=== PATIENT | female | born 1940 | race Two or more races ===

== ENCOUNTER 2019-08-27 23:43 | Inpatient (IN) | payer MEDICARE, MEDICAID ==
[~2019-08-27] VITALS: Ht 160 cm; Wt 81.6 kg
[2019-08-27 23:55] VITALS: BP 133/81
[2019-08-27] MEDS ORDERED: LORAZEPAM0.5 MG ORAL (23:55)
[2019-08-27] MEDS ORDERED: LEVSIN0.125 MG SL (23:55)
[2019-08-27] MEDS ORDERED: IPRATROPIU0.2 MG/1 M HHN (23:55)
[2019-08-27] MEDS ORDERED: ZOFRAN4 M3 ORAL (23:55)
[2019-08-27] MEDS ORDERED: BISACODYL5 MG RECTAL (23:55)
--- NOTE | 2019-08-28 00:04 | Emergency Room Report ---
History of Present Illness General Chief Complaint: Generalized Weakness Source: Medical Record, EMS Present Illness HPI 78-year-old female history of CHF, MS, schizophrenia presents with failure to thrive, patient was sent in from hospice, family requested patient be sent to hospital for failure to thrive unknown aggravating relieving factors severity is severe, constant unknown start time, patient was sent to the hospital for IV hydration, she is currently full code but was in hospice care. Allergies: Coded Allergies: No Known Allergies (Unverified , 08/27/19) Patient History Limited by: medical condition - AMS Past Medical History: see triage record Reviewed Nursing Documentation: PMH: Agreed; PSxH: Agreed Nursing Documentation-PMH Hx Hypertension: Yes Hx COPD: Yes - dyspnea Review of Systems All Other Systems: limited - AMS Physical Exam Vital Signs Date Time Temp Pulse Resp B/P (MAP) Pulse Ox O2 Delivery O2 Flow Rate FiO2 08/27/19 23:46 98.8 102 14 133/81 (98) 96 Nasal Cannula 3.0 Sp02 EP Interpretation: reviewed, normal General Appearance: cachetic, Chronically Ill Head: normocephalic, atraumatic Eyes: bilateral eye PERRL, bilateral eye EOMI ENT: uvula midline, dry mucus membranes Neck: supple, thyroid normal, supple/symm/no masses Respiratory: lungs clear, no respiratory distress, no retraction, no accessory muscle use Cardiovascular #1: normal peripheral pulses, regular rate, rhythm, no edema, no gallop, no murmur Gastrointestinal: non tender, soft, no guarding, no rebound Musculoskeletal: normal inspection Neurologic: other - unresponsive Skin: warm/dry Procedures Critical Care Time Critical Care Time Given the critical condition in which the patient arrived, the patient was immediately assessed by myself and the nurse, and cardiac monitoring initiated due to the potential for rapid decompensation of the patient's clinical condition. During the course of the patient's stay, I spent a considerable amount of time at the bedside performing serial re-evaluations of the patient's hemodynamic and clinical status because of the recognized potential threat to life or limb in this condition. I then had a chance to review not only all of the available current laboratory and radiographic studies obtained today, but I also reviewed old records available to me at the time. Additionally, any ancillary information available including commissary worker records were reviewed. Sequential vital signs were obtained. Critical Care time of 34 minutes was performed exclusive of billable procedures. Medical Decision Making Diagnostic Impression: Primary Impression: Hospice care patient Additional Impressions: Pneumonia Qualified Codes: J18.1 - Lobar pneumonia, unspecified organism Hypernatremia Dehydration Elevated troponin ER Course 78-year-old female hospice patient, unable to get in contact with Nazia Gonzalez power of attorney lawyer. Unsure whether they want further care given the fact that patient is in hospice with poor prognosis, additionally she is full code which conflicts with her initial hospice care. Spoke with power of attorney lawyer Nazia Gonzalez 1:54AM. She will be full code, they want a feeding tube inserted. Despite wanting comfort care they want her to have a full code as well as feeding tube, they want patient admitted to the hospital. They are aware of the risks of resuscitation. Broad-spectrum antibiotic started, fluid resuscitation, Lovenox given for elevated troponin, patient is not able to take anything p.o. Patient admitted to Dr. Cooney Laboratory Tests Test 08/28/19 00:40 08/28/19 01:04 White Blood Count 13.1 K/UL (4.8-10.8) H Red Blood Count 4.96 M/UL (4.20-5.40) Hemoglobin 11.3 G/DL (12.0-16.0) L Hematocrit 37.3 % (37.0-47.0) Mean Corpuscular Volume 75 FL (80-99) L Mean Corpuscular Hemoglobin 22.8 PG (27.0-31.0) L Mean Corpuscular Hemoglobin Concent 30.3 G/DL (32.0-36.0) L Red Cell Distribution Width 20.1 % (11.6-14.8) H Platelet Count 166 K/UL (150-450) Mean Platelet Volume 10.1 FL (6.5-10.1) Neutrophils (%) (Auto) 78.0 % (45.0-75.0) H Lymphocytes (%) (Auto) 16.6 % (20.0-45.0) L Monocytes (%) (Auto) 5.0 % (1.0-10.0) Eosinophils (%) (Auto) 0.1 % (0.0-3.0) Basophils (%) (Auto) 0.4 % (0.0-2.0) Prothrombin Time 11.5 SEC (9.30-11.50) Prothrombin Time INR 1.1 (0.9-1.1) PTT 29 SEC (23-33) Sodium Level 163 MMOL/L (136-145) *H Potassium Level 3.3 MMOL/L (3.5-5.1) L Chloride Level 129 MMOL/L (98-107) H Carbon Dioxide Level 28 MMOL/L (21-32) Anion Gap 5 mmol/L (5-15) Blood Urea Nitrogen 41 mg/dL (7-18) H Creatinine 1.1 MG/DL (0.55-1.30) Estimate Glomerular Filtration Rate mL/min (>60) Glucose Level 174 MG/DL (74-106) H Lactic Acid Level 1.20 mmol/L (0.4-2.0) Calcium Level 7.7 MG/DL (8.5-10.1) L Phosphorus Level 2.3 MG/DL (2.5-4.9) L Magnesium Level 2.0 MG/DL (1.8-2.4) Total Bilirubin 1.1 MG/DL (0.2-1.0) H Direct Bilirubin 0.7 MG/DL (0.0-0.3) H Aspartate Amino Transferase (AST) 29 U/L (15-37) Alanine Aminotransferase (ALT) 29 U/L (12-78) Alkaline Phosphatase 60 U/L (46-116) Total Creatine Kinase 41 U/L (26-308) Creatine Kinase MB 2.9 NG/ML (0.0-3.6) Creatine Kinase MB Relative Index 7.0 Troponin I 2.441 ng/mL (0.000-0.056) Pro-B-Type Natriuretic Peptide 9816 pg/mL (0-125) H Total Protein 6.5 G/DL (6.4-8.2) Albumin 1.9 G/DL (3.4-5.0) L Globulin 4.6 g/dL Albumin/Globulin Ratio 0.4 (1.0-2.7) L Lipase 217 U/L (73-393) Urine Color Yellow Urine Appearance Slightly cloudy Urine pH 5 (4.5-8.0) Urine Specific [place] 1.015 (1.005-1.035) Urine Protein 3+ (NEGATIVE) H Urine Glucose (UA) Negative (NEGATIVE) Urine Ketones Negative (NEGATIVE) Urine Blood 3+ (NEGATIVE) H Urine Nitrite Negative (NEGATIVE) Urine Bilirubin Negative (NEGATIVE) Urine Urobilinogen 4 MG/DL (0.0-1.0) H Urine Leukocyte Esterase 2+ (NEGATIVE) H Urine RBC 5-10 /HPF (0 - 2) H Urine WBC Tntc /HPF (0 - 2) H Urine Squamous Epithelial Cells Few /LPF (NONE/OCC) Urine Bacteria Moderate /HPF (NONE) H EKG Diagnostic Results EKG Time: 00:15 EP Interpretation: Sinus rhythm, rate 93, QTc 534, left axis deviation, no acute ST elevations Rhythm Strip Diag. Results Rhythm Strip Time: 01:33 EP Interpretation: yes Rate: 99 Rhythm: NSR, no PVC's, no ectopy Chest X-Ray Diagnostic Results Chest X-Ray Diagnostic Results : Chest X-Ray Ordered: Yes # of Views/Limited/Complete: 1 View Indication: Shortness of Breath EP Interpretation: Yes Interpretation: other - Right lower lobe consolidation, left lower lobe consolidation Impression: Other - Pneumonia Electronically Signed by: Sylvester Schmidt MD Last Vital Signs Date Time Temp Pulse Resp B/P (MAP) Pulse Ox O2 Delivery O2 Flow Rate FiO2 08/27/19 23:46 98.8 102 14 133/81 (98) 96 Nasal Cannula 3.0 Disposition: ADMITTED INPATIENT Condition: Serious Sylvester Schmidt MD Aug 28, 2019 00:04
[2019-08-28 01:10] LABS: BASOPHILS % (AUTO) 0.4 % (0.0-2.0); EOSINOPHILS % (AUTO) 0.1 % (0.0-3.0); HEMATOCRIT 37.3 % (37.0-47.0); HEMOGLOBIN 11.3 G/DL (12.0-16.0); LYMPHOCYTES % (AUTO) 16.6 % (20.0-45.0); MEAN CORPUSCULAR VOLUME 75 FL (80-99); PLATELET COUNT 166 K/UL (150-450); RED BLOOD COUNT 4.96 M/UL (4.20-5.40); RED CELL DISTRIBUTION WIDTH 20.1 % (11.6-14.8); WHITE BLOOD COUNT 13.1 K/UL (4.8-10.8)
[2019-08-28 01:21] LABS: INR 1.1 (0.9-1.1)
[2019-08-28 01:30] LABS: BILIRUBIN, URINE NEGATIVE (NEGATIVE); GLUCOSE, URINE (UA) NEGATIVE (NEGATIVE); KETONES,URINE NEGATIVE (NEGATIVE); LEUKOCYTE ESTERASE ,URINE 2+ (NEGATIVE); NITRITE,URINE NEGATIVE (NEGATIVE); PH,URINE 5 (4.5-8.0); PROTEIN,URINE 3+ (NEGATIVE); UROBILINOGEN,URINE 4 MG/DL (0.0-1.0)
[2019-08-28 01:34] LABS: ALANINE AMINOTRANSFERASE 29 U/L (12-78); ALBUMIN 1.9 G/DL (3.4-5.0); ALBUMIN/GLOBULIN RATIO 0.4 (1.0-2.7); ALKALINE PHOSPHATASE 60 U/L (46-116); ANION GAP 5 mmol/L (5-15); ASPARTATE AMINO TRANSFERASE 29 U/L (15-37); BILIRUBIN,TOTAL 1.1 MG/DL (0.2-1.0); BLOOD UREA NITROGEN 41 mg/dL (7-18); CALCIUM 7.7 MG/DL (8.5-10.1); CARBON DIOXIDE 28 MMOL/L (21-32); CHLORIDE 129 MMOL/L (98-107); CKMB 2.9 NG/ML (0.0-3.6); CREATINE KINASE 41 U/L (26-308); CREATININE 1.1 MG/DL (0.55-1.30); PHOSPHORUS 2.3 MG/DL (2.5-4.9); POTASSIUM 3.3 MMOL/L (3.5-5.1)
[2019-08-28] MEDS: Cefepime HCl 2 GM in NS 110 ML IV SCH ×2 (01:40→04:17)
[2019-08-28 01:42] LABS: SODIUM 163 MMOL/L (136-145)
[2019-08-28 01:44] LABS: APPEARANCE,URINE SLIGHTLY CLOUDY; COLOR,URINE YELLOW
[2019-08-28] MEDS ORDERED: Vancomycin 1 GM in NS 275 ML IV ONE (01:45)
[2019-08-28 01:52] LABS: BILIRUBIN,DIRECT 0.7 MG/DL (0.0-0.3)
[2019-08-28] MEDS ORDERED: Enoxaparin 60mg Inj SUBQ ONE ×2 (02:15→04:19)
[2019-08-28] MEDS ORDERED: MORPHINE S10 MG/5 ML SL (06:40)
[2019-08-28] MEDS ORDERED: ZOFRAN4 M3 SL (06:40)
[2019-08-28] MEDS ORDERED: ACETAMINOPHEN120 MG RECTAL (06:45)
[2019-08-28] MEDS ORDERED: ACETAMINOPHEN500 M5 ORAL (06:45)
[2019-08-28 08:00] VITALS: BP 129/56
--- NOTE | 2019-08-28 10:28 | Cardiac Electrophysiology PN ---
Subjective Subjective [id number] Objective Last 24 Hour Vital Signs Date Time Temp Pulse Resp B/P (MAP) Pulse Ox O2 Delivery O2 Flow Rate FiO2 08/28/19 08:00 2.0 08/28/19 08:00 Nasal Cannula 2.0 08/28/19 08:00 105 08/28/19 06:32 Nasal Cannula 2.0 08/27/19 23:55 102 14 Nasal Cannula 3.0 08/27/19 23:55 98.8 111 14 133/81 96 Nasal Cannula 3.0 08/27/19 23:46 98.8 102 14 133/81 (98) 96 Nasal Cannula 3.0 Intake and Output 08/27/19 08/28/19 18:59 06:59 Intake Total 0 ml Balance 0 ml Intake Oral 0 ml Laboratory Tests Test 08/28/19 00:40 08/28/19 01:04 White Blood Count 13.1 K/UL (4.8-10.8) H Red Blood Count 4.96 M/UL (4.20-5.40) Hemoglobin 11.3 G/DL (12.0-16.0) L Hematocrit 37.3 % (37.0-47.0) Mean Corpuscular Volume 75 FL (80-99) L Mean Corpuscular Hemoglobin 22.8 PG (27.0-31.0) L Mean Corpuscular Hemoglobin Concent 30.3 G/DL (32.0-36.0) L Red Cell Distribution Width 20.1 % (11.6-14.8) H Platelet Count 166 K/UL (150-450) Mean Platelet Volume 10.1 FL (6.5-10.1) Neutrophils (%) (Auto) 78.0 % (45.0-75.0) H Lymphocytes (%) (Auto) 16.6 % (20.0-45.0) L Monocytes (%) (Auto) 5.0 % (1.0-10.0) Eosinophils (%) (Auto) 0.1 % (0.0-3.0) Basophils (%) (Auto) 0.4 % (0.0-2.0) Prothrombin Time 11.5 SEC (9.30-11.50) Prothromb Time International Ratio 1.1 (0.9-1.1) Activated Partial Thromboplast Time 29 SEC (23-33) Sodium Level 163 MMOL/L (136-145) *H Potassium Level 3.3 MMOL/L (3.5-5.1) L Chloride Level 129 MMOL/L (98-107) H Carbon Dioxide Level 28 MMOL/L (21-32) Anion Gap 5 mmol/L (5-15) Blood Urea Nitrogen 41 mg/dL (7-18) H Creatinine 1.1 MG/DL (0.55-1.30) Estimat Glomerular Filtration Rate mL/min (>60) Glucose Level 174 MG/DL (74-106) H Lactic Acid Level 1.20 mmol/L (0.4-2.0) Calcium Level 7.7 MG/DL (8.5-10.1) L Phosphorus Level 2.3 MG/DL (2.5-4.9) L Magnesium Level 2.0 MG/DL (1.8-2.4) Total Bilirubin 1.1 MG/DL (0.2-1.0) H Direct Bilirubin 0.7 MG/DL (0.0-0.3) H Aspartate Amino Transf (AST/SGOT) 29 U/L (15-37) Alanine Aminotransferase (ALT/SGPT) 29 U/L (12-78) Alkaline Phosphatase 60 U/L (46-116) Total Creatine Kinase 41 U/L (26-308) Creatine Kinase MB 2.9 NG/ML (0.0-3.6) Creatine Kinase MB Relative Index 7.0 Troponin I 2.441 ng/mL (0.000-0.056) Pro-B-Type Natriuretic Peptide 9816 pg/mL (0-125) H Total Protein 6.5 G/DL (6.4-8.2) Albumin 1.9 G/DL (3.4-5.0) L Globulin 4.6 g/dL Albumin/Globulin Ratio 0.4 (1.0-2.7) L Lipase 217 U/L (73-393) Urine Color Yellow Urine Appearance Slightly cloudy Urine pH 5 (4.5-8.0) Urine Specific [place] 1.015 (1.005-1.035) Urine Protein 3+ (NEGATIVE) H Urine Glucose (UA) Negative (NEGATIVE) Urine Ketones Negative (NEGATIVE) Urine Blood 3+ (NEGATIVE) H Urine Nitrite Negative (NEGATIVE) Urine Bilirubin Negative (NEGATIVE) Urine Urobilinogen 4 MG/DL (0.0-1.0) H Urine Leukocyte Esterase 2+ (NEGATIVE) H Urine RBC 5-10 /HPF (0 - 2) H Urine WBC Tntc /HPF (0 - 2) H Urine Squamous Epithelial Cells Few /LPF (NONE/OCC) Urine Bacteria Moderate /HPF (NONE) H Microbiology Date/Time Source Procedure Growth Status 08/28/19 05:00 Rectum Received Markie Oliveira MD Aug 28, 2019 10:28
--- NOTE | 2019-08-28 11:04 | Diagnostic Imaging Report ---
Indication: Dyspnea Comparison: None A single view chest radiograph was obtained. Findings: There is evidence of a small bilateral pleural effusions with hazy groundglass opacities at both lung bases obscuring the diaphragm. The heart is enlarged. There is mild pulmonary vascular congestion present. Bones are slightly osteopenic. IMPRESSION: Suspected mild pulmonary vascular congestion. Bilateral pleural effusions
[2019-08-28 12:00] VITALS: BP 125/85
[2019-08-28] MEDS ORDERED: Metoprolol 25mg tab NG SCH (12:00)
[2019-08-28] MEDS: NovoLOG Insulin Flexpen SUBQ SCH ×3 (12:56→20:24)
[2019-08-28] MEDS: Piperacillin/Tazobactam 3.375 GM in D5W 110 ML IVPB SCH ×2 (13:44→21:41)
--- NOTE | 2019-08-28 15:40 | Diagnostic Imaging Report ---
Indication: NG tube placement Comparison: None Single view of the abdomen obtained Findings: NG tube is in good position with the proximal and distal ports well within the stomach lumen. Contrast noted in the colon. IMPRESSION: NG tube in good position
[2019-08-28] MEDS: Metoprolol 25mg tab NG SCH ×2 (15:51→20:17)
[2019-08-28 16:00] VITALS: BP 134/50
--- NOTE | 2019-08-28 17:00 | Consultation ---
DATE OF CONSULTATION: 08/28/2019 CARDIOLOGY CONSULTATION CONSULTING PHYSICIAN: Markie Oliveira M.D. REFERRING PHYSICIAN: Marc Cooney M.D. REASON FOR CONSULTATION: Xfm-[id number]-bqemagrhy myocardial infarction, congestive heart failure. HISTORY OF PRESENT ILLNESS: The patient is a 78-year-old lady with history of hypertension, congestive heart failure, diabetes, hyperlipidemia, and schizophrenia who was sent from hospice at the family's request. The patient is in the hospital for failure to thrive. The patient was found to be severely dehydrated with hypernatremia with a sodium of 163. Troponin was also elevated at 2.44 with BNP of 9816. Potassium was also 3.3. The patient was admitted and Cardiology consultation was obtained for further evaluation. The patient was intact with tachycardia with frequent PACs and PVCs. At the time of my evaluation, the patient is nonverbal and is not able to provide any information. REVIEW OF SYSTEMS: Cannot be obtained. PAST MEDICAL HISTORY: As mentioned above. FAMILY HISTORY: Noncontributory. SOCIAL HISTORY: She was in hospice care , does not smoke or drink alcohol. PHYSICAL EXAMINATION: VITAL SIGNS: Blood pressure is 132/81, pulse is 105, respirations 18, and temperature 98.8. HEAD AND NECK: Shows no JVD. LUNGS: Coarse rhonchi. CARDIOVASCULAR: Shows tachycardic and irregular S1 and S2 with no gallop or murmur. ABDOMEN: Soft. EXTREMITIES: No pitting edema. LABORATORY DATA: Labs show white count of 13.1, hemoglobin 11.2, hematocrit 37.3, and platelet count of 166,000. Sodium 162, potassium 3.2, BUN of 41, creatinine of 1.1, and glucose of 174. Troponin is 2.441. EKG shows sinus rhythm with frequent PACs and PVCs with nonspecific ST-T wave abnormalities. ASSESSMENT AND PLAN: 1. Pen-DI-gkugsfyaf myocardial infarction. Troponin is 2.441. This may be related to the patient's severe dehydration as well. The patient does not have any chest pain and was on hospice care. We will treat the patient medically at this time, put on aspirin and beta-alison, and completely rule out NH protocol and get an echocardiogram. 2. Hypertension. Again, use beta alison. The patient with elevated troponin. 3. Severe hypernatremia. Sodium 163 and azotemia with BUN of 41, creatinine of 1.1. The patient is required to be hydrated and started on D5 1/[address] Cooney. 4. History of schizophrenia. 5. Elevated white count 13,000. The patient is on vancomycin and Zosyn. Thank you very much, Dr. Cooney, for allowing me to participate in the care of this patient. Please do not hesitate to contact me for any questions regarding my evaluation. Markie Oliveira M.D. DR: CONOR JOB#: [id number] CC:
--- NOTE | 2019-08-28 17:15 | Consultation ---
DATE OF CONSULTATION: 08/28/2019 INFECTIOUS DISEASE CONSULTATION This consult is for coverage of Dr. Rios. CONSULTING PHYSICIAN: Willian Ribeiro M.D. PRIMARY ATTENDING: Osmar Cooney M.D. REASON FOR CONSULT: Sepsis, UTI, pneumonia. HISTORY OF PRESENT ILLNESS: This is a 78-year-old female admitted today from nursing facility for failure to thrive. The patient was on hospice care and the family was concerned about the weight loss and the patient was transferred to the hospital. In hospital, the patient had tachycardia and leukocytosis. She is nonverbal, obtunded, not a source of history. PAST MEDICAL HISTORY: Significant for hypertension, COPD, diabetes mellitus, major depression. ALLERGIES: No known drug allergies. MEDICATIONS: Getting aspirin, vancomycin, Zosyn, metoprolol, insulin, sodium chloride. SOCIAL HISTORY: Single. halfway resident. No other history obtainable by the patient. REVIEW OF SYSTEMS: Not obtainable. PHYSICAL EXAMINATION: VITAL SIGNS: Temperature 98.8, pulse is 105, blood pressure 133/81. GENERAL APPEARANCE: No acute distress. Seems to have normal weight. HEAD AND NECK: Halley conjunctivae. HEART: Tachycardic. LUNGS: Clear. ABDOMEN: Soft. GENITOURINARY: Has Iraheta catheter that was placed in the hospital. EXTREMITIES: Has no edema. SKIN: Has no pressure ulcer. LABORATORY DATA: UA showed WBC too numerous to count, leukocyte esterase 2+, blood 3+. Sodium 163, chloride 129, potassium 3.3, bicarb 28, BUN 41, creatinine 1.1. Troponin 2.4. BNP elevated 9816. Albumin 1.9. Phosphorus 2.3. Bilirubin 1.1. Glucose 174. WBC 13.1, hemoglobin 11.3, hematocrit 37.3, platelets 166. IMPRESSION: Sepsis with leukocytosis and tachycardia. The patient seems to have pyuria, UTI. May have pneumonia. Chest x-ray report is pending. Has history of COPD. Has hypernatremia, azotemia, diabetes mellitus, elevated troponin. RECOMMENDATION: We will continue with vancomycin and Zosyn. We will follow up the cultures including urine and blood cultures. We will follow up the chest x-ray report. At the end of my exam, I thank Dr. Cooney for involving me in the care of this patient. Willian Ribeiro M.D. DR: NICOLE JOB#: [id number] CC:
--- NOTE | 2019-08-28 17:45 | Consultation ---
DATE OF CONSULTATION: 08/28/2019 PULMONARY CONSULTATION CONSULTING PHYSICIAN: Jaiden Logan M.D. HISTORY OF PRESENT ILLNESS: This is a 78-year-old female, who has been under hospice. She has remained a Full Code and was sent in by her family/power of state's attorney for hydration, apparently they wanted a feeding tube inserted as well. The patient was found to be had leukocytosis as well as hypernatremia and was admitted to the hospital for subsequent management and care. PAST MEDICAL HISTORY: Notable for history of hypertension, COPD, previous hospice status. ALLERGIES: None. HOME MEDICATIONS: Reviewed and reconciled in the chart. REVIEW OF SYSTEMS: Not obtainable. PHYSICAL EXAMINATION: GENERAL: Reveals a 78-year-old female who appears cachectic. HEENT: Unremarkable. CHEST: Clear breath sounds bilaterally. Normal heart sounds. ABDOMEN: Soft. EXTREMITIES: There is no appreciable edema. VITAL SIGNS: Blood pressure at this time is 130/80, heart rate 104, respirations 16, she is afebrile, O2 saturation 98% on 3 L of oxygen. IMAGING STUDIES: An x-ray of the chest has confirmed pneumonia. This is right lower lobe as well as left lower lobe. Her other laboratory testing shows pyuria, albumin 1.9, creatinine 1.1, sodium 163, potassium 3.3. White count 13,000. IMPRESSION: 1. COPD. 2. Hypertension. 3. Severe hypernatremia. 4. Dehydration. 5. Bilateral pneumonia. 6. Severe protein-calorie malnutrition. DISCUSSION: Agree with admission and care. The patient needs hypotonic fluids, which have been ordered. She has also been started on broad-spectrum antibiotics and potassium replacement therapy. She is also on vancomycin and cefepime. I will follow as tap out operator. Currently she is saturating well on nasal oxygen. We will discuss with attending physician and GI when available. Jaiden Logan M.D. DR: TALHA JOB#: [id number] CC:
[2019-08-28 20:00] VITALS: BP 107/64
[2019-08-28] MEDS: Vancomycin 750mg/D5W 275ml IVPB SCH ×2 (20:17)
--- NOTE | 2019-08-28 22:01 | History and Physical Report ---
DATE OF ADMISSION: 08/28/2019 HISTORY OF PRESENT ILLNESS: This is a 78-year-old female who was recently at [facility] for acute COPD, CHF, hypertension, metabolic encephalopathy. Family at that time they decided for her to go to skilled nursing with hospice care. The patient was transferred last night and suddenly she was confused, altered, and hypotensive. The patient was discussed by herself and they decided to send her hospital and make a Full Code. Hospice was withdrawn. The patient is currently nonverbal, lethargic, and blood pressure is fine. Also was found hypernatremia as well as renal insufficiency. The patient is currently bedridden. NG tube in place. PHYSICAL EXAMINATION: VITAL SIGNS: Her current blood pressure 143/60, pulse 110, respirations 20s, no fever. SKIN: Poor skin turgor. HEENT: Eyes are open. NECK: Supple. CHEST: Bilateral scattered crackles and wheezing. CARDIOVASCULAR: Regular rhythm. No gallop. No murmur. ABDOMEN: Soft. EXTREMITIES: CCE. NEUROLOGICAL: Generalized weakness. GENITOURINARY: Deferred. LABORATORY EXAMINATION: Sodium 163, potassium 3.3, BUN 41, creatinine 1.1. Her BNP is 9816. Her hematology, white counts are 13, hemoglobin 11, hematocrit 33, and platelets are 166. Urine 4+ urobilinogen, 2+ leukocyte esterase, 3+ protein, moderate bacteria. Her abdominal x-ray was showing NG tube was in position. Chest x-ray was showing suspected mild bilateral pleural effusions. ASSESSMENT: 1. Acute hypoxia. 2. Cardiac arrhythmia. 3. Hypertension. 4. CHF. 5. Acute renal failure. 6. Hypernatremia. PLAN: 1. We will change IV fluid. 2. Potassium replacement. 3. Continue cardiac treatment. 4. Continue vancomycin, Zosyn, metoprolol. 5. Cardiology and Pulmonary is on case. 6. Start NG tube feeding. 7. Discontinue IV fluid. 8. Add Lasix. 9. Consider Nephrology consult. Osmar Cooney M.D. DR: BYRON JOB#: [id number] CC:
[2019-08-29] VITALS: BP 105/60
[2019-08-29] MEDS: Albuterol/Ipratropium 3ml neb HHN SCH ×5 (01:00→19:16)
[2019-08-29 04:00] VITALS: BP 141/54
[2019-08-29] MEDS: Piperacillin/Tazobactam 3.375 GM in D5W 110 ML IVPB SCH ×3 (05:33→21:51)
[2019-08-29 05:34] LABS: HEMATOCRIT 34.4 % (37.0-47.0); HEMOGLOBIN 10.5 G/DL (12.0-16.0); MEAN CORPUSCULAR VOLUME 76 FL (80-99); PLATELET COUNT 130 K/UL (150-450); WHITE BLOOD COUNT 18.4 K/UL (4.8-10.8)
[2019-08-29] MEDS: NovoLOG Insulin Flexpen SUBQ SCH ×3 (05:34→18:07)
[2019-08-29 06:13] LABS: ALANINE AMINOTRANSFERASE 28 U/L (12-78); ALBUMIN/GLOBULIN RATIO 0.4 (1.0-2.7); ALKALINE PHOSPHATASE 75 U/L (46-116); ANION GAP 8 mmol/L (5-15); ASPARTATE AMINO TRANSFERASE 42 U/L (15-37); BILIRUBIN,TOTAL 1.3 MG/DL (0.2-1.0); BLOOD UREA NITROGEN 45 mg/dL (7-18); CALCIUM 8.2 MG/DL (8.5-10.1); CARBON DIOXIDE 23 MMOL/L (21-32); CHLORIDE 125 MMOL/L (98-107); CREATININE 1.1 MG/DL (0.55-1.30); POTASSIUM 4.1 MMOL/L (3.5-5.1); SODIUM 156 MMOL/L (136-145)
[2019-08-29 06:35] LABS: BILIRUBIN,DIRECT 0.6 MG/DL (0.0-0.3)
[2019-08-29 08:00] VITALS: BP 131/46
[2019-08-29] MEDS: Metoprolol 25mg tab NG SCH ×2 (08:20→21:00)
[2019-08-29] MEDS ORDERED: Aspirin Baby 81mg NG SCH (09:00)
--- NOTE | 2019-08-29 10:44 | Pulmonology Progress Note ---
Assessment/Plan Assessment/Plan IMPRESSION: 1. COPD. 2. Hypertension. 3. Severe hypernatremia. 4. Dehydration. 5. Bilateral pneumonia. 6. Severe protein-calorie malnutrition. DISCUSSION: Agree with admission and care. The patient needs hypotonic fluids, which have been ordered. She has also been started on broad-spectrum antibiotics and potassium replacement therapy. She is also on vancomycin and cefepime. 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 Currently she is saturating well on nasal oxygen. She Will likely need G-tube. Jaiden Logan M.D. Subjective Interval Events: seen in [facility]. Very poorly responsive. On nasal oxygen. NG tube in place Constitutional: Reports: no symptoms HEENT: Repors: no symptoms Respiratory: Reports: no symptoms Cardiovascular: Reports: no symptoms Gastrointestinal/Abdominal: Reports: no symptoms Allergies: Coded Allergies: No Known Allergies (Unverified , 08/27/19) Objective Last 24 Hour Vital Signs Date Time Temp Pulse Resp B/P (MAP) Pulse Ox O2 Delivery O2 Flow Rate FiO2 08/29/19 08:20 54 08/29/19 08:00 2.0 08/29/19 08:00 Nasal Cannula 2.0 08/29/19 08:00 98.0 54 24 131/46 (74) 100 08/29/19 07:33 41 22 100 Nasal Cannula 2.0 28 44 22 99 08/29/19 04:00 2.0 08/29/19 04:00 97.7 74 20 141/54 (83) 100 08/29/19 04:00 Nasal Cannula 2.0 08/29/19 03:55 80 08/29/19 01:00 59 20 100 Nasal Cannula 2.0 28 08/29/19 00:00 72 08/29/19 00:00 98.9 72 20 105/60 (75) 99 08/29/19 00:00 2.0 08/29/19 00:00 Nasal Cannula 2.0 08/28/19 20:17 45 107/64 08/28/19 20:00 97.3 70 22 107/64 (78) 97 08/28/19 20:00 Nasal Cannula 2.0 08/28/19 20:00 2.0 08/28/19 19:51 64 08/28/19 16:00 Nasal Cannula 2.0 08/28/19 16:00 96 08/28/19 16:00 2.0 08/28/19 16:00 98.8 87 25 134/50 (78) 100 08/28/19 15:51 110 143/60 08/28/19 12:00 2.0 08/28/19 12:00 Nasal Cannula 2.0 08/28/19 12:00 97.8 111 28 125/85 (98) 100 08/28/19 11:32 111 Intake and Output 08/28/19 08/29/19 19:00 07:00 Intake Total 1849.0 ml 1818.8885 ml Output Total 200 ml Balance 1649.0 ml 1818.8885 ml Free Water 30 ml 75 ml IV Total 1810.0 ml 1558.8885 ml Tube Feeding 9 ml 185 ml Output Urine Total 200 ml General Appearance: no acute distress HEENT: normocephalic Respiratory/Chest: chest wall non-tender, decreased breath sounds Cardiovascular: normal peripheral pulses, normal rate Microbiology Date/Time Source Procedure Growth Status 08/28/19 00:48 Blood Blood Culture - Preliminary NO GROWTH AFTER 24 HOURS Resulted 08/28/19 00:40 Blood Blood Culture - Preliminary NO GROWTH AFTER 24 HOURS Resulted 08/28/19 01:04 Urine,Clean Catch Urine Culture - Preliminary Gram Positive Cocci Resulted 08/28/19 05:00 Rectum Received Laboratory Tests 08/28/19 12:05: Troponin I 1.911H 08/28/19 20:10: Troponin I 1.546H 08/29/19 04:40: Troponin I 1.248H, White Blood Count 18.4H, Red Blood Count 4.50, Hemoglobin 10.5L, Hematocrit 34.4L, Mean Corpuscular Volume 76L, Mean Corpuscular Hemoglobin 23.2L, Mean Corpuscular Hemoglobin Concent 30.4L, Red Cell Distribution Width 21.0H, Platelet Count 130L, Mean Platelet Volume 9.8, Neutrophils (%) (Auto) , Lymphocytes (%) (Auto) , Monocytes (%) (Auto) , Eosinophils (%) (Auto) , Basophils (%) (Auto) , Differential Total Cells Counted 100, Neutrophils % (Manual) 79H, Lymphocytes % (Manual) 15L, Monocytes % (Manual) 6, Eosinophils % (Manual) 0, Basophils % (Manual) 0, Band Neutrophils 0, Nucleated Red Blood Cells , Platelet Estimate DecreasedL, Platelet Morphology Normal, Hypochromasia 1+, Anisocytosis 2+, Microcytosis 1+, Sodium Level 156H, Potassium Level 4.1, Chloride Level 125H, Carbon Dioxide Level 23, Anion Gap 8, Blood Urea Nitrogen 45H, Creatinine 1.1, Estimat Glomerular Filtration Rate , Glucose Level 192H, Calcium Level 8.2L, Total Bilirubin 1.3H, Direct Bilirubin 0.6H, Aspartate Amino Transf (AST/SGOT) 42H, Alanine Aminotransferase (ALT/SGPT) 28, Alkaline Phosphatase 75, Total Protein 6.9, Albumin 2.0L, Globulin 4.9, Albumin/Globulin Ratio 0.4L Current Medications Medications (Trade) Dose Ordered Sig/Colt Route PRN Reason Start Time Stop Time Status Last Admin Dose Admin Albuterol/ Ipratropium (Albuterol/ Ipratropium) 3 ml Q6HRT HHN 08/29/19 00:00 09/03/19 00:00 08/29/19 07:18 Aspirin (ASA) 81 mg DAILY NG 08/29/19 09:00 09/28/19 08:59 08/29/19 08:21 Dextrose 1,000 ml @ 75 mls/hr [id number] IV 08/29/19 09:45 09/28/19 09:44 08/29/19 10:19 Dextrose (Dextrose 50%) 25 ml Q30M PRN IV Hypoglycemia 08/28/19 08:00 09/27/19 07:59 Dextrose (Dextrose 50%) 50 ml Q30M PRN IV Hypoglycemia 08/28/19 08:00 09/27/19 07:59 Insulin Aspart (NovoLOG) Q6HR SUBQ 08/29/19 12:00 09/27/19 11:29 Metoprolol Tartrate (Lopressor) 25 mg Q12HR NG 08/28/19 12:00 09/27/19 11:59 08/28/19 15:51 Piperacillin Sod/ Tazobactam Sod 3.375 gm/Dextrose 110 ml @ 27.5 mls/hr EVERY 8 HOURS IVPB 08/28/19 14:00 09/02/19 13:59 08/29/19 05:33 Vancomycin HCl (Vanco rx to dose) 1 ea DAILY PRN MISC Per rx protocol 08/28/19 08:00 09/27/19 07:59 Vancomycin HCl 750 mg/Dextrose 275 ml @ 183.333 mls/hr Q24H IVPB 08/28/19 20:00 09/02/19 19:59 08/28/19 20:17 Jaiden Logan MD Aug 29, 2019 10:44
[2019-08-29] MEDS ORDERED: Nitroglycerin Patch 0.4mg TDERMAL SCH (11:00)
--- NOTE | 2019-08-29 11:03 | Consultation ---
Consult Note Consult Note asked to eval at the request of dr Cooney for fluid management patient was previously Hospice , now changed to full code ! ER 78-year-old female history of CHF, MS, schizophrenia presents with failure to thrive, patient was sent in from hospice, family requested patient be sent to hospital for failure to thrive unknown aggravating relieving factors severity is severe, constant unknown start time, patient was sent to the hospital for IV hydration, she is currently full code but was in hospice care. No Known Allergies (Unverified , 08/27/19) Hx Hypertension: Yes Hx COPD: Yes - dyspnea patient examined data reviewed discussed with community services coordinator/Plan Dehydration leading to HyperNatremia HypoAlbuminemia / Mal nutrition Elevated Troponin NSTEMI COPD HTN Pneumonia D5W IV Monitor BS and BP Monitor renal parameters Per consultants ASA and Nitro Kaden Chance MD Aug 29, 2019 11:03
[2019-08-29 11:07] LABS: PHOSPHORUS 2.2 MG/DL (2.5-4.9)
--- NOTE | 2019-08-29 11:37 | Infectious Diseases Prog Note ---
Assessment/Plan Assessment/Plan IMPRESSION: Bacteremia Sepsis UTI. Pleural effusion Has history of COPD. hypernatremia, azotemia, diabetes mellitus, elevated troponin. RECOMMENDATION: We will continue with vancomycin and Zosyn. We will follow up the cultures. Subjective ROS Limited/Unobtainable: Yes Constitutional: Denies: fever Allergies: Coded Allergies: No Known Allergies (Unverified , 08/27/19) Objective Vital Signs Last 24 Hour Vital Signs Date Time Temp Pulse Resp B/P (MAP) Pulse Ox O2 Delivery O2 Flow Rate FiO2 08/29/19 08:20 54 08/29/19 08:00 2.0 08/29/19 08:00 72 08/29/19 08:00 Nasal Cannula 2.0 08/29/19 08:00 98.0 54 24 131/46 (74) 100 08/29/19 07:33 41 22 100 Nasal Cannula 2.0 28 44 22 99 08/29/19 04:00 2.0 08/29/19 04:00 97.7 74 20 141/54 (83) 100 08/29/19 04:00 Nasal Cannula 2.0 08/29/19 03:55 80 08/29/19 01:00 59 20 100 Nasal Cannula 2.0 28 08/29/19 00:00 72 08/29/19 00:00 98.9 72 20 105/60 (75) 99 08/29/19 00:00 2.0 08/29/19 00:00 Nasal Cannula 2.0 08/28/19 20:17 45 107/64 08/28/19 20:00 97.3 70 22 107/64 (78) 97 08/28/19 20:00 Nasal Cannula 2.0 08/28/19 20:00 2.0 08/28/19 19:51 64 08/28/19 16:00 Nasal Cannula 2.0 08/28/19 16:00 96 08/28/19 16:00 2.0 08/28/19 16:00 98.8 87 25 134/50 (78) 100 08/28/19 15:51 110 143/60 08/28/19 12:00 2.0 08/28/19 12:00 Nasal Cannula 2.0 08/28/19 12:00 97.8 111 28 125/85 (98) 100 Height (Feet): 5 Height (Inches): 3.00 Weight (Pounds): 158 HEENT: mucous membranes moist Respiratory/Chest: lungs clear Cardiovascular: bradycardia Abdomen: soft, non tender, other - NGT tube feeding Extremities: other - left hand edema Neurologic/Psychiatric: unresponsiveness Microbiology Date/Time Source Procedure Growth Status 08/28/19 00:48 Blood Blood Culture - Preliminary NO GROWTH AFTER 24 HOURS Resulted 08/28/19 00:40 Blood Blood Culture - Preliminary Resulted 08/28/19 01:04 Urine,Clean Catch Urine Culture - Preliminary Gram Positive Cocci Resulted 08/28/19 05:00 Rectum Received Laboratory Tests Test 08/28/19 12:05 08/28/19 20:10 08/29/19 04:40 08/29/19 10:30 Troponin I 1.911 ng/mL (0.000-0.056) 1.546 ng/mL (0.000-0.056) 1.248 ng/mL (0.000-0.056) White Blood Count 18.4 K/UL (4.8-10.8) H Red Blood Count 4.50 M/UL (4.20-5.40) Hemoglobin 10.5 G/DL (12.0-16.0) L Hematocrit 34.4 % (37.0-47.0) L Mean Corpuscular Volume 76 FL (80-99) L Mean Corpuscular Hemoglobin 23.2 PG (27.0-31.0) L Mean Corpuscular Hemoglobin Concent 30.4 G/DL (32.0-36.0) L Red Cell Distribution Width 21.0 % (11.6-14.8) H Platelet Count 130 K/UL (150-450) L Mean Platelet Volume 9.8 FL (6.5-10.1) Neutrophils (%) (Auto) % (45.0-75.0) Lymphocytes (%) (Auto) % (20.0-45.0) Monocytes (%) (Auto) % (1.0-10.0) Eosinophils (%) (Auto) % (0.0-3.0) Basophils (%) (Auto) % (0.0-2.0) Differential Total Cells Counted 100 Neutrophils % (Manual) 79 % (45-75) H Lymphocytes % (Manual) 15 % (20-45) L Monocytes % (Manual) 6 % (1-10) Eosinophils % (Manual) 0 % (0-3) Basophils % (Manual) 0 % (0-2) Band Neutrophils 0 % (0-8) Nucleated Red Blood Cells /100 WBC Platelet Estimate Decreased L Platelet Morphology Normal Hypochromasia 1+ Anisocytosis 2+ Microcytosis 1+ Sodium Level 156 MMOL/L (136-145) H Potassium Level 4.1 MMOL/L (3.5-5.1) Chloride Level 125 MMOL/L (98-107) H Carbon Dioxide Level 23 MMOL/L (21-32) Anion Gap 8 mmol/L (5-15) Blood Urea Nitrogen 45 mg/dL (7-18) H Creatinine 1.1 MG/DL (0.55-1.30) Estimat Glomerular Filtration Rate mL/min (>60) Glucose Level 192 MG/DL (74-106) H Calcium Level 8.2 MG/DL (8.5-10.1) L Total Bilirubin 1.3 MG/DL (0.2-1.0) H Direct Bilirubin 0.6 MG/DL (0.0-0.3) H Aspartate Amino Transf (AST/SGOT) 42 U/L (15-37) H Alanine Aminotransferase (ALT/SGPT) 28 U/L (12-78) Alkaline Phosphatase 75 U/L (46-116) Total Protein 6.9 G/DL (6.4-8.2) Albumin 2.0 G/DL (3.4-5.0) L Globulin 4.9 g/dL Albumin/Globulin Ratio 0.4 (1.0-2.7) L Uric Acid 7.1 MG/DL (2.6-7.2) Phosphorus Level 2.2 MG/DL (2.5-4.9) L Magnesium Level 2.2 MG/DL (1.8-2.4) Vitamin B12 Level Pending Folate Pending Current Medications Medications (Trade) Dose Ordered Sig/Colt Route PRN Reason Start Time Stop Time Status Last Admin Dose Admin Albuterol/ Ipratropium (Albuterol/ Ipratropium) 3 ml Q6HRT HHN 08/29/19 00:00 09/03/19 00:00 08/29/19 07:18 Aspirin (ASA) 81 mg DAILY NG 08/29/19 09:00 09/28/19 08:59 08/29/19 08:21 Dextrose 500 ml @ 500 mls/hr ONCE ONCE IV 08/29/19 11:00 08/29/19 11:59 Dextrose 1,000 ml @ 75 mls/hr [id number] IV 08/29/19 09:45 09/28/19 09:44 08/29/19 10:19 Dextrose (Dextrose 50%) 25 ml Q30M PRN IV Hypoglycemia 08/28/19 08:00 09/27/19 07:59 Dextrose (Dextrose 50%) 50 ml Q30M PRN IV Hypoglycemia 08/28/19 08:00 09/27/19 07:59 Insulin Aspart (NovoLOG) Q6HR SUBQ 08/29/19 12:00 09/27/19 11:29 Metoprolol Tartrate (Lopressor) 25 mg Q12HR NG 08/28/19 12:00 09/27/19 11:59 08/28/19 15:51 Nitroglycerin (Ntg) 1 patch Q24H TDERMAL 08/29/19 11:00 09/28/19 10:59 Piperacillin Sod/ Tazobactam Sod 3.375 gm/Dextrose 110 ml @ 27.5 mls/hr EVERY 8 HOURS IVPB 08/28/19 14:00 09/02/19 13:59 08/29/19 05:33 Vancomycin HCl (Vanco rx to dose) 1 ea DAILY PRN MISC Per rx protocol 08/28/19 08:00 09/27/19 07:59 Vancomycin HCl 750 mg/Dextrose 275 ml @ 183.333 mls/hr Q24H IVPB 08/28/19 20:00 09/02/19 19:59 08/28/19 20:17 Willian Ribeiro MD Aug 29, 2019 11:37
[2019-08-29 12:00] VITALS: BP 120/54
--- NOTE | 2019-08-29 12:17 | Cardiac Electrophysiology PN ---
Assessment/Plan Assessment/Plan 1. [id number] myocardial infarction. Peak Troponin is 2.441 and now is down to 1.5. This may be related to the patient's severe dehydration as well. The patient does not have any chest pain and was on hospice care. We will treat the patient medically at this time, put on aspirin. Hold beta-alison for bradycardia 2. 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 Add Lisinopril 10 daily 4. NSVT and frequent PVCs likely due to CMP 5. Severe hypernatremia. Sodium 163 and azotemia with BUN of 41, creatinine of 1.1. Getting hydrated on D5 1/[address] Cooney. Improving 6. History of schizophrenia. 7. Elevated white count 13,000. The patient is on vancomycin and Zosyn. SMILEY RN Subjective Subjective Had NSVT and gabe episodes mostly due to frequent PVCs. NG feeding on going Objective Last 24 Hour Vital Signs Date Time Temp Pulse Resp B/P (MAP) Pulse Ox O2 Delivery O2 Flow Rate FiO2 08/29/19 08:20 54 08/29/19 08:00 2.0 08/29/19 08:00 72 08/29/19 08:00 Nasal Cannula 2.0 08/29/19 08:00 98.0 54 24 131/46 (74) 100 08/29/19 07:33 41 22 100 Nasal Cannula 2.0 28 44 22 99 08/29/19 04:00 2.0 08/29/19 04:00 97.7 74 20 141/54 (83) 100 08/29/19 04:00 Nasal Cannula 2.0 08/29/19 03:55 80 08/29/19 01:00 59 20 100 Nasal Cannula 2.0 28 08/29/19 00:00 72 08/29/19 00:00 98.9 72 20 105/60 (75) 99 08/29/19 00:00 2.0 08/29/19 00:00 Nasal Cannula 2.0 08/28/19 20:17 45 107/64 08/28/19 20:00 97.3 70 22 107/64 (78) 97 08/28/19 20:00 Nasal Cannula 2.0 08/28/19 20:00 2.0 08/28/19 19:51 64 08/28/19 16:00 Nasal Cannula 2.0 08/28/19 16:00 96 08/28/19 16:00 2.0 08/28/19 16:00 98.8 87 25 134/50 (78) 100 08/28/19 15:51 110 143/60 Intake and Output 08/28/19 08/29/19 19:00 07:00 Intake Total 1849.0 ml 1818.8885 ml Output Total 200 ml Balance 1649.0 ml 1818.8885 ml Free Water 30 ml 75 ml IV Total 1810.0 ml 1558.8885 ml Tube Feeding 9 ml 185 ml Output Urine Total 200 ml Laboratory Tests Test 08/28/19 20:10 08/29/19 04:40 08/29/19 10:30 Troponin I 1.546 ng/mL (0.000-0.056) 1.248 ng/mL (0.000-0.056) White Blood Count 18.4 K/UL (4.8-10.8) H Red Blood Count 4.50 M/UL (4.20-5.40) Hemoglobin 10.5 G/DL (12.0-16.0) L Hematocrit 34.4 % (37.0-47.0) L Mean Corpuscular Volume 76 FL (80-99) L Mean Corpuscular Hemoglobin 23.2 PG (27.0-31.0) L Mean Corpuscular Hemoglobin Concent 30.4 G/DL (32.0-36.0) L Red Cell Distribution Width 21.0 % (11.6-14.8) H Platelet Count 130 K/UL (150-450) L Mean Platelet Volume 9.8 FL (6.5-10.1) Neutrophils (%) (Auto) % (45.0-75.0) Lymphocytes (%) (Auto) % (20.0-45.0) Monocytes (%) (Auto) % (1.0-10.0) Eosinophils (%) (Auto) % (0.0-3.0) Basophils (%) (Auto) % (0.0-2.0) Differential Total Cells Counted 100 Neutrophils % (Manual) 79 % (45-75) H Lymphocytes % (Manual) 15 % (20-45) L Monocytes % (Manual) 6 % (1-10) Eosinophils % (Manual) 0 % (0-3) Basophils % (Manual) 0 % (0-2) Band Neutrophils 0 % (0-8) Nucleated Red Blood Cells /100 WBC Platelet Estimate Decreased L Platelet Morphology Normal Hypochromasia 1+ Anisocytosis 2+ Microcytosis 1+ Sodium Level 156 MMOL/L (136-145) H Potassium Level 4.1 MMOL/L (3.5-5.1) Chloride Level 125 MMOL/L (98-107) H Carbon Dioxide Level 23 MMOL/L (21-32) Anion Gap 8 mmol/L (5-15) Blood Urea Nitrogen 45 mg/dL (7-18) H Creatinine 1.1 MG/DL (0.55-1.30) Estimat Glomerular Filtration Rate mL/min (>60) Glucose Level 192 MG/DL (74-106) H Calcium Level 8.2 MG/DL (8.5-10.1) L Total Bilirubin 1.3 MG/DL (0.2-1.0) H Direct Bilirubin 0.6 MG/DL (0.0-0.3) H Aspartate Amino Transf (AST/SGOT) 42 U/L (15-37) H Alanine Aminotransferase (ALT/SGPT) 28 U/L (12-78) Alkaline Phosphatase 75 U/L (46-116) Total Protein 6.9 G/DL (6.4-8.2) Albumin 2.0 G/DL (3.4-5.0) L Globulin 4.9 g/dL Albumin/Globulin Ratio 0.4 (1.0-2.7) L Uric Acid 7.1 MG/DL (2.6-7.2) Phosphorus Level 2.2 MG/DL (2.5-4.9) L Magnesium Level 2.2 MG/DL (1.8-2.4) Vitamin B12 Level 634 PG/ML (193-986) Folate 17.9 NG/ML (8.6-58.9) Microbiology Date/Time Source Procedure Growth Status 08/28/19 00:48 Blood Blood Culture - Preliminary NO GROWTH AFTER 24 HOURS Resulted 08/28/19 00:40 Blood Blood Culture - Preliminary Resulted 08/28/19 01:04 Urine,Clean Catch Urine Culture - Preliminary Gram Positive Cocci Resulted 08/28/19 05:00 Rectum Received Objective HEAD AND NECK: No JVD.NG tube is in LUNGS: Coarse rhonchi. CARDIOVASCULAR: Irregular S1 and S2 with no gallop or murmur. ABDOMEN: Soft. EXTREMITIES: No pitting edema. Markie Oliveira MD Aug 29, 2019 12:17
--- NOTE | 2019-08-29 15:20 | Cardiology Report ---
APPROVED REPORT EKG Measurement Heart [id number] SD [id number] Sinus rhythm with premature supraventricular complexes and with occasional premature ventricular complexes LBBB Abnormal ECG
[2019-08-29 16:00] VITALS: BP 117/43
--- NOTE | 2019-08-29 18:31 | Progress Note ---
DATE: 08/29/2019 SUBJECTIVE: The patient is in the ICU. The patient is an elderly female came in with altered mental status, septic shock, dehydration, acute renal failure, dysphagia. The patient continued to be nonverbal tolerating. PHYSICAL EXAMINATION: VITAL SIGNS: Blood pressure is 106/90, pulse 84, respirations 18, temperature no fever. SKIN: Better skin turgor. HEENT: Eyes are closed. NECK: Supple. CHEST: Bilateral crackles. CARDIOVASCULAR: Regular rhythm. Tachycardia. ABDOMEN: Soft. Positive bowel sounds. Nontender. EXTREMITIES: CCE. NEUROLOGICAL: . ASSESSMENT AND PLAN: 1. Sepsis. 2. Acute respiratory insufficiency. 3. Congestion. 4. Aspiration pneumonia. 5. Dementia. 6. Renal insufficiency. PLAN: 1. We will currently continue IV antibiotics. 2. NG tube feeding. 3. Discontinue IV fluids. 4. Lasix. 5. Consult Cardiology, Pulmonary, and Nephrology consult. Potassium was high and sodium was high too. We will check BMP today. Osmar Cooney M.D. DR: BYRON JOB#: [id number] CC:
[2019-08-29 20:00] VITALS: BP 126/57
[2019-08-29] MEDS: Vancomycin 750mg/D5W 275ml IVPB SCH ×2 (20:06)
[2019-08-29] MEDS ORDERED: NS 275ml ONE (20:54)
[2019-08-29] MEDS ORDERED: 1/2 NS 1000ml IV ONE (20:54)
[2019-08-29] MEDS ORDERED: Tubing IV Secondary IV ONE ×2 (20:54→21:22)
[2019-08-30] VITALS: BP 135/75
[2019-08-30] MEDS: NovoLOG Insulin Flexpen SUBQ SCH ×4 (00:01→17:19)
[2019-08-30] MEDS: Albuterol/Ipratropium 3ml neb HHN SCH ×4 (01:47→19:13)
[2019-08-30 04:00] VITALS: BP 130/57
[2019-08-30] MEDS: Piperacillin/Tazobactam 3.375 GM in D5W 110 ML IVPB SCH ×3 (06:12→23:18)
[2019-08-30 08:00] VITALS: BP 136/84
[2019-08-30 08:01] LABS: HEMATOCRIT 33.2 % (37.0-47.0); MEAN CORPUSCULAR VOLUME 77 FL (80-99); PLATELET COUNT 139 K/UL (150-450); RED BLOOD COUNT 4.33 M/UL (4.20-5.40); RED CELL DISTRIBUTION WIDTH 21.2 % (11.6-14.8); WHITE BLOOD COUNT 18.7 K/UL (4.8-10.8)
[2019-08-30 08:29] LABS: IRON 31 ug/dL (50-175); TOTAL IRON BINDING CAPACITY 188 ug/dL (250-450)
[2019-08-30 08:39] LABS: ANION GAP 9 mmol/L (5-15); BLOOD UREA NITROGEN 33 mg/dL (7-18); CALCIUM 8.4 MG/DL (8.5-10.1); CARBON DIOXIDE 24 MMOL/L (21-32); CHLORIDE 116 MMOL/L (98-107); CREATININE 1.2 MG/DL (0.55-1.30); FERRITIN 258 NG/ML (8-388); POTASSIUM 3.5 MMOL/L (3.5-5.1); SODIUM 149 MMOL/L (136-145)
[2019-08-30 08:47] LABS: % IRON SATURATION 16 % (15-50)
[2019-08-30] MEDS: Aspirin Baby 81mg NG SCH (08:51)
[2019-08-30] MEDS: Lisinopril 10mg tab ORAL SCH (08:51)
[2019-08-30] MEDS ORDERED: Lisinopril 10mg tab ORAL SCH (09:00)
[2019-08-30] MEDS ORDERED: Metoprolol 25mg tab NG SCH (09:00)
--- NOTE | 2019-08-30 09:25 | Nephrology Progress Note ---
Assessment/Plan Problem List: (1) Dehydration (2) Failure to thrive (3) Hypernatremia (4) Pneumonia (5) Elevated troponin (6) Cardiomyopathy Assessment Dehydration leading to HyperNatremia HypoAlbuminemia / Mal nutrition Elevated Troponin NSTEMI COPD HTN Pneumonia Plan Low EjFx D5W IV Monitor BS and BP Monitor renal parameters Per consultants ASA and Nitro afterload reduction Subjective ROS Limited/Unobtainable: No Objective Objective Last 24 Hour Vital Signs Date Time Temp Pulse Resp B/P (MAP) Pulse Ox O2 Delivery O2 Flow Rate FiO2 08/30/19 08:51 136/84 08/30/19 08:00 97.7 70 22 136/84 (101) 99 08/30/19 07:32 Nasal Cannula 2.0 28 08/30/19 07:29 75 20 100 Nasal Cannula 2.0 28 71 20 100 08/30/19 04:00 Nasal Cannula 2.0 08/30/19 04:00 98.0 88 24 130/57 (81) 100 08/30/19 03:38 81 08/30/19 01:47 83 20 100 Nasal Cannula 2.0 28 78 20 100 08/30/19 00:00 75 08/30/19 00:00 98.0 80 24 135/75 (95) 100 08/30/19 00:00 Nasal Cannula 2.0 08/29/19 21:00 55 126/57 08/29/19 20:00 98.5 80 27 126/57 (80) 100 08/29/19 20:00 2.0 08/29/19 20:00 Nasal Cannula 2.0 08/29/19 20:00 114 08/29/19 19:16 78 20 100 Nasal Cannula 2.0 28 75 20 99 08/29/19 16:00 2.0 08/29/19 16:00 84 08/29/19 16:00 Nasal Cannula 2.0 08/29/19 16:00 99.2 91 27 117/43 (67) 100 08/29/19 13:02 85 20 100 Nasal Cannula 2.0 28 74 22 99 08/29/19 12:27 120/55 08/29/19 12:00 98.3 54 28 120/54 (76) 100 08/29/19 12:00 2.0 08/29/19 12:00 Nasal Cannula 2.0 08/29/19 11:38 76 Intake and Output 08/29/19 08/30/19 19:00 07:00 Intake Total 1771.0 ml 1388.000 ml Output Total 275 ml Balance 1496.0 ml 1388.000 ml Free Water 100 ml IV Total 1261.0 ml 1088.000 ml Tube Feeding 360 ml 300 ml Blood Product 50 ml Output Urine Total 275 ml Laboratory Tests 08/29/19 10:30: Uric Acid 7.1, Phosphorus Level 2.2L, Magnesium Level 2.2, Vitamin B12 Level 634 , Folate 17.9 08/30/19 06:50: White Blood Count 18.7H, Red Blood Count 4.33, Hemoglobin 10.0L, Hematocrit 33.2L, Mean Corpuscular Volume 77L, Mean Corpuscular Hemoglobin 23.1L, Mean Corpuscular Hemoglobin Concent 30.2L, Red Cell Distribution Width 21.2H, Platelet Count 139L, Mean Platelet Volume 11.2H, Neutrophils (%) (Auto) , Lymphocytes (%) (Auto) , Monocytes (%) (Auto) , Eosinophils (%) (Auto) , Basophils (%) (Auto) , Differential Total Cells Counted 100, Neutrophils % ( Manual) 80H, Lymphocytes % (Manual) 12L, Monocytes % (Manual) 7, Eosinophils % ( Manual) 1, Basophils % (Manual) 0, Band Neutrophils 0, Platelet Estimate DecreasedL, Platelet Morphology Normal, Hypochromasia 1+, Anisocytosis 2+, Microcytosis 1+ 08/30/19 07:05: Sodium Level 149H, Potassium Level 3.5, Chloride Level 116H, Carbon Dioxide Level 24, Anion Gap 9, Blood Urea Nitrogen 33H, Creatinine 1.2, Estimat Glomerular Filtration Rate , Glucose Level 332#H, Calcium Level 8.4L, Iron Level 31L, Total Iron Binding Capacity 188L, Percent Iron Saturation 16, Unsaturated Iron Binding 157, Ferritin 258 Height (Feet): 5 Height (Inches): 3.00 Weight (Pounds): 158 General Appearance: no apparent distress, lethargic Cardiovascular: normal rate Respiratory/Chest: decreased breath sounds Abdomen: distended Kaden Chance MD Aug 30, 2019 09:25
--- NOTE | 2019-08-30 10:21 | Pulmonology Progress Note ---
Assessment/Plan Assessment/Plan IMPRESSION: 1. COPD. 2. Hypertension. 3. Severe hypernatremia. 4. Dehydration. 5. Bilateral pneumonia. 6. Severe protein-calorie malnutrition. DISCUSSION: Agree with admission and care. The patient needs hypotonic fluids, which have been ordered. She has also been started on broad-spectrum antibiotics and potassium replacement therapy. She is also on vancomycin and cefepime. 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 Currently she is saturating well on nasal oxygen. She Will likely need G-tube. Jaiden Logan M.D. Subjective Interval Events: Progress noted; no new events Constitutional: Reports: no symptoms HEENT: Repors: no symptoms Respiratory: Reports: no symptoms Cardiovascular: Reports: no symptoms Gastrointestinal/Abdominal: Reports: no symptoms Genitourinary: Reports: no symptoms Allergies: Coded Allergies: No Known Allergies (Unverified , 08/27/19) Objective Last 24 Hour Vital Signs Date Time Temp Pulse Resp B/P (MAP) Pulse Ox O2 Delivery O2 Flow Rate FiO2 08/30/19 10:03 70 136/84 08/30/19 08:51 136/84 08/30/19 08:00 97.7 70 22 136/84 (101) 99 08/30/19 07:32 Nasal Cannula 2.0 28 08/30/19 07:29 75 20 100 Nasal Cannula 2.0 28 71 20 100 08/30/19 04:00 Nasal Cannula 2.0 08/30/19 04:00 98.0 88 24 130/57 (81) 100 08/30/19 03:38 81 08/30/19 01:47 83 20 100 Nasal Cannula 2.0 28 78 20 100 08/30/19 00:00 75 08/30/19 00:00 98.0 80 24 135/75 (95) 100 08/30/19 00:00 Nasal Cannula 2.0 08/29/19 21:00 55 126/57 08/29/19 20:00 98.5 80 27 126/57 (80) 100 08/29/19 20:00 2.0 08/29/19 20:00 Nasal Cannula 2.0 08/29/19 20:00 114 08/29/19 19:16 78 20 100 Nasal Cannula 2.0 28 75 20 99 08/29/19 16:00 2.0 08/29/19 16:00 84 08/29/19 16:00 Nasal Cannula 2.0 08/29/19 16:00 99.2 91 27 117/43 (67) 100 08/29/19 13:02 85 20 100 Nasal Cannula 2.0 28 74 22 99 08/29/19 12:27 120/55 08/29/19 12:00 98.3 54 28 120/54 (76) 100 08/29/19 12:00 2.0 08/29/19 12:00 Nasal Cannula 2.0 08/29/19 11:38 76 Intake and Output 08/29/19 08/30/19 19:00 07:00 Intake Total 1771.0 ml 1388.000 ml Output Total 275 ml Balance 1496.0 ml 1388.000 ml Free Water 100 ml IV Total 1261.0 ml 1088.000 ml Tube Feeding 360 ml 300 ml Blood Product 50 ml Output Urine Total 275 ml General Appearance: no acute distress HEENT: normocephalic Respiratory/Chest: chest wall non-tender, lungs clear Cardiovascular: normal peripheral pulses, regular rhythm Microbiology Date/Time Source Procedure Growth Status 08/28/19 00:48 Blood Blood Culture - Preliminary NO GROWTH AFTER 48 HOURS Resulted 08/28/19 00:40 Blood Blood Culture - Preliminary Staphylococcus Sp Coag Neg Resulted 08/28/19 05:00 Nasal Nares MRSA Culture - Final NO METHICILLIN RESISTANT STAPH AUREUS... Complete 08/28/19 01:04 Urine,Clean Catch Urine Culture - Final Enterococcus Faecium Complete 08/28/19 05:00 Rectum VRE Culture - Final Enterococcus Faecium - Vre Complete Laboratory Tests 08/29/19 10:30: Uric Acid 7.1, Phosphorus Level 2.2L, Magnesium Level 2.2, Vitamin B12 Level 634 , Folate 17.9 08/30/19 06:50: White Blood Count 18.7H, Red Blood Count 4.33, Hemoglobin 10.0L, Hematocrit 33.2L, Mean Corpuscular Volume 77L, Mean Corpuscular Hemoglobin 23.1L, Mean Corpuscular Hemoglobin Concent 30.2L, Red Cell Distribution Width 21.2H, Platelet Count 139L, Mean Platelet Volume 11.2H, Neutrophils (%) (Auto) , Lymphocytes (%) (Auto) , Monocytes (%) (Auto) , Eosinophils (%) (Auto) , Basophils (%) (Auto) , Differential Total Cells Counted 100, Neutrophils % ( Manual) 80H, Lymphocytes % (Manual) 12L, Monocytes % (Manual) 7, Eosinophils % ( Manual) 1, Basophils % (Manual) 0, Band Neutrophils 0, Platelet Estimate DecreasedL, Platelet Morphology Normal, Hypochromasia 1+, Anisocytosis 2+, Microcytosis 1+ 08/30/19 07:05: Sodium Level 149H, Potassium Level 3.5, Chloride Level 116H, Carbon Dioxide Level 24, Anion Gap 9, Blood Urea Nitrogen 33H, Creatinine 1.2, Estimat Glomerular Filtration Rate , Glucose Level 332#H, Calcium Level 8.4L, Iron Level 31L, Total Iron Binding Capacity 188L, Percent Iron Saturation 16, Unsaturated Iron Binding 157, Ferritin 258 Current Medications Medications (Trade) Dose Ordered Sig/Colt Route PRN Reason Start Time Stop Time Status Last Admin Dose Admin Albuterol/ Ipratropium (Albuterol/ Ipratropium) 3 ml Q6HRT HHN 08/30/19 07:00 09/03/19 00:00 08/30/19 07:37 Amlodipine Besylate (Norvasc) 2.5 mg DAILY ORAL 08/30/19 09:30 09/29/19 09:29 08/30/19 10:03 Aspirin (ASA) 81 mg DAILY NG 08/30/19 09:00 09/28/19 08:59 08/30/19 08:51 Dextrose 1,000 ml @ 50 mls/hr Q20H IV 08/30/19 10:00 09/29/19 09:59 08/30/19 10:08 Dextrose (Dextrose 50%) 25 ml Q30M PRN IV Hypoglycemia 08/30/19 05:00 09/27/19 07:59 Dextrose (Dextrose 50%) 50 ml Q30M PRN IV Hypoglycemia 08/30/19 05:00 09/27/19 07:59 Furosemide (Lasix) 40 mg DAILY IV 08/30/19 10:00 09/29/19 09:59 08/30/19 10:03 Insulin Aspart (NovoLOG) Q6HR SUBQ 08/30/19 06:00 09/27/19 11:29 08/30/19 06:13 Insulin Detemir (Levemir) 10 units ONCE ONCE SUBQ 08/30/19 10:30 08/30/19 10:31 Lisinopril (Zestril) 10 mg DAILY ORAL 08/30/19 09:00 09/29/19 08:59 08/30/19 08:51 Nitroglycerin (Ntg) 1 patch Q24H TDERMAL 08/30/19 11:00 09/28/19 10:59 Piperacillin Sod/ Tazobactam Sod 3.375 gm/Dextrose 110 ml @ 27.5 mls/hr EVERY 8 HOURS IVPB 08/30/19 06:00 09/04/19 05:59 08/30/19 06:12 Potassium Phosphate 20 mm/ Sodium Chloride 281.6667 ml @ 46.944 m... ONCE ONCE IV 08/30/19 10:30 08/30/19 16:29 Vancomycin HCl (Vanco rx to dose) 1 ea DAILY PRN MISC Per rx protocol 08/30/19 09:00 09/27/19 07:59 Vancomycin HCl 750 mg/Dextrose 275 ml @ 183.333 mls/hr Q24H IVPB 08/30/19 20:00 09/02/19 19:59 Jaiden Logan MD Aug 30, 2019 10:21
[2019-08-30] MEDS ORDERED: Potassium Phosphate 20 MM in NS 275 ML IV ONE (10:30)
[2019-08-30] MEDS ORDERED: Levemir Flexpen SUBQ ONE (10:30)
[2019-08-30 12:00] VITALS: BP 125/77
[2019-08-30] MEDS: Nitroglycerin Patch 0.4mg TDERMAL SCH (12:11)
--- NOTE | 2019-08-30 12:47 | Cardiology Report ---
APPROVED REPORT EKG Measurement Heart [id number] Sinus rhythm with both premature atrial and ventricularcomplexes Rightward axis Nonspecific intraventricular block Cannot rule out Anterior infarct, age undetermined T wave abnormality, consider inferolateral ischemia Abnormal ECG
[2019-08-30] MEDS ORDERED: NS 275ml ONE (13:47)
--- NOTE | 2019-08-30 15:04 | Cardiac Electrophysiology PN ---
Assessment/Plan Assessment/Plan 1. [id number] myocardial infarction. Peak Troponin is 2.441, down to 1.5. This may be related to the patient's severe dehydration as well. The patient does not have any chest pain and was on hospice care. We will treat the patient medically at this time, put on aspirin. Start low dose Coreg 3.125 bid 2. 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 Add coreg 3.125 bid 4. Long runs of 14 beats of NSVT likely due to CMP. Medical therapy as was on Hospice Now full code. Needs cardiac cath for VT and FL and EF 30% if family agrees 5. Severe hypernatremia. Improving with hydration 6. History of schizophrenia. 7. Elevated white count 13,000. The patient is on vancomycin and Zosyn. SMILEY RN Subjective Subjective Had another 14 beats of NSVT and gabe episodes mostly due to frequent PVCs. NG feeding on going. Confused with NG feeding. Objective Last 24 Hour Vital Signs Date Time Temp Pulse Resp B/P (MAP) Pulse Ox O2 Delivery O2 Flow Rate FiO2 08/30/19 12:38 92 20 99 Nasal Cannula 2.0 28 95 20 96 08/30/19 12:11 125/77 08/30/19 12:00 Nasal Cannula 2.0 08/30/19 12:00 98.0 93 22 125/77 (93) 93 08/30/19 12:00 96 08/30/19 10:03 70 136/84 08/30/19 08:51 136/84 08/30/19 08:00 95 08/30/19 08:00 Nasal Cannula 2.0 08/30/19 08:00 97.7 70 22 136/84 (101) 99 08/30/19 07:32 Nasal Cannula 2.0 28 08/30/19 07:29 75 20 100 Nasal Cannula 2.0 28 71 20 100 08/30/19 04:00 Nasal Cannula 2.0 08/30/19 04:00 98.0 88 24 130/57 (81) 100 08/30/19 03:38 81 08/30/19 01:47 83 20 100 Nasal Cannula 2.0 28 78 20 100 08/30/19 00:00 75 08/30/19 00:00 98.0 80 24 135/75 (95) 100 08/30/19 00:00 Nasal Cannula 2.0 08/29/19 21:00 55 126/57 08/29/19 20:00 98.5 80 27 126/57 (80) 100 08/29/19 20:00 2.0 08/29/19 20:00 Nasal Cannula 2.0 08/29/19 20:00 114 08/29/19 19:16 78 20 100 Nasal Cannula 2.0 28 75 20 99 08/29/19 16:00 2.0 08/29/19 16:00 84 08/29/19 16:00 Nasal Cannula 2.0 08/29/19 16:00 99.2 91 27 117/43 (67) 100 Intake and Output 08/29/19 08/30/19 18:59 06:59 Intake Total 1855.0 ml 1469.000 ml Output Total 275 ml Balance 1580.0 ml 1469.000 ml Free Water 115 ml IV Total 1310.0 ml 1139.000 ml Tube Feeding 380 ml 330 ml Blood Product 50 ml Output Urine Total 275 ml Laboratory Tests Test 08/30/19 06:50 08/30/19 07:05 White Blood Count 18.7 K/UL (4.8-10.8) H Red Blood Count 4.33 M/UL (4.20-5.40) Hemoglobin 10.0 G/DL (12.0-16.0) L Hematocrit 33.2 % (37.0-47.0) L Mean Corpuscular Volume 77 FL (80-99) L Mean Corpuscular Hemoglobin 23.1 PG (27.0-31.0) L Mean Corpuscular Hemoglobin Concent 30.2 G/DL (32.0-36.0) L Red Cell Distribution Width 21.2 % (11.6-14.8) H Platelet Count 139 K/UL (150-450) L Mean Platelet Volume 11.2 FL (6.5-10.1) H Neutrophils (%) (Auto) % (45.0-75.0) Lymphocytes (%) (Auto) % (20.0-45.0) Monocytes (%) (Auto) % (1.0-10.0) Eosinophils (%) (Auto) % (0.0-3.0) Basophils (%) (Auto) % (0.0-2.0) Differential Total Cells Counted 100 Neutrophils % (Manual) 80 % (45-75) H Lymphocytes % (Manual) 12 % (20-45) L Monocytes % (Manual) 7 % (1-10) Eosinophils % (Manual) 1 % (0-3) Basophils % (Manual) 0 % (0-2) Band Neutrophils 0 % (0-8) Platelet Estimate Decreased L Platelet Morphology Normal Hypochromasia 1+ Anisocytosis 2+ Microcytosis 1+ Sodium Level 149 MMOL/L (136-145) H Potassium Level 3.5 MMOL/L (3.5-5.1) Chloride Level 116 MMOL/L (98-107) H Carbon Dioxide Level 24 MMOL/L (21-32) Anion Gap 9 mmol/L (5-15) Blood Urea Nitrogen 33 mg/dL (7-18) H Creatinine 1.2 MG/DL (0.55-1.30) Estimat Glomerular Filtration Rate mL/min (>60) Glucose Level 332 MG/DL (74-106) #H Calcium Level 8.4 MG/DL (8.5-10.1) L Iron Level 31 ug/dL (50-175) L Total Iron Binding Capacity 188 ug/dL (250-450) L Percent Iron Saturation 16 % (15-50) Unsaturated Iron Binding 157 ug/dL (112-346) Ferritin 258 NG/ML (8-388) Microbiology Date/Time Source Procedure Growth Status 08/28/19 00:48 Blood Blood Culture - Preliminary NO GROWTH AFTER 48 HOURS Resulted 08/28/19 00:40 Blood Blood Culture - Preliminary Staphylococcus Sp Coag Neg Resulted 08/28/19 05:00 Nasal Nares MRSA Culture - Final NO METHICILLIN RESISTANT STAPH AUREUS... Complete 08/28/19 01:04 Urine,Clean Catch Urine Culture - Final Enterococcus Faecium Complete 08/28/19 05:00 Rectum VRE Culture - Final Enterococcus Faecium - Vre Complete Objective HEAD AND NECK: No JVD.NG tube is in LUNGS: Coarse rhonchi. CARDIOVASCULAR: Irregular S1 and S2 with no gallop or murmur. ABDOMEN: Soft. EXTREMITIES: No pitting edema. Markie Oliveira MD Aug 30, 2019 15:04
[2019-08-30 16:00] VITALS: BP 118/69
[2019-08-30 20:00] VITALS: BP 116/65
[2019-08-30] MEDS ORDERED: Vancomycin 750 MG in D5W 275 ML IVPB SCH (20:00)
--- NOTE | 2019-08-30 20:00 | Progress Note ---
DATE: 08/30/2019 SUBJECTIVE: This is an elderly female. Currently, trying to open her eyes. Nonverbal. Bedbound. OBJECTIVE: VITAL SIGNS: Blood pressure 96/99 and pulse 92. No fever. CHEST: Bilaterally few crackles and wheezing. CARDIOVASCULAR: Regular rhythm. ABDOMEN: Soft. Positive bowel sounds. Nontender. EXTREMITIES: No edema. GENITOURINARY: Deferred. LABORATORY EXAMINATION: White counts are 19,000, hemoglobin 10, hematocrit 33, and platelets are 139,000. Chemistry panel, sodium 139, potassium 3.5, BUN 33, creatinine 1.2, and glucose 332. Uric acid is 7.1. Lactic acid is still not done. Microbiology is showing enterococcus and VRE in the sputum cultures. Rectum cultures and blood culture is showing a Staph coag-negative. ASSESSMENT: 1. Bacteremia. 2. Sepsis. 3. Metabolic encephalopathy. 4. Diabetes. 5. History of pneumonia. PLAN: We will continue vancomycin, Levemir, lisinopril, Norvasc, and bronchodilator treatments. Cardiology and Pulmonary and Nephrology is on consult. Osmar Cooney M.D. DR: CÉSAR JOB#: [id number] CC:
[2019-08-30] MEDS: Vancomycin 1gm/D5W 275ml IVPB SCH ×2 (20:34)
[2019-08-31] VITALS: BP 124/69
[2019-08-31] MEDS: NovoLOG Insulin Flexpen SUBQ SCH ×4 (00:39→17:54)
[2019-08-31] MEDS: Albuterol/Ipratropium 3ml neb HHN SCH ×4 (01:31→19:20)
[2019-08-31 04:00] VITALS: BP 115/72
[2019-08-31] MEDS: Piperacillin/Tazobactam 3.375 GM in D5W 110 ML IVPB SCH ×3 (06:31→22:41)
[2019-08-31 08:00] VITALS: BP 124/77
--- NOTE | 2019-08-31 08:15 | Pulmonology Progress Note ---
Assessment/Plan Assessment/Plan IMPRESSION: 1. COPD. 2. Hypertension. 3. Severe hypernatremia. 4. Dehydration. 5. Bilateral pneumonia. 6. Severe protein-calorie malnutrition. 7. 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 Currently she is saturating well on nasal oxygen. Enteral feeding Jaiden Logan M.D. Subjective Interval Events: None new reported Constitutional: Reports: no symptoms HEENT: Repors: no symptoms Respiratory: Reports: no symptoms Cardiovascular: Reports: no symptoms Gastrointestinal/Abdominal: Reports: no symptoms Genitourinary: Reports: no symptoms Allergies: Coded Allergies: No Known Allergies (Unverified , 08/27/19) Objective Last 24 Hour Vital Signs Date Time Temp Pulse Resp B/P (MAP) Pulse Ox O2 Delivery O2 Flow Rate FiO2 08/31/19 08:00 97.3 85 20 124/77 (93) 98 08/31/19 07:07 84 26 100 Nasal Cannula 2.0 28 87 28 100 08/31/19 06:57 Nasal Cannula 2.0 28 08/31/19 04:00 97.9 82 24 115/72 (86) 98 08/31/19 04:00 82 08/31/19 01:31 84 20 100 Nasal Cannula 2.0 28 85 20 100 08/31/19 00:00 97.9 82 24 124/69 (87) 97 08/31/19 00:00 82 08/30/19 21:00 Nasal Cannula 2.0 08/30/19 20:59 98 119/68 08/30/19 20:00 98.2 98 24 116/65 (82) 100 08/30/19 20:00 98 08/30/19 19:16 Nasal Cannula 2.0 28 08/30/19 19:13 95 20 100 Nasal Cannula 2.0 28 91 20 99 08/30/19 16:00 98 08/30/19 16:00 Nasal Cannula 2.0 08/30/19 16:00 99.0 100 22 118/69 (85) 100 08/30/19 12:38 92 20 99 Nasal Cannula 2.0 28 95 20 96 08/30/19 12:11 125/77 08/30/19 12:00 Nasal Cannula 2.0 08/30/19 12:00 98.0 93 22 125/77 (93) 93 08/30/19 12:00 96 08/30/19 10:03 70 136/84 08/30/19 08:51 136/84 Intake and Output 08/30/19 08/31/19 19:00 07:00 Intake Total 300 ml Output Total 1800 ml Balance -1500 ml Tube Feeding 300 ml Output Urine Total 1800 ml General Appearance: no acute distress HEENT: normocephalic Respiratory/Chest: chest wall non-tender, lungs clear Cardiovascular: normal peripheral pulses, normal rate Laboratory Tests 08/30/19 18:53: Vancomycin Level Trough 10.5 Current Medications Medications (Trade) Dose Ordered Sig/Colt Route PRN Reason Start Time Stop Time Status Last Admin Dose Admin Albuterol/ Ipratropium (Albuterol/ Ipratropium) 3 ml Q6HRT HHN 08/30/19 07:00 09/03/19 00:00 08/31/19 06:57 Amlodipine Besylate (Norvasc) 2.5 mg DAILY ORAL 08/30/19 09:30 09/29/19 09:29 08/30/19 10:03 Aspirin (ASA) 81 mg DAILY NG 08/30/19 09:00 09/28/19 08:59 08/30/19 08:51 Carvedilol (Coreg) 3.125 mg EVERY 12 HOURS ORAL 08/30/19 21:00 09/29/19 20:59 08/30/19 20:59 Dextrose 1,000 ml @ 50 mls/hr Q20H IV 08/30/19 10:00 09/29/19 09:59 08/30/19 22:00 Dextrose (Dextrose 50%) 25 ml Q30M PRN IV Hypoglycemia 08/30/19 05:00 09/27/19 07:59 Dextrose (Dextrose 50%) 50 ml Q30M PRN IV Hypoglycemia 08/30/19 05:00 09/27/19 07:59 Insulin Aspart (NovoLOG) Q6HR SUBQ 08/30/19 06:00 09/27/19 11:29 08/31/19 06:44 Lisinopril (Zestril) 10 mg DAILY ORAL 08/30/19 09:00 09/29/19 08:59 08/30/19 08:51 Nitroglycerin (Ntg) 1 patch Q24H TDERMAL 08/30/19 11:00 09/28/19 10:59 08/30/19 12:11 Piperacillin Sod/ Tazobactam Sod 3.375 gm/Dextrose 110 ml @ 27.5 mls/hr EVERY 8 HOURS IVPB 08/30/19 06:00 09/04/19 05:59 08/31/19 06:31 Vancomycin HCl (Vanco rx to dose) 1 ea DAILY PRN MISC Per rx protocol 08/30/19 09:00 09/27/19 07:59 Vancomycin HCl 1 gm/Dextrose 275 ml @ 183.708 mls/hr Q24H IVPB 08/30/19 20:00 09/04/19 19:59 08/30/19 20:34 Jaiden Logan MD Aug 31, 2019 08:15
[2019-08-31] MEDS: Lisinopril 10mg tab ORAL SCH (08:37)
[2019-08-31] MEDS: Aspirin Baby 81mg NG SCH (08:37)
[2019-08-31 09:18] LABS: BASOPHILS % (AUTO) 0.6 % (0.0-2.0); EOSINOPHILS % (AUTO) 0.7 % (0.0-3.0); HEMATOCRIT 33.3 % (37.0-47.0); HEMOGLOBIN 10.4 G/DL (12.0-16.0); LYMPHOCYTES % (AUTO) 9.8 % (20.0-45.0); MEAN CORPUSCULAR VOLUME 74 FL (80-99); PLATELET COUNT 170 K/UL (150-450); RED BLOOD COUNT 4.49 M/UL (4.20-5.40); RED CELL DISTRIBUTION WIDTH 21.3 % (11.6-14.8); WHITE BLOOD COUNT 17.7 K/UL (4.8-10.8)
[2019-08-31 09:26] LABS: ALANINE AMINOTRANSFERASE 17 U/L (12-78); ALBUMIN 1.7 G/DL (3.4-5.0); ALBUMIN/GLOBULIN RATIO 0.3 (1.0-2.7); ALKALINE PHOSPHATASE 96 U/L (46-116); ANION GAP 6 mmol/L (5-15); ASPARTATE AMINO TRANSFERASE 51 U/L (15-37); BILIRUBIN,TOTAL 1.2 MG/DL (0.2-1.0); BLOOD UREA NITROGEN 23 mg/dL (7-18); CALCIUM 8.3 MG/DL (8.5-10.1); CARBON DIOXIDE 26 MMOL/L (21-32); CHLORIDE 110 MMOL/L (98-107); CREATININE 1.1 MG/DL (0.55-1.30); PHOSPHORUS 2.8 MG/DL (2.5-4.9); POTASSIUM 4.7 MMOL/L (3.5-5.1); SODIUM 142 MMOL/L (136-145)
[2019-08-31] MEDS: Nitroglycerin Patch 0.4mg TDERMAL SCH (11:14)
[2019-08-31 11:58] VITALS: BP 121/72
--- NOTE | 2019-08-31 12:26 | Infectious Diseases Prog Note ---
Assessment/Plan Assessment/Plan IMPRESSION: Sepsis UTI with Enterococcus Pleural effusion Has history of COPD. hypernatremia, azotemia, diabetes mellitus, NSTEMI Positive blood culture likely contamination RECOMMENDATION: We will continue with vancomycin and Zosyn. We will follow up the cultures. Subjective ROS Limited/Unobtainable: Yes Constitutional: Denies: fever Allergies: Coded Allergies: No Known Allergies (Unverified , 08/27/19) Objective Vital Signs Last 24 Hour Vital Signs Date Time Temp Pulse Resp B/P (MAP) Pulse Ox O2 Delivery O2 Flow Rate FiO2 08/31/19 11:58 98.1 90 20 121/72 (88) 98 08/31/19 11:14 125/75 08/31/19 09:00 Nasal Cannula 2.0 08/31/19 08:37 85 124/77 08/31/19 08:37 85 124/77 08/31/19 08:37 124/77 08/31/19 08:00 82 08/31/19 08:00 97.3 85 20 124/77 (93) 98 08/31/19 07:07 84 26 100 Nasal Cannula 2.0 28 87 28 100 08/31/19 06:57 Nasal Cannula 2.0 28 08/31/19 04:00 97.9 82 24 115/72 (86) 98 08/31/19 04:00 82 08/31/19 01:31 84 20 100 Nasal Cannula 2.0 28 85 20 100 08/31/19 00:00 97.9 82 24 124/69 (87) 97 08/31/19 00:00 82 08/30/19 21:00 Nasal Cannula 2.0 08/30/19 20:59 98 119/68 08/30/19 20:00 98.2 98 24 116/65 (82) 100 08/30/19 20:00 98 08/30/19 19:16 Nasal Cannula 2.0 28 08/30/19 19:13 95 20 100 Nasal Cannula 2.0 28 91 20 99 08/30/19 16:00 98 08/30/19 16:00 Nasal Cannula 2.0 08/30/19 16:00 99.0 100 22 118/69 (85) 100 08/30/19 12:38 92 20 99 Nasal Cannula 2.0 28 95 20 96 Height (Feet): 5 Height (Inches): 3.00 Weight (Pounds): 158 HEENT: mucous membranes moist Respiratory/Chest: lungs clear Cardiovascular: normal rate Abdomen: soft, non tender, other - NG tube feeding Extremities: other - edema of arms Neurologic/Psychiatric: unresponsiveness Laboratory Tests Test 08/30/19 18:53 08/31/19 07:25 Vancomycin Level Trough 10.5 ug/mL (5.0-12.0) White Blood Count 17.7 K/UL (4.8-10.8) H Red Blood Count 4.49 M/UL (4.20-5.40) Hemoglobin 10.4 G/DL (12.0-16.0) L Hematocrit 33.3 % (37.0-47.0) L Mean Corpuscular Volume 74 FL (80-99) L Mean Corpuscular Hemoglobin 23.1 PG (27.0-31.0) L Mean Corpuscular Hemoglobin Concent 31.1 G/DL (32.0-36.0) L Red Cell Distribution Width 21.3 % (11.6-14.8) H Platelet Count 170 K/UL (150-450) Mean Platelet Volume 12.9 FL (6.5-10.1) H Neutrophils (%) (Auto) 84.0 % (45.0-75.0) H Lymphocytes (%) (Auto) 9.8 % (20.0-45.0) L Monocytes (%) (Auto) 5.0 % (1.0-10.0) Eosinophils (%) (Auto) 0.7 % (0.0-3.0) Basophils (%) (Auto) 0.6 % (0.0-2.0) Sodium Level 142 MMOL/L (136-145) Potassium Level 4.7 MMOL/L (3.5-5.1) Chloride Level 110 MMOL/L (98-107) H Carbon Dioxide Level 26 MMOL/L (21-32) Anion Gap 6 mmol/L (5-15) Blood Urea Nitrogen 23 mg/dL (7-18) H Creatinine 1.1 MG/DL (0.55-1.30) Estimat Glomerular Filtration Rate mL/min (>60) Glucose Level 299 MG/DL (74-106) H Calcium Level 8.3 MG/DL (8.5-10.1) L Phosphorus Level 2.8 MG/DL (2.5-4.9) Magnesium Level 1.7 MG/DL (1.8-2.4) L Total Bilirubin 1.2 MG/DL (0.2-1.0) H Direct Bilirubin 0.0 MG/DL (0.0-0.3) Aspartate Amino Transf (AST/SGOT) 51 U/L (15-37) H Alanine Aminotransferase (ALT/SGPT) 17 U/L (12-78) Alkaline Phosphatase 96 U/L (46-116) Troponin I 0.416 ng/mL (0.000-0.056) C-Reactive Protein, Quantitative 9.5 mg/dL (0.00-0.90) H Pro-B-Type Natriuretic Peptide 6796 pg/mL (0-125) H Total Protein 7.0 G/DL (6.4-8.2) Albumin 1.7 G/DL (3.4-5.0) L Globulin 5.3 g/dL Albumin/Globulin Ratio 0.3 (1.0-2.7) L Current Medications Medications (Trade) Dose Ordered Sig/Colt Route PRN Reason Start Time Stop Time Status Last Admin Dose Admin Albuterol/ Ipratropium (Albuterol/ Ipratropium) 3 ml Q6HRT HHN 08/30/19 07:00 09/03/19 00:00 08/31/19 06:57 Amlodipine Besylate (Norvasc) 2.5 mg DAILY ORAL 08/30/19 09:30 09/29/19 09:29 08/31/19 08:37 Aspirin (ASA) 81 mg DAILY NG 08/30/19 09:00 09/28/19 08:59 08/31/19 08:37 Carvedilol (Coreg) 3.125 mg EVERY 12 HOURS ORAL 08/30/19 21:00 09/29/19 20:59 08/31/19 08:37 Dextrose 1,000 ml @ 50 mls/hr Q20H IV 08/30/19 10:00 09/29/19 09:59 08/30/19 22:00 Dextrose (Dextrose 50%) 25 ml Q30M PRN IV Hypoglycemia 08/30/19 05:00 09/27/19 07:59 Dextrose (Dextrose 50%) 50 ml Q30M PRN IV Hypoglycemia 08/30/19 05:00 09/27/19 07:59 Insulin Aspart (NovoLOG) Q6HR SUBQ 08/30/19 06:00 09/27/19 11:29 08/31/19 11:14 Lisinopril (Zestril) 10 mg DAILY ORAL 08/30/19 09:00 09/29/19 08:59 08/31/19 08:37 Nitroglycerin (Ntg) 1 patch Q24H TDERMAL 08/30/19 11:00 09/28/19 10:59 08/31/19 11:14 Piperacillin Sod/ Tazobactam Sod 3.375 gm/Dextrose 110 ml @ 27.5 mls/hr EVERY 8 HOURS IVPB 08/30/19 06:00 09/04/19 05:59 08/31/19 06:31 Vancomycin HCl (Vanco rx to dose) 1 ea DAILY PRN MISC Per rx protocol 08/30/19 09:00 09/27/19 07:59 Vancomycin HCl 1 gm/Dextrose 275 ml @ 183.708 mls/hr Q24H IVPB 08/30/19 20:00 09/04/19 19:59 08/30/19 20:34 Willian Ribeiro MD Aug 31, 2019 12:26
--- NOTE | 2019-08-31 14:15 | Nephrology Progress Note ---
Assessment/Plan Problem List: (1) Dehydration (2) Failure to thrive (3) Hypernatremia (4) Pneumonia (5) Elevated troponin (6) Cardiomyopathy Assessment Dehydration leading to HyperNatremia HypoAlbuminemia / Mal nutrition Elevated Troponin NSTEMI COPD HTN Pneumonia Plan Low EjFx D5W IV Monitor BS and BP Monitor renal parameters Per consultants ASA and Nitro afterload reduction Subjective ROS Limited/Unobtainable: No Constitutional: Reports: malaise Objective Objective Last 24 Hour Vital Signs Date Time Temp Pulse Resp B/P (MAP) Pulse Ox O2 Delivery O2 Flow Rate FiO2 08/31/19 12:43 89 26 100 Nasal Cannula 2.0 28 85 27 100 08/31/19 12:00 83 08/31/19 11:58 98.1 90 20 121/72 (88) 98 08/31/19 11:14 125/75 08/31/19 09:00 Nasal Cannula 2.0 08/31/19 08:37 85 124/77 08/31/19 08:37 85 124/77 08/31/19 08:37 124/77 08/31/19 08:00 82 08/31/19 08:00 97.3 85 20 124/77 (93) 98 08/31/19 07:07 84 26 100 Nasal Cannula 2.0 28 87 28 100 08/31/19 06:57 Nasal Cannula 2.0 28 08/31/19 04:00 97.9 82 24 115/72 (86) 98 08/31/19 04:00 82 08/31/19 01:31 84 20 100 Nasal Cannula 2.0 28 85 20 100 08/31/19 00:00 97.9 82 24 124/69 (87) 97 08/31/19 00:00 82 08/30/19 21:00 Nasal Cannula 2.0 08/30/19 20:59 98 119/68 08/30/19 20:00 98.2 98 24 116/65 (82) 100 08/30/19 20:00 98 08/30/19 19:16 Nasal Cannula 2.0 28 08/30/19 19:13 95 20 100 Nasal Cannula 2.0 28 91 20 99 08/30/19 16:00 98 08/30/19 16:00 Nasal Cannula 2.0 08/30/19 16:00 99.0 100 22 118/69 (85) 100 Intake and Output 08/30/19 08/31/19 19:00 07:00 Intake Total 300 ml Output Total 1800 ml Balance -1500 ml Tube Feeding 300 ml Output Urine Total 1800 ml Laboratory Tests 08/30/19 18:53: Vancomycin Level Trough 10.5 08/31/19 07:25: White Blood Count 17.7H, Red Blood Count 4.49, Hemoglobin 10.4L, Hematocrit 33.3L, Mean Corpuscular Volume 74L, Mean Corpuscular Hemoglobin 23.1L, Mean Corpuscular Hemoglobin Concent 31.1L, Red Cell Distribution Width 21.3H, Platelet Count 170, Mean Platelet Volume 12.9H, Neutrophils (%) (Auto) 84.0H, Lymphocytes (%) (Auto) 9.8L, Monocytes (%) (Auto) 5.0, Eosinophils (%) (Auto) 0.7, Basophils (%) (Auto) 0.6, Sodium Level 142, Potassium Level 4.7, Chloride Level 110H, Carbon Dioxide Level 26, Anion Gap 6, Blood Urea Nitrogen 23H, Creatinine 1.1, Estimat Glomerular Filtration Rate , Glucose Level 299H, Calcium Level 8.3L, Phosphorus Level 2.8, Magnesium Level 1.7L, Total Bilirubin 1.2H, Direct Bilirubin 0.0, Aspartate Amino Transf (AST/SGOT) 51H, Alanine Aminotransferase (ALT/SGPT) 17, Alkaline Phosphatase 96, Troponin I 0.416H, C- Reactive Protein, Quantitative 9.5H, Pro-B-Type Natriuretic Peptide 6796H, Total Protein 7.0, Albumin 1.7L, Globulin 5.3, Albumin/Globulin Ratio 0.3L Height (Feet): 5 Height (Inches): 3.00 Weight (Pounds): 158 General Appearance: no apparent distress EENT: other - NGT+ Cardiovascular: normal rate Respiratory/Chest: decreased breath sounds Abdomen: distended Objective no change Kaden Chance MD Aug 31, 2019 14:15
[2019-08-31 16:00] VITALS: BP 105/59
--- NOTE | 2019-08-31 17:37 | Cardiac Electrophysiology PN ---
Assessment/Plan Assessment/Plan 1. Doi-TE-hnqcvcamy myocardial infarction. Peak Troponin is 2.441, down to 1.5. This may be related to the patient's severe dehydration as well. The patient does not have any chest pain and was on hospice care. We will treat the patient medically at this time, put on aspirin and Coreg 3.125 bid 2. 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 On Lisinopril 10 daily and coreg 3.125 bid 4. Long runs of 14 beats of NSVT due to CMP. Medical therapy as was on [facility] full code. Needs cardiac cath for VT and [place] and EF 30% if family agrees 5. Severe hypernatremia. Improving with hydration 6. History of schizophrenia. 7. Elevated white count 13,000. The patient is on vancomycin and Zosyn. SMILEY RN Subjective Subjective Continues with gabe episodes mostly due to frequent PVCs and NSVT. NG feeding on going. Confused with NG feeding. Objective Last 24 Hour Vital Signs Date Time Temp Pulse Resp B/P (MAP) Pulse Ox O2 Delivery O2 Flow Rate FiO2 08/31/19 16:00 97.4 97 20 105/59 (74) 97 08/31/19 12:43 89 26 100 Nasal Cannula 2.0 28 85 27 100 08/31/19 12:00 83 08/31/19 11:58 98.1 90 20 121/72 (88) 98 08/31/19 11:14 125/75 08/31/19 09:00 Nasal Cannula 2.0 08/31/19 08:37 85 124/77 08/31/19 08:37 85 124/77 08/31/19 08:37 124/77 08/31/19 08:00 82 08/31/19 08:00 97.3 85 20 124/77 (93) 98 08/31/19 07:07 84 26 100 Nasal Cannula 2.0 28 87 28 100 08/31/19 06:57 Nasal Cannula 2.0 28 08/31/19 04:00 97.9 82 24 115/72 (86) 98 08/31/19 04:00 82 08/31/19 01:31 84 20 100 Nasal Cannula 2.0 28 85 20 100 08/31/19 00:00 97.9 82 24 124/69 (87) 97 08/31/19 00:00 82 08/30/19 21:00 Nasal Cannula 2.0 08/30/19 20:59 98 119/68 08/30/19 20:00 98.2 98 24 116/65 (82) 100 08/30/19 20:00 98 08/30/19 19:16 Nasal Cannula 2.0 28 08/30/19 19:13 95 20 100 Nasal Cannula 2.0 28 91 20 99 Intake and Output 08/30/19 08/31/19 19:00 07:00 Intake Total 300 ml Output Total 1800 ml Balance -1500 ml Tube Feeding 300 ml Output Urine Total 1800 ml Laboratory Tests Test 08/30/19 18:53 08/31/19 07:25 Vancomycin Level Trough 10.5 ug/mL (5.0-12.0) White Blood Count 17.7 K/UL (4.8-10.8) H Red Blood Count 4.49 M/UL (4.20-5.40) Hemoglobin 10.4 G/DL (12.0-16.0) L Hematocrit 33.3 % (37.0-47.0) L Mean Corpuscular Volume 74 FL (80-99) L Mean Corpuscular Hemoglobin 23.1 PG (27.0-31.0) L Mean Corpuscular Hemoglobin Concent 31.1 G/DL (32.0-36.0) L Red Cell Distribution Width 21.3 % (11.6-14.8) H Platelet Count 170 K/UL (150-450) Mean Platelet Volume 12.9 FL (6.5-10.1) H Neutrophils (%) (Auto) 84.0 % (45.0-75.0) H Lymphocytes (%) (Auto) 9.8 % (20.0-45.0) L Monocytes (%) (Auto) 5.0 % (1.0-10.0) Eosinophils (%) (Auto) 0.7 % (0.0-3.0) Basophils (%) (Auto) 0.6 % (0.0-2.0) Sodium Level 142 MMOL/L (136-145) Potassium Level 4.7 MMOL/L (3.5-5.1) Chloride Level 110 MMOL/L (98-107) H Carbon Dioxide Level 26 MMOL/L (21-32) Anion Gap 6 mmol/L (5-15) Blood Urea Nitrogen 23 mg/dL (7-18) H Creatinine 1.1 MG/DL (0.55-1.30) Estimat Glomerular Filtration Rate mL/min (>60) Glucose Level 299 MG/DL (74-106) H Calcium Level 8.3 MG/DL (8.5-10.1) L Phosphorus Level 2.8 MG/DL (2.5-4.9) Magnesium Level 1.7 MG/DL (1.8-2.4) L Total Bilirubin 1.2 MG/DL (0.2-1.0) H Direct Bilirubin 0.0 MG/DL (0.0-0.3) Aspartate Amino Transf (AST/SGOT) 51 U/L (15-37) H Alanine Aminotransferase (ALT/SGPT) 17 U/L (12-78) Alkaline Phosphatase 96 U/L (46-116) Troponin I 0.416 ng/mL (0.000-0.056) C-Reactive Protein, Quantitative 9.5 mg/dL (0.00-0.90) H Pro-B-Type Natriuretic Peptide 6796 pg/mL (0-125) H Total Protein 7.0 G/DL (6.4-8.2) Albumin 1.7 G/DL (3.4-5.0) L Globulin 5.3 g/dL Albumin/Globulin Ratio 0.3 (1.0-2.7) L Objective HEAD AND NECK: No JVD.NG tube is in LUNGS: Coarse rhonchi. CARDIOVASCULAR: Irregular S1 and S2 with no gallop or murmur. ABDOMEN: Soft. EXTREMITIES: No pitting edema. Markie Oliveira MD Aug 31, 2019 17:37
[2019-08-31 20:00] VITALS: BP 116/69
[2019-08-31] MEDS: Vancomycin 1gm/D5W 275ml IVPB SCH ×2 (20:54)
[2019-09-01] VITALS: BP 111/66
[2019-09-01] MEDS: Albuterol/Ipratropium 3ml neb HHN SCH ×4 (01:25→19:27)
[2019-09-01 04:00] VITALS: BP 131/73
[2019-09-01] MEDS: Piperacillin/Tazobactam 3.375 GM in D5W 110 ML IVPB SCH (06:44)
[2019-09-01] MEDS: NovoLOG Insulin Flexpen SUBQ SCH ×4 (06:46→17:01)
--- NOTE | 2019-09-01 07:35 | Pulmonology Progress Note ---
Assessment/Plan Assessment/Plan IMPRESSION: 1. COPD. 2. Hypertension. 3. Severe hypernatremia. Improved 4. Dehydration. Resolved 5. Bilateral pneumonia. 6. Severe protein-calorie malnutrition. 7. 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 Currently she is saturating well on nasal oxygen. Enteral feeding Continues to be febrile with leucocytosis On Vanco and Zosyn Jaiden Logan M.D. Subjective Interval Events: Low grade fever 99 degreesF. WBC 17K today Constitutional: Reports: no symptoms HEENT: Repors: no symptoms Respiratory: Reports: no symptoms Cardiovascular: Reports: no symptoms Gastrointestinal/Abdominal: Reports: no symptoms Genitourinary: Reports: no symptoms Allergies: Coded Allergies: No Known Allergies (Unverified , 08/27/19) Objective Last 24 Hour Vital Signs Date Time Temp Pulse Resp B/P (MAP) Pulse Ox O2 Delivery O2 Flow Rate FiO2 09/01/19 06:50 100 Nasal Cannula 2.0 28 09/01/19 06:50 87 20 100 Nasal Cannula 2.0 84 22 100 09/01/19 04:00 99.2 85 30 131/73 (92) 96 09/01/19 03:42 80 09/01/19 01:25 84 22 100 Nasal Cannula 2.0 28 83 24 100 09/01/19 00:00 98.4 79 24 111/66 (81) 97 08/31/19 23:28 87 08/31/19 21:00 Nasal Cannula 2.0 08/31/19 20:55 84 116/69 08/31/19 20:00 90 08/31/19 20:00 98.6 84 20 116/69 (85) 97 08/31/19 19:21 100 Nasal Cannula 2.0 28 08/31/19 19:20 88 22 100 Nasal Cannula 2.0 28 86 24 100 08/31/19 16:00 83 08/31/19 16:00 97.4 97 20 105/59 (74) 97 08/31/19 12:43 89 26 100 Nasal Cannula 2.0 28 85 27 100 08/31/19 12:00 83 08/31/19 11:58 98.1 90 20 121/72 (88) 98 08/31/19 11:14 125/75 08/31/19 09:00 Nasal Cannula 2.0 08/31/19 08:37 85 124/77 08/31/19 08:37 85 124/77 08/31/19 08:37 124/77 08/31/19 08:00 82 08/31/19 08:00 97.3 85 20 124/77 (93) 98 Intake and Output 08/31/19 09/01/19 19:00 07:00 Intake Total 504.156 ml Output Total 600 ml 400 ml Balance -600 ml 104.156 ml IV Total 504.156 ml Output Urine Total 600 ml 400 ml # Voids 1 General Appearance: no acute distress HEENT: normocephalic Respiratory/Chest: chest wall non-tender, decreased breath sounds Cardiovascular: normal peripheral pulses, normal rate Abdomen: normal bowel sounds Laboratory Tests 09/01/19 06:01: White Blood Count [Pending], Red Blood Count [Pending], Hemoglobin [Pending], Hematocrit [Pending], Mean Corpuscular Volume [Pending], Mean Corpuscular Hemoglobin [Pending], Mean Corpuscular Hemoglobin Concent [Pending], Red Cell Distribution Width [Pending], Platelet Count [Pending], Mean Platelet Volume [ Pending], Neutrophils (%) (Auto) [Pending], Lymphocytes (%) (Auto) [Pending], Monocytes (%) (Auto) [Pending], Eosinophils (%) (Auto) [Pending], Basophils (%) (Auto) [Pending], Sodium Level [Pending], Potassium Level [Pending], Chloride Level [Pending], Carbon Dioxide Level [Pending], Blood Urea Nitrogen [Pending], Creatinine [Pending], Estimat Glomerular Filtration Rate [Pending], Glucose Level [Pending], Calcium Level [Pending], Phosphorus Level [Pending], Magnesium Level [Pending], Total Bilirubin [Pending], Aspartate Amino Transf (AST/SGOT) [ Pending], Alanine Aminotransferase (ALT/SGPT) [Pending], Alkaline Phosphatase [ Pending], Troponin I [Pending], C-Reactive Protein, Quantitative [Pending], Pro- B-Type Natriuretic Peptide [Pending], Total Protein [Pending], Albumin [Pending] , Globulin [Pending] Current Medications Medications (Trade) Dose Ordered Sig/Colt Route PRN Reason Start Time Stop Time Status Last Admin Dose Admin Albuterol/ Ipratropium (Albuterol/ Ipratropium) 3 ml Q6HRT HHN 08/30/19 07:00 09/03/19 00:00 09/01/19 06:50 Amlodipine Besylate (Norvasc) 2.5 mg DAILY ORAL 08/30/19 09:30 09/29/19 09:29 08/31/19 08:37 Aspirin (ASA) 81 mg DAILY NG 08/30/19 09:00 09/28/19 08:59 08/31/19 08:37 Carvedilol (Coreg) 3.125 mg EVERY 12 HOURS ORAL 08/30/19 21:00 09/29/19 20:59 08/31/19 20:55 Dextrose (Dextrose 50%) 25 ml Q30M PRN IV Hypoglycemia 08/30/19 05:00 09/27/19 07:59 Dextrose (Dextrose 50%) 50 ml Q30M PRN IV Hypoglycemia 08/30/19 05:00 09/27/19 07:59 Insulin Aspart (NovoLOG) Q6HR SUBQ 08/30/19 06:00 09/27/19 11:29 09/01/19 06:46 Lisinopril (Zestril) 10 mg DAILY ORAL 08/30/19 09:00 09/29/19 08:59 08/31/19 08:37 Nitroglycerin (Ntg) 1 patch Q24H TDERMAL 08/30/19 11:00 09/28/19 10:59 08/31/19 11:14 Piperacillin Sod/ Tazobactam Sod 3.375 gm/Dextrose 110 ml @ 27.5 mls/hr EVERY 8 HOURS IVPB 08/30/19 06:00 09/04/19 05:59 09/01/19 06:44 Vancomycin HCl (Vanco rx to dose) 1 ea DAILY PRN MISC Per rx protocol 08/30/19 09:00 09/27/19 07:59 Vancomycin HCl 1 gm/Dextrose 275 ml @ 183.708 mls/hr Q24H IVPB 08/30/19 20:00 09/04/19 19:59 08/31/19 20:54 Jaiden Logan MD Sep 01, 2019 07:35
[2019-09-01 07:41] LABS: BASOPHILS % (AUTO) 0.9 % (0.0-2.0); EOSINOPHILS % (AUTO) 0.6 % (0.0-3.0); HEMATOCRIT 31.6 % (37.0-47.0); HEMOGLOBIN 9.8 G/DL (12.0-16.0); LYMPHOCYTES % (AUTO) 9.1 % (20.0-45.0); MEAN CORPUSCULAR VOLUME 74 FL (80-99); MONOCYTES % (AUTO) 6.3 % (1.0-10.0); NEUTROPHILS % (AUTO) 83.2 % (45.0-75.0); PLATELET COUNT 165 K/UL (150-450); RED BLOOD COUNT 4.28 M/UL (4.20-5.40); RED CELL DISTRIBUTION WIDTH 21.4 % (11.6-14.8); WHITE BLOOD COUNT 15.2 K/UL (4.8-10.8)
[2019-09-01 08:00] VITALS: BP 124/69
[2019-09-01 08:24] LABS: ALANINE AMINOTRANSFERASE 24 U/L (12-78); ALBUMIN 1.7 G/DL (3.4-5.0); ALBUMIN/GLOBULIN RATIO 0.3 (1.0-2.7); ALKALINE PHOSPHATASE 98 U/L (46-116); ANION GAP 5 mmol/L (5-15); ASPARTATE AMINO TRANSFERASE 28 U/L (15-37); BLOOD UREA NITROGEN 21 mg/dL (7-18); CALCIUM 8.8 MG/DL (8.5-10.1); CARBON DIOXIDE 32 MMOL/L (21-32); CHLORIDE 109 MMOL/L (98-107); CREATININE 1.1 MG/DL (0.55-1.30); PHOSPHORUS 2.3 MG/DL (2.5-4.9); POTASSIUM 2.8 MMOL/L (3.5-5.1); SODIUM 145 MMOL/L (136-145)
[2019-09-01] MEDS: Lisinopril 10mg tab ORAL SCH (08:42)
[2019-09-01] MEDS: Aspirin Baby 81mg NG SCH (08:42)
--- NOTE | 2019-09-01 10:50 | Cardiology Report ---
APPROVED REPORT EXAM: Two-dimensional and M-mode echocardiogram with Doppler and color Doppler. INDICATION Abnormal cardiac function M-Mode DIMENSIONS IVSd1.1 (0.7-1.1cm)Left Atrium (MM)3.4 (1.6-4.0cm) LVDd5.6 (3.5-5.6cm)Aortic Root2.9 (2.0-3.7cm) PWd1.3 (0.7-1.1cm)Aortic Cusp Exc.0.9 (1.5-2.0cm) LVDs4.9 (2.5-4.0cm) PWs1.7 cm Left ventricle is normal size. Global left ventricular hypokinesis. Asynchronous septal wall motion. Left ventricular ejection fraction estimated to be 30-35 %. Borderline left ventricular hypertrophy. Small posterior pericardial effusion. Moderate left pleural effusion. Moderate left atrial enlargement. Mild enlargement of right cardiac chambers. Focal aortic valve sclerosis with adequate cusp excursion. Thickened mitral valve leaflets with normal excursion. Mitral annulus and aortic root calcification. Normal pulmonic valve structure. Normal tricuspid valve structure. IVC at normal size with physiologic collapse. A color flow and spectral Doppler study was performed and revealed: Mild aortic regurgitation. Peak aortic valve gradient of 23 mmHg and a mean of 14 mmHg. Pressure gradient may be underestimated due to low systolic function. Aortic valve area 1.5 cm2 calculated by continuity equation. Moderate mitral regurgitation. Mitral diastolic velocities suggest reduced left ventricular relaxation c/w impaired relaxation diastolic dysfunction. Mild tricuspid regurgitation. Tricuspid systolic velocities suggests peak right ventricular systolic pressure of 50 mmHg, consistent with moderate pulmonary hypertension. Moderate pulmonic regurgitation present.
[2019-09-01] MEDS: Nitroglycerin Patch 0.4mg TDERMAL SCH (11:00)
--- NOTE | 2019-09-01 11:11 | Infectious Diseases Prog Note ---
Assessment/Plan Assessment/Plan antibiotics : vancomycin iv, zosyn A 1. enterococcus UTI 2. + blood cultures with coag neg staph likely contaminated 3. leucocytosis improving 4. diabetes mellitus 5. pleural effusion P 1. continue iv vancomycin 2 more days 2. dc zosyn 3. will follow up cultures Subjective ROS Limited/Unobtainable: Yes Allergies: Coded Allergies: No Known Allergies (Unverified , 08/27/19) Objective Vital Signs Last 24 Hour Vital Signs Date Time Temp Pulse Resp B/P (MAP) Pulse Ox O2 Delivery O2 Flow Rate FiO2 09/01/19 11:00 155/69 09/01/19 09:00 Nasal Cannula 2.0 09/01/19 08:42 89 124/69 09/01/19 08:42 89 124/69 09/01/19 08:42 124/69 09/01/19 08:00 98.2 89 26 124/69 (87) 97 09/01/19 06:50 100 Nasal Cannula 2.0 28 09/01/19 06:50 87 20 100 Nasal Cannula 2.0 28 84 22 100 09/01/19 04:00 99.2 85 30 131/73 (92) 96 09/01/19 03:42 80 09/01/19 01:25 84 22 100 Nasal Cannula 2.0 28 83 24 100 09/01/19 00:00 98.4 79 24 111/66 (81) 97 08/31/19 23:28 87 08/31/19 21:00 Nasal Cannula 2.0 08/31/19 20:55 84 116/69 08/31/19 20:00 90 08/31/19 20:00 98.6 84 20 116/69 (85) 97 08/31/19 19:21 100 Nasal Cannula 2.0 28 08/31/19 19:20 88 22 100 Nasal Cannula 2.0 28 86 24 100 08/31/19 16:00 83 08/31/19 16:00 97.4 97 20 105/59 (74) 97 08/31/19 12:43 89 26 100 Nasal Cannula 2.0 28 85 27 100 08/31/19 12:00 83 08/31/19 11:58 98.1 90 20 121/72 (88) 98 08/31/19 11:14 125/75 Height (Feet): 5 Height (Inches): 3.00 Weight (Pounds): 158 Respiratory/Chest: lungs clear Cardiovascular: normal rate, regular rhythm, no gallop/murmur Abdomen: soft, non tender Extremities: other - + edema Laboratory Tests Test 09/01/19 06:01 White Blood Count 15.2 K/UL (4.8-10.8) H Red Blood Count 4.28 M/UL (4.20-5.40) Hemoglobin 9.8 G/DL (12.0-16.0) L Hematocrit 31.6 % (37.0-47.0) L Mean Corpuscular Volume 74 FL (80-99) L Mean Corpuscular Hemoglobin 23.0 PG (27.0-31.0) L Mean Corpuscular Hemoglobin Concent 31.2 G/DL (32.0-36.0) L Red Cell Distribution Width 21.4 % (11.6-14.8) H Platelet Count 165 K/UL (150-450) Mean Platelet Volume 11.0 FL (6.5-10.1) H Neutrophils (%) (Auto) 83.2 % (45.0-75.0) H Lymphocytes (%) (Auto) 9.1 % (20.0-45.0) L Monocytes (%) (Auto) 6.3 % (1.0-10.0) Eosinophils (%) (Auto) 0.6 % (0.0-3.0) Basophils (%) (Auto) 0.9 % (0.0-2.0) Sodium Level 145 MMOL/L (136-145) Potassium Level 2.8 MMOL/L (3.5-5.1) L Chloride Level 109 MMOL/L (98-107) H Carbon Dioxide Level 32 MMOL/L (21-32) Anion Gap 5 mmol/L (5-15) Blood Urea Nitrogen 21 mg/dL (7-18) H Creatinine 1.1 MG/DL (0.55-1.30) Estimat Glomerular Filtration Rate mL/min (>60) Glucose Level 289 MG/DL (74-106) H Calcium Level 8.8 MG/DL (8.5-10.1) Phosphorus Level 2.3 MG/DL (2.5-4.9) L Magnesium Level 2.1 MG/DL (1.8-2.4) Total Bilirubin 1.0 MG/DL (0.2-1.0) Aspartate Amino Transf (AST/SGOT) 28 U/L (15-37) Alanine Aminotransferase (ALT/SGPT) 24 U/L (12-78) Alkaline Phosphatase 98 U/L (46-116) Troponin I 0.203 ng/mL (0.000-0.056) C-Reactive Protein, Quantitative 10.2 mg/dL (0.00-0.90) H Pro-B-Type Natriuretic Peptide 8118 pg/mL (0-125) H Total Protein 6.7 G/DL (6.4-8.2) Albumin 1.7 G/DL (3.4-5.0) L Globulin 5.0 g/dL Albumin/Globulin Ratio 0.3 (1.0-2.7) L Current Medications Medications (Trade) Dose Ordered Sig/Colt Route PRN Reason Start Time Stop Time Status Last Admin Dose Admin Albuterol/ Ipratropium (Albuterol/ Ipratropium) 3 ml Q6HRT HHN 08/30/19 07:00 09/03/19 00:00 09/01/19 06:50 Amlodipine Besylate (Norvasc) 2.5 mg DAILY ORAL 08/30/19 09:30 09/29/19 09:29 09/01/19 08:42 Aspirin (ASA) 81 mg DAILY NG 08/30/19 09:00 09/28/19 08:59 09/01/19 08:42 Carvedilol (Coreg) 3.125 mg EVERY 12 HOURS ORAL 08/30/19 21:00 09/29/19 20:59 09/01/19 08:42 Dextrose (Dextrose 50%) 25 ml Q30M PRN IV Hypoglycemia 08/30/19 05:00 09/27/19 07:59 Dextrose (Dextrose 50%) 50 ml Q30M PRN IV Hypoglycemia 08/30/19 05:00 09/27/19 07:59 Insulin Aspart (NovoLOG) Q6HR SUBQ 08/30/19 06:00 09/27/19 11:29 09/01/19 06:46 Lisinopril (Zestril) 10 mg DAILY ORAL 08/30/19 09:00 09/29/19 08:59 09/01/19 08:42 Nitroglycerin (Ntg) 1 patch Q24H TDERMAL 08/30/19 11:00 09/28/19 10:59 09/01/19 11:00 Piperacillin Sod/ Tazobactam Sod 3.375 gm/Dextrose 110 ml @ 27.5 mls/hr EVERY 8 HOURS IVPB 08/30/19 06:00 09/04/19 05:59 09/01/19 06:44 Vancomycin HCl (Vanco rx to dose) 1 ea DAILY PRN MISC Per rx protocol 08/30/19 09:00 09/27/19 07:59 Vancomycin HCl 1 gm/Dextrose 275 ml @ 183.708 mls/hr Q24H IVPB 08/30/19 20:00 09/04/19 19:59 08/31/19 20:54 Shamar Rios MD Sep 01, 2019 11:11
[2019-09-01 12:00] VITALS: BP 153/96
[2019-09-01] MEDS ORDERED: Sodium Chloride for KCL Premix X 4hrs IV SCH (13:00)
--- NOTE | 2019-09-01 13:24 | Cardiac Electrophysiology PN ---
Assessment/Plan Assessment/Plan 1. Sqg-FB-prbcgdnze myocardial infarction. Peak Troponin is 2.441, down to 1.5. This may be related to the patient's severe dehydration as well. The patient does not have any chest pain and was on hospice care. Treat medically at this time on aspirin and Coreg 3.125 bid 2. 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 On Lisinopril 10 daily and Coreg 3.125 bid 4. Long runs of 14 beats of NSVT due to CMP. Medical therapy as was on [facility] full code. Needs cardiac cath for VT and [place] and EF 30% if family agrees 5. Severe hypernatremia. Improving with hydration 6. History of schizophrenia. 7. Elevated white count 13,000. The patient is on vancomycin and Zosyn. 8. Dysphagia. PEG in am by Dr Leda REIS RN Subjective Subjective Continues with gabe episodes mostly due to frequent PVCs and NSVT ( longest 14 beats on 08/30/19). Confused with NG feeding. Scheduled for PEG in am Objective Last 24 Hour Vital Signs Date Time Temp Pulse Resp B/P (MAP) Pulse Ox O2 Delivery O2 Flow Rate FiO2 09/01/19 11:00 155/69 09/01/19 09:00 Nasal Cannula 2.0 09/01/19 08:42 89 124/69 09/01/19 08:42 89 124/69 09/01/19 08:42 124/69 09/01/19 08:00 98.2 89 26 124/69 (87) 97 09/01/19 06:50 100 Nasal Cannula 2.0 28 09/01/19 06:50 87 20 100 Nasal Cannula 2.0 28 84 22 100 09/01/19 04:00 99.2 85 30 131/73 (92) 96 09/01/19 03:42 80 09/01/19 01:25 84 22 100 Nasal Cannula 2.0 28 83 24 100 09/01/19 00:00 98.4 79 24 111/66 (81) 97 08/31/19 23:28 87 08/31/19 21:00 Nasal Cannula 2.0 08/31/19 20:55 84 116/69 08/31/19 20:00 90 08/31/19 20:00 98.6 84 20 116/69 (85) 97 08/31/19 19:21 100 Nasal Cannula 2.0 28 08/31/19 19:20 88 22 100 Nasal Cannula 2.0 28 86 24 100 08/31/19 16:00 83 08/31/19 16:00 97.4 97 20 105/59 (74) 97 Intake and Output 08/31/19 09/01/19 19:00 07:00 Intake Total 504.156 ml Output Total 600 ml 400 ml Balance -600 ml 104.156 ml IV Total 504.156 ml Output Urine Total 600 ml 400 ml # Voids 1 Laboratory Tests Test 09/01/19 06:01 White Blood Count 15.2 K/UL (4.8-10.8) H Red Blood Count 4.28 M/UL (4.20-5.40) Hemoglobin 9.8 G/DL (12.0-16.0) L Hematocrit 31.6 % (37.0-47.0) L Mean Corpuscular Volume 74 FL (80-99) L Mean Corpuscular Hemoglobin 23.0 PG (27.0-31.0) L Mean Corpuscular Hemoglobin Concent 31.2 G/DL (32.0-36.0) L Red Cell Distribution Width 21.4 % (11.6-14.8) H Platelet Count 165 K/UL (150-450) Mean Platelet Volume 11.0 FL (6.5-10.1) H Neutrophils (%) (Auto) 83.2 % (45.0-75.0) H Lymphocytes (%) (Auto) 9.1 % (20.0-45.0) L Monocytes (%) (Auto) 6.3 % (1.0-10.0) Eosinophils (%) (Auto) 0.6 % (0.0-3.0) Basophils (%) (Auto) 0.9 % (0.0-2.0) Sodium Level 145 MMOL/L (136-145) Potassium Level 2.8 MMOL/L (3.5-5.1) L Chloride Level 109 MMOL/L (98-107) H Carbon Dioxide Level 32 MMOL/L (21-32) Anion Gap 5 mmol/L (5-15) Blood Urea Nitrogen 21 mg/dL (7-18) H Creatinine 1.1 MG/DL (0.55-1.30) Estimat Glomerular Filtration Rate mL/min (>60) Glucose Level 289 MG/DL (74-106) H Calcium Level 8.8 MG/DL (8.5-10.1) Phosphorus Level 2.3 MG/DL (2.5-4.9) L Magnesium Level 2.1 MG/DL (1.8-2.4) Total Bilirubin 1.0 MG/DL (0.2-1.0) Aspartate Amino Transf (AST/SGOT) 28 U/L (15-37) Alanine Aminotransferase (ALT/SGPT) 24 U/L (12-78) Alkaline Phosphatase 98 U/L (46-116) Troponin I 0.203 ng/mL (0.000-0.056) C-Reactive Protein, Quantitative 10.2 mg/dL (0.00-0.90) H Pro-B-Type Natriuretic Peptide 8118 pg/mL (0-125) H Total Protein 6.7 G/DL (6.4-8.2) Albumin 1.7 G/DL (3.4-5.0) L Globulin 5.0 g/dL Albumin/Globulin Ratio 0.3 (1.0-2.7) L Objective HEAD AND NECK: No JVD.NG tube is in LUNGS: Coarse rhonchi. CARDIOVASCULAR: Irregular S1 and S2 with no gallop or murmur. ABDOMEN: Soft. EXTREMITIES: No pitting edema. Markie Oliveira MD Sep 01, 2019 13:24
[2019-09-01] MEDS ORDERED: Potassium Phosphate 30 MM in NS 275 ML IV SCH (14:00)
--- NOTE | 2019-09-01 14:28 | Diagnostic Imaging Report ---
Indication: Dyspnea Comparison: 08/28/2019 A single view chest radiograph was obtained. Findings: Hazy basilar opacities likely represent pleural effusions. Cardiomegaly is present. Pulmonary vascular congestion is suspected but unchanged. NG tube is satisfactory in position. IMPRESSION: Bilateral pleural effusions
--- NOTE | 2019-09-01 15:30 | Progress Note ---
DATE: 08/31/2019 Late entry for 08/31/2019 SUBJECTIVE: The patient is a 78-year-old female, currently nonverbal, bedbound but looks comfortable. PHYSICAL EXAMINATION: VITAL SIGNS: Blood pressure 120/70, pulse 84, respirations 18. CHEST: Bilateral few crackles. CARDIOVASCULAR: Regular rhythm. ABDOMEN: Soft. EXTREMITIES: CCE NEUROLOGICAL: Generalized weakness. ASSESSMENT: 1. Septic shock. 2. Cardiac arrhythmia. 3. Pneumonia. 4. Dysphagia. 5. Metabolic encephalopathy. PLAN: 1. Continue current IV antibiotics. 2. Bronchodilator treatments. 3. Continue Norvasc. 4. She is on vancomycin and Zosyn . 5. ID, Pulmonary and Cardiology on case. 6. Also consider transfer to [facility] long-term, may need a PEG tube. Osmar Cooney M.D. DR: Willie JOB#: [id number] CC:
[2019-09-01 16:00] VITALS: BP 114/67
--- NOTE | 2019-09-01 16:08 | Nephrology Progress Note ---
Assessment/Plan Problem List: (1) Dehydration (2) Failure to thrive (3) Hypernatremia (4) Pneumonia (5) Elevated troponin (6) Cardiomyopathy Assessment Dehydration leading to HyperNatremia HypoAlbuminemia / Mal nutrition Elevated Troponin NSTEMI COPD HTN Pneumonia Plan k and Phos supplement Due PEG in am previously: Low EjFx D5W IV Monitor BS and BP Monitor renal parameters Per consultants ASA and Nitro afterload reduction Objective Objective Last 24 Hour Vital Signs Date Time Temp Pulse Resp B/P (MAP) Pulse Ox O2 Delivery O2 Flow Rate FiO2 09/01/19 13:44 85 18 97 Venturi Mask 3.0 28 89 20 99 09/01/19 12:00 95 09/01/19 12:00 98.2 80 26 153/96 (115) 99 09/01/19 11:00 155/69 09/01/19 09:00 Nasal Cannula 2.0 09/01/19 08:42 89 124/69 09/01/19 08:42 89 124/69 09/01/19 08:42 124/69 09/01/19 08:00 81 09/01/19 08:00 98.2 89 26 124/69 (87) 97 09/01/19 06:50 100 Nasal Cannula 2.0 28 09/01/19 06:50 87 20 100 Nasal Cannula 2.0 28 84 22 100 09/01/19 04:00 99.2 85 30 131/73 (92) 96 09/01/19 03:42 80 09/01/19 01:25 84 22 100 Nasal Cannula 2.0 28 83 24 100 09/01/19 00:00 98.4 79 24 111/66 (81) 97 08/31/19 23:28 87 08/31/19 21:00 Nasal Cannula 2.0 08/31/19 20:55 84 116/69 08/31/19 20:00 90 08/31/19 20:00 98.6 84 20 116/69 (85) 97 08/31/19 19:21 100 Nasal Cannula 2.0 28 08/31/19 19:20 88 22 100 Nasal Cannula 2.0 28 86 24 100 Intake and Output 08/31/19 09/01/19 19:00 07:00 Intake Total 504.156 ml Output Total 600 ml 400 ml Balance -600 ml 104.156 ml IV Total 504.156 ml Output Urine Total 600 ml 400 ml # Voids 1 Laboratory Tests 09/01/19 06:01: White Blood Count 15.2H, Red Blood Count 4.28, Hemoglobin 9.8L, Hematocrit 31.6L , Mean Corpuscular Volume 74L, Mean Corpuscular Hemoglobin 23.0L, Mean Corpuscular Hemoglobin Concent 31.2L, Red Cell Distribution Width 21.4H, Platelet Count 165, Mean Platelet Volume 11.0H, Neutrophils (%) (Auto) 83.2H, Lymphocytes (%) (Auto) 9.1L, Monocytes (%) (Auto) 6.3, Eosinophils (%) (Auto) 0.6, Basophils (%) (Auto) 0.9, Sodium Level 145, Potassium Level 2.8L, Chloride Level 109H, Carbon Dioxide Level 32, Anion Gap 5, Blood Urea Nitrogen 21H, Creatinine 1.1, Estimat Glomerular Filtration Rate , Glucose Level 289H, Calcium Level 8.8, Phosphorus Level 2.3L, Magnesium Level 2.1, Total Bilirubin 1.0, Aspartate Amino Transf (AST/SGOT) 28, Alanine Aminotransferase (ALT/SGPT) 24, Alkaline Phosphatase 98, Troponin I 0.203H, C-Reactive Protein, Quantitative 10.2H, Pro-B-Type Natriuretic Peptide 8118H, Total Protein 6.7, Albumin 1.7L, Globulin 5.0, Albumin/Globulin Ratio 0.3L Height (Feet): 5 Height (Inches): 3.00 Weight (Pounds): 158 General Appearance: no apparent distress EENT: other - NGT+ Cardiovascular: normal rate Respiratory/Chest: decreased breath sounds Abdomen: distended Objective no change Kaden Chance MD Sep 01, 2019 16:08
--- NOTE | 2019-09-01 19:30 | Consultation ---
DATE OF CONSULTATION: 09/01/2019 CHIEF COMPLAINT: Failure to thrive. HISTORY OF PRESENT ILLNESS: Most of the history per chart. The patient is as 78-year-old female with multiple medical problems including history of hypertension, CHF, diabetes, hyperlipidemia, schizophrenia. She was sent for evaluation for possible G-tube placement. On admission, she had elevated troponin of 2.44. So far, she has been evaluated by Dr. Oliveira, lining maker. She has EF of 30 to 35 percent. Troponin is improving. Apparently the patient was at hospice at one point, so the management is going to be conservative. GI consult was requested for evaluation of possible G-tube placement. PAST MEDICAL HISTORY: 1. Hypertension. 2. Congestive heart failure. 3. Diabetes. 4. Hyperlipidemia. 5. Schizophrenia. ALLERGIES: No known drug allergies. MEDICATIONS: Please see medication reconciliation list. SOCIAL HISTORY: There is no recent history of tobacco, alcohol, or drug abuse. FAMILY HISTORY: Noncontributory. REVIEW OF SYSTEMS: Unable to obtain. PAST SURGICAL HISTORY: Unknown. PHYSICAL EXAMINATION: VITAL SIGNS: Temperature is 98.2, pulse 89, respirations 26, blood pressure 159/69. HEENT: Normocephalic and atraumatic. Sclerae anicteric. NECK: Supple. No evidence of obvious lymphadenopathy. CARDIOVASCULAR: Tachycardiac. Regular rate. Plus S1 and S2. There is a soft murmur in left sternal border. LUNGS: The patient is on mouth breather, relatively breathing fast with decreased breath sounds bilaterally on the supine exam. ABDOMEN: Soft and nontender. No rebound. No guarding. No peritoneal sign. EXTREMITIES: No cyanosis. No clubbing. No edema LABORATORY AND DIAGNOSTIC DATA: White count is 16,000, hemoglobin 9.8, hematocrit 31, platelet count 165,000. INR is 1.1. BUN is 21, creatinine 1.1. Sodium 145, potassium 2.8. ASSESSMENT AND PLAN: This is a 78-year-old female with numerous medical problems. At this time, mainly the patient has dysphagia and failure to thrive and needs G-tube. The patient also has anemia which is workup. At this point, we are going to discuss with Dr. Oliveira, lining maker to see if the patient cardiac holman is clear. We are going to hopefully plan to do endoscopy and PEG placement tomorrow. Meanwhile, we are going to order a chest x-ray for evaluating the pulmonary status given the patient is tachypneic. We are going to repeat labs for tomorrow and order anemia workup. Meanwhile continue on NG tube feeding. I want to thank Dr. Cooney, for this kind referral. Suresh Tompkins M.D. DR: Sandra JOB#: [id number] CC: Osmar Cooney M.D.; Fax#: [phone]
[2019-09-01 20:00] VITALS: BP 132/82
[2019-09-01] MEDS: Vancomycin 1gm/D5W 275ml IVPB SCH ×2 (20:46)
[2019-09-02] VITALS (11 sets, daily range): BP systolic 96–129; BP diastolic 41–81
[2019-09-02] MEDS: Albuterol/Ipratropium 3ml neb HHN SCH ×4 (00:10→20:37)
[2019-09-02] MEDS: NovoLOG Insulin Flexpen SUBQ SCH ×5 (00:39→21:40)
--- NOTE | 2019-09-02 07:26 | General Progress Note ---
Assessment/Plan Problem List: (1) Cardiomyopathy ICD Codes: I42.9 - Cardiomyopathy, unspecified SNOMED: 31522939 (2) Failure to thrive SNOMED: 93433856 (3) Pneumonia ICD Codes: J18.9 - Pneumonia, unspecified organism SNOMED: 704407222, [id number] Qualifiers: Qualified Codes: J18.1 - Lobar pneumonia, unspecified organism Assessment/Plan: plan for PEG today Subjective ROS Limited/Unobtainable: No Allergies: Coded Allergies: No Known Allergies (Unverified , 08/27/19) Objective Last 24 Hour Vital Signs Date Time Temp Pulse Resp B/P (MAP) Pulse Ox O2 Delivery O2 Flow Rate FiO2 09/02/19 07:18 97 Nasal Cannula 2.0 28 09/02/19 07:18 89 20 100 Nasal Cannula 2.0 28 87 18 97 09/02/19 04:00 94 09/02/19 04:00 98.6 95 20 116/69 (85) 99 09/02/19 00:10 94 22 99 Nasal Cannula 3.0 32 91 22 98 09/02/19 00:00 98.7 96 20 118/58 (78) 99 09/02/19 00:00 96 09/01/19 21:24 99 132/82 09/01/19 21:00 Nasal Cannula 2.0 09/01/19 20:00 98.2 99 20 132/82 (99) 93 09/01/19 20:00 97 09/01/19 19:31 94 Nasal Cannula 3.0 32 09/01/19 19:27 100 22 97 Nasal Cannula 3.0 32 99 24 94 09/01/19 16:00 97.7 90 20 114/67 (83) 99 09/01/19 16:00 89 09/01/19 13:44 85 18 97 Venturi Mask 3.0 28 89 20 99 09/01/19 12:00 95 09/01/19 12:00 98.2 80 26 153/96 (115) 99 09/01/19 11:00 155/69 09/01/19 09:00 Nasal Cannula 2.0 09/01/19 08:42 89 124/69 09/01/19 08:42 89 124/69 09/01/19 08:42 124/69 09/01/19 08:00 81 09/01/19 08:00 98.2 89 26 124/69 (87) 97 Intake and Output 09/01/19 09/02/19 19:00 07:00 Intake Total 820.0 ml Output Total 310 ml 600 ml Balance 510.0 ml -600 ml IV Total 490.0 ml Tube Feeding 330 ml Output Urine Total 310 ml 600 ml Laboratory Tests 09/02/19 06:50: White Blood Count [Pending], Red Blood Count [Pending], Hemoglobin [Pending], Hematocrit [Pending], Mean Corpuscular Volume [Pending], Mean Corpuscular Hemoglobin [Pending], Mean Corpuscular Hemoglobin Concent [Pending], Red Cell Distribution Width [Pending], Platelet Count [Pending], Mean Platelet Volume [ Pending], Neutrophils (%) (Auto) [Pending], Lymphocytes (%) (Auto) [Pending], Monocytes (%) (Auto) [Pending], Eosinophils (%) (Auto) [Pending], Basophils (%) (Auto) [Pending], Prothrombin Time [Pending], Prothromb Time International Ratio [Pending], Sodium Level [Pending], Potassium Level [Pending], Chloride Level [Pending], Carbon Dioxide Level [Pending], Blood Urea Nitrogen [Pending], Creatinine [Pending], Estimat Glomerular Filtration Rate [Pending], Glucose Level [Pending], Calcium Level [Pending], Phosphorus Level [Pending], Magnesium Level [Pending], Iron Level [Pending], Unsaturated Iron Binding [Pending], Ferritin [Pending], Total Bilirubin [Pending], Direct Bilirubin [Pending], Aspartate Amino Transf (AST/SGOT) [Pending], Alanine Aminotransferase (ALT/SGPT ) [Pending], Alkaline Phosphatase [Pending], Total Protein [Pending], Albumin [ Pending] Height (Feet): 5 Height (Inches): 3.00 Weight (Pounds): 158 General Appearance: lethargic EENT: normal ENT inspection Neck: supple Cardiovascular: normal rate Respiratory/Chest: decreased breath sounds Abdomen: normal bowel sounds, non tender, soft Extremities: non-tender Suresh Tompkins MD Sep 02, 2019 07:26
[2019-09-02] MEDS ORDERED: fentaNYL 100 mcg/2 mL IV PRN (07:30)
[2019-09-02] MEDS ORDERED: NS 275ml ONE (07:30)
[2019-09-02] MEDS ORDERED: Midazolam 2mg/2ml Inj IVP PRN (07:30)
[2019-09-02] MEDS ORDERED: Atropine Sulfate 0.4mg/ml inj IVP PRN (07:30)
[2019-09-02] MEDS ORDERED: Lidocaine 1% MPF 10mg/ml 5ml ONE (07:30)
[2019-09-02] MEDS ORDERED: Propofol 200mg/20ml IV ONE (07:30)
[2019-09-02] MEDS ORDERED: DiphenhydrAMINE 50mg/ml Inj IVP PRN (07:30)
[2019-09-02 07:39] LABS: ANION GAP 7 mmol/L (5-15); BLOOD UREA NITROGEN 20 mg/dL (7-18); CALCIUM 9.1 MG/DL (8.5-10.1); CARBON DIOXIDE 30 MMOL/L (21-32); CHLORIDE 108 MMOL/L (98-107); POTASSIUM 3.6 MMOL/L (3.5-5.1); SODIUM 144 MMOL/L (136-145)
--- NOTE | 2019-09-02 07:41 | Pre-Procedure Note/Attestation ---
Pre-Procedure Note/Attestation Complete Prior to Procedure Planned Procedure: not applicable Procedure Narrative: egd/peg Indications for Procedure Pre-Operative Diagnosis: dysphagia Attestation I attest that I discussed the nature of the procedure; its benefits; risks and complications; and alternatives (and the risks and benefits of such alternatives ), prior to the procedure, with the patient (or the patient's legal airline security representative). I attest that, if there was a reasonable possibility of needing a blood transfusion, the patient (or the patient's legal airline security representative) was given the [facility] standardized written summary, pursuant to the Stephon Charlette Blood Safety Act ([place] Health and Safety Code # 1645, as amended). I attest that I re-evaluated the patient just prior to the surgery and that there has been no change in the patient's H&P, except as documented below: Suresh Tompkins MD Sep 02, 2019 07:41
[2019-09-02 07:42] LABS: BASOPHILS % (AUTO) 0.4 % (0.0-2.0); EOSINOPHILS % (AUTO) 0.4 % (0.0-3.0); HEMATOCRIT 34.1 % (37.0-47.0); HEMOGLOBIN 10.7 G/DL (12.0-16.0); LYMPHOCYTES % (AUTO) 11.2 % (20.0-45.0); MEAN CORPUSCULAR VOLUME 73 FL (80-99); MONOCYTES % (AUTO) 6.1 % (1.0-10.0); PLATELET COUNT 168 K/UL (150-450); RED BLOOD COUNT 4.64 M/UL (4.20-5.40); RED CELL DISTRIBUTION WIDTH 22.5 % (11.6-14.8); WHITE BLOOD COUNT 16.5 K/UL (4.8-10.8)
[2019-09-02 07:43] LABS: % IRON SATURATION 16 % (15-50); IRON 38 ug/dL (50-175); TOTAL IRON BINDING CAPACITY 243 ug/dL (250-450)
--- NOTE | 2019-09-02 07:48 | Pre-Procedure Note/Attestation ---
Pre-Procedure Note/Attestation Complete Prior to Procedure Planned Procedure: not applicable Procedure Narrative: EGD/peg Indications for Procedure Pre-Operative Diagnosis: dysphagia Attestation I attest that I discussed the nature of the procedure; its benefits; risks and complications; and alternatives (and the risks and benefits of such alternatives ), prior to the procedure, with the patient (or the patient's legal labor service representative). I attest that, if there was a reasonable possibility of needing a blood transfusion, the patient (or the patient's legal labor service representative) was given the [facility] standardized written summary, pursuant to the Stephon Charlette Blood Safety Act ([place] Health and Safety Code # 1645, as amended). I attest that I re-evaluated the patient just prior to the surgery and that there has been no change in the patient's H&P, except as documented below: Suresh Tompkins MD Sep 02, 2019 07:48
--- NOTE | 2019-09-02 08:01 | Anethesia Preoperative Eval ---
Anesthesia Pre-op PMH/ROS General Date of Evaluation: Sep 02, 2019 Time of Evaluation: 07:00 Anesthesiologist: goldie ASA Score: ASA 4 Mallampati Score Class I : Soft palate, uvula, fauces, pillars visible Class II: Soft palate, uvula, fauces visible Class III: Soft palate, base of uvula visible Class IV: Only hard plate visible Mallampati Classification: Class II Surgeon: valery Diagnosis: failure to thrive, dysphagia Surgical Procedure: peg placement Anesthesia History: none Social History: smoking - nonsmoker Family History: no anesthesia problems Allergies: Coded Allergies: No Known Allergies (Unverified , 08/27/19) Medications: see eMAR Patient NPO?: Yes Past Medical History Cardiovascular: Reports: HTN, other - cardiomegaly, end stage heart failure Pulmonary: Reports: COPD, other - dyspnea Neurologic/Psychiatric: Reports: other - schizophrenia Anesthesia Pre-op Phys. Exam Physician Exam Last Vital Signs Date Time Temp Pulse Resp B/P (MAP) Pulse Ox O2 Delivery O2 Flow Rate FiO2 09/02/19 07:18 97 Nasal Cannula 2.0 28 09/02/19 07:18 89 20 87 18 09/02/19 04:00 98.6 116/69 (85) Constitutional: other - obtunded Neurologic: CN 2-12 intact Cardiovascular: RRR Respiratory: CTA, other - mouth breather, tachypneic Gastrointestinal: S/NT/ND Airway Exam Mallampati Score: Class II MO: limited Neck: flexible TMD: 2fb ROM: limited Anesthesia Pre-op A/P Risk Assessment & Plan Assessment: asa4 Plan: mac Status Change Before Surgery: No Pre-Antibiotics Drug: Fabi Nieto MD Sep 02, 2019 08:01
[2019-09-02 08:13] LABS: ALBUMIN 1.5 G/DL (3.4-5.0); ALKALINE PHOSPHATASE 109 U/L (46-116); BILIRUBIN,TOTAL 1.3 MG/DL (0.2-1.0)
--- NOTE | 2019-09-02 08:27 | Immediate Post-Op Evaluation ---
Immediate Post-Op Evalulation Immediate Post-Op Evalulation Procedure: peg Date of Evaluation: Sep 02, 2019 Time of Evaluation: 08:24 IV Fluids: 150ml 0.9ns Blood Products: none Estimated Blood Loss: negligible Blood Pressure Systolic: 129 Blood Pressure Diastolic: 65 Pulse Rate: 73 Respiratory Rate: 18 O2 Sat by Pulse Oximetry: 99 Temperature (Fahrenheit): 97.7 Pain Score (1-10): 0 Nausea: No Vomiting: No Complications none Patient Status: awake, reacts, patent Hydration Status: adequate Drug: Fabi Nieto MD Sep 02, 2019 08:27
--- NOTE | 2019-09-02 08:29 | 48 Hour Post Anesthesia Eval ---
Post Anesthesia Evaluation Procedure: peg Date of Evaluation: Sep 02, 2019 Time of Evaluation: 08:26 Blood Pressure Systolic: 128 0: 81 Pulse Rate: 100 Respiratory Rate: 15 Temperature (Fahrenheit): 97.7 O2 Sat by Pulse Oximetry: 99 Airway: patent Nausea: No Vomiting: No Pain Intensity: 0 Hydration Status: adequate Cardiopulmonary Status: stable Mental Status/LOC: patient returned to baseline Post-Anesthesia Complications: none Follow-up care needed: N/A Fabi Ro MD Sep 02, 2019 08:29
[2019-09-02 08:32] LABS: ALANINE AMINOTRANSFERASE 28 U/L (12-78); ASPARTATE AMINO TRANSFERASE 64 U/L (15-37); BILIRUBIN,DIRECT 0.2 MG/DL (0.0-0.3)
[2019-09-02 08:55] LABS: FERRITIN 196 NG/ML (8-388)
[2019-09-02] MEDS: Aspirin Baby 81mg NG SCH (09:51)
[2019-09-02] MEDS: Lisinopril 10mg tab ORAL SCH (09:52)
--- NOTE | 2019-09-02 10:07 | Pulmonology Progress Note ---
Assessment/Plan Assessment/Plan IMPRESSION: 1. COPD. 2. Hypertension. 3. Severe hypernatremia. Improved 4. Dehydration. Resolved 5. Bilateral pneumonia. 6. Severe protein-calorie malnutrition. 7. 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 Currently she is saturating well on nasal oxygen. Enteral feeding On Vanco and Zosyn Jaiden Logan M.D. Subjective Interval Events: s/p PEG; no new complaints Constitutional: Reports: no symptoms HEENT: Repors: no symptoms Respiratory: Reports: no symptoms Cardiovascular: Reports: no symptoms Gastrointestinal/Abdominal: Reports: no symptoms Allergies: Coded Allergies: No Known Allergies (Unverified , 08/27/19) Objective Last 24 Hour Vital Signs Date Time Temp Pulse Resp B/P (MAP) Pulse Ox O2 Delivery O2 Flow Rate FiO2 09/02/19 09:52 121/74 09/02/19 09:51 96 121/74 09/02/19 09:51 96 121/74 09/02/19 09:00 98.1 94 20 121/70 (87) 95 09/02/19 08:35 97.9 96 15 121/74 97 Nasal Cannula 3 09/02/19 08:29 100 15 99 09/02/19 08:27 73 18 99 09/02/19 08:22 97 18 123/74 97 Nasal Cannula 3 09/02/19 08:17 100 15 128/81 97 Nasal Cannula 3 09/02/19 08:12 97.7 73 18 129/65 97 Nasal Cannula 3 09/02/19 07:18 97 Nasal Cannula 2.0 28 09/02/19 07:18 89 20 100 Nasal Cannula 2.0 28 87 18 97 09/02/19 04:00 94 09/02/19 04:00 98.6 95 20 116/69 (85) 99 09/02/19 00:10 94 22 99 Nasal Cannula 3.0 32 91 22 98 09/02/19 00:00 98.7 96 20 118/58 (78) 99 09/02/19 00:00 96 09/01/19 21:24 99 132/82 09/01/19 21:00 Nasal Cannula 2.0 09/01/19 20:00 98.2 99 20 132/82 (99) 93 09/01/19 20:00 97 09/01/19 19:31 94 Nasal Cannula 3.0 32 09/01/19 19:27 100 22 97 Nasal Cannula 3.0 32 99 24 94 09/01/19 16:00 97.7 90 20 114/67 (83) 99 09/01/19 16:00 89 09/01/19 13:44 85 18 97 Venturi Mask 3.0 28 89 20 99 09/01/19 12:00 95 09/01/19 12:00 98.2 80 26 153/96 (115) 99 09/01/19 11:00 155/69 Intake and Output 09/01/19 09/02/19 19:00 07:00 Intake Total 820.0 ml Output Total 310 ml 600 ml Balance 510.0 ml -600 ml IV Total 490.0 ml Tube Feeding 330 ml Output Urine Total 310 ml 600 ml General Appearance: no acute distress HEENT: normocephalic Respiratory/Chest: chest wall non-tender, lungs clear Cardiovascular: normal peripheral pulses, normal rate Laboratory Tests 09/02/19 06:50: White Blood Count 16.5H, Red Blood Count 4.64, Hemoglobin 10.7L, Hematocrit 34.1L, Mean Corpuscular Volume 73L, Mean Corpuscular Hemoglobin 23.0L, Mean Corpuscular Hemoglobin Concent 31.4L, Red Cell Distribution Width 22.5H, Platelet Count 168, Mean Platelet Volume 12.0H, Neutrophils (%) (Auto) 82.0H, Lymphocytes (%) (Auto) 11.2L, Monocytes (%) (Auto) 6.1, Eosinophils (%) (Auto) 0.4, Basophils (%) (Auto) 0.4, Prothrombin Time 10.4, Prothromb Time International Ratio 1.0, Sodium Level 144, Potassium Level 3.6, Chloride Level 108H, Carbon Dioxide Level 30, Anion Gap 7, Blood Urea Nitrogen 20H, Creatinine 1.0, Estimat Glomerular Filtration Rate , Glucose Level 196H, Calcium Level 9.1 , Phosphorus Level 4.0, Magnesium Level 1.7L, Iron Level 38L, Total Iron Binding Capacity 243L, Percent Iron Saturation 16, Unsaturated Iron Binding 205 , Ferritin 196, Total Bilirubin 1.3H, Direct Bilirubin 0.2, Aspartate Amino Transf (AST/SGOT) 64H, Alanine Aminotransferase (ALT/SGPT) 28, Alkaline Phosphatase 109, Total Protein 6.0L, Albumin 1.5L Current Medications Medications (Trade) Dose Ordered Sig/Colt Route PRN Reason Start Time Stop Time Status Last Admin Dose Admin Albuterol/ Ipratropium (Albuterol/ Ipratropium) 3 ml Q6HRT HHN 08/30/19 07:00 09/03/19 00:00 09/02/19 07:18 Amlodipine Besylate (Norvasc) 2.5 mg DAILY ORAL 08/30/19 09:30 09/29/19 09:29 09/02/19 09:51 Aspirin (ASA) 81 mg DAILY NG 08/30/19 09:00 09/28/19 08:59 09/02/19 09:51 Carvedilol (Coreg) 3.125 mg EVERY 12 HOURS ORAL 08/30/19 21:00 09/29/19 20:59 09/02/19 09:51 Dextrose (Dextrose 50%) 25 ml Q30M PRN IV Hypoglycemia 08/30/19 05:00 09/27/19 07:59 Dextrose (Dextrose 50%) 50 ml Q30M PRN IV Hypoglycemia 08/30/19 05:00 09/27/19 07:59 Insulin Aspart (NovoLOG) Q6HR SUBQ 08/30/19 06:00 09/27/19 11:29 09/02/19 00:39 Lisinopril (Zestril) 10 mg DAILY ORAL 08/30/19 09:00 09/29/19 08:59 09/02/19 09:52 Magnesium Sulfate 100 ml @ 100 mls/hr Q1H IVPB 09/02/19 09:30 09/02/19 11:29 09/02/19 09:52 Nitroglycerin (Ntg) 1 patch Q24H TDERMAL 08/30/19 11:00 09/28/19 10:59 09/01/19 11:00 Vancomycin HCl (Vanco rx to dose) 1 ea DAILY PRN MISC Per rx protocol 08/30/19 09:00 09/27/19 07:59 Vancomycin HCl 1 gm/Dextrose 275 ml @ 183.708 mls/hr Q24H IVPB 08/30/19 20:00 09/04/19 19:59 09/01/19 20:46 Jaiden Logan MD Sep 02, 2019 10:07
--- NOTE | 2019-09-02 10:51 | Infectious Diseases Prog Note ---
Assessment/Plan Assessment/Plan antibiotics : vancomycin iv A 1. enterococcus UTI 2. + blood cultures with coag neg staph likely contaminated 3. leucocytosis 4. diabetes mellitus 5. pleural effusion P 1. continue iv vancomycin 1 more day 2. will follow up cultures Subjective ROS Limited/Unobtainable: Yes Allergies: Coded Allergies: No Known Allergies (Unverified , 08/27/19) Objective Vital Signs Last 24 Hour Vital Signs Date Time Temp Pulse Resp B/P (MAP) Pulse Ox O2 Delivery O2 Flow Rate FiO2 09/02/19 09:52 121/74 09/02/19 09:51 96 121/74 09/02/19 09:51 96 121/74 09/02/19 09:00 98.1 94 20 121/70 (87) 95 09/02/19 08:35 97.9 96 15 121/74 97 Nasal Cannula 3 09/02/19 08:29 100 15 99 09/02/19 08:27 73 18 99 09/02/19 08:22 97 18 123/74 97 Nasal Cannula 3 09/02/19 08:17 100 15 128/81 97 Nasal Cannula 3 09/02/19 08:12 97.7 73 18 129/65 97 Nasal Cannula 3 09/02/19 08:00 88 09/02/19 07:18 97 Nasal Cannula 2.0 28 09/02/19 07:18 89 20 100 Nasal Cannula 2.0 28 87 18 97 09/02/19 04:00 94 09/02/19 04:00 98.6 95 20 116/69 (85) 99 09/02/19 00:10 94 22 99 Nasal Cannula 3.0 32 91 22 98 09/02/19 00:00 98.7 96 20 118/58 (78) 99 09/02/19 00:00 96 09/01/19 21:24 99 132/82 09/01/19 21:00 Nasal Cannula 2.0 09/01/19 20:00 98.2 99 20 132/82 (99) 93 09/01/19 20:00 97 09/01/19 19:31 94 Nasal Cannula 3.0 32 09/01/19 19:27 100 22 97 Nasal Cannula 3.0 32 99 24 94 09/01/19 16:00 97.7 90 20 114/67 (83) 99 09/01/19 16:00 89 09/01/19 13:44 85 18 97 Venturi Mask 3.0 28 89 20 99 09/01/19 12:00 95 09/01/19 12:00 98.2 80 26 153/96 (115) 99 09/01/19 11:00 155/69 Height (Feet): 5 Height (Inches): 3.00 Weight (Pounds): 158 Respiratory/Chest: lungs clear Cardiovascular: normal rate, regular rhythm, no gallop/murmur Abdomen: soft, non tender, other - GT site bleeding Extremities: no edema Laboratory Tests Test 09/02/19 06:50 White Blood Count 16.5 K/UL (4.8-10.8) H Red Blood Count 4.64 M/UL (4.20-5.40) Hemoglobin 10.7 G/DL (12.0-16.0) L Hematocrit 34.1 % (37.0-47.0) L Mean Corpuscular Volume 73 FL (80-99) L Mean Corpuscular Hemoglobin 23.0 PG (27.0-31.0) L Mean Corpuscular Hemoglobin Concent 31.4 G/DL (32.0-36.0) L Red Cell Distribution Width 22.5 % (11.6-14.8) H Platelet Count 168 K/UL (150-450) Mean Platelet Volume 12.0 FL (6.5-10.1) H Neutrophils (%) (Auto) 82.0 % (45.0-75.0) H Lymphocytes (%) (Auto) 11.2 % (20.0-45.0) L Monocytes (%) (Auto) 6.1 % (1.0-10.0) Eosinophils (%) (Auto) 0.4 % (0.0-3.0) Basophils (%) (Auto) 0.4 % (0.0-2.0) Prothrombin Time 10.4 SEC (9.30-11.50) Prothromb Time International Ratio 1.0 (0.9-1.1) Sodium Level 144 MMOL/L (136-145) Potassium Level 3.6 MMOL/L (3.5-5.1) Chloride Level 108 MMOL/L (98-107) H Carbon Dioxide Level 30 MMOL/L (21-32) Anion Gap 7 mmol/L (5-15) Blood Urea Nitrogen 20 mg/dL (7-18) H Creatinine 1.0 MG/DL (0.55-1.30) Estimat Glomerular Filtration Rate mL/min (>60) Glucose Level 196 MG/DL (74-106) H Calcium Level 9.1 MG/DL (8.5-10.1) Phosphorus Level 4.0 MG/DL (2.5-4.9) Magnesium Level 1.7 MG/DL (1.8-2.4) L Iron Level 38 ug/dL (50-175) L Total Iron Binding Capacity 243 ug/dL (250-450) L Percent Iron Saturation 16 % (15-50) Unsaturated Iron Binding 205 ug/dL (112-346) Ferritin 196 NG/ML (8-388) Total Bilirubin 1.3 MG/DL (0.2-1.0) H Direct Bilirubin 0.2 MG/DL (0.0-0.3) Aspartate Amino Transf (AST/SGOT) 64 U/L (15-37) H Alanine Aminotransferase (ALT/SGPT) 28 U/L (12-78) Alkaline Phosphatase 109 U/L (46-116) Total Protein 6.0 G/DL (6.4-8.2) L Albumin 1.5 G/DL (3.4-5.0) L Current Medications Medications (Trade) Dose Ordered Sig/Colt Route PRN Reason Start Time Stop Time Status Last Admin Dose Admin Albuterol/ Ipratropium (Albuterol/ Ipratropium) 3 ml Q6HRT HHN 08/30/19 07:00 09/03/19 00:00 09/02/19 07:18 Amlodipine Besylate (Norvasc) 2.5 mg DAILY ORAL 08/30/19 09:30 09/29/19 09:29 09/02/19 09:51 Aspirin (ASA) 81 mg DAILY NG 08/30/19 09:00 09/28/19 08:59 09/02/19 09:51 Carvedilol (Coreg) 3.125 mg EVERY 12 HOURS ORAL 08/30/19 21:00 09/29/19 20:59 09/02/19 09:51 Dextrose (Dextrose 50%) 25 ml Q30M PRN IV Hypoglycemia 08/30/19 05:00 09/27/19 07:59 Dextrose (Dextrose 50%) 50 ml Q30M PRN IV Hypoglycemia 08/30/19 05:00 09/27/19 07:59 Docusate Sodium (Colace) 100 mg THREE TIMES A DAY GT 09/02/19 13:00 10/02/19 12:59 Insulin Aspart (NovoLOG) Q6HR SUBQ 08/30/19 06:00 09/27/19 11:29 09/02/19 00:39 Lisinopril (Zestril) 10 mg DAILY ORAL 08/30/19 09:00 09/29/19 08:59 09/02/19 09:52 Magnesium Sulfate 100 ml @ 100 mls/hr Q1H IVPB 09/02/19 09:30 09/02/19 11:29 09/02/19 09:52 Nitroglycerin (Ntg) 1 patch Q24H TDERMAL 08/30/19 11:00 09/28/19 10:59 09/01/19 11:00 Polyethylene Glycol (Miralax) 17 gm BEDTIME ORAL 09/02/19 21:00 10/02/19 20:59 Vancomycin HCl (Vanco rx to dose) 1 ea DAILY PRN MISC Per rx protocol 08/30/19 09:00 09/27/19 07:59 Vancomycin HCl 1 gm/Dextrose 275 ml @ 183.708 mls/hr Q24H IVPB 08/30/19 20:00 09/04/19 19:59 09/01/19 20:46 Shamar Rios MD Sep 02, 2019 10:51
[2019-09-02] MEDS: Nitroglycerin Patch 0.4mg TDERMAL SCH (11:42)
[2019-09-02] MEDS: Docusate 100mg/10ml Liq GT SCH ×2 (12:11→18:29)
--- NOTE | 2019-09-02 13:36 | Nephrology Progress Note ---
Assessment/Plan Problem List: (1) Dehydration (2) Failure to thrive (3) Hypernatremia (4) Pneumonia (5) Elevated troponin (6) Cardiomyopathy Assessment Dehydration leading to HyperNatremia HypoAlbuminemia / Mal nutrition Elevated Troponin NSTEMI COPD HTN Pneumonia Plan when seen today didn't have the PEG yet k and Phos supplement Due PEG today previously: Low EjFx D5W IV Monitor BS and BP Monitor renal parameters Per consultants ASA and Nitro afterload reduction Subjective ROS Limited/Unobtainable: No Constitutional: Reports: malaise, weakness Objective Objective Last 24 Hour Vital Signs Date Time Temp Pulse Resp B/P (MAP) Pulse Ox O2 Delivery O2 Flow Rate FiO2 09/02/19 12:53 60 16 100 Nasal Cannula 2.0 28 58 16 99 09/02/19 12:00 88 09/02/19 12:00 97.3 93 18 121/64 (83) 96 09/02/19 11:42 121/74 09/02/19 09:52 121/74 09/02/19 09:51 96 121/74 09/02/19 09:51 96 121/74 09/02/19 09:00 98.1 94 20 121/70 (87) 95 09/02/19 09:00 Nasal Cannula 2.0 09/02/19 08:35 97.9 96 15 121/74 97 Nasal Cannula 3 09/02/19 08:29 100 15 99 09/02/19 08:27 73 18 99 09/02/19 08:22 97 18 123/74 97 Nasal Cannula 3 09/02/19 08:17 100 15 128/81 97 Nasal Cannula 3 09/02/19 08:12 97.7 73 18 129/65 97 Nasal Cannula 3 09/02/19 08:00 88 09/02/19 07:18 97 Nasal Cannula 2.0 28 09/02/19 07:18 89 20 100 Nasal Cannula 2.0 28 87 18 97 09/02/19 04:00 94 09/02/19 04:00 98.6 95 20 116/69 (85) 99 09/02/19 00:10 94 22 99 Nasal Cannula 3.0 32 91 22 98 09/02/19 00:00 98.7 96 20 118/58 (78) 99 09/02/19 00:00 96 11/4/19 21:24 99 132/82 09/01/19 21:00 Nasal Cannula 2.0 09/01/19 20:00 98.2 99 20 132/82 (99) 93 09/01/19 20:00 97 09/01/19 19:31 94 Nasal Cannula 3.0 32 09/01/19 19:27 100 22 97 Nasal Cannula 3.0 32 99 24 94 09/01/19 16:00 97.7 90 20 114/67 (83) 99 09/01/19 16:00 89 09/01/19 13:44 85 18 97 Venturi Mask 3.0 28 89 20 99 Intake and Output 09/01/19 09/02/19 19:00 07:00 Intake Total 820.0 ml Output Total 310 ml 600 ml Balance 510.0 ml -600 ml IV Total 490.0 ml Tube Feeding 330 ml Output Urine Total 310 ml 600 ml Laboratory Tests 09/02/19 06:50: White Blood Count 16.5H, Red Blood Count 4.64, Hemoglobin 10.7L, Hematocrit 34.1L, Mean Corpuscular Volume 73L, Mean Corpuscular Hemoglobin 23.0L, Mean Corpuscular Hemoglobin Concent 31.4L, Red Cell Distribution Width 22.5H, Platelet Count 168, Mean Platelet Volume 12.0H, Neutrophils (%) (Auto) 82.0H, Lymphocytes (%) (Auto) 11.2L, Monocytes (%) (Auto) 6.1, Eosinophils (%) (Auto) 0.4, Basophils (%) (Auto) 0.4, Prothrombin Time 10.4, Prothromb Time International Ratio 1.0, Sodium Level 144, Potassium Level 3.6, Chloride Level 108H, Carbon Dioxide Level 30, Anion Gap 7, Blood Urea Nitrogen 20H, Creatinine 1.0, Estimat Glomerular Filtration Rate , Glucose Level 196H, Calcium Level 9.1 , Phosphorus Level 4.0, Magnesium Level 1.7L, Iron Level 38L, Total Iron Binding Capacity 243L, Percent Iron Saturation 16, Unsaturated Iron Binding 205 , Ferritin 196, Total Bilirubin 1.3H, Direct Bilirubin 0.2, Aspartate Amino Transf (AST/SGOT) 64H, Alanine Aminotransferase (ALT/SGPT) 28, Alkaline Phosphatase 109, Total Protein 6.0L, Albumin 1.5L Height (Feet): 5 Height (Inches): 3.00 Weight (Pounds): 158 General Appearance: no apparent distress, lethargic Cardiovascular: normal rate Respiratory/Chest: decreased breath sounds Abdomen: soft Objective no change Kaden Chance MD Sep 02, 2019 13:36
--- NOTE | 2019-09-02 16:00 | Procedure Note ---
DATE OF PROCEDURE: 09/02/2019 SURGEON: Suresh Tompkins M.D. PROCEDURE: Upper endoscope with PEG placement. ANESTHESIA: Per Dr. Schmitt. INSTRUMENT: Olympus adult flexible upper endoscope. INDICATION: Dysphagia. REASON FOR PROCEDURE: The procedure, risks, benefits, and possible consequences, including hemorrhage, aspiration, perforation and infection, and alternative treatments, were explained to the patient/legal guardian by Dr. Suresh Tompkins and the patient/legal guardian understood and accepted these risks. PROCEDURE IN DETAIL: After informed consent was obtained and the patient was adequately sedated, Olympus upper endoscope was advanced from mouth into the second portion of the duodenum and retroflexion was performed in the stomach. The patient had multiple polyps in the stomach, most probably fundic gland polyps, which were not biopsied. Then, under endoscopic guidance and under sterile condition, a 20-Mongolian pull type of G-tube was successfully placed in the epigastric area. The distance from the tip of the tube to skin was about 2.5 cm in size. The patient tolerated procedure very well without any complication. SUMMARY OF FINDINGS: 1. Multiple gastric polyps. 2. Status post successful PEG placement. RECOMMENDATIONS: 1. Abdominal binder. 2. Elevate the head of the bed at all times. 3. G-tube flush. 4. G-tube care. 5. Start tube feeding later today. 6. The patient is currently on vancomycin. I want to thank, Dr. Cooney, for this kind referral. Suresh Tompkins M.D. DR: ALICIA JOB#: [id number] CC: Osmar Cooney M.D.; Fax#: [phone]
--- NOTE | 2019-09-02 19:04 | Cardiac Electrophysiology PN ---
Assessment/Plan Assessment/Plan 1. [id number] myocardial infarction. Peak Troponin is 2.441, down to 1.5. This may be related to the patient's severe dehydration as well. The patient does not have any chest pain and was on hospice care. Treat medically at this time on aspirin and Coreg 3.125 bid 2. 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 On Lisinopril 10 daily and Coreg 3.125 bid 4. Long runs of 14 and 17 beats of NSVT due to CMP. Medical therapy as was on [facility] full code.Poor candidate for cardiac cath 5. Severe hypernatremia. Improving with hydration 6. History of schizophrenia. 7. Elevated white count 13,000. The patient is on vancomycin and Zosyn. 8. Dysphagia. S/P PEG by Dr Leda REIS RN Subjective Subjective again had 17 beats of NSVT ( Also 14 beats on 08/30/19). Had PEG today Objective Last 24 Hour Vital Signs Date Time Temp Pulse Resp B/P (MAP) Pulse Ox O2 Delivery O2 Flow Rate FiO2 09/02/19 16:31 74 18 117/58 (77) 09/02/19 16:00 91 09/02/19 16:00 97.8 91 20 96/53 (67) 97 09/02/19 12:53 60 16 100 Nasal Cannula 2.0 28 58 16 99 09/02/19 12:00 88 09/02/19 12:00 97.3 93 18 121/64 (83) 96 09/02/19 11:42 121/74 09/02/19 09:52 121/74 09/02/19 09:51 96 121/74 09/02/19 09:51 96 121/74 09/02/19 09:00 98.1 94 20 121/70 (87) 95 09/02/19 09:00 Nasal Cannula 2.0 09/02/19 08:35 97.9 96 15 121/74 97 Nasal Cannula 3 09/02/19 08:29 100 15 99 09/02/19 08:27 73 18 99 09/02/19 08:22 97 18 123/74 97 Nasal Cannula 3 09/02/19 08:17 100 15 128/81 97 Nasal Cannula 3 09/02/19 08:12 97.7 73 18 129/65 97 Nasal Cannula 3 09/02/19 08:00 88 09/02/19 07:18 97 Nasal Cannula 2.0 28 09/02/19 07:18 89 20 100 Nasal Cannula 2.0 28 87 18 97 09/02/19 04:00 94 09/02/19 04:00 98.6 95 20 116/69 (85) 99 09/02/19 00:10 94 22 99 Nasal Cannula 3.0 32 91 22 98 09/02/19 00:00 98.7 96 20 118/58 (78) 99 09/02/19 00:00 96 09/01/19 21:24 99 132/82 09/01/19 21:00 Nasal Cannula 2.0 09/01/19 20:00 98.2 99 20 132/82 (99) 93 09/01/19 20:00 97 09/01/19 19:31 94 Nasal Cannula 3.0 32 09/01/19 19:27 100 22 97 Nasal Cannula 3.0 32 99 24 94 Intake and Output 09/01/19 09/02/19 19:00 07:00 Intake Total 820.0 ml Output Total 310 ml 600 ml Balance 510.0 ml -600 ml IV Total 490.0 ml Tube Feeding 330 ml Output Urine Total 310 ml 600 ml Laboratory Tests Test 09/02/19 06:50 White Blood Count 16.5 K/UL (4.8-10.8) H Red Blood Count 4.64 M/UL (4.20-5.40) Hemoglobin 10.7 G/DL (12.0-16.0) L Hematocrit 34.1 % (37.0-47.0) L Mean Corpuscular Volume 73 FL (80-99) L Mean Corpuscular Hemoglobin 23.0 PG (27.0-31.0) L Mean Corpuscular Hemoglobin Concent 31.4 G/DL (32.0-36.0) L Red Cell Distribution Width 22.5 % (11.6-14.8) H Platelet Count 168 K/UL (150-450) Mean Platelet Volume 12.0 FL (6.5-10.1) H Neutrophils (%) (Auto) 82.0 % (45.0-75.0) H Lymphocytes (%) (Auto) 11.2 % (20.0-45.0) L Monocytes (%) (Auto) 6.1 % (1.0-10.0) Eosinophils (%) (Auto) 0.4 % (0.0-3.0) Basophils (%) (Auto) 0.4 % (0.0-2.0) Prothrombin Time 10.4 SEC (9.30-11.50) Prothromb Time International Ratio 1.0 (0.9-1.1) Sodium Level 144 MMOL/L (136-145) Potassium Level 3.6 MMOL/L (3.5-5.1) Chloride Level 108 MMOL/L (98-107) H Carbon Dioxide Level 30 MMOL/L (21-32) Anion Gap 7 mmol/L (5-15) Blood Urea Nitrogen 20 mg/dL (7-18) H Creatinine 1.0 MG/DL (0.55-1.30) Estimat Glomerular Filtration Rate mL/min (>60) Glucose Level 196 MG/DL (74-106) H Calcium Level 9.1 MG/DL (8.5-10.1) Phosphorus Level 4.0 MG/DL (2.5-4.9) Magnesium Level 1.7 MG/DL (1.8-2.4) L Iron Level 38 ug/dL (50-175) L Total Iron Binding Capacity 243 ug/dL (250-450) L Percent Iron Saturation 16 % (15-50) Unsaturated Iron Binding 205 ug/dL (112-346) Ferritin 196 NG/ML (8-388) Total Bilirubin 1.3 MG/DL (0.2-1.0) H Direct Bilirubin 0.2 MG/DL (0.0-0.3) Aspartate Amino Transf (AST/SGOT) 64 U/L (15-37) H Alanine Aminotransferase (ALT/SGPT) 28 U/L (12-78) Alkaline Phosphatase 109 U/L (46-116) Total Protein 6.0 G/DL (6.4-8.2) L Albumin 1.5 G/DL (3.4-5.0) L Objective HEAD AND NECK: No JVD. LUNGS: Coarse rhonchi. CARDIOVASCULAR: Irregular S1 and S2 with no gallop or murmur. ABDOMEN: Soft.PEG in place EXTREMITIES: No pitting edema. Markie Oliveira MD Sep 02, 2019 19:04
--- NOTE | 2019-09-02 20:30 | Progress Note ---
DATE: 09/02/2019 SUBJECTIVE: This is an elderly 78 years old female who came with sepsis, aspiration pneumonia, dysphagia, severe malnutrition, dehydration. The patient currently had NG tube placement this afternoon, tolerating tube feeding. OBJECTIVE: VITAL SIGNS: Blood pressure is slightly low 99/100, pulse 60, respirations 18, temperature 97.3. HEENT: Eyes are closed. NECK: Supple. CHEST: Bilateral few crackles. CARDIOVASCULAR: Regular rhythm. No gallop. No murmur. ABDOMEN: Soft. Positive bowel sounds. EXTREMITIES: CCE. LABORATORY DATA: White counts are 17,000, hemoglobin 11, hematocrit 34, platelets are 168. Chemistry panel, sodium 144, potassium 3.6, BUN 20, creatinine 1, glucose 196. ASSESSMENT: 1. Sepsis. 2. Aspiration pneumonia. 3. Failure to thrive. 4. Dysphagia. 5. Metabolic encephalopathy. PLAN: 1. We will currently continue antibiotic, bronchodilator treatment. 2. G-tube feeding. 3. Skin care. 4. The patient is currently Full Code by family. Osmar Cooney M.D. DR: BYRON JOB#: [id number] CC:
[2019-09-02] MEDS: Miralax 17gm pkt ORAL SCH (21:34)
[2019-09-02] MEDS: Vancomycin 1gm/D5W 275ml IVPB SCH ×2 (21:34)
[2019-09-03] VITALS: BP 129/85
[2019-09-03] MEDS: Albuterol/Ipratropium 3ml neb HHN SCH ×3 (01:10→13:18)
[2019-09-03 04:00] VITALS: BP 125/70
[2019-09-03] MEDS: NovoLOG Insulin Flexpen SUBQ SCH ×3 (07:03→18:07)
[2019-09-03 07:42] LABS: BASOPHILS % (AUTO) 0.6 % (0.0-2.0); EOSINOPHILS % (AUTO) 0.4 % (0.0-3.0); HEMATOCRIT 28.5 % (37.0-47.0); HEMOGLOBIN 8.9 G/DL (12.0-16.0); LYMPHOCYTES % (AUTO) 12.9 % (20.0-45.0); MEAN CORPUSCULAR VOLUME 74 FL (80-99); MONOCYTES % (AUTO) 6.6 % (1.0-10.0); NEUTROPHILS % (AUTO) 79.6 % (45.0-75.0); PLATELET COUNT 191 K/UL (150-450); RED BLOOD COUNT 3.86 M/UL (4.20-5.40); RED CELL DISTRIBUTION WIDTH 21.6 % (11.6-14.8); WHITE BLOOD COUNT 15.4 K/UL (4.8-10.8)
--- NOTE | 2019-09-03 07:52 | Pulmonology Progress Note ---
Assessment/Plan Assessment/Plan IMPRESSION: 1. COPD. 2. Hypertension. 3. Severe hypernatremia. Improved 4. Dehydration. Resolved 5. Bilateral pneumonia. 6. Severe protein-calorie malnutrition. 7. 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 Currently she is saturating well on nasal oxygen. Enteral feeding On abx Jaiden Logan M.D. Subjective Interval Events: None new reported Constitutional: Reports: no symptoms HEENT: Repors: no symptoms Respiratory: Reports: no symptoms Cardiovascular: Reports: no symptoms Gastrointestinal/Abdominal: Reports: no symptoms Allergies: Coded Allergies: No Known Allergies (Unverified , 08/27/19) Objective Last 24 Hour Vital Signs Date Time Temp Pulse Resp B/P (MAP) Pulse Ox O2 Delivery O2 Flow Rate FiO2 09/03/19 07:37 97 Venturi Mask 8.0 40 09/03/19 07:37 98 18 97 Venturi Mask 8.0 40 09/03/19 04:08 92 09/03/19 04:00 97.7 95 18 125/70 (88) 100 09/03/19 01:10 74 18 100 Nasal Cannula 2.0 28 89 18 95 09/03/19 00:00 93 09/03/19 00:00 98.6 100 18 129/85 (100) 100 09/02/19 21:44 95 119/41 09/02/19 21:00 Nasal Cannula 2.0 09/02/19 20:00 95 09/02/19 20:00 98.2 96 18 119/41 (67) 96 09/02/19 19:38 74 18 100 Nasal Cannula 2.0 28 69 18 98 09/02/19 19:38 98 Nasal Cannula 2.0 28 09/02/19 16:31 74 18 117/58 (77) 09/02/19 16:00 91 09/02/19 16:00 97.8 91 20 96/53 (67) 97 09/02/19 12:53 60 16 100 Nasal Cannula 2.0 28 58 16 99 09/02/19 12:00 88 09/02/19 12:00 97.3 93 18 121/64 (83) 96 09/02/19 11:42 121/74 09/02/19 09:52 121/74 09/02/19 09:51 96 121/74 09/02/19 09:51 96 121/74 09/02/19 09:00 98.1 94 20 121/70 (87) 95 09/02/19 09:00 Nasal Cannula 2.0 09/02/19 08:35 97.9 96 15 121/74 97 Nasal Cannula 3 09/02/19 08:29 100 15 99 09/02/19 08:27 73 18 99 09/02/19 08:22 97 18 123/74 97 Nasal Cannula 3 09/02/19 08:17 100 15 128/81 97 Nasal Cannula 3 09/02/19 08:12 97.7 73 18 129/65 97 Nasal Cannula 3 09/02/19 08:00 88 Intake and Output 09/02/19 09/03/19 19:00 07:00 Intake Total 520 ml 425 ml Output Total 400 ml Balance 120 ml 425 ml Free Water 100 ml 100 ml IV Total 150 ml Tube Feeding 270 ml 325 ml Output Urine Total 400 ml General Appearance: no acute distress HEENT: normocephalic Respiratory/Chest: chest wall non-tender, lungs clear Cardiovascular: normal peripheral pulses, normal rate Abdomen: normal bowel sounds Laboratory Tests 09/03/19 06:11: White Blood Count [Pending], Red Blood Count [Pending], Hemoglobin [Pending], Hematocrit [Pending], Mean Corpuscular Volume [Pending], Mean Corpuscular Hemoglobin [Pending], Mean Corpuscular Hemoglobin Concent [Pending], Red Cell Distribution Width [Pending], Platelet Count [Pending], Mean Platelet Volume [ Pending], Neutrophils (%) (Auto) [Pending], Lymphocytes (%) (Auto) [Pending], Monocytes (%) (Auto) [Pending], Eosinophils (%) (Auto) [Pending], Basophils (%) (Auto) [Pending], Sodium Level [Pending], Potassium Level [Pending], Chloride Level [Pending], Carbon Dioxide Level [Pending], Blood Urea Nitrogen [Pending], Creatinine [Pending], Estimat Glomerular Filtration Rate [Pending], Glucose Level [Pending], Calcium Level [Pending], Phosphorus Level [Pending], Magnesium Level [Pending], Total Bilirubin [Pending], Aspartate Amino Transf (AST/SGOT) [ Pending], Alanine Aminotransferase (ALT/SGPT) [Pending], Alkaline Phosphatase [ Pending], C-Reactive Protein, Quantitative [Pending], Pro-B-Type Natriuretic Peptide [Pending], Total Protein [Pending], Albumin [Pending], Globulin [Pending ] Current Medications Medications (Trade) Dose Ordered Sig/Colt Route PRN Reason Start Time Stop Time Status Last Admin Dose Admin Albuterol/ Ipratropium (Albuterol/ Ipratropium) 3 ml Q6HRT HHN 09/03/19 01:00 09/08/19 00:59 09/03/19 07:37 Amlodipine Besylate (Norvasc) 2.5 mg DAILY ORAL 08/30/19 09:30 09/29/19 09:29 09/02/19 09:51 Aspirin (ASA) 81 mg DAILY NG 08/30/19 09:00 09/28/19 08:59 09/02/19 09:51 Carvedilol (Coreg) 3.125 mg EVERY 12 HOURS ORAL 08/30/19 21:00 09/29/19 20:59 09/02/19 21:44 Dextrose (Dextrose 50%) 25 ml Q30M PRN IV Hypoglycemia 08/30/19 05:00 09/27/19 07:59 Dextrose (Dextrose 50%) 50 ml Q30M PRN IV Hypoglycemia 08/30/19 05:00 09/27/19 07:59 Docusate Sodium (Colace) 100 mg THREE TIMES A DAY GT 09/02/19 13:00 10/02/19 12:59 09/02/19 18:29 Furosemide (Lasix) 20 mg ONCE IV 09/03/19 07:45 09/03/19 08:45 Insulin Aspart (NovoLOG) Q6HR SUBQ 08/30/19 06:00 09/27/19 11:29 09/03/19 07:03 Lisinopril (Zestril) 10 mg DAILY ORAL 08/30/19 09:00 09/29/19 08:59 09/02/19 09:52 Nitroglycerin (Ntg) 1 patch Q24H TDERMAL 08/30/19 11:00 09/28/19 10:59 09/02/19 11:42 Polyethylene Glycol (Miralax) 17 gm BEDTIME ORAL 09/02/19 21:00 10/02/19 20:59 09/02/19 21:34 Vancomycin HCl (Vanco rx to dose) 1 ea DAILY PRN MISC Per rx protocol 08/30/19 09:00 09/27/19 07:59 Vancomycin HCl 1 gm/Dextrose 275 ml @ 183.708 mls/hr Q24H IVPB 08/30/19 20:00 09/04/19 19:59 09/02/19 21:34 Jaiden Logan MD Sep 03, 2019 07:52
[2019-09-03 08:00] VITALS: BP 142/89
[2019-09-03 08:01] LABS: ALANINE AMINOTRANSFERASE 30 U/L (12-78); ALBUMIN 1.6 G/DL (3.4-5.0); ALBUMIN/GLOBULIN RATIO 0.3 (1.0-2.7); ALKALINE PHOSPHATASE 130 U/L (46-116); ANION GAP 5 mmol/L (5-15); ASPARTATE AMINO TRANSFERASE 44 U/L (15-37); BILIRUBIN,TOTAL 1.1 MG/DL (0.2-1.0); BLOOD UREA NITROGEN 32 mg/dL (7-18); CALCIUM 8.9 MG/DL (8.5-10.1); CARBON DIOXIDE 31 MMOL/L (21-32); CHLORIDE 106 MMOL/L (98-107); CREATININE 0.9 MG/DL (0.55-1.30); PHOSPHORUS 3.1 MG/DL (2.5-4.9); POTASSIUM 3.7 MMOL/L (3.5-5.1); SODIUM 142 MMOL/L (136-145)
[2019-09-03 08:02] LABS: BILIRUBIN,DIRECT 0.6 MG/DL (0.0-0.3)
[2019-09-03] MEDS: Aspirin Baby 81mg NG SCH (09:35)
[2019-09-03] MEDS: Docusate 100mg/10ml Liq GT SCH ×3 (09:35→18:06)
[2019-09-03] MEDS: Lisinopril 10mg tab ORAL SCH (09:35)
--- NOTE | 2019-09-03 10:31 | Infectious Diseases Prog Note ---
Assessment/Plan Assessment/Plan antibiotics : vancomycin iv A 1. enterococcus UTI 2. + blood cultures with coag neg staph likely contaminated 3. leucocytosis improving 4. diabetes mellitus 5. pleural effusion P 1. d/c iv vancomycin 2. observe off antibiotics Subjective ROS Limited/Unobtainable: Yes Allergies: Coded Allergies: No Known Allergies (Unverified , 08/27/19) Objective Vital Signs Last 24 Hour Vital Signs Date Time Temp Pulse Resp B/P (MAP) Pulse Ox O2 Delivery O2 Flow Rate FiO2 09/03/19 09:35 97 142/89 09/03/19 09:35 97 142/89 09/03/19 09:35 142/89 09/03/19 08:22 Venturi Mask 6.0 09/03/19 08:00 97.9 97 20 142/89 (106) 96 09/03/19 07:45 97 09/03/19 07:37 97 Venturi Mask 8.0 40 09/03/19 07:37 102 18 99 Venturi Mask 8.0 40 98 18 97 09/03/19 04:08 92 09/03/19 04:00 97.7 95 18 125/70 (88) 100 09/03/19 01:10 74 18 100 Nasal Cannula 2.0 28 89 18 95 09/03/19 00:00 93 09/03/19 00:00 98.6 100 18 129/85 (100) 100 09/02/19 21:44 95 119/41 09/02/19 21:00 Nasal Cannula 2.0 09/02/19 20:00 95 09/02/19 20:00 98.2 96 18 119/41 (67) 96 09/02/19 19:38 74 18 100 Nasal Cannula 2.0 28 69 18 98 09/02/19 19:38 98 Nasal Cannula 2.0 28 09/02/19 16:31 74 18 117/58 (77) 09/02/19 16:00 91 09/02/19 16:00 97.8 91 20 96/53 (67) 97 09/02/19 12:53 60 16 100 Nasal Cannula 2.0 28 58 16 99 09/02/19 12:00 88 09/02/19 12:00 97.3 93 18 121/64 (83) 96 09/02/19 11:42 121/74 Height (Feet): 5 Height (Inches): 3.00 Weight (Pounds): 163 Respiratory/Chest: lungs clear Cardiovascular: normal rate, regular rhythm, no gallop/murmur Abdomen: soft, non tender, other - GT Extremities: other - + edema Laboratory Tests Test 09/03/19 06:11 White Blood Count 15.4 K/UL (4.8-10.8) H Red Blood Count 3.86 M/UL (4.20-5.40) L Hemoglobin 8.9 G/DL (12.0-16.0) L Hematocrit 28.5 % (37.0-47.0) L Mean Corpuscular Volume 74 FL (80-99) L Mean Corpuscular Hemoglobin 23.0 PG (27.0-31.0) L Mean Corpuscular Hemoglobin Concent 31.1 G/DL (32.0-36.0) L Red Cell Distribution Width 21.6 % (11.6-14.8) H Platelet Count 191 K/UL (150-450) Mean Platelet Volume 12.5 FL (6.5-10.1) H Neutrophils (%) (Auto) 79.6 % (45.0-75.0) H Lymphocytes (%) (Auto) 12.9 % (20.0-45.0) L Monocytes (%) (Auto) 6.6 % (1.0-10.0) Eosinophils (%) (Auto) 0.4 % (0.0-3.0) Basophils (%) (Auto) 0.6 % (0.0-2.0) Sodium Level 142 MMOL/L (136-145) Potassium Level 3.7 MMOL/L (3.5-5.1) Chloride Level 106 MMOL/L (98-107) Carbon Dioxide Level 31 MMOL/L (21-32) Anion Gap 5 mmol/L (5-15) Blood Urea Nitrogen 32 mg/dL (7-18) H Creatinine 0.9 MG/DL (0.55-1.30) Estimat Glomerular Filtration Rate mL/min (>60) Glucose Level 281 MG/DL (74-106) H Calcium Level 8.9 MG/DL (8.5-10.1) Phosphorus Level 3.1 MG/DL (2.5-4.9) Magnesium Level 2.3 MG/DL (1.8-2.4) Total Bilirubin 1.1 MG/DL (0.2-1.0) H Direct Bilirubin 0.6 MG/DL (0.0-0.3) H Aspartate Amino Transf (AST/SGOT) 44 U/L (15-37) H Alanine Aminotransferase (ALT/SGPT) 30 U/L (12-78) Alkaline Phosphatase 130 U/L (46-116) H C-Reactive Protein, Quantitative 14.5 mg/dL (0.00-0.90) H Pro-B-Type Natriuretic Peptide 8049 pg/mL (0-125) H Total Protein 6.8 G/DL (6.4-8.2) Albumin 1.6 G/DL (3.4-5.0) L Globulin 5.2 g/dL Albumin/Globulin Ratio 0.3 (1.0-2.7) L Current Medications Medications (Trade) Dose Ordered Sig/Colt Route PRN Reason Start Time Stop Time Status Last Admin Dose Admin Albuterol/ Ipratropium (Albuterol/ Ipratropium) 3 ml Q6HRT HHN 09/03/19 01:00 09/08/19 00:59 09/03/19 07:37 Amlodipine Besylate (Norvasc) 2.5 mg DAILY ORAL 08/30/19 09:30 09/29/19 09:29 09/03/19 09:35 Aspirin (ASA) 81 mg DAILY NG 08/30/19 09:00 09/28/19 08:59 09/03/19 09:35 Carvedilol (Coreg) 3.125 mg EVERY 12 HOURS ORAL 08/30/19 21:00 09/29/19 20:59 09/03/19 09:35 Dextrose (Dextrose 50%) 25 ml Q30M PRN IV Hypoglycemia 08/30/19 05:00 09/27/19 07:59 Dextrose (Dextrose 50%) 50 ml Q30M PRN IV Hypoglycemia 08/30/19 05:00 09/27/19 07:59 Docusate Sodium (Colace) 100 mg THREE TIMES A DAY GT 09/02/19 13:00 10/02/19 12:59 09/03/19 09:35 Furosemide (Lasix) 20 mg DAILY IV 09/04/19 09:00 09/07/19 09:00 Insulin Aspart (NovoLOG) Q6HR SUBQ 08/30/19 06:00 09/27/19 11:29 09/03/19 07:03 Lisinopril (Zestril) 10 mg DAILY ORAL 08/30/19 09:00 09/29/19 08:59 09/03/19 09:35 Nitroglycerin (Ntg) 1 patch Q24H TDERMAL 08/30/19 11:00 09/28/19 10:59 09/02/19 11:42 Polyethylene Glycol (Miralax) 17 gm BEDTIME ORAL 09/02/19 21:00 10/02/19 20:59 09/02/19 21:34 Vancomycin HCl (Vanco rx to dose) 1 ea DAILY PRN MISC Per rx protocol 08/30/19 09:00 09/27/19 07:59 Vancomycin HCl 1 gm/Dextrose 275 ml @ 183.708 mls/hr Q24H IVPB 08/30/19 20:00 09/04/19 19:59 09/02/19 21:34 Shamar Rios MD Sep 03, 2019 10:31
[2019-09-03] MEDS: Nitroglycerin Patch 0.4mg TDERMAL SCH (10:56)
[2019-09-03] MEDS ORDERED: Metoclopramide 10mg/2ml Inj IVP PRN (11:00)
--- NOTE | 2019-09-03 11:11 | General Progress Note ---
Assessment/Plan Problem List: (1) Cardiomyopathy ICD Codes: I42.9 - Cardiomyopathy, unspecified SNOMED: 34429530 (2) Failure to thrive SNOMED: 77064451 (3) Pneumonia ICD Codes: J18.9 - Pneumonia, unspecified organism SNOMED: 021414805, 742003461 Qualifiers: Qualified Codes: J18.1 - Lobar pneumonia, unspecified organism Assessment/Plan: s/p PEG placement yesterday elevated residuals and dark gastric lavage will hold GTF for today add reglan add ppi repeat labs in am Subjective ROS Limited/Unobtainable: No Allergies: Coded Allergies: No Known Allergies (Unverified , 08/27/19) Objective Last 24 Hour Vital Signs Date Time Temp Pulse Resp B/P (MAP) Pulse Ox O2 Delivery O2 Flow Rate FiO2 09/03/19 10:56 142/89 09/03/19 09:35 97 142/89 09/03/19 09:35 97 142/89 09/03/19 09:35 142/89 09/03/19 08:22 Venturi Mask 6.0 09/03/19 08:00 97.9 97 20 142/89 (106) 96 09/03/19 07:45 97 09/03/19 07:37 97 Venturi Mask 8.0 40 09/03/19 07:37 102 18 99 Venturi Mask 8.0 40 98 18 97 09/03/19 04:08 92 09/03/19 04:00 97.7 95 18 125/70 (88) 100 09/03/19 01:10 74 18 100 Nasal Cannula 2.0 28 89 18 95 09/03/19 00:00 93 09/03/19 00:00 98.6 100 18 129/85 (100) 100 09/02/19 21:44 95 119/41 09/02/19 21:00 Nasal Cannula 2.0 09/02/19 20:00 95 09/02/19 20:00 98.2 96 18 119/41 (67) 96 09/02/19 19:38 74 18 100 Nasal Cannula 2.0 28 69 18 98 09/02/19 19:38 98 Nasal Cannula 2.0 28 09/02/19 16:31 74 18 117/58 (77) 09/02/19 16:00 91 11/5/19 16:00 97.8 91 20 96/53 (67) 97 09/02/19 12:53 60 16 100 Nasal Cannula 2.0 28 58 16 99 09/02/19 12:00 88 09/02/19 12:00 97.3 93 18 121/64 (83) 96 09/02/19 11:42 121/74 Intake and Output 09/02/19 09/03/19 19:00 07:00 Intake Total 520 ml 425 ml Output Total 400 ml Balance 120 ml 425 ml Free Water 100 ml 100 ml IV Total 150 ml Tube Feeding 270 ml 325 ml Output Urine Total 400 ml Laboratory Tests 09/03/19 06:11: White Blood Count 15.4H, Red Blood Count 3.86L, Hemoglobin 8.9L, Hematocrit 28.5L, Mean Corpuscular Volume 74L, Mean Corpuscular Hemoglobin 23.0L, Mean Corpuscular Hemoglobin Concent 31.1L, Red Cell Distribution Width 21.6H, Platelet Count 191, Mean Platelet Volume 12.5H, Neutrophils (%) (Auto) 79.6H, Lymphocytes (%) (Auto) 12.9L, Monocytes (%) (Auto) 6.6, Eosinophils (%) (Auto) 0.4, Basophils (%) (Auto) 0.6, Sodium Level 142, Potassium Level 3.7, Chloride Level 106, Carbon Dioxide Level 31, Anion Gap 5, Blood Urea Nitrogen 32H, Creatinine 0.9, Estimat Glomerular Filtration Rate , Glucose Level 281H, Calcium Level 8.9, Phosphorus Level 3.1, Magnesium Level 2.3, Total Bilirubin 1.1H, Direct Bilirubin 0.6H, Aspartate Amino Transf (AST/SGOT) 44H, Alanine Aminotransferase (ALT/SGPT) 30, Alkaline Phosphatase 130H, C-Reactive Protein, Quantitative 14.5H, Pro-B-Type Natriuretic Peptide 8049H, Total Protein 6.8, Albumin 1.6L, Globulin 5.2, Albumin/Globulin Ratio 0.3L Height (Feet): 5 Height (Inches): 3.00 Weight (Pounds): 163 General Appearance: lethargic EENT: normal ENT inspection Neck: supple Cardiovascular: normal rate Respiratory/Chest: decreased breath sounds Abdomen: normal bowel sounds, non tender, soft Extremities: non-tender Suresh Tompkins MD Sep 03, 2019 11:11
--- NOTE | 2019-09-03 11:54 | Nephrology Progress Note ---
Assessment/Plan Problem List: (1) Dehydration (2) Failure to thrive (3) Hypernatremia (4) Pneumonia (5) Elevated troponin (6) Cardiomyopathy Assessment Dehydration leading to HyperNatremia HypoAlbuminemia / Mal nutrition Elevated Troponin NSTEMI COPD HTN Pneumonia Plan up dose coreg has PEG k and Phos supplement previously: Low EjFx D5W IV Monitor BS and BP Monitor renal parameters Per consultants ASA and Nitro afterload reduction Subjective ROS Limited/Unobtainable: No Constitutional: Reports: malaise, weakness Objective Objective Last 24 Hour Vital Signs Date Time Temp Pulse Resp B/P (MAP) Pulse Ox O2 Delivery O2 Flow Rate FiO2 09/03/19 10:56 142/89 09/03/19 09:35 97 142/89 09/03/19 09:35 97 142/89 09/03/19 09:35 142/89 09/03/19 08:22 Venturi Mask 6.0 09/03/19 08:00 97.9 97 20 142/89 (106) 96 09/03/19 07:45 97 09/03/19 07:37 97 Venturi Mask 8.0 40 09/03/19 07:37 102 18 99 Venturi Mask 8.0 40 98 18 97 09/03/19 04:08 92 09/03/19 04:00 97.7 95 18 125/70 (88) 100 09/03/19 01:10 74 18 100 Nasal Cannula 2.0 28 89 18 95 09/03/19 00:00 93 09/03/19 00:00 98.6 100 18 129/85 (100) 100 09/02/19 21:44 95 119/41 09/02/19 21:00 Nasal Cannula 2.0 09/02/19 20:00 95 09/02/19 20:00 98.2 96 18 119/41 (67) 96 09/02/19 19:38 74 18 100 Nasal Cannula 2.0 28 69 18 98 09/02/19 19:38 98 Nasal Cannula 2.0 28 09/02/19 16:31 74 18 117/58 (77) 09/02/19 16:00 91 09/02/19 16:00 97.8 91 20 96/53 (67) 97 09/02/19 12:53 60 16 100 Nasal Cannula 2.0 28 58 16 99 09/02/19 12:00 88 11/5/19 12:00 97.3 93 18 121/64 (83) 96 Intake and Output 09/02/19 09/03/19 19:00 07:00 Intake Total 520 ml 425 ml Output Total 400 ml Balance 120 ml 425 ml Free Water 100 ml 100 ml IV Total 150 ml Tube Feeding 270 ml 325 ml Output Urine Total 400 ml Laboratory Tests 09/03/19 06:11: White Blood Count 15.4H, Red Blood Count 3.86L, Hemoglobin 8.9L, Hematocrit 28.5L, Mean Corpuscular Volume 74L, Mean Corpuscular Hemoglobin 23.0L, Mean Corpuscular Hemoglobin Concent 31.1L, Red Cell Distribution Width 21.6H, Platelet Count 191, Mean Platelet Volume 12.5H, Neutrophils (%) (Auto) 79.6H, Lymphocytes (%) (Auto) 12.9L, Monocytes (%) (Auto) 6.6, Eosinophils (%) (Auto) 0.4, Basophils (%) (Auto) 0.6, Sodium Level 142, Potassium Level 3.7, Chloride Level 106, Carbon Dioxide Level 31, Anion Gap 5, Blood Urea Nitrogen 32H, Creatinine 0.9, Estimat Glomerular Filtration Rate , Glucose Level 281H, Calcium Level 8.9, Phosphorus Level 3.1, Magnesium Level 2.3, Total Bilirubin 1.1H, Direct Bilirubin 0.6H, Aspartate Amino Transf (AST/SGOT) 44H, Alanine Aminotransferase (ALT/SGPT) 30, Alkaline Phosphatase 130H, C-Reactive Protein, Quantitative 14.5H, Pro-B-Type Natriuretic Peptide 8049H, Total Protein 6.8, Albumin 1.6L, Globulin 5.2, Albumin/Globulin Ratio 0.3L Height (Feet): 5 Height (Inches): 3.00 Weight (Pounds): 163 General Appearance: no apparent distress Respiratory/Chest: decreased breath sounds Abdomen: soft, other - PEG Objective no change Kaden Chance MD Sep 03, 2019 11:54
[2019-09-03 12:00] VITALS: BP 136/71
--- NOTE | 2019-09-03 15:57 | Cardiology Report ---
APPROVED REPORT EKG Measurement Heart [id number] Sinus rhythm with occasional premature ventricular complexes Nonspecific intraventricular block Cannot rule out Anterior infarct, age undetermined T wave abnormality, consider inferolateral ischemia Abnormal ECG
[2019-09-03 16:00] VITALS: BP 121/70
--- NOTE | 2019-09-03 16:30 | Progress Note ---
DATE: 09/03/2019 SUBJECTIVE: This is elderly female who was hypoxic this morning, placed on 8 L on nonrebreathing mask. The patient was also given dose of Lasix. She is clinically okay, nonverbal, bedbound. OBJECTIVE: VITAL SIGNS: Blood pressure is 142/89, pulse 97. No fever. HEENT: AT/NC. EOMI. PERRLA. NECK: No JVD. CHEST: Bilateral few crackles and wheezing. CARDIOVASCULAR: Regular rhythm. No gallop. No murmur. ABDOMEN: Soft. Positive bowel sounds. EXTREMITIES: Trace edema. GENITOURINARY: Deferred. LABORATORY DATA: White counts are 16,000, hemoglobin 9, hematocrit 29, and platelets are 191,000. Chemistry panel, sodium 142, potassium 3.7, BUN 32, creatinine 0.9, glucose 281. Troponin 0.023. BNP was 8019. ASSESSMENT AND PLAN: 1. CHF. 2. Sepsis. 3. Pneumonia. 4. Chronic respiratory insufficiency. 5. Dysphagia. 6. Gastroparesis. PLAN: We will monitor currently tube feeding. Continue oxygen and bronchodilator treatments. Continue IV antibiotics, Lasix and discussed with charge nurse and Cardiology, Pulmonary and GI is on the case. Osmar Cooney M.D. DR: LATONIA JOB#: [id number] CC:
--- NOTE | 2019-09-03 16:56 | Cardiac Electrophysiology PN ---
Assessment/Plan Assessment/Plan 1. Etq-DT-jjaacuejr myocardial infarction. Peak Troponin is 2.441, down to 1.5. This may be related to the patient's severe dehydration as well. No chest pain and was on hospice care. Treat medically with aspirin and Coreg 3.125 bid 2. 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 On Lisinopril 10 daily and Coreg 3.125 bid 4. Long runs of 14 and 17 beats of VT due to CMP. Medical therapy as was on [facility]osp[facility] Now full code. Poor candidate for cardiac cath 5. Severe hypernatremia. Improving with hydration 6. History of schizophrenia. 7. Elevated white count 13,000. The patient is on vancomycin and Zosyn. 8. Dysphagia. S/P PEG by Dr Leda REIS RN Subjective Subjective Had 17 beats of VT yesterday ( Also 14 beats on 08/30/19). Had PEG yesterday Objective Last 24 Hour Vital Signs Date Time Temp Pulse Resp B/P (MAP) Pulse Ox O2 Delivery O2 Flow Rate FiO2 09/03/19 16:00 97.7 109 20 121/70 (87) 98 09/03/19 13:18 92 18 99 Venturi Mask 8.0 40 09/03/19 12:00 99.3 92 18 136/71 (92) 100 09/03/19 11:31 92 09/03/19 10:56 142/89 09/03/19 09:35 97 142/89 09/03/19 09:35 97 142/89 09/03/19 09:35 142/89 09/03/19 08:22 Venturi Mask 6.0 09/03/19 08:00 97.9 97 20 142/89 (106) 96 09/03/19 07:45 97 09/03/19 07:37 97 Venturi Mask 8.0 40 09/03/19 07:37 102 18 99 Venturi Mask 8.0 40 98 18 97 09/03/19 04:08 92 09/03/19 04:00 97.7 95 18 125/70 (88) 100 09/03/19 01:10 74 18 100 Nasal Cannula 2.0 28 89 18 95 09/03/19 00:00 93 09/03/19 00:00 98.6 100 18 129/85 (100) 100 09/02/19 21:44 95 119/41 11/5/19 21:00 Nasal Cannula 2.0 09/02/19 20:00 95 09/02/19 20:00 98.2 96 18 119/41 (67) 96 09/02/19 19:38 74 18 100 Nasal Cannula 2.0 28 69 18 98 09/02/19 19:38 98 Nasal Cannula 2.0 28 Intake and Output 09/02/19 09/03/19 19:00 07:00 Intake Total 520 ml 425 ml Output Total 400 ml Balance 120 ml 425 ml Free Water 100 ml 100 ml IV Total 150 ml Tube Feeding 270 ml 325 ml Output Urine Total 400 ml Laboratory Tests Test 09/03/19 06:11 White Blood Count 15.4 K/UL (4.8-10.8) H Red Blood Count 3.86 M/UL (4.20-5.40) L Hemoglobin 8.9 G/DL (12.0-16.0) L Hematocrit 28.5 % (37.0-47.0) L Mean Corpuscular Volume 74 FL (80-99) L Mean Corpuscular Hemoglobin 23.0 PG (27.0-31.0) L Mean Corpuscular Hemoglobin Concent 31.1 G/DL (32.0-36.0) L Red Cell Distribution Width 21.6 % (11.6-14.8) H Platelet Count 191 K/UL (150-450) Mean Platelet Volume 12.5 FL (6.5-10.1) H Neutrophils (%) (Auto) 79.6 % (45.0-75.0) H Lymphocytes (%) (Auto) 12.9 % (20.0-45.0) L Monocytes (%) (Auto) 6.6 % (1.0-10.0) Eosinophils (%) (Auto) 0.4 % (0.0-3.0) Basophils (%) (Auto) 0.6 % (0.0-2.0) Sodium Level 142 MMOL/L (136-145) Potassium Level 3.7 MMOL/L (3.5-5.1) Chloride Level 106 MMOL/L (98-107) Carbon Dioxide Level 31 MMOL/L (21-32) Anion Gap 5 mmol/L (5-15) Blood Urea Nitrogen 32 mg/dL (7-18) H Creatinine 0.9 MG/DL (0.55-1.30) Estimat Glomerular Filtration Rate mL/min (>60) Glucose Level 281 MG/DL (74-106) H Calcium Level 8.9 MG/DL (8.5-10.1) Phosphorus Level 3.1 MG/DL (2.5-4.9) Magnesium Level 2.3 MG/DL (1.8-2.4) Total Bilirubin 1.1 MG/DL (0.2-1.0) H Direct Bilirubin 0.6 MG/DL (0.0-0.3) H Aspartate Amino Transf (AST/SGOT) 44 U/L (15-37) H Alanine Aminotransferase (ALT/SGPT) 30 U/L (12-78) Alkaline Phosphatase 130 U/L (46-116) H C-Reactive Protein, Quantitative 14.5 mg/dL (0.00-0.90) H Pro-B-Type Natriuretic Peptide 8049 pg/mL (0-125) H Total Protein 6.8 G/DL (6.4-8.2) Albumin 1.6 G/DL (3.4-5.0) L Globulin 5.2 g/dL Albumin/Globulin Ratio 0.3 (1.0-2.7) L Objective HEAD AND NECK: No JVD. LUNGS: Coarse rhonchi. CARDIOVASCULAR: Irregular S1 and S2 with no gallop or murmur. ABDOMEN: Soft.PEG in place EXTREMITIES: No pitting edema. Markie Oliveira MD Sep 03, 2019 16:55
[2019-09-03 20:33] VITALS: BP 100/54
[2019-09-03] MEDS: Miralax 17gm pkt ORAL SCH (20:33)
[2019-09-03] MEDS: Carvedilol 6.25mg Tab ORAL SCH (20:33)
[2019-09-04] VITALS: BP 134/64
[2019-09-04] MEDS: NovoLOG Insulin Flexpen SUBQ SCH ×4 (00:30→17:32)
[2019-09-04] MEDS: Albuterol/Ipratropium 3ml neb HHN SCH ×5 (01:38→19:15)
[2019-09-04 04:00] VITALS: BP 136/71
[2019-09-04 08:00] VITALS: BP 136/71
[2019-09-04 08:38] LABS: BASOPHILS % (AUTO) 0.6 % (0.0-2.0); EOSINOPHILS % (AUTO) 0.3 % (0.0-3.0); HEMATOCRIT 27.7 % (37.0-47.0); HEMOGLOBIN 8.5 G/DL (12.0-16.0); LYMPHOCYTES % (AUTO) 12.5 % (20.0-45.0); MEAN CORPUSCULAR VOLUME 74 FL (80-99); MONOCYTES % (AUTO) 6.4 % (1.0-10.0); NEUTROPHILS % (AUTO) 80.2 % (45.0-75.0); PLATELET COUNT 205 K/UL (150-450); RED BLOOD COUNT 3.74 M/UL (4.20-5.40); RED CELL DISTRIBUTION WIDTH 22.5 % (11.6-14.8); WHITE BLOOD COUNT 15.2 K/UL (4.8-10.8)
[2019-09-04 08:58] LABS: ANION GAP 3 mmol/L (5-15); BLOOD UREA NITROGEN 26 mg/dL (7-18); CALCIUM 8.5 MG/DL (8.5-10.1); CARBON DIOXIDE 35 MMOL/L (21-32); CHLORIDE 105 MMOL/L (98-107); CREATININE 0.9 MG/DL (0.55-1.30); POTASSIUM 3.3 MMOL/L (3.5-5.1); SODIUM 142 MMOL/L (136-145)
[2019-09-04] MEDS ORDERED: Pantoprazole Inj IVP SCH (09:00)
--- NOTE | 2019-09-04 09:34 | Pulmonology Progress Note ---
Assessment/Plan Assessment/Plan IMPRESSION: 1. COPD. 2. Hypertension. 3. Severe hypernatremia. Improved 4. Dehydration. Resolved 5. Bilateral pneumonia. 6. Severe protein-calorie malnutrition. 7. Cardiac arrhythmias DISCUSSION: Continue fluids Continue abx I will follow as piano regulator. Currently she is saturating well on nasal oxygen. Enteral feeding On abx Jaiden Logan M.D. Subjective Interval Events: None new Constitutional: Reports: no symptoms HEENT: Repors: no symptoms Respiratory: Reports: no symptoms Cardiovascular: Reports: no symptoms Gastrointestinal/Abdominal: Reports: no symptoms Allergies: Coded Allergies: No Known Allergies (Unverified , 08/27/19) Objective Last 24 Hour Vital Signs Date Time Temp Pulse Resp B/P (MAP) Pulse Ox O2 Delivery O2 Flow Rate FiO2 09/04/19 08:00 86 09/04/19 07:29 97 Venturi Mask 8.0 40 09/04/19 07:29 98 18 97 Venturi Mask 8.0 40 95 18 98 09/04/19 04:00 97.0 91 22 136/71 (92) 97 09/04/19 04:00 92 09/04/19 01:22 95 22 99 Venturi Mask 8.0 40 92 20 92 09/04/19 00:00 98.6 75 20 134/64 (87) 97 09/04/19 00:00 85 09/03/19 21:00 Venturi Mask 6.0 09/03/19 20:33 88 100/54 09/03/19 20:33 98.7 88 20 100/54 (69) 100 09/03/19 20:08 85 09/03/19 19:22 98 18 97 Venturi Mask 8.0 40 95 18 96 09/03/19 19:03 98 8.0 40 09/03/19 16:00 97.7 109 20 121/70 (87) 98 09/03/19 15:31 109 09/03/19 13:18 92 18 99 Venturi Mask 8.0 40 09/03/19 12:00 99.3 92 18 136/71 (92) 100 09/03/19 11:31 92 09/03/19 10:56 142/89 09/03/19 09:35 97 142/89 09/03/19 09:35 97 142/89 09/03/19 09:35 142/89 Intake and Output 09/03/19 09/04/19 18:59 06:59 Intake Total 500 ml Output Total 1700 ml Balance -1700 ml 500 ml Tube Feeding 440 ml Blood Product 60 ml Output Urine Total 1700 ml General Appearance: no acute distress HEENT: normocephalic Respiratory/Chest: chest wall non-tender, lungs clear Cardiovascular: normal peripheral pulses Abdomen: normal bowel sounds Laboratory Tests 09/04/19 08:10: White Blood Count 15.2H, Red Blood Count 3.74L, Hemoglobin 8.5L, Hematocrit 27.7L, Mean Corpuscular Volume 74L, Mean Corpuscular Hemoglobin 22.7L, Mean Corpuscular Hemoglobin Concent 30.7L, Red Cell Distribution Width 22.5H, Platelet Count 205, Mean Platelet Volume 10.6H, Neutrophils (%) (Auto) 80.2H, Lymphocytes (%) (Auto) 12.5L, Monocytes (%) (Auto) 6.4, Eosinophils (%) (Auto) 0.3, Basophils (%) (Auto) 0.6, Sodium Level 142, Potassium Level 3.3L, Chloride Level 105, Carbon Dioxide Level 35H, Anion Gap 3L, Blood Urea Nitrogen 26H, Creatinine 0.9, Estimat Glomerular Filtration Rate , Glucose Level 206H, Calcium Level 8.5 Current Medications Medications (Trade) Dose Ordered Sig/Colt Route PRN Reason Start Time Stop Time Status Last Admin Dose Admin Albuterol/ Ipratropium (Albuterol/ Ipratropium) 3 ml Q6HRT HHN 09/03/19 01:00 09/08/19 00:59 09/04/19 07:31 Amlodipine Besylate (Norvasc) 2.5 mg DAILY ORAL 08/30/19 09:30 09/29/19 09:29 09/03/19 09:35 Aspirin (ASA) 81 mg DAILY NG 08/30/19 09:00 09/28/19 08:59 09/03/19 09:35 Carvedilol (Coreg) 6.25 mg EVERY 12 HOURS ORAL 09/03/19 21:00 09/29/19 20:59 Dextrose (Dextrose 50%) 25 ml Q30M PRN IV Hypoglycemia 08/30/19 05:00 09/27/19 07:59 Dextrose (Dextrose 50%) 50 ml Q30M PRN IV Hypoglycemia 08/30/19 05:00 09/27/19 07:59 Docusate Sodium (Colace) 100 mg THREE TIMES A DAY GT 09/02/19 13:00 10/02/19 12:59 09/03/19 18:06 Furosemide (Lasix) 20 mg DAILY IV 09/04/19 09:00 09/07/19 09:00 Insulin Aspart (NovoLOG) Q6HR SUBQ 08/30/19 06:00 09/27/19 11:29 09/04/19 06:09 Lansoprazole (Prevacid) 30 mg BID GT 09/03/19 18:00 10/03/19 17:59 09/03/19 18:06 Lisinopril (Zestril) 10 mg DAILY ORAL 08/30/19 09:00 09/29/19 08:59 09/03/19 09:35 Metoclopramide HCl (Reglan) 10 mg Q6H PRN IVP Nausea & Vomiting 09/03/19 11:00 10/03/19 10:59 09/03/19 12:12 Nitroglycerin (Ntg) 1 patch Q24H TDERMAL 08/30/19 11:00 09/28/19 10:59 09/03/19 10:56 Polyethylene Glycol (Miralax) 17 gm BEDTIME ORAL 09/02/19 21:00 10/02/19 20:59 09/03/19 20:33 Jaiden Logan MD Sep 04, 2019 09:34
[2019-09-04] MEDS: Carvedilol 6.25mg Tab ORAL SCH ×2 (09:51→21:13)
[2019-09-04] MEDS: Aspirin Baby 81mg NG SCH (09:51)
[2019-09-04] MEDS: Lisinopril 10mg tab ORAL SCH (09:51)
[2019-09-04] MEDS: Docusate 100mg/10ml Liq GT SCH ×3 (09:51→17:21)
--- NOTE | 2019-09-04 10:10 | Cardiac Electrophysiology PN ---
Assessment/Plan Assessment/Plan 1. Grj-JT-ijvogzjrw myocardial infarction. Peak Troponin is 2.441, down to 1.5. ? Due to severe dehydration as well. No chest pain and was on hospice care. Treat medically with aspirin and Coreg 3.125 bid 2. 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 On Lisinopril 10 daily and Coreg 3.125 bid 4. Long runs of 14 and 17 beats of VT due to CMP. Medical therapy as was on [facility] full code. Poor candidate for cardiac cath 5. Severe hypernatremia. Improving with hydration 6. History of schizophrenia. 7. Elevated white count 13,000. The patient is on vancomycin and Zosyn. 8. Dysphagia. S/P PEG by Dr Leda REIS RN Subjective Subjective Had 17 beats of VT 09/02/19 and 14 beats on 08/30/19. Had PEG 09/02/19. Hypokalemic today Objective Last 24 Hour Vital Signs Date Time Temp Pulse Resp B/P (MAP) Pulse Ox O2 Delivery O2 Flow Rate FiO2 09/04/19 09:51 86 136/71 09/04/19 09:51 86 136/71 09/04/19 09:51 136/71 09/04/19 08:00 86 09/04/19 08:00 96.6 88 21 136/71 (92) 97 09/04/19 07:29 97 Venturi Mask 8.0 40 09/04/19 07:29 98 18 97 Venturi Mask 8.0 40 95 18 98 09/04/19 04:00 97.0 91 22 136/71 (92) 97 09/04/19 04:00 92 09/04/19 01:22 95 22 99 Venturi Mask 8.0 40 92 20 92 09/04/19 00:00 98.6 75 20 134/64 (87) 97 09/04/19 00:00 85 09/03/19 21:00 Venturi Mask 6.0 09/03/19 20:33 88 100/54 09/03/19 20:33 98.7 88 20 100/54 (69) 100 09/03/19 20:08 85 09/03/19 19:22 98 18 97 Venturi Mask 8.0 40 95 18 96 09/03/19 19:03 98 8.0 40 09/03/19 16:00 97.7 109 20 121/70 (87) 98 09/03/19 15:31 109 09/03/19 13:18 92 18 99 Venturi Mask 8.0 40 09/03/19 12:00 99.3 92 18 136/71 (92) 100 09/03/19 11:31 92 09/03/19 10:56 142/89 Intake and Output 09/03/19 09/04/19 18:59 06:59 Intake Total 500 ml Output Total 1700 ml Balance -1700 ml 500 ml Tube Feeding 440 ml Blood Product 60 ml Output Urine Total 1700 ml Laboratory Tests Test 09/04/19 08:10 White Blood Count 15.2 K/UL (4.8-10.8) H Red Blood Count 3.74 M/UL (4.20-5.40) L Hemoglobin 8.5 G/DL (12.0-16.0) L Hematocrit 27.7 % (37.0-47.0) L Mean Corpuscular Volume 74 FL (80-99) L Mean Corpuscular Hemoglobin 22.7 PG (27.0-31.0) L Mean Corpuscular Hemoglobin Concent 30.7 G/DL (32.0-36.0) L Red Cell Distribution Width 22.5 % (11.6-14.8) H Platelet Count 205 K/UL (150-450) Mean Platelet Volume 10.6 FL (6.5-10.1) H Neutrophils (%) (Auto) 80.2 % (45.0-75.0) H Lymphocytes (%) (Auto) 12.5 % (20.0-45.0) L Monocytes (%) (Auto) 6.4 % (1.0-10.0) Eosinophils (%) (Auto) 0.3 % (0.0-3.0) Basophils (%) (Auto) 0.6 % (0.0-2.0) Sodium Level 142 MMOL/L (136-145) Potassium Level 3.3 MMOL/L (3.5-5.1) L Chloride Level 105 MMOL/L (98-107) Carbon Dioxide Level 35 MMOL/L (21-32) H Anion Gap 3 mmol/L (5-15) L Blood Urea Nitrogen 26 mg/dL (7-18) H Creatinine 0.9 MG/DL (0.55-1.30) Estimat Glomerular Filtration Rate mL/min (>60) Glucose Level 206 MG/DL (74-106) H Calcium Level 8.5 MG/DL (8.5-10.1) Objective HEAD AND NECK: No JVD. LUNGS: Coarse rhonchi. CARDIOVASCULAR: Irregular S1 and S2 with no gallop or murmur. ABDOMEN: Soft.PEG in place EXTREMITIES: No pitting edema. Markie Oliveira MD Sep 04, 2019 10:10
--- NOTE | 2019-09-04 10:49 | General Progress Note ---
Assessment/Plan Problem List: (1) Cardiomyopathy ICD Codes: I42.9 - Cardiomyopathy, unspecified SNOMED: 70365984 (2) Failure to thrive SNOMED: 12020087 (3) Pneumonia ICD Codes: J18.9 - Pneumonia, unspecified organism SNOMED: 719451257, 243629090 Qualifiers: Qualified Codes: J18.1 - Lobar pneumonia, unspecified organism Assessment/Plan: s/p PEG placement reglan ppi GTF repeat labs in am Subjective ROS Limited/Unobtainable: No Allergies: Coded Allergies: No Known Allergies (Unverified , 08/27/19) Objective Last 24 Hour Vital Signs Date Time Temp Pulse Resp B/P (MAP) Pulse Ox O2 Delivery O2 Flow Rate FiO2 09/04/19 09:51 86 136/71 09/04/19 09:51 86 136/71 09/04/19 09:51 136/71 09/04/19 08:00 86 09/04/19 08:00 96.6 88 21 136/71 (92) 97 09/04/19 07:29 97 Venturi Mask 8.0 40 09/04/19 07:29 98 18 97 Venturi Mask 8.0 40 95 18 98 09/04/19 04:00 97.0 91 22 136/71 (92) 97 09/04/19 04:00 92 09/04/19 01:22 95 22 99 Venturi Mask 8.0 40 92 20 92 09/04/19 00:00 98.6 75 20 134/64 (87) 97 09/04/19 00:00 85 09/03/19 21:00 Venturi Mask 6.0 09/03/19 20:33 88 100/54 09/03/19 20:33 98.7 88 20 100/54 (69) 100 09/03/19 20:08 85 09/03/19 19:22 98 18 97 Venturi Mask 8.0 40 95 18 96 09/03/19 19:03 98 8.0 40 09/03/19 16:00 97.7 109 20 121/70 (87) 98 09/03/19 15:31 109 09/03/19 13:18 92 18 99 Venturi Mask 8.0 40 09/03/19 12:00 99.3 92 18 136/71 (92) 100 09/03/19 11:31 92 09/03/19 10:56 142/89 Intake and Output 09/03/19 09/04/19 18:59 06:59 Intake Total 500 ml Output Total 1700 ml Balance -1700 ml 500 ml Tube Feeding 440 ml Blood Product 60 ml Output Urine Total 1700 ml Laboratory Tests 09/04/19 08:10: White Blood Count 15.2H, Red Blood Count 3.74L, Hemoglobin 8.5L, Hematocrit 27.7L, Mean Corpuscular Volume 74L, Mean Corpuscular Hemoglobin 22.7L, Mean Corpuscular Hemoglobin Concent 30.7L, Red Cell Distribution Width 22.5H, Platelet Count 205, Mean Platelet Volume 10.6H, Neutrophils (%) (Auto) 80.2H, Lymphocytes (%) (Auto) 12.5L, Monocytes (%) (Auto) 6.4, Eosinophils (%) (Auto) 0.3, Basophils (%) (Auto) 0.6, Sodium Level 142, Potassium Level 3.3L, Chloride Level 105, Carbon Dioxide Level 35H, Anion Gap 3L, Blood Urea Nitrogen 26H, Creatinine 0.9, Estimat Glomerular Filtration Rate , Glucose Level 206H, Calcium Level 8.5 Height (Feet): 5 Height (Inches): 3.00 Weight (Pounds): 163 General Appearance: no apparent distress EENT: normal ENT inspection Neck: supple Cardiovascular: normal rate Respiratory/Chest: decreased breath sounds Abdomen: normal bowel sounds, non tender, soft Extremities: non-tender Suresh Tompkins MD Sep 04, 2019 10:49
[2019-09-04] MEDS: Nitroglycerin Patch 0.4mg TDERMAL SCH (10:50)
[2019-09-04 12:00] VITALS: BP 112/56
--- NOTE | 2019-09-04 12:22 | Infectious Diseases Prog Note ---
Assessment/Plan Assessment/Plan IMPRESSION: Sepsis UTI with Enterococcus Pleural effusion Has history of COPD. hypernatremia, azotemia, diabetes mellitus, NSTEMI Positive blood culture likely contamination RECOMMENDATION: Observe off antibiotic Repeat CXR Subjective ROS Limited/Unobtainable: Yes Constitutional: Denies: fever Allergies: Coded Allergies: No Known Allergies (Unverified , 08/27/19) Objective Vital Signs Last 24 Hour Vital Signs Date Time Temp Pulse Resp B/P (MAP) Pulse Ox O2 Delivery O2 Flow Rate FiO2 09/04/19 10:50 136/71 09/04/19 09:51 86 136/71 09/04/19 09:51 86 136/71 09/04/19 09:51 136/71 09/04/19 09:00 Venturi Mask 6.0 09/04/19 08:00 86 09/04/19 08:00 96.6 88 21 136/71 (92) 97 09/04/19 07:29 97 Venturi Mask 8.0 40 09/04/19 07:29 98 18 97 Venturi Mask 8.0 40 95 18 98 09/04/19 04:00 97.0 91 22 136/71 (92) 97 09/04/19 04:00 92 09/04/19 01:22 95 22 99 Venturi Mask 8.0 40 92 20 92 09/04/19 00:00 98.6 75 20 134/64 (87) 97 09/04/19 00:00 85 09/03/19 21:00 Venturi Mask 6.0 09/03/19 20:33 88 100/54 09/03/19 20:33 98.7 88 20 100/54 (69) 100 09/03/19 20:08 85 09/03/19 19:22 98 18 97 Venturi Mask 8.0 40 95 18 96 09/03/19 19:03 98 8.0 40 09/03/19 16:00 97.7 109 20 121/70 (87) 98 09/03/19 15:31 109 09/03/19 13:18 92 18 99 Venturi Mask 8.0 40 Height (Feet): 5 Height (Inches): 3.00 Weight (Pounds): 163 HEENT: mucous membranes moist Respiratory/Chest: lungs clear, other - oxygen by venturi mask Cardiovascular: normal rate Abdomen: soft, non tender, other - GT feeding Extremities: other - edema of arms Neurologic/Psychiatric: unresponsiveness Laboratory Tests Test 09/04/19 08:10 White Blood Count 15.2 K/UL (4.8-10.8) H Red Blood Count 3.74 M/UL (4.20-5.40) L Hemoglobin 8.5 G/DL (12.0-16.0) L Hematocrit 27.7 % (37.0-47.0) L Mean Corpuscular Volume 74 FL (80-99) L Mean Corpuscular Hemoglobin 22.7 PG (27.0-31.0) L Mean Corpuscular Hemoglobin Concent 30.7 G/DL (32.0-36.0) L Red Cell Distribution Width 22.5 % (11.6-14.8) H Platelet Count 205 K/UL (150-450) Mean Platelet Volume 10.6 FL (6.5-10.1) H Neutrophils (%) (Auto) 80.2 % (45.0-75.0) H Lymphocytes (%) (Auto) 12.5 % (20.0-45.0) L Monocytes (%) (Auto) 6.4 % (1.0-10.0) Eosinophils (%) (Auto) 0.3 % (0.0-3.0) Basophils (%) (Auto) 0.6 % (0.0-2.0) Sodium Level 142 MMOL/L (136-145) Potassium Level 3.3 MMOL/L (3.5-5.1) L Chloride Level 105 MMOL/L (98-107) Carbon Dioxide Level 35 MMOL/L (21-32) H Anion Gap 3 mmol/L (5-15) L Blood Urea Nitrogen 26 mg/dL (7-18) H Creatinine 0.9 MG/DL (0.55-1.30) Estimat Glomerular Filtration Rate mL/min (>60) Glucose Level 206 MG/DL (74-106) H Calcium Level 8.5 MG/DL (8.5-10.1) Current Medications Medications (Trade) Dose Ordered Sig/Colt Route PRN Reason Start Time Stop Time Status Last Admin Dose Admin Albuterol/ Ipratropium (Albuterol/ Ipratropium) 3 ml Q6HRT HHN 09/03/19 01:00 09/08/19 00:59 09/04/19 07:31 Amlodipine Besylate (Norvasc) 2.5 mg DAILY ORAL 08/30/19 09:30 09/29/19 09:29 09/04/19 09:51 Aspirin (ASA) 81 mg DAILY NG 08/30/19 09:00 09/28/19 08:59 09/04/19 09:51 Carvedilol (Coreg) 6.25 mg EVERY 12 HOURS ORAL 09/03/19 21:00 09/29/19 20:59 09/04/19 09:51 Dextrose (Dextrose 50%) 25 ml Q30M PRN IV Hypoglycemia 08/30/19 05:00 09/27/19 07:59 Dextrose (Dextrose 50%) 50 ml Q30M PRN IV Hypoglycemia 08/30/19 05:00 09/27/19 07:59 Docusate Sodium (Colace) 100 mg THREE TIMES A DAY GT 09/02/19 13:00 10/02/19 12:59 09/04/19 09:51 Furosemide (Lasix) 20 mg DAILY IV 09/04/19 09:00 09/07/19 09:00 09/04/19 09:52 Insulin Aspart (NovoLOG) Q6HR SUBQ 08/30/19 06:00 09/27/19 11:29 09/04/19 06:09 Lansoprazole (Prevacid) 30 mg BID GT 09/03/19 18:00 10/03/19 17:59 09/04/19 09:52 Lisinopril (Zestril) 10 mg DAILY ORAL 08/30/19 09:00 09/29/19 08:59 09/04/19 09:51 Metoclopramide HCl (Reglan) 10 mg Q6H PRN IVP Nausea & Vomiting 09/03/19 11:00 10/03/19 10:59 09/03/19 12:12 Nitroglycerin (Ntg) 1 patch Q24H TDERMAL 08/30/19 11:00 09/28/19 10:59 09/04/19 10:50 Polyethylene Glycol (Miralax) 17 gm BEDTIME ORAL 09/02/19 21:00 10/02/19 20:59 09/03/19 20:33 Willian Ribeiro MD Sep 04, 2019 12:22
--- NOTE | 2019-09-04 13:32 | Diagnostic Imaging Report ---
Indication: Shortness of breath Technique: One view of the chest Comparison: 09/01/2019 Findings: Bilateral left greater than right pleural effusions are unchanged. Nasogastric tube is been removed. The heart is borderline enlarged. Impression: Interim nasogastric tube removal Otherwise stable findings as noted, including bilateral left greater than right pleural effusions
--- NOTE | 2019-09-04 13:56 | Nephrology Progress Note ---
Assessment/Plan Problem List: (1) Dehydration (2) Failure to thrive (3) Hypernatremia (4) Pneumonia (5) Elevated troponin (6) Cardiomyopathy Assessment Dehydration leading to HyperNatremia HypoAlbuminemia / Mal nutrition Elevated Troponin NSTEMI COPD HTN Pneumonia Plan up dose coreg has PEG k and Phos supplement previously: Low EjFx D5W IV Monitor BS and BP Monitor renal parameters Per consultants ASA and Nitro afterload reduction Subjective ROS Limited/Unobtainable: No Constitutional: Reports: malaise, weakness Objective Objective Last 24 Hour Vital Signs Date Time Temp Pulse Resp B/P (MAP) Pulse Ox O2 Delivery O2 Flow Rate FiO2 09/04/19 12:54 98 18 100 Venturi Mask 8.0 40 95 18 100 09/04/19 10:50 136/71 09/04/19 09:51 86 136/71 09/04/19 09:51 86 136/71 09/04/19 09:51 136/71 09/04/19 09:00 Venturi Mask 6.0 09/04/19 08:00 86 09/04/19 08:00 96.6 88 21 136/71 (92) 97 09/04/19 07:29 97 Venturi Mask 8.0 40 09/04/19 07:29 98 18 97 Venturi Mask 8.0 40 95 18 98 09/04/19 04:00 97.0 91 22 136/71 (92) 97 09/04/19 04:00 92 09/04/19 01:22 95 22 99 Venturi Mask 8.0 40 92 20 92 09/04/19 00:00 98.6 75 20 134/64 (87) 97 09/04/19 00:00 85 09/03/19 21:00 Venturi Mask 6.0 09/03/19 20:33 88 100/54 09/03/19 20:33 98.7 88 20 100/54 (69) 100 09/03/19 20:08 85 09/03/19 19:22 98 18 97 Venturi Mask 8.0 40 95 18 96 09/03/19 19:03 98 8.0 40 09/03/19 16:00 97.7 109 20 121/70 (87) 98 09/03/19 15:31 109 Intake and Output 09/03/19 09/04/19 19:00 07:00 Intake Total 55 ml 445 ml Output Total 1700 ml Balance -1645 ml 445 ml Tube Feeding 55 ml 385 ml Blood Product 60 ml Output Urine Total 1700 ml Laboratory Tests 09/04/19 08:10: White Blood Count 15.2H, Red Blood Count 3.74L, Hemoglobin 8.5L, Hematocrit 27.7L, Mean Corpuscular Volume 74L, Mean Corpuscular Hemoglobin 22.7L, Mean Corpuscular Hemoglobin Concent 30.7L, Red Cell Distribution Width 22.5H, Platelet Count 205, Mean Platelet Volume 10.6H, Neutrophils (%) (Auto) 80.2H, Lymphocytes (%) (Auto) 12.5L, Monocytes (%) (Auto) 6.4, Eosinophils (%) (Auto) 0.3, Basophils (%) (Auto) 0.6, Sodium Level 142, Potassium Level 3.3L, Chloride Level 105, Carbon Dioxide Level 35H, Anion Gap 3L, Blood Urea Nitrogen 26H, Creatinine 0.9, Estimat Glomerular Filtration Rate , Glucose Level 206H, Calcium Level 8.5 Height (Feet): 5 Height (Inches): 3.00 Weight (Pounds): 163 General Appearance: no apparent distress Cardiovascular: normal rate Respiratory/Chest: decreased breath sounds Abdomen: soft, distended Objective no change Kaden Chance MD Sep 04, 2019 13:56
[2019-09-04] MEDS ORDERED: Tubing IV Secondary IV ONE (15:15)
[2019-09-04] MEDS ORDERED: NS 500ML ONE (15:15)
--- NOTE | 2019-09-04 15:57 | Consultation ---
History of Present Illness General Date patient seen: Sep 04, 2019 Reason for Hospitalization: Generalized Weakness Present Illness HPI This is a very unfortunate 78-year-old female with multiple medical comorbidities who presents [facility] in worsening condition, failure to thrive, malnutrition, prior on hospice and now considerations for feeding tube and continuation of care. During admission identified to have a sacral decubitus ulcer requiring care and management. Surgery called to evaluate and assist with care. Patient seen, patient [place], chart reviewed Allergies: Coded Allergies: No Known Allergies (Unverified , 08/27/19) Medication History Scheduled Acetaminophen* (Tylenol*), 120 MG RECTAL Q4H, (Reported) Bisacodyl* (Dulcolax*), 10 MG RECTAL DAILY, (Reported) Scheduled PRN Acetaminophen* (Tylenol*), 120 MG RECTAL Q4H PRN for Mild Pain/Temp > 100.5, ( Reported) Hyoscyamine Sulfate (Levsin), 0.125 MG SL Q4HR PRN for To Patient Comfort, ( Reported) Ipratropium [place] 0.5MG/2.5ML (Ipratropium [place] 0.5MG/2.5ML), 0.5 MG HHN Q6H PRN for Shortness of Breath, (Reported) Lorazepam* (Lorazepam*), 0.5 MG ORAL Q6HR PRN for For Anxiety, (Reported) Morphine 10mg/5ml Oral Soln* (Morphine 10mg/5ml Oral Soln*), 0.25 MG SL Q4HR PRN for For Pain Level <=5, (Reported) Morphine 10mg/5ml Oral Soln* (Morphine 10mg/5ml Oral Soln*), 0.5 MG SL Q4HR PRN for Pain Scale (6-10), (Reported) Morphine 10mg/5ml Oral Soln* (Morphine 10mg/5ml Oral Soln*), 1 MG SL Q4HR PRN for Pain Scale (6-10), (Reported) Ondansetron* (Zofran*), 4 MG ORAL Q6H PRN for Nausea & Vomiting, (Reported) Ondansetron* (Zofran*), 4 MG SL Q8HR PRN for Nausea & Vomiting, (Reported) Patient History Limited by: medical condition History Provided By: Medical Record, PMD Healthcare decision maker Resuscitation status Full Code Advanced Directive on File No Past Medical/Surgical History Past Medical/Surgical History: (1) Hypernatremia (2) Pneumonia (3) Elevated troponin (4) Hospice care patient (5) Dehydration (6) failure to thrive (7) Failure to thrive (8) Cardiomyopathy Review of Systems Review of Symptoms Cannot obtain given medical condition Physical Exam Physical Exam General appearance: alert, cooperative, no distress, appears stated age Head: Normocephalic, without obvious abnormality, atraumatic Eyes: conjunctivae/corneas clear. PERRL, EOM's intact. Fundi benign Throat: Lips, mucosa, and tongue normal. Teeth and gums normal Neck: supple, symmetrical, trachea midline, no adenopathy, thyroid: not enlarged, symmetric, no tenderness/mass/nodules, no carotid bruit and no JVD Lungs: clear to auscultation bilaterally Heart: regular rate and rhythm, S1, S2 normal, no murmur, click, rub or gallop Abdomen: soft, non-tender. Bowel sounds normal. No masses, no organomegaly Extremities: extremities normal, atraumatic, no cyanosis or edema Pulses: 2+ and symmetric Skin: Skin color, texture, turgor normal. No rashes or lesions Neurologic: Grossly normal Last 24 Hour Vital Signs Date Time Temp Pulse Resp B/P (MAP) Pulse Ox O2 Delivery O2 Flow Rate FiO2 09/04/19 14:00 104 09/04/19 12:54 98 18 100 Venturi Mask 8.0 40 95 18 100 09/04/19 12:00 81 09/04/19 12:00 96.7 83 18 112/56 (74) 98 09/04/19 10:50 136/71 09/04/19 09:51 86 136/71 09/04/19 09:51 86 136/71 09/04/19 09:51 136/71 09/04/19 09:00 Venturi Mask 6.0 09/04/19 08:00 86 09/04/19 08:00 96.6 88 21 136/71 (92) 97 09/04/19 07:29 97 Venturi Mask 8.0 40 09/04/19 07:29 98 18 97 Venturi Mask 8.0 40 95 18 98 09/04/19 04:00 97.0 91 22 136/71 (92) 97 09/04/19 04:00 92 09/04/19 01:22 95 22 99 Venturi Mask 8.0 40 92 20 92 09/04/19 00:00 98.6 75 20 134/64 (87) 97 09/04/19 00:00 85 09/03/19 21:00 Venturi Mask 6.0 09/03/19 20:33 88 100/54 09/03/19 20:33 98.7 88 20 100/54 (69) 100 09/03/19 20:08 85 09/03/19 19:22 98 18 97 Venturi Mask 8.0 40 95 18 96 09/03/19 19:03 98 8.0 40 09/03/19 16:00 97.7 109 20 121/70 (87) 98 Intake and Output 09/03/19 09/04/19 19:00 07:00 Intake Total 55 ml 445 ml Output Total 1700 ml Balance -1645 ml 445 ml Tube Feeding 55 ml 385 ml Blood Product 60 ml Output Urine Total 1700 ml Laboratory Tests Test 09/04/19 08:10 White Blood Count 15.2 K/UL (4.8-10.8) H Red Blood Count 3.74 M/UL (4.20-5.40) L Hemoglobin 8.5 G/DL (12.0-16.0) L Hematocrit 27.7 % (37.0-47.0) L Mean Corpuscular Volume 74 FL (80-99) L Mean Corpuscular Hemoglobin 22.7 PG (27.0-31.0) L Mean Corpuscular Hemoglobin Concent 30.7 G/DL (32.0-36.0) L Red Cell Distribution Width 22.5 % (11.6-14.8) H Platelet Count 205 K/UL (150-450) Mean Platelet Volume 10.6 FL (6.5-10.1) H Neutrophils (%) (Auto) 80.2 % (45.0-75.0) H Lymphocytes (%) (Auto) 12.5 % (20.0-45.0) L Monocytes (%) (Auto) 6.4 % (1.0-10.0) Eosinophils (%) (Auto) 0.3 % (0.0-3.0) Basophils (%) (Auto) 0.6 % (0.0-2.0) Sodium Level 142 MMOL/L (136-145) Potassium Level 3.3 MMOL/L (3.5-5.1) L Chloride Level 105 MMOL/L (98-107) Carbon Dioxide Level 35 MMOL/L (21-32) H Anion Gap 3 mmol/L (5-15) L Blood Urea Nitrogen 26 mg/dL (7-18) H Creatinine 0.9 MG/DL (0.55-1.30) Estimat Glomerular Filtration Rate mL/min (>60) Glucose Level 206 MG/DL (74-106) H Calcium Level 8.5 MG/DL (8.5-10.1) Height (Feet): 5 Height (Inches): 3.00 Weight (Pounds): 163 Medications Current Medications Medications (Trade) Dose Ordered Sig/Colt Route PRN Reason Start Time Stop Time Status Last Admin Dose Admin Albuterol/ Ipratropium (Albuterol/ Ipratropium) 3 ml Q6HRT HHN 09/03/19 01:00 09/08/19 00:59 09/04/19 12:51 Amlodipine Besylate (Norvasc) 2.5 mg DAILY ORAL 08/30/19 09:30 09/29/19 09:29 09/04/19 09:51 Aspirin (ASA) 81 mg DAILY NG 08/30/19 09:00 09/28/19 08:59 09/04/19 09:51 Carvedilol (Coreg) 6.25 mg EVERY 12 HOURS ORAL 09/03/19 21:00 09/29/19 20:59 09/04/19 09:51 Dextrose (Dextrose 50%) 25 ml Q30M PRN IV Hypoglycemia 08/30/19 05:00 09/27/19 07:59 Dextrose (Dextrose 50%) 50 ml Q30M PRN IV Hypoglycemia 08/30/19 05:00 09/27/19 07:59 Docusate Sodium (Colace) 100 mg THREE TIMES A DAY GT 09/02/19 13:00 10/02/19 12:59 09/04/19 13:21 Furosemide (Lasix) 20 mg DAILY IV 09/04/19 09:00 09/07/19 09:00 09/04/19 09:52 Insulin Aspart (NovoLOG) Q6HR SUBQ 08/30/19 06:00 09/27/19 11:29 09/04/19 13:11 Lansoprazole (Prevacid) 30 mg BID GT 09/03/19 18:00 10/03/19 17:59 09/04/19 09:52 Lisinopril (Zestril) 10 mg DAILY ORAL 08/30/19 09:00 09/29/19 08:59 09/04/19 09:51 Metoclopramide HCl (Reglan) 10 mg Q6H PRN IVP Nausea & Vomiting 09/03/19 11:00 10/03/19 10:59 09/03/19 12:12 Nitroglycerin (Ntg) 1 patch Q24H TDERMAL 08/30/19 11:00 09/28/19 10:59 09/04/19 10:50 Polyethylene Glycol (Miralax) 17 gm BEDTIME ORAL 09/02/19 21:00 10/02/19 20:59 09/03/19 20:33 Assessment/Plan Problem List: (1) Sacral decubitus ulcer Assessment & Plan: Patient presented with Partial thickness stage 2 pressure injuries to R and L buttocks with surrounding non-blanching erythema without induration or fluctuance. Partial thickness stage 2 pressure injury R buttocks. Base of wound moist and viable. (L)1.8cm x (W)1cm.Erythematous and denuded borders and periwound. Partial thickness stage 2pressure injury L buttocks. Base of wound moist- viable. Borders and periwound erythematous and denuded. R heel boggy with non-blanching erythema. L heel boggy but blanchable. Tx.Plan: Cleanse wounds R and L buttocks with Saline. Apply Therahoney to each wound. Apply Moisture Barrier periwound.Cover with Optifoam drsg. Change every 3 days and prn. Apply Moisture Barrier Paste to Perineum and bilat ischial regions with each Incontinence care. APM/DAVID Mattress overlay. Reposition at least every 2hours or as tolerated. Off-load heels with pillow. ICD Codes: L89.159 - Pressure ulcer of sacral region, unspecified stage SNOMED: 963936093 Qualifiers: Qualified Codes: L89.152 - Pressure ulcer of sacral region, stage 2 (2) failure to thrive (3) Protein-calorie malnutrition, moderate Assessment & Plan: DAILY ESTIMATED NEEDS: Needs based on Pulmonary, cardiac; 64.1kg 25-30 kcals/kg 1603- 1923 total kcals 1-1.5 g protein/kg 64- 96 g total protein 20-25 mL/kg 4234-5187 total fluid mLs NUTRITION DIAGNOSIS: *Swallowing difficulty R/T dysdphagia as evidenced by pt is now s/p PEG placement, GT feeding held at this time for elev residuals. *Altered nutrition related lab values r/t dehydration, clinical condition as evidenced by critically elev Na value of 163*-> now wnl, BUN 41-> 26, elev BGs (206, 281), POC glu (157-254), low K (3.3), elev BNP (8049). CURRENT TF:Glucerna 1.2 @ 55ml/hr x 24 hrs -> HELD FOR RESIDUALS ENTERAL NUTRITION RECOMMENDATIONS: Glucerna 1.5 @ 45ml/hr x24 hrs to provide 1080ml, 1620 kcal, 89g pro, 820ml [id number] - Rec TF change to Glucerna 1.5 - possible TF tolerance, less free water given CHF, elev BNP - Initiate Glucerna 1.5 @ 25ml/hr x 4 hrs, advance 10ml q 4-6 hrs as tolerated to goal rate - Water flush per MD/ HOB over 30 degrees ADDITIONAL RECOMMENDATIONS: 1) Per SNF: pt is 141 lbs + 5' 6.5" tall Weekly wt monitoring 2) Consider around the clock Reglan for improved TF tolerance 3) Consider long acting insulin for improved BG control -> BGs mostly in the 200's despite TF being held 4) Monitor lytes, replete as needed (low K) ICD Codes: E44.0 - Moderate protein-calorie malnutrition SNOMED: 240665912 (4) Moderate malnutrition ICD Codes: E44.0 - Moderate protein-calorie malnutrition SNOMED: 457079776 Ramiro Mack Sep 04, 2019 15:57
[2019-09-04 16:00] VITALS: BP 104/52
[2019-09-04 20:00] VITALS: BP 144/78
[2019-09-04] MEDS: Miralax 17gm pkt ORAL SCH (21:12)
--- NOTE | 2019-09-04 21:45 | Progress Note ---
DATE: 09/04/2019 SUBJECTIVE: This is an elderly female, currently in bed, nonverbal, tolerating tube feeding. PHYSICAL EXAMINATION: VITAL SIGNS: Stable. CHEST: Bilaterally clear. CARDIOVASCULAR: Regular rhythm. ABDOMEN: Soft. EXTREMITIES: CCE. ASSESSMENT: 1. Sepsis. 2. Chronic respiratory failure. 3. Metabolic encephalopathy. 4. History of gastrectomy. PLAN: 1. Continue antibiotic. 2. Continue bronchodilator treatment. 3. G-tube feeding. 4. Waiting for Jayesh evaluation and transfer. Osmar Cooney M.D. DR: Willie JOB#: [id number] CC:
[2019-09-05] VITALS: BP 116/70
[2019-09-05] MEDS: NovoLOG Insulin Flexpen SUBQ SCH ×5 (00:01→23:28)
[2019-09-05] MEDS: Albuterol/Ipratropium 3ml neb HHN SCH ×4 (01:15→19:04)
[2019-09-05 04:00] VITALS: BP 112/64
[2019-09-05 06:53] LABS: BASOPHILS % (AUTO) 0.6 % (0.0-2.0); EOSINOPHILS % (AUTO) 0.6 % (0.0-3.0); HEMATOCRIT 26.7 % (37.0-47.0); HEMOGLOBIN 8.1 G/DL (12.0-16.0); LYMPHOCYTES % (AUTO) 16.5 % (20.0-45.0); MEAN CORPUSCULAR VOLUME 74 FL (80-99); MONOCYTES % (AUTO) 6.1 % (1.0-10.0); NEUTROPHILS % (AUTO) 76.2 % (45.0-75.0); PLATELET COUNT 226 K/UL (150-450); RED BLOOD COUNT 3.59 M/UL (4.20-5.40); RED CELL DISTRIBUTION WIDTH 22.1 % (11.6-14.8); WHITE BLOOD COUNT 14.2 K/UL (4.8-10.8)
--- NOTE | 2019-09-05 07:42 | Pulmonology Progress Note ---
Assessment/Plan Assessment/Plan IMPRESSION: 1. COPD. 2. Hypertension. 3. Severe hypernatremia. Improved 4. Dehydration. Resolved 5. Bilateral pneumonia. 6. Severe protein-calorie malnutrition. 7. Cardiac arrhythmias 8. 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 WIll check CXR and ABG Enteral feeding On abx Jaiden Logan M.D. Subjective Interval Events: On BiPAP; very poorly responsive Constitutional: Reports: no symptoms HEENT: Repors: no symptoms Respiratory: Reports: no symptoms Cardiovascular: Reports: no symptoms Gastrointestinal/Abdominal: Reports: no symptoms Allergies: Coded Allergies: No Known Allergies (Unverified , 08/27/19) Objective Last 24 Hour Vital Signs Date Time Temp Pulse Resp B/P (MAP) Pulse Ox O2 Delivery O2 Flow Rate FiO2 09/05/19 04:45 82 28 100 Facial 40 09/05/19 04:00 98.8 79 25 112/64 (80) 100 09/05/19 04:00 83 09/05/19 03:25 85 28 100 Facial 40 09/05/19 01:14 90 30 100 Bi-Pap 8.0 50 86 32 99 09/05/19 01:11 87 32 100 Facial 50 87 32 100 Bi-Pap 50 09/05/19 00:00 98.1 87 25 116/70 (85) 99 09/05/19 00:00 97 09/04/19 22:30 89 35 100 Facial 50 09/04/19 21:13 92 142/82 09/04/19 21:00 Venturi Mask 6.0 09/04/19 20:00 98.2 95 25 144/78 (100) 88 09/04/19 20:00 89 09/04/19 19:18 90 18 100 Venturi Mask 8.0 40 87 18 99 09/04/19 19:17 99 Venturi Mask 8.0 40 09/04/19 16:00 96.7 82 18 104/52 (69) 98 09/04/19 16:00 87 09/04/19 14:00 104 09/04/19 12:54 98 18 100 Venturi Mask 8.0 40 95 18 100 09/04/19 12:00 81 09/04/19 12:00 96.7 83 18 112/56 (74) 98 09/04/19 10:50 136/71 09/04/19 09:51 86 136/71 09/04/19 09:51 86 136/71 09/04/19 09:51 136/71 09/04/19 09:00 Venturi Mask 6.0 09/04/19 08:00 86 09/04/19 08:00 96.6 88 21 136/71 (92) 97 Intake and Output 09/04/19 09/05/19 19:00 07:00 Intake Total 495 ml Output Total 1 ml 1200 ml Balance 494 ml -1200 ml Tube Feeding 495 ml Output Urine Total 1200 ml Stool Total 1 ml General Appearance: no acute distress HEENT: normocephalic Respiratory/Chest: chest wall non-tender, lungs clear Cardiovascular: normal peripheral pulses Laboratory Tests 09/04/19 08:10: White Blood Count 15.2H, Red Blood Count 3.74L, Hemoglobin 8.5L, Hematocrit 27.7L, Mean Corpuscular Volume 74L, Mean Corpuscular Hemoglobin 22.7L, Mean Corpuscular Hemoglobin Concent 30.7L, Red Cell Distribution Width 22.5H, Platelet Count 205, Mean Platelet Volume 10.6H, Neutrophils (%) (Auto) 80.2H, Lymphocytes (%) (Auto) 12.5L, Monocytes (%) (Auto) 6.4, Eosinophils (%) (Auto) 0.3, Basophils (%) (Auto) 0.6, Sodium Level 142, Potassium Level 3.3L, Chloride Level 105, Carbon Dioxide Level 35H, Anion Gap 3L, Blood Urea Nitrogen 26H, Creatinine 0.9, Estimat Glomerular Filtration Rate , Glucose Level 206H, Calcium Level 8.5 09/04/19 21:00: Arterial Blood pH 7.533H, Arterial Blood Partial Pressure CO2 39.8, Arterial Blood Partial Pressure O2 47.3*L, Arterial Blood HCO3 32.7H, Arterial Blood Oxygen Saturation 82.9*L, Arterial Blood Base Excess 9.3*H, William Test Positive 09/05/19 05:59: White Blood Count 14.2H, Red Blood Count 3.59L, Hemoglobin 8.1L, Hematocrit 26.7L, Mean Corpuscular Volume 74L, Mean Corpuscular Hemoglobin 22.7L, Mean Corpuscular Hemoglobin Concent 30.5L, Red Cell Distribution Width 22.1H, Platelet Count 226, Mean Platelet Volume 9.9, Neutrophils (%) (Auto) 76.2H, Lymphocytes (%) (Auto) 16.5L, Monocytes (%) (Auto) 6.1, Eosinophils (%) (Auto) 0.6, Basophils (%) (Auto) 0.6 Current Medications Medications (Trade) Dose Ordered Sig/Colt Route PRN Reason Start Time Stop Time Status Last Admin Dose Admin Albuterol/ Ipratropium (Albuterol/ Ipratropium) 3 ml Q6HRT HHN 09/03/19 01:00 09/08/19 00:59 09/05/19 07:04 Amlodipine Besylate (Norvasc) 2.5 mg DAILY ORAL 08/30/19 09:30 09/29/19 09:29 09/04/19 09:51 Aspirin (ASA) 81 mg DAILY NG 08/30/19 09:00 09/28/19 08:59 09/04/19 09:51 Carvedilol (Coreg) 6.25 mg EVERY 12 HOURS ORAL 09/03/19 21:00 09/29/19 20:59 09/04/19 21:13 Dextrose (Dextrose 50%) 25 ml Q30M PRN IV Hypoglycemia 08/30/19 05:00 09/27/19 07:59 Dextrose (Dextrose 50%) 50 ml Q30M PRN IV Hypoglycemia 08/30/19 05:00 09/27/19 07:59 Docusate Sodium (Colace) 100 mg THREE TIMES A DAY GT 09/02/19 13:00 10/02/19 12:59 09/04/19 17:21 Furosemide (Lasix) 20 mg DAILY IV 09/04/19 09:00 09/07/19 09:00 09/04/19 09:52 Insulin Aspart (NovoLOG) Q6HR SUBQ 08/30/19 06:00 09/27/19 11:29 09/05/19 05:35 Lansoprazole (Prevacid) 30 mg BID GT 09/03/19 18:00 10/03/19 17:59 09/04/19 17:21 Lisinopril (Zestril) 10 mg DAILY ORAL 08/30/19 09:00 09/29/19 08:59 09/04/19 09:51 Metoclopramide HCl (Reglan) 10 mg Q6H PRN IVP Nausea & Vomiting 09/03/19 11:00 10/03/19 10:59 09/03/19 12:12 Nitroglycerin (Ntg) 1 patch Q24H TDERMAL 08/30/19 11:00 09/28/19 10:59 09/04/19 10:50 Polyethylene Glycol (Miralax) 17 gm BEDTIME ORAL 09/02/19 21:00 10/02/19 20:59 09/04/19 21:12 Jaiden Logan MD Sep 05, 2019 07:42
[2019-09-05 08:00] VITALS: BP 123/64
[2019-09-05] MEDS: Lisinopril 10mg tab ORAL SCH (09:00)
[2019-09-05] MEDS: Aspirin Baby 81mg NG SCH (09:00)
--- NOTE | 2019-09-05 09:27 | Diagnostic Imaging Report ---
Indication: Cough Comparison: 09/04/2019 A single view chest radiograph was obtained. Findings: Bilateral pleural effusions suspected. This was the case previously as well. Heart is enlarged. Pulmonary vascularity is mildly prominent. IMPRESSION: Bilateral pleural effusions. Mild pulmonary vascular congestion suspected unchanged.
[2019-09-05] MEDS: Carvedilol 6.25mg Tab ORAL SCH ×2 (09:49→21:00)
[2019-09-05] MEDS: Docusate 100mg/10ml Liq GT SCH ×3 (09:49→18:17)
[2019-09-05 12:00] VITALS: BP 138/73
--- NOTE | 2019-09-05 12:15 | Cardiac Electrophysiology PN ---
Assessment/Plan Assessment/Plan 1. [id number] myocardial infarction. Peak Troponin is 2.441, down to 1.5. ? Due to severe dehydration as well. No chest pain hx, Lethargic and was on hospice care. Treat medically with aspirin and Coreg 3.125 bid 2. 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 On Lisinopril 10 daily and Coreg 3.125 bid 4. Long runs of 14 and 17 beats of VT due to CMP. Medical therapy as was on Hospice Now full code. Poor candidate for cardiac cath 5. Severe hypernatremia. Improving with hydration 6. History of schizophrenia. 7. Elevated white count 13,000. The patient is on vancomycin and Zosyn. 8. Dysphagia. S/P PEG by Dr Leda REIS RN Subjective Subjective Had 17 beats of VT 09/02/19 and 14 beats on 08/30/19. Had PEG 09/02/19. On BIPAP now. Full Code per RN even though was on Hospice before Objective Last 24 Hour Vital Signs Date Time Temp Pulse Resp B/P (MAP) Pulse Ox O2 Delivery O2 Flow Rate FiO2 09/05/19 10:58 85 24 100 Facial 40 09/05/19 09:49 78 123/64 09/05/19 09:00 78 123/64 09/05/19 09:00 123/64 09/05/19 09:00 Bi-pap 09/05/19 08:44 78 28 100 Facial 40 09/05/19 08:00 98.1 75 25 123/64 (83) 100 09/05/19 08:00 96 09/05/19 07:14 72 24 100 Facial 40 75 27 100 Bi-Pap 40 09/05/19 07:04 100 Bi-Pap 40 09/05/19 04:45 82 28 100 Facial 40 09/05/19 04:00 98.8 79 25 112/64 (80) 100 09/05/19 04:00 83 09/05/19 03:25 85 28 100 Facial 40 09/05/19 01:14 90 30 100 Bi-Pap 8.0 50 86 32 99 09/05/19 01:11 87 32 100 Facial 50 87 32 100 Bi-Pap 50 09/05/19 00:00 98.1 87 25 116/70 (85) 99 09/05/19 00:00 97 09/04/19 22:30 89 35 100 Facial 50 09/04/19 21:13 92 142/82 09/04/19 21:00 Venturi Mask 6.0 09/04/19 20:00 98.2 95 25 144/78 (100) 88 09/04/19 20:00 89 09/04/19 19:18 90 18 100 Venturi Mask 8.0 40 87 18 99 09/04/19 19:17 99 Venturi Mask 8.0 40 09/04/19 16:00 96.7 82 18 104/52 (69) 98 09/04/19 16:00 87 09/04/19 14:00 104 09/04/19 12:54 98 18 100 Venturi Mask 8.0 40 95 18 100 Intake and Output 09/04/19 09/05/19 18:59 06:59 Intake Total 440 ml 55 ml Output Total 1 ml 1200 ml Balance 439 ml -1145 ml Tube Feeding 440 ml 55 ml Output Urine Total 1200 ml Stool Total 1 ml Laboratory Tests Test 09/04/19 21:00 09/05/19 05:59 09/05/19 07:40 Arterial Blood pH 7.533 (7.350-7.450) 7.426 (7.350-7.450) Arterial Blood Partial Pressure CO2 39.8 mmHg (35.0-45.0) 51.5 mmHg (35.0-45.0) H Arterial Blood Partial Pressure O2 47.3 mmHg (75.0-100.0) 105.7 mmHg (75.0-100.0) H Arterial Blood HCO3 32.7 mmol/L (22.0-26.0) H 33.1 mmol/L (22.0-26.0) H Arterial Blood Oxygen Saturation 82.9 % (95-100) *L 97.2 % (95-100) Arterial Blood Base Excess 9.3 (-2-2) *H 7.7 (-2-2) H William Test Positive Positive White Blood Count 14.2 K/UL (4.8-10.8) H Red Blood Count 3.59 M/UL (4.20-5.40) L Hemoglobin 8.1 G/DL (12.0-16.0) L Hematocrit 26.7 % (37.0-47.0) L Mean Corpuscular Volume 74 FL (80-99) L Mean Corpuscular Hemoglobin 22.7 PG (27.0-31.0) L Mean Corpuscular Hemoglobin Concent 30.5 G/DL (32.0-36.0) L Red Cell Distribution Width 22.1 % (11.6-14.8) H Platelet Count 226 K/UL (150-450) Mean Platelet Volume 9.9 FL (6.5-10.1) Neutrophils (%) (Auto) 76.2 % (45.0-75.0) H Lymphocytes (%) (Auto) 16.5 % (20.0-45.0) L Monocytes (%) (Auto) 6.1 % (1.0-10.0) Eosinophils (%) (Auto) 0.6 % (0.0-3.0) Basophils (%) (Auto) 0.6 % (0.0-2.0) Objective HEAD AND NECK: No JVD. On BIPAP LUNGS: Coarse rhonchi. CARDIOVASCULAR: Irregular S1 and S2 with no gallop or murmur. ABDOMEN: Soft.PEG in place EXTREMITIES: No pitting edema. Markie Oliveira MD Sep 05, 2019 12:15
--- NOTE | 2019-09-05 12:58 | Infectious Diseases Prog Note ---
Assessment/Plan Assessment/Plan IMPRESSION: Sepsis UTI with Enterococcus Pleural effusion Has history of COPD. hypernatremia, azotemia, diabetes mellitus, NSTEMI Positive blood culture likely contamination Respiratory failure RECOMMENDATION: Sputum culture Chest US to measure pleural effusion Start on Cefepime Subjective ROS Limited/Unobtainable: Yes Constitutional: Reports: other - transferred to [facility]; Denies: fever Respiratory: Reports: other - developed respiratory distress Allergies: Coded Allergies: No Known Allergies (Unverified , 08/27/19) Objective Vital Signs Last 24 Hour Vital Signs Date Time Temp Pulse Resp B/P (MAP) Pulse Ox O2 Delivery O2 Flow Rate FiO2 09/05/19 10:58 85 24 100 Facial 40 09/05/19 09:49 78 123/64 09/05/19 09:00 78 123/64 09/05/19 09:00 123/64 09/05/19 09:00 Bi-pap 09/05/19 08:44 78 28 100 Facial 40 09/05/19 08:00 98.1 75 25 123/64 (83) 100 09/05/19 08:00 96 09/05/19 07:14 72 24 100 Facial 40 75 27 100 Bi-Pap 40 09/05/19 07:04 100 Bi-Pap 40 09/05/19 04:45 82 28 100 Facial 40 09/05/19 04:00 98.8 79 25 112/64 (80) 100 09/05/19 04:00 83 09/05/19 03:25 85 28 100 Facial 40 09/05/19 01:14 90 30 100 Bi-Pap 8.0 50 86 32 99 09/05/19 01:11 87 32 100 Facial 50 87 32 100 Bi-Pap 50 09/05/19 00:00 98.1 87 25 116/70 (85) 99 09/05/19 00:00 97 09/04/19 22:30 89 35 100 Facial 50 09/04/19 21:13 92 142/82 09/04/19 21:00 Venturi Mask 6.0 09/04/19 20:00 98.2 95 25 144/78 (100) 88 09/04/19 20:00 89 09/04/19 19:18 90 18 100 Venturi Mask 8.0 40 87 18 99 09/04/19 19:17 99 Venturi Mask 8.0 40 09/04/19 16:00 96.7 82 18 104/52 (69) 98 09/04/19 16:00 87 09/04/19 14:00 104 Height (Feet): 5 Height (Inches): 3.00 Weight (Pounds): 163 HEENT: mucous membranes moist Respiratory/Chest: decreased breath sounds, other - on BIPAP Cardiovascular: normal rate Abdomen: soft, non tender Extremities: no edema Neurologic/Psychiatric: unresponsiveness Laboratory Tests Test 09/04/19 21:00 09/05/19 05:59 09/05/19 07:40 Arterial Blood pH 7.533 (7.350-7.450) 7.426 (7.350-7.450) Arterial Blood Partial Pressure CO2 39.8 mmHg (35.0-45.0) 51.5 mmHg (35.0-45.0) H Arterial Blood Partial Pressure O2 47.3 mmHg (75.0-100.0) 105.7 mmHg (75.0-100.0) H Arterial Blood HCO3 32.7 mmol/L (22.0-26.0) H 33.1 mmol/L (22.0-26.0) H Arterial Blood Oxygen Saturation 82.9 % (95-100) *L 97.2 % (95-100) Arterial Blood Base Excess 9.3 (-2-2) *H 7.7 (-2-2) H William Test Positive Positive White Blood Count 14.2 K/UL (4.8-10.8) H Red Blood Count 3.59 M/UL (4.20-5.40) L Hemoglobin 8.1 G/DL (12.0-16.0) L Hematocrit 26.7 % (37.0-47.0) L Mean Corpuscular Volume 74 FL (80-99) L Mean Corpuscular Hemoglobin 22.7 PG (27.0-31.0) L Mean Corpuscular Hemoglobin Concent 30.5 G/DL (32.0-36.0) L Red Cell Distribution Width 22.1 % (11.6-14.8) H Platelet Count 226 K/UL (150-450) Mean Platelet Volume 9.9 FL (6.5-10.1) Neutrophils (%) (Auto) 76.2 % (45.0-75.0) H Lymphocytes (%) (Auto) 16.5 % (20.0-45.0) L Monocytes (%) (Auto) 6.1 % (1.0-10.0) Eosinophils (%) (Auto) 0.6 % (0.0-3.0) Basophils (%) (Auto) 0.6 % (0.0-2.0) Current Medications Medications (Trade) Dose Ordered Sig/Colt Route PRN Reason Start Time Stop Time Status Last Admin Dose Admin Albuterol/ Ipratropium (Albuterol/ Ipratropium) 3 ml Q6HRT HHN 09/05/19 13:00 09/08/19 00:59 Amlodipine Besylate (Norvasc) 2.5 mg DAILY ORAL 09/06/19 09:00 09/29/19 09:29 Aspirin (ASA) 81 mg DAILY NG 09/06/19 09:00 09/28/19 08:59 Carvedilol (Coreg) 6.25 mg EVERY 12 HOURS ORAL 09/05/19 21:00 09/29/19 20:59 Dextrose (Dextrose 50%) 25 ml Q30M PRN IV Hypoglycemia 09/05/19 11:30 09/27/19 07:59 Dextrose (Dextrose 50%) 50 ml Q30M PRN IV Hypoglycemia 09/05/19 11:30 09/27/19 07:59 Docusate Sodium (Colace) 100 mg THREE TIMES A DAY GT 09/05/19 13:00 10/02/19 12:59 Furosemide 100 mg/ Dextrose 100 ml @ 7.5 mls/hr [id number] IV 09/05/19 13:00 10/05/19 12:59 Insulin Aspart (NovoLOG) Q6HR SUBQ 09/05/19 12:00 09/27/19 11:29 Lansoprazole (Prevacid) 30 mg BID GT 09/05/19 18:00 10/03/19 17:59 Lisinopril (Zestril) 10 mg DAILY ORAL 09/06/19 09:00 09/29/19 08:59 Metoclopramide HCl (Reglan) 10 mg Q6H PRN IVP Nausea & Vomiting 09/05/19 17:00 10/03/19 10:59 Nitroglycerin (Ntg) 1 patch Q24H TDERMAL 09/06/19 11:00 12/1/19 10:59 Polyethylene Glycol (Miralax) 17 gm BEDTIME ORAL 09/05/19 21:00 10/02/19 20:59 Potassium Chloride (K-Dur) 20 meq DAILY GT 09/05/19 12:00 10/05/19 11:59 Willian Ribeiro MD Sep 05, 2019 12:58
--- NOTE | 2019-09-05 13:23 | Nephrology Progress Note ---
Assessment/Plan Problem List: (1) Dehydration (2) Failure to thrive (3) Hypernatremia (4) Pneumonia (5) Elevated troponin (6) Cardiomyopathy Assessment Dehydration leading to HyperNatremia HypoAlbuminemia / Mal nutrition Elevated Troponin NSTEMI COPD HTN Pneumonia Plan on bipap to RADHA up dose coreg has PEG k and Phos supplement as needed pulmonary and cardiac support previously: Low EjFx Monitor BS and BP Monitor renal parameters Per consultants ASA and Nitro afterload reduction Subjective ROS Limited/Unobtainable: Yes Objective Objective Last 24 Hour Vital Signs Date Time Temp Pulse Resp B/P (MAP) Pulse Ox O2 Delivery O2 Flow Rate FiO2 09/05/19 10:58 85 24 100 Facial 40 09/05/19 09:49 78 123/64 09/05/19 09:00 78 123/64 09/05/19 09:00 123/64 09/05/19 09:00 Bi-pap 09/05/19 08:44 78 28 100 Facial 40 09/05/19 08:00 98.1 75 25 123/64 (83) 100 09/05/19 08:00 96 09/05/19 07:14 72 24 100 Facial 40 75 27 100 Bi-Pap 40 09/05/19 07:04 100 Bi-Pap 40 09/05/19 04:45 82 28 100 Facial 40 09/05/19 04:00 98.8 79 25 112/64 (80) 100 09/05/19 04:00 83 09/05/19 03:25 85 28 100 Facial 40 09/05/19 01:14 90 30 100 Bi-Pap 8.0 50 86 32 99 09/05/19 01:11 87 32 100 Facial 50 87 32 100 Bi-Pap 50 09/05/19 00:00 98.1 87 25 116/70 (85) 99 09/05/19 00:00 97 09/04/19 22:30 89 35 100 Facial 50 09/04/19 21:13 92 142/82 09/04/19 21:00 Venturi Mask 6.0 09/04/19 20:00 98.2 95 25 144/78 (100) 88 09/04/19 20:00 89 09/04/19 19:18 90 18 100 Venturi Mask 8.0 40 87 18 99 09/04/19 19:17 99 Venturi Mask 8.0 40 09/04/19 16:00 96.7 82 18 104/52 (69) 98 09/04/19 16:00 87 09/04/19 14:00 104 Intake and Output 09/04/19 09/05/19 18:59 06:59 Intake Total 440 ml 55 ml Output Total 1 ml 1200 ml Balance 439 ml -1145 ml Tube Feeding 440 ml 55 ml Output Urine Total 1200 ml Stool Total 1 ml Laboratory Tests 09/04/19 21:00: Arterial Blood pH 7.533H, Arterial Blood Partial Pressure CO2 39.8, Arterial Blood Partial Pressure O2 47.3*L, Arterial Blood HCO3 32.7H, Arterial Blood Oxygen Saturation 82.9*L, Arterial Blood Base Excess 9.3*H, William Test Positive 09/05/19 05:59: White Blood Count 14.2H, Red Blood Count 3.59L, Hemoglobin 8.1L, Hematocrit 26.7L, Mean Corpuscular Volume 74L, Mean Corpuscular Hemoglobin 22.7L, Mean Corpuscular Hemoglobin Concent 30.5L, Red Cell Distribution Width 22.1H, Platelet Count 226, Mean Platelet Volume 9.9, Neutrophils (%) (Auto) 76.2H, Lymphocytes (%) (Auto) 16.5L, Monocytes (%) (Auto) 6.1, Eosinophils (%) (Auto) 0.6, Basophils (%) (Auto) 0.6 09/05/19 07:40: Arterial Blood pH 7.426, Arterial Blood Partial Pressure CO2 51.5H, Arterial Blood Partial Pressure O2 105.7H, Arterial Blood HCO3 33.1H, Arterial Blood Oxygen Saturation 97.2, Arterial Blood Base Excess 7.7H, William Test Positive Height (Feet): 5 Height (Inches): 3.00 Weight (Pounds): 163 General Appearance: mild distress EENT: other - bipap Neck: limited range of motion Cardiovascular: tachycardia Respiratory/Chest: decreased breath sounds Abdomen: soft, distended Objective no change Kaden Chance MD Sep 05, 2019 13:23
[2019-09-05] MEDS: Cefepime HCl 1 GM in D5W 55 ML IVPB SCH ×2 (14:41→21:26)
--- NOTE | 2019-09-05 15:26 | General Progress Note ---
Assessment/Plan Problem List: (1) Cardiomyopathy ICD Codes: I42.9 - Cardiomyopathy, unspecified SNOMED: 35801771 (2) Failure to thrive SNOMED: 75005177 (3) Pneumonia ICD Codes: J18.9 - Pneumonia, unspecified organism SNOMED: 503103878, 131173588 Qualifiers: Qualified Codes: J18.1 - Lobar pneumonia, unspecified organism Assessment/Plan: s/p PEG placement reglan ppi GTF repeat labs in am Subjective ROS Limited/Unobtainable: No Allergies: Coded Allergies: No Known Allergies (Unverified , 08/27/19) Objective Last 24 Hour Vital Signs Date Time Temp Pulse Resp B/P (MAP) Pulse Ox O2 Delivery O2 Flow Rate FiO2 09/05/19 14:51 88 24 100 Facial 40 09/05/19 13:07 83 26 100 Facial 40 85 28 100 Bi-Pap 40 09/05/19 10:58 85 24 100 Facial 40 09/05/19 09:49 78 123/64 09/05/19 09:00 78 123/64 09/05/19 09:00 123/64 09/05/19 09:00 Bi-pap 09/05/19 08:44 78 28 100 Facial 40 09/05/19 08:00 98.1 75 25 123/64 (83) 100 09/05/19 08:00 96 09/05/19 07:14 72 24 100 Facial 40 75 27 100 Bi-Pap 40 09/05/19 07:04 100 Bi-Pap 40 09/05/19 04:45 82 28 100 Facial 40 09/05/19 04:00 98.8 79 25 112/64 (80) 100 09/05/19 04:00 83 09/05/19 03:25 85 28 100 Facial 40 09/05/19 01:14 90 30 100 Bi-Pap 8.0 50 86 32 99 09/05/19 01:11 87 32 100 Facial 50 87 32 100 Bi-Pap 50 09/05/19 00:00 98.1 87 25 116/70 (85) 99 09/05/19 00:00 97 09/04/19 22:30 89 35 100 Facial 50 09/04/19 21:13 92 142/82 09/04/19 21:00 Venturi Mask 6.0 09/04/19 20:00 98.2 95 25 144/78 (100) 88 09/04/19 20:00 89 09/04/19 19:18 90 18 100 Venturi Mask 8.0 40 87 18 99 09/04/19 19:17 99 Venturi Mask 8.0 40 09/04/19 16:00 96.7 82 18 104/52 (69) 98 09/04/19 16:00 87 Intake and Output 09/04/19 09/05/19 19:00 07:00 Intake Total 495 ml Output Total 1 ml 1200 ml Balance 494 ml -1200 ml Tube Feeding 495 ml Output Urine Total 1200 ml Stool Total 1 ml Laboratory Tests 09/04/19 21:00: Arterial Blood pH 7.533H, Arterial Blood Partial Pressure CO2 39.8, Arterial Blood Partial Pressure O2 47.3*L, Arterial Blood HCO3 32.7H, Arterial Blood Oxygen Saturation 82.9*L, Arterial Blood Base Excess 9.3*H, William Test Positive 09/05/19 05:59: White Blood Count 14.2H, Red Blood Count 3.59L, Hemoglobin 8.1L, Hematocrit 26.7L, Mean Corpuscular Volume 74L, Mean Corpuscular Hemoglobin 22.7L, Mean Corpuscular Hemoglobin Concent 30.5L, Red Cell Distribution Width 22.1H, Platelet Count 226, Mean Platelet Volume 9.9, Neutrophils (%) (Auto) 76.2H, Lymphocytes (%) (Auto) 16.5L, Monocytes (%) (Auto) 6.1, Eosinophils (%) (Auto) 0.6, Basophils (%) (Auto) 0.6 09/05/19 07:40: Arterial Blood pH 7.426, Arterial Blood Partial Pressure CO2 51.5H, Arterial Blood Partial Pressure O2 105.7H, Arterial Blood HCO3 33.1H, Arterial Blood Oxygen Saturation 97.2, Arterial Blood Base Excess 7.7H, William Test Positive Height (Feet): 5 Height (Inches): 3.00 Weight (Pounds): 163 General Appearance: alert EENT: normal ENT inspection Neck: normal alignment Cardiovascular: normal rate Respiratory/Chest: decreased breath sounds Abdomen: normal bowel sounds, non tender, soft Extremities: non-tender Suresh Tompkins MD Sep 05, 2019 15:26
[2019-09-05 16:00] VITALS: BP 108/71
[2019-09-05] MEDS ORDERED: Metoclopramide 10mg/2ml Inj IVP PRN (17:00)
--- NOTE | 2019-09-05 17:15 | Progress Note ---
DATE: 09/05/2019 SUBJECTIVE: This is elderly female, currently on BiPAP since yesterday. The patient is constantly on BiPAP. Also is on Lasix drip. Pulmonary and Cardiology is on case. The patient is currently nonverbal. Full Code per family. OBJECTIVE: VITAL SIGNS: Blood pressure is 123/64, pulse 78, respirations 25, and temperature 98.1. HEENT: Eyes are closed. NECK: Supple. CHEST: Bilateral few crackles and wheezing. CARDIOVASCULAR: Regular rhythm. No gallop. No murmur. ABDOMEN: Soft. Positive bowel sounds. G-tube in place. EXTREMITIES: CCE. NEUROLOGICAL: Generalized weakness. LABORATORY DATA: White counts are 15,000, hemoglobin 8.1, hematocrit 26, platelets are 225. Chemistry panel, sodium 142, potassium 3.3, BUN 26, creatinine 0.9, glucose 265. Her magnesium was 1.7 to 2.3. Her BNP was 8049. ASSESSMENT AND PLAN: 1. CHF, decompensated. 2. Hypertension. 3. Hypokalemia. 4. Metabolic encephalopathy. 5. Pneumonia. 6. Diabetes. 7. Sacral decubiti stage II. PLAN: 1. Discussed with charge nurse. 2. Wound care. 3. Continue Lasix. 4. Continue BiPAP. 5. Continue added Lasix 20 mg G-tube daily. 6. Continue carvedilol. 7. Continue bronchodilator treatment, Norvasc, lisinopril, aspirin. 8. Cardiology, Pulmonary, and GI is on case. 9. The patient is still critically sick. Osmar Cooney M.D. DR: BYRON JOB#: [id number] CC:
[2019-09-05 20:00] VITALS: BP 99/63
[2019-09-05] MEDS: Miralax 17gm pkt ORAL SCH (21:25)
--- NOTE | 2019-09-05 22:21 | Surgery Progress Note ---
Surgery Progress Note Subjective Additional Comments labs noted exam stable Objective Last 24 Hour Vital Signs Date Time Temp Pulse Resp B/P (MAP) Pulse Ox O2 Delivery O2 Flow Rate FiO2 09/05/19 21:17 88 22 100 Facial 40 09/05/19 21:00 87 99/63 09/05/19 20:00 97.6 87 17 99/63 (75) 100 09/05/19 19:24 91 09/05/19 19:06 68 30 100 Facial 40 09/05/19 19:05 87 30 100 Bi-Pap 40 86 30 100 09/05/19 19:04 100 Bi-Pap 40 09/05/19 16:32 94 27 98 Facial 40 09/05/19 16:00 88 09/05/19 16:00 97.8 89 27 108/71 (83) 99 09/05/19 14:51 88 24 100 Facial 40 09/05/19 13:07 83 26 100 Facial 40 85 28 100 Bi-Pap 40 09/05/19 12:00 97.8 84 26 138/73 (94) 99 09/05/19 11:33 71 09/05/19 10:58 85 24 100 Facial 40 09/05/19 09:49 78 123/64 09/05/19 09:00 78 123/64 09/05/19 09:00 123/64 09/05/19 09:00 Bi-pap 09/05/19 08:44 78 28 100 Facial 40 09/05/19 08:00 98.1 75 25 123/64 (83) 100 09/05/19 08:00 96 09/05/19 07:14 72 24 100 Facial 40 75 27 100 Bi-Pap 40 09/05/19 07:04 100 Bi-Pap 40 09/05/19 04:45 82 28 100 Facial 40 09/05/19 04:00 98.8 79 25 112/64 (80) 100 09/05/19 04:00 83 09/05/19 03:25 85 28 100 Facial 40 09/05/19 01:14 90 30 100 Bi-Pap 8.0 50 86 32 99 09/05/19 01:11 87 32 100 Facial 50 87 32 100 Bi-Pap 50 09/05/19 00:00 98.1 87 25 116/70 (85) 99 09/05/19 00:00 97 09/04/19 22:30 89 35 100 Facial 50 I&O Intake and Output 09/04/19 09/05/19 19:00 07:00 Intake Total 495 ml Output Total 1 ml 1200 ml Balance 494 ml -1200 ml Tube Feeding 495 ml Output Urine Total 1200 ml Stool Total 1 ml Dressing: saturated Wound: other Drains: other Cardiovascular: RSR Respiratory: decreased breath sounds Abdomen: soft, present bowel sounds, non-distended Extremities: no cyanosis Laboratory Tests Test 09/05/19 05:59 09/05/19 07:40 White Blood Count 14.2 K/UL (4.8-10.8) H Red Blood Count 3.59 M/UL (4.20-5.40) L Hemoglobin 8.1 G/DL (12.0-16.0) L Hematocrit 26.7 % (37.0-47.0) L Mean Corpuscular Volume 74 FL (80-99) L Mean Corpuscular Hemoglobin 22.7 PG (27.0-31.0) L Mean Corpuscular Hemoglobin Concent 30.5 G/DL (32.0-36.0) L Red Cell Distribution Width 22.1 % (11.6-14.8) H Platelet Count 226 K/UL (150-450) Mean Platelet Volume 9.9 FL (6.5-10.1) Neutrophils (%) (Auto) 76.2 % (45.0-75.0) H Lymphocytes (%) (Auto) 16.5 % (20.0-45.0) L Monocytes (%) (Auto) 6.1 % (1.0-10.0) Eosinophils (%) (Auto) 0.6 % (0.0-3.0) Basophils (%) (Auto) 0.6 % (0.0-2.0) Arterial Blood pH 7.426 (7.350-7.450) Arterial Blood Partial Pressure CO2 51.5 mmHg (35.0-45.0) H Arterial Blood Partial Pressure O2 105.7 mmHg (75.0-100.0) H Arterial Blood HCO3 33.1 mmol/L (22.0-26.0) H Arterial Blood Oxygen Saturation 97.2 % (95-100) Arterial Blood Base Excess 7.7 (-2-2) H William Test Positive Plan Problems: (1) Sacral decubitus ulcer Assessment & Plan: Patient presented with Partial thickness stage 2 pressure injuries to R and L buttocks with surrounding non-blanching erythema without induration or fluctuance. Partial thickness stage 2 pressure injury R buttocks. Base of wound moist and viable. (L)1.8cm x (W)1cm.Erythematous and denuded borders and periwound. Partial thickness stage 2pressure injury L buttocks. Base of wound moist- viable. Borders and periwound erythematous and denuded. R heel boggy with non-blanching erythema. L heel boggy but blanchable. Tx.Plan: Cleanse wounds R and L buttocks with Saline. Apply Therahoney to each wound. Apply Moisture Barrier periwound.Cover with Optifoam drsg. Change every 3 days and prn. Apply Moisture Barrier Paste to Perineum and bilat ischial regions with each Incontinence care. APM/DAVID Mattress overlay. Reposition at least every 2hours or as tolerated. Off-load heels with pillow. (2) failure to thrive (3) Protein-calorie malnutrition, moderate Assessment & Plan: DAILY ESTIMATED NEEDS: Needs based on Pulmonary, cardiac; 64.1kg 25-30 kcals/kg 1603- 1923 total kcals 1-1.5 g protein/kg 64- 96 g total protein 20-25 mL/kg 8835-9920 total fluid mLs NUTRITION DIAGNOSIS: *Swallowing difficulty R/T dysdphagia as evidenced by pt is now s/p PEG placement, GT feeding held at this time for elev residuals. *Altered nutrition related lab values r/t dehydration, clinical condition as evidenced by critically elev Na value of 163*-> now wnl, BUN 41-> 26, elev BGs (206, 281), POC glu (157-254), low K (3.3), elev BNP (8049). CURRENT TF:Glucerna 1.2 @ 55ml/hr x 24 hrs -> HELD FOR RESIDUALS ENTERAL NUTRITION RECOMMENDATIONS: Glucerna 1.5 @ 45ml/hr x24 hrs to provide 1080ml, 1620 kcal, 89g pro, 820ml [id number] - Rec TF change to Glucerna 1.5 - possible TF tolerance, less free water given CHF, elev BNP - Initiate Glucerna 1.5 @ 25ml/hr x 4 hrs, advance 10ml q 4-6 hrs as tolerated to goal rate - Water flush per MD/ HOB over 30 degrees ADDITIONAL RECOMMENDATIONS: 1) Per SNF: pt is 141 lbs + 5' 6.5" tall Weekly wt monitoring 2) Consider around the clock Reglan for improved TF tolerance 3) Consider long acting insulin for improved BG control -> BGs mostly in the 200's despite TF being held 4) Monitor lytes, replete as needed (low K) (4) Moderate malnutrition Ramiro Mack Sep 05, 2019 22:21
[2019-09-05] MEDS ORDERED: Sterile Water Irrig 1000ml IRRIG ONE (22:38)
[2019-09-06] VITALS: BP 108/63
[2019-09-06] MEDS: Albuterol/Ipratropium 3ml neb HHN SCH ×4 (00:40→19:27)
[2019-09-06 04:00] VITALS: BP 103/60
[2019-09-06 05:07] LABS: BASOPHILS % (AUTO) 1.1 % (0.0-2.0); EOSINOPHILS % (AUTO) 0.7 % (0.0-3.0); HEMATOCRIT 28.6 % (37.0-47.0); HEMOGLOBIN 8.7 G/DL (12.0-16.0); LYMPHOCYTES % (AUTO) 13.2 % (20.0-45.0); MEAN CORPUSCULAR VOLUME 75 FL (80-99); MONOCYTES % (AUTO) 5.7 % (1.0-10.0); NEUTROPHILS % (AUTO) 79.3 % (45.0-75.0); PLATELET COUNT 251 K/UL (150-450); RED BLOOD COUNT 3.83 M/UL (4.20-5.40); RED CELL DISTRIBUTION WIDTH 22.4 % (11.6-14.8); WHITE BLOOD COUNT 13.5 K/UL (4.8-10.8)
[2019-09-06] MEDS: NovoLOG Insulin Flexpen SUBQ SCH ×4 (05:23→23:01)
[2019-09-06 05:27] LABS: ANION GAP 5 mmol/L (5-15); BLOOD UREA NITROGEN 29 mg/dL (7-18); CALCIUM 8.7 MG/DL (8.5-10.1); CARBON DIOXIDE 33 MMOL/L (21-32); CHLORIDE 106 MMOL/L (98-107); POTASSIUM 4.2 MMOL/L (3.5-5.1); SODIUM 144 MMOL/L (136-145)
[2019-09-06 08:00] VITALS: BP 96/59
[2019-09-06 08:09] LABS: ALANINE AMINOTRANSFERASE 25 U/L (12-78); ALBUMIN 1.6 G/DL (3.4-5.0); ALKALINE PHOSPHATASE 118 U/L (46-116); ASPARTATE AMINO TRANSFERASE 43 U/L (15-37); BILIRUBIN,DIRECT 0.2 MG/DL (0.0-0.3); BILIRUBIN,TOTAL 0.7 MG/DL (0.2-1.0); PHOSPHORUS 4.1 MG/DL (2.5-4.9)
--- NOTE | 2019-09-06 08:50 | General Progress Note ---
Assessment/Plan Problem List: (1) Cardiomyopathy ICD Codes: I42.9 - Cardiomyopathy, unspecified SNOMED: 08906119 (2) Failure to thrive SNOMED: 94789687 (3) Pneumonia ICD Codes: J18.9 - Pneumonia, unspecified organism SNOMED: 723751135, 037793963 Qualifiers: Qualified Codes: J18.1 - Lobar pneumonia, unspecified organism Assessment/Plan: s/p PEG placement reglan ppi GTF repeat labs in am Subjective ROS Limited/Unobtainable: No Allergies: Coded Allergies: No Known Allergies (Unverified , 08/27/19) Objective Last 24 Hour Vital Signs Date Time Temp Pulse Resp B/P (MAP) Pulse Ox O2 Delivery O2 Flow Rate FiO2 09/06/19 06:47 82 21 100 Facial 40 82 21 100 Bi-Pap 40 09/06/19 06:47 100 Bi-Pap 40 09/06/19 05:10 80 16 100 Facial 40 09/06/19 04:00 100 09/06/19 04:00 98.7 82 20 103/60 (74) 100 09/06/19 03:34 81 09/06/19 00:42 77 21 100 Bi-Pap 40 76 21 100 09/06/19 00:40 76 18 100 Facial 40 09/06/19 00:00 96.0 74 19 108/63 (78) 100 09/06/19 00:00 Bi-pap 09/06/19 00:00 100 09/06/19 00:00 73 09/05/19 22:51 89 23 99 Facial 40 09/05/19 21:17 88 22 100 Facial 40 09/05/19 21:00 87 99/63 09/05/19 20:00 100 09/05/19 20:00 97.6 87 17 99/63 (75) 100 09/05/19 19:24 91 09/05/19 19:06 68 30 100 Facial 40 09/05/19 19:05 87 30 100 Bi-Pap 40 86 30 100 09/05/19 19:04 100 Bi-Pap 40 09/05/19 16:32 94 27 98 Facial 40 09/05/19 16:00 88 09/05/19 16:00 97.8 89 27 108/71 (83) 99 09/05/19 14:51 88 24 100 Facial 40 09/05/19 13:07 83 26 100 Facial 40 85 28 100 Bi-Pap 40 09/05/19 12:00 97.8 84 26 138/73 (94) 99 09/05/19 11:33 71 09/05/19 10:58 85 24 100 Facial 40 09/05/19 09:49 78 123/64 09/05/19 09:00 78 123/64 09/05/19 09:00 123/64 09/05/19 09:00 Bi-pap Intake and Output 09/05/19 09/06/19 19:00 07:00 Intake Total 192.5 ml 862.5 ml Output Total 620 ml 1100 ml Balance -427.5 ml -237.5 ml Free Water 100 ml IV Total 132.5 ml 212.5 ml Tube Feeding 0 ml 550 ml Other 60 ml Output Urine Total 620 ml 1100 ml Laboratory Tests 09/06/19 03:34: White Blood Count 13.5H, Red Blood Count 3.83L, Hemoglobin 8.7L, Hematocrit 28.6L, Mean Corpuscular Volume 75L, Mean Corpuscular Hemoglobin 22.9L, Mean Corpuscular Hemoglobin Concent 30.6L, Red Cell Distribution Width 22.4H, Platelet Count 251, Mean Platelet Volume 10.0, Neutrophils (%) (Auto) 79.3H, Lymphocytes (%) (Auto) 13.2L, Monocytes (%) (Auto) 5.7, Eosinophils (%) (Auto) 0.7, Basophils (%) (Auto) 1.1, Sodium Level 144, Potassium Level 4.2, Chloride Level 106, Carbon Dioxide Level 33H, Anion Gap 5, Blood Urea Nitrogen 29H, Creatinine 1.0, Estimat Glomerular Filtration Rate , Glucose Level 237H, Calcium Level 8.7, Phosphorus Level 4.1, Magnesium Level 1.9, Total Bilirubin 0.7, Direct Bilirubin 0.2, Aspartate Amino Transf (AST/SGOT) 43H, Alanine Aminotransferase (ALT/SGPT) 25, Alkaline Phosphatase 118H, Total Protein 7.2, Albumin 1.6L Height (Feet): 5 Height (Inches): 3.00 Weight (Pounds): 163 General Appearance: no apparent distress EENT: normal ENT inspection Neck: supple Cardiovascular: normal rate Respiratory/Chest: decreased breath sounds Abdomen: normal bowel sounds, non tender, soft Extremities: non-tender Suresh Tompkins MD Sep 06, 2019 08:50
[2019-09-06] MEDS ORDERED: Aspirin Baby 81mg NG SCH (09:00)
[2019-09-06] MEDS: Carvedilol 6.25mg Tab ORAL SCH ×2 (09:00→20:30)
[2019-09-06] MEDS ORDERED: Lisinopril 10mg tab ORAL SCH (09:00)
--- NOTE | 2019-09-06 09:56 | Pulmonology Progress Note ---
Assessment/Plan Assessment/Plan IMPRESSION: 1. COPD. 2. Hypertension. 3. Severe hypernatremia. Improved 4. Dehydration. Resolved 5. Bilateral pneumonia. 6. Severe protein-calorie malnutrition. 7. Cardiac arrhythmias 8. 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 Reviewed CXR and ABG Enteral feeding On abx Will attempt to wean off BiPAP Jaiden Logan M.D. Subjective Interval Events: On BiPAP; no new events Constitutional: Reports: no symptoms HEENT: Repors: no symptoms Respiratory: Reports: no symptoms Cardiovascular: Reports: no symptoms Gastrointestinal/Abdominal: Reports: no symptoms Allergies: Coded Allergies: No Known Allergies (Unverified , 08/27/19) Objective Last 24 Hour Vital Signs Date Time Temp Pulse Resp B/P (MAP) Pulse Ox O2 Delivery O2 Flow Rate FiO2 09/06/19 06:47 82 21 100 Facial 40 82 21 100 Bi-Pap 40 09/06/19 06:47 100 Bi-Pap 40 09/06/19 05:10 80 16 100 Facial 40 09/06/19 04:00 100 09/06/19 04:00 98.7 82 20 103/60 (74) 100 09/06/19 03:34 81 09/06/19 00:42 77 21 100 Bi-Pap 40 76 21 100 09/06/19 00:40 76 18 100 Facial 40 09/06/19 00:00 96.0 74 19 108/63 (78) 100 09/06/19 00:00 Bi-pap 09/06/19 00:00 100 09/06/19 00:00 73 09/05/19 22:51 89 23 99 Facial 40 09/05/19 21:17 88 22 100 Facial 40 09/05/19 21:00 87 99/63 09/05/19 20:00 100 09/05/19 20:00 97.6 87 17 99/63 (75) 100 09/05/19 19:24 91 09/05/19 19:06 68 30 100 Facial 40 09/05/19 19:05 87 30 100 Bi-Pap 40 86 30 100 09/05/19 19:04 100 Bi-Pap 40 09/05/19 16:32 94 27 98 Facial 40 09/05/19 16:00 88 09/05/19 16:00 97.8 89 27 108/71 (83) 99 09/05/19 14:51 88 24 100 Facial 40 09/05/19 13:07 83 26 100 Facial 40 85 28 100 Bi-Pap 40 09/05/19 12:00 97.8 84 26 138/73 (94) 99 09/05/19 11:33 71 09/05/19 10:58 85 24 100 Facial 40 Intake and Output 09/05/19 09/06/19 19:00 07:00 Intake Total 192.5 ml 862.5 ml Output Total 620 ml 1100 ml Balance -427.5 ml -237.5 ml Free Water 100 ml IV Total 132.5 ml 212.5 ml Tube Feeding 0 ml 550 ml Other 60 ml Output Urine Total 620 ml 1100 ml General Appearance: no acute distress HEENT: normocephalic Respiratory/Chest: chest wall non-tender, lungs clear Cardiovascular: normal peripheral pulses Abdomen: normal bowel sounds Laboratory Tests 09/06/19 03:34: White Blood Count 13.5H, Red Blood Count 3.83L, Hemoglobin 8.7L, Hematocrit 28.6L, Mean Corpuscular Volume 75L, Mean Corpuscular Hemoglobin 22.9L, Mean Corpuscular Hemoglobin Concent 30.6L, Red Cell Distribution Width 22.4H, Platelet Count 251, Mean Platelet Volume 10.0, Neutrophils (%) (Auto) 79.3H, Lymphocytes (%) (Auto) 13.2L, Monocytes (%) (Auto) 5.7, Eosinophils (%) (Auto) 0.7, Basophils (%) (Auto) 1.1, Sodium Level 144, Potassium Level 4.2, Chloride Level 106, Carbon Dioxide Level 33H, Anion Gap 5, Blood Urea Nitrogen 29H, Creatinine 1.0, Estimat Glomerular Filtration Rate , Glucose Level 237H, Calcium Level 8.7, Phosphorus Level 4.1, Magnesium Level 1.9, Total Bilirubin 0.7, Direct Bilirubin 0.2, Aspartate Amino Transf (AST/SGOT) 43H, Alanine Aminotransferase (ALT/SGPT) 25, Alkaline Phosphatase 118H, Total Protein 7.2, Albumin 1.6L Current Medications Medications (Trade) Dose Ordered Sig/Colt Route PRN Reason Start Time Stop Time Status Last Admin Dose Admin Albuterol/ Ipratropium (Albuterol/ Ipratropium) 3 ml Q6HRT HHN 09/05/19 13:00 09/08/19 00:59 09/06/19 06:46 Amlodipine Besylate (Norvasc) 2.5 mg DAILY ORAL 09/06/19 09:00 09/29/19 09:29 Aspirin (ASA) 81 mg DAILY NG 09/06/19 09:00 09/28/19 08:59 Carvedilol (Coreg) 6.25 mg EVERY 12 HOURS ORAL 09/05/19 21:00 09/29/19 20:59 Cefepime HCl 1 gm/ Dextrose 55 ml @ 110 mls/hr EVERY 12 HOURS IVPB 09/05/19 14:00 09/12/19 13:59 09/05/19 21:26 Dextrose (Dextrose 50%) 25 ml Q30M PRN IV Hypoglycemia 09/05/19 11:30 09/27/19 07:59 Dextrose (Dextrose 50%) 50 ml Q30M PRN IV Hypoglycemia 09/05/19 11:30 09/27/19 07:59 Docusate Sodium (Colace) 100 mg THREE TIMES A DAY GT 09/05/19 13:00 10/02/19 12:59 09/05/19 18:17 Furosemide 100 mg/ Dextrose 100 ml @ 7.5 mls/hr [id number] IV 09/05/19 15:30 10/05/19 15:29 09/06/19 04:19 Insulin Aspart (NovoLOG) Q6HR SUBQ 09/05/19 12:00 09/27/19 11:29 09/06/19 05:23 Lansoprazole (Prevacid) 30 mg BID GT 09/05/19 18:00 10/03/19 17:59 09/05/19 18:17 Lisinopril (Zestril) 10 mg DAILY ORAL 09/06/19 09:00 09/29/19 08:59 Metoclopramide HCl (Reglan) 10 mg Q6H PRN IVP Nausea & Vomiting 09/05/19 17:00 10/03/19 10:59 Nitroglycerin (Ntg) 1 patch Q24H TDERMAL 09/06/19 11:00 09/28/19 10:59 Polyethylene Glycol (Miralax) 17 gm BEDTIME ORAL 09/05/19 21:00 10/02/19 20:59 09/05/19 21:25 Potassium Chloride (K-Dur) 20 meq DAILY GT 09/05/19 12:00 10/05/19 11:59 09/05/19 14:41 Jaiden Logan MD Sep 06, 2019 09:56
--- NOTE | 2019-09-06 09:59 | Nephrology Progress Note ---
Assessment/Plan Problem List: (1) Dehydration (2) Failure to thrive (3) Hypernatremia (4) Pneumonia (5) Elevated troponin (6) Cardiomyopathy Assessment Dehydration leading to HyperNatremia HypoAlbuminemia / Mal nutrition Elevated Troponin NSTEMI COPD HTN Pneumonia Plan on bipap to RADHA up dose coreg has PEG k and Phos supplement as needed pulmonary and cardiac support previously: Low EjFx Monitor BS and BP Monitor renal parameters Per consultants ASA and Nitro afterload reduction Subjective ROS Limited/Unobtainable: Yes Objective Objective Last 24 Hour Vital Signs Date Time Temp Pulse Resp B/P (MAP) Pulse Ox O2 Delivery O2 Flow Rate FiO2 09/06/19 06:47 82 21 100 Facial 40 82 21 100 Bi-Pap 40 09/06/19 06:47 100 Bi-Pap 40 09/06/19 05:10 80 16 100 Facial 40 09/06/19 04:00 100 09/06/19 04:00 98.7 82 20 103/60 (74) 100 09/06/19 03:34 81 09/06/19 00:42 77 21 100 Bi-Pap 40 76 21 100 09/06/19 00:40 76 18 100 Facial 40 09/06/19 00:00 96.0 74 19 108/63 (78) 100 09/06/19 00:00 Bi-pap 09/06/19 00:00 100 09/06/19 00:00 73 09/05/19 22:51 89 23 99 Facial 40 09/05/19 21:17 88 22 100 Facial 40 09/05/19 21:00 87 99/63 09/05/19 20:00 100 09/05/19 20:00 97.6 87 17 99/63 (75) 100 09/05/19 19:24 91 09/05/19 19:06 68 30 100 Facial 40 09/05/19 19:05 87 30 100 Bi-Pap 40 86 30 100 09/05/19 19:04 100 Bi-Pap 40 09/05/19 16:32 94 27 98 Facial 40 09/05/19 16:00 88 09/05/19 16:00 97.8 89 27 108/71 (83) 99 09/05/19 14:51 88 24 100 Facial 40 09/05/19 13:07 83 26 100 Facial 40 85 28 100 Bi-Pap 40 09/05/19 12:00 97.8 84 26 138/73 (94) 99 09/05/19 11:33 71 09/05/19 10:58 85 24 100 Facial 40 Intake and Output 09/05/19 09/06/19 18:59 06:59 Intake Total 192.5 ml 800.0 ml Output Total 620 ml 1100 ml Balance -427.5 ml -300.0 ml Free Water 100 ml IV Total 132.5 ml 205.0 ml Tube Feeding 0 ml 495 ml Other 60 ml Output Urine Total 620 ml 1100 ml Laboratory Tests 09/06/19 03:34: White Blood Count 13.5H, Red Blood Count 3.83L, Hemoglobin 8.7L, Hematocrit 28.6L, Mean Corpuscular Volume 75L, Mean Corpuscular Hemoglobin 22.9L, Mean Corpuscular Hemoglobin Concent 30.6L, Red Cell Distribution Width 22.4H, Platelet Count 251, Mean Platelet Volume 10.0, Neutrophils (%) (Auto) 79.3H, Lymphocytes (%) (Auto) 13.2L, Monocytes (%) (Auto) 5.7, Eosinophils (%) (Auto) 0.7, Basophils (%) (Auto) 1.1, Sodium Level 144, Potassium Level 4.2, Chloride Level 106, Carbon Dioxide Level 33H, Anion Gap 5, Blood Urea Nitrogen 29H, Creatinine 1.0, Estimat Glomerular Filtration Rate , Glucose Level 237H, Calcium Level 8.7, Phosphorus Level 4.1, Magnesium Level 1.9, Total Bilirubin 0.7, Direct Bilirubin 0.2, Aspartate Amino Transf (AST/SGOT) 43H, Alanine Aminotransferase (ALT/SGPT) 25, Alkaline Phosphatase 118H, Total Protein 7.2, Albumin 1.6L Height (Feet): 5 Height (Inches): 3.00 Weight (Pounds): 163 General Appearance: mild distress EENT: other - on BIPAP Cardiovascular: normal rate Respiratory/Chest: decreased breath sounds Abdomen: distended Objective no change Kaden Chance MD Sep 06, 2019 09:59
[2019-09-06] MEDS: Cefepime HCl 1 GM in D5W 55 ML IVPB SCH ×2 (10:04→20:31)
[2019-09-06] MEDS: Docusate 100mg/10ml Liq GT SCH ×3 (10:08→17:19)
--- NOTE | 2019-09-06 10:14 | Diagnostic Imaging Report ---
Indication:pleural effusion Technique: Grayscale and duplex Doppler imaging of the chest performed. Comparison: None Findings: There is a trace left pleural effusion and no pleural effusion on the right. IMPRESSION: Trace left pleural effusion
[2019-09-06] MEDS ORDERED: Nitroglycerin Patch 0.4mg TDERMAL SCH (11:00)
[2019-09-06 12:00] VITALS: BP 105/56
--- NOTE | 2019-09-06 14:35 | Surgery Progress Note ---
Surgery Progress Note Subjective Additional Comments afebrile, HD Stable wbc trending down labs noted exam stable Objective Last 24 Hour Vital Signs Date Time Temp Pulse Resp B/P (MAP) Pulse Ox O2 Delivery O2 Flow Rate FiO2 09/06/19 13:40 80 24 100 Room Air 21 84 23 97 09/06/19 12:00 83 09/06/19 12:00 97.6 85 19 105/56 (72) 100 09/06/19 12:00 1.0 09/06/19 10:35 87 16 99 09/06/19 09:00 Bi-pap 09/06/19 09:00 82 103/60 09/06/19 08:00 81 09/06/19 08:00 100 09/06/19 08:00 97.6 83 19 96/59 (71) 99 09/06/19 06:47 82 21 100 Facial 40 82 21 100 Bi-Pap 40 09/06/19 06:47 100 Bi-Pap 40 09/06/19 05:10 80 16 100 Facial 40 09/06/19 04:00 100 09/06/19 04:00 98.7 82 20 103/60 (74) 100 09/06/19 03:34 81 09/06/19 00:42 77 21 100 Bi-Pap 40 76 21 100 09/06/19 00:40 76 18 100 Facial 40 09/06/19 00:00 96.0 74 19 108/63 (78) 100 09/06/19 00:00 Bi-pap 09/06/19 00:00 100 09/06/19 00:00 73 09/05/19 22:51 89 23 99 Facial 40 09/05/19 21:17 88 22 100 Facial 40 09/05/19 21:00 87 99/63 09/05/19 20:00 100 09/05/19 20:00 97.6 87 17 99/63 (75) 100 09/05/19 19:24 91 09/05/19 19:06 68 30 100 Facial 40 09/05/19 19:05 87 30 100 Bi-Pap 40 86 30 100 09/05/19 19:04 100 Bi-Pap 40 09/05/19 16:32 94 27 98 Facial 40 09/05/19 16:00 88 09/05/19 16:00 97.8 89 27 108/71 (83) 99 09/05/19 14:51 88 24 100 Facial 40 I&O Intake and Output 09/05/19 09/06/19 18:59 06:59 Intake Total 192.5 ml 800.0 ml Output Total 620 ml 1100 ml Balance -427.5 ml -300.0 ml Free Water 100 ml IV Total 132.5 ml 205.0 ml Tube Feeding 0 ml 495 ml Other 60 ml Output Urine Total 620 ml 1100 ml Dressing: saturated Wound: other Drains: other Cardiovascular: RSR Respiratory: decreased breath sounds Abdomen: soft, present bowel sounds, non-distended Extremities: no cyanosis, other Laboratory Tests Test 09/06/19 03:34 09/06/19 11:12 White Blood Count 13.5 K/UL (4.8-10.8) H Red Blood Count 3.83 M/UL (4.20-5.40) L Hemoglobin 8.7 G/DL (12.0-16.0) L Hematocrit 28.6 % (37.0-47.0) L Mean Corpuscular Volume 75 FL (80-99) L Mean Corpuscular Hemoglobin 22.9 PG (27.0-31.0) L Mean Corpuscular Hemoglobin Concent 30.6 G/DL (32.0-36.0) L Red Cell Distribution Width 22.4 % (11.6-14.8) H Platelet Count 251 K/UL (150-450) Mean Platelet Volume 10.0 FL (6.5-10.1) Neutrophils (%) (Auto) 79.3 % (45.0-75.0) H Lymphocytes (%) (Auto) 13.2 % (20.0-45.0) L Monocytes (%) (Auto) 5.7 % (1.0-10.0) Eosinophils (%) (Auto) 0.7 % (0.0-3.0) Basophils (%) (Auto) 1.1 % (0.0-2.0) Sodium Level 144 MMOL/L (136-145) Potassium Level 4.2 MMOL/L (3.5-5.1) Chloride Level 106 MMOL/L (98-107) Carbon Dioxide Level 33 MMOL/L (21-32) H Anion Gap 5 mmol/L (5-15) Blood Urea Nitrogen 29 mg/dL (7-18) H Creatinine 1.0 MG/DL (0.55-1.30) Estimat Glomerular Filtration Rate mL/min (>60) Glucose Level 237 MG/DL (74-106) H Calcium Level 8.7 MG/DL (8.5-10.1) Phosphorus Level 4.1 MG/DL (2.5-4.9) Magnesium Level 1.9 MG/DL (1.8-2.4) Total Bilirubin 0.7 MG/DL (0.2-1.0) Direct Bilirubin 0.2 MG/DL (0.0-0.3) Aspartate Amino Transf (AST/SGOT) 43 U/L (15-37) H Alanine Aminotransferase (ALT/SGPT) 25 U/L (12-78) Alkaline Phosphatase 118 U/L (46-116) H Total Protein 7.2 G/DL (6.4-8.2) Albumin 1.6 G/DL (3.4-5.0) L Arterial Blood pH 7.485 (7.350-7.450) Arterial Blood Partial Pressure CO2 48.4 mmHg (35.0-45.0) H Arterial Blood Partial Pressure O2 84.8 mmHg (75.0-100.0) Arterial Blood HCO3 35.6 mmol/L (22.0-26.0) H Arterial Blood Oxygen Saturation 95.7 % (95-100) Arterial Blood Base Excess 11 (-2-2) *H William Test Positive Plan Problems: (1) Sacral decubitus ulcer Assessment & Plan: Patient presented with Partial thickness stage 2 pressure injuries to R and L buttocks with surrounding non-blanching erythema without induration or fluctuance. Partial thickness stage 2 pressure injury R buttocks. Base of wound moist and viable. (L)1.8cm x (W)1cm.Erythematous and denuded borders and periwound. Partial thickness stage 2pressure injury L buttocks. Base of wound moist- viable. Borders and periwound erythematous and denuded. R heel boggy with non-blanching erythema. L heel boggy but blanchable. Tx.Plan: Cleanse wounds R and L buttocks with Saline. Apply Therahoney to each wound. Apply Moisture Barrier periwound.Cover with Optifoam drsg. Change every 3 days and prn. Apply Moisture Barrier Paste to Perineum and bilat ischial regions with each Incontinence care. APM/DAVID Mattress overlay. Reposition at least every 2hours or as tolerated. Off-load heels with pillow. (2) failure to thrive (3) Protein-calorie malnutrition, moderate Assessment & Plan: DAILY ESTIMATED NEEDS: Needs based on Pulmonary, cardiac; 64.1kg 25-30 kcals/kg 1603- 1923 total kcals 1-1.5 g protein/kg 64- 96 g total protein 20-25 mL/kg 7480-6796 total fluid mLs NUTRITION DIAGNOSIS: *Swallowing difficulty R/T dysdphagia as evidenced by pt is now s/p PEG placement, GT feeding held at this time for elev residuals. *Altered nutrition related lab values r/t dehydration, clinical condition as evidenced by critically elev Na value of 163*-> now wnl, BUN 41-> 26, elev BGs (206, 281), POC glu (157-254), low K (3.3), elev BNP (8049). CURRENT TF:Glucerna 1.2 @ 55ml/hr x 24 hrs -> HELD FOR RESIDUALS ENTERAL NUTRITION RECOMMENDATIONS: Glucerna 1.5 @ 45ml/hr x24 hrs to provide 1080ml, 1620 kcal, 89g pro, 820ml [id number] - Rec TF change to Glucerna 1.5 - possible TF tolerance, less free water given CHF, elev BNP - Initiate Glucerna 1.5 @ 25ml/hr x 4 hrs, advance 10ml q 4-6 hrs as tolerated to goal rate - Water flush per MD/ HOB over 30 degrees ADDITIONAL RECOMMENDATIONS: 1) Per SNF: pt is 141 lbs + 5' 6.5" tall Weekly wt monitoring 2) Consider around the clock Reglan for improved TF tolerance 3) Consider long acting insulin for improved BG control -> BGs mostly in the 200's despite TF being held 4) Monitor lytes, replete as needed (low K) (4) Moderate malnutrition Ramiro Mack Sep 06, 2019 14:35
[2019-09-06 16:00] VITALS: BP 132/76
--- NOTE | 2019-09-06 18:30 | Progress Note ---
DATE: 09/06/2019 SUBJECTIVE: This is an elderly female, nonverbal, off BiPAP, , looks comfortable, nonverbal. OBJECTIVE: VITAL SIGNS: Blood pressure 105/56, pulse 85, respirations 19, no fever. CHEST: Bilateral few crackles. CARDIOVASCULAR: Regular rhythm. ABDOMEN: Soft. G tube in place. EXTREMITIES: No CCE. LABORATORY DATA: White counts are 14,000, hemoglobin 8.7, hematocrit 28, platelets are 251. Chemistry, sodium 144, potassium 4.2, BUN 29, and creatinine 1. ASSESSMENT AND PLAN: 1. Fluid overload. 2. CHF. 3. Encephalopathy. 4. Acute respiratory failure. 5. Diabetes. We will currently continue current treatment. Continue night Lasix drip. Continue potassium chloride, Norvasc, nitroglycerin. Continue carvedilol, cefepime, bronchodilator treatments, and sliding scale and Accu-Chek. Waiting for LTAC transfer. Osmar Cooney M.D. DR: LAURA JOB#: [id number] CC:
[2019-09-06 20:00] VITALS: BP 128/75
[2019-09-06] MEDS: Miralax 17gm pkt ORAL SCH (20:30)
[2019-09-07] VITALS (65 sets, daily range): BP systolic 44–185; BP diastolic 23–88
[2019-09-07] MEDS: Albuterol/Ipratropium 3ml neb HHN SCH ×4 (01:00→19:17)
--- NOTE | 2019-09-07 01:26 | Emergency Room Report ---
History of Present Illness General Chief Complaint: Generalized Weakness Source: Medical Record, PMD Present Illness HPI Is a 78-year-old elderly female with history of high blood pressure and COPD. She was admitted to telemetry for altered mental status and failure to thrive. I responded to a CODE BLUE. According to nursing staff, she became bradycardic and loss of pulse. On my arrival, CPR was in progress. Patient received 1 mg of epinephrine already. She received a second dose as I was intubating the patient. There was no pulse. I intubated the patient and shortly after the second epinephrine, there was a pulse. Patient was placed transferred to ICU. I contacted Dr. Cooney to let him know of the condition. Allergies: Coded Allergies: No Known Allergies (Unverified , 08/27/19) Patient History Past Medical History: see triage record, old chart reviewed, HTN, COPD Past Surgical History: other Pertinent Family History: none Social History: Denies: smoking Now: No Immunizations: other Reviewed Nursing Documentation: PMH: Agreed; PSxH: Agreed Nursing Documentation-PMH Past Medical History Deferred: Patient Unconscious Past Medical History: No History, Except For Hx Hypertension: Yes Hx COPD: Yes - dyspnea Hx Neurological Problems: Yes - Schizophrenia Review of Systems Respiratory: Reports: shortness of breath All Other Systems: limited - Secondary to patient condition Physical Exam Vital Signs Date Time Temp Pulse Resp B/P (MAP) Pulse Ox O2 Delivery O2 Flow Rate FiO2 09/03/19 07:37 102 18 99 Venturi Mask 8.0 40 98 18 97 09/03/19 08:00 97.9 142/89 (106) Patient has no pulse. Respiration by [id number]. Sp02 EP Interpretation: abnormal General Appearance: severe distress, other - Unresponsive Head: normocephalic, atraumatic Eyes: bilateral eye normal inspection ENT: other - Yellowish fluid in the mouth Neck: full range of motion, supple, no meningismus Respiratory: chest non-tender, other - No breath sounds without assisted bag- valve-mask Cardiovascular #1: no murmur, other - No pulse without CPR Gastrointestinal: normal bowel sounds, non tender, no mass, no organomegaly, no bruit, non-distended Musculoskeletal: normal inspection Neurologic: other - Unresponsive. Psychiatric: other Skin: no rash Procedures Critical Care Time Critical Care Time Critical care is mandated in this patient who presented with cardiac arrest. Patient require my urgent intervention to attenuate the risks of metabolic collapse which may lead to cardiovascular collapse and . Critical care time is 35 minutes excluding any reportable procedure. Critical care time included evaluation, multiple reevaluation, looking at old charts, interpreting laboratory and diagnostic data, discussing case with patient and family and consultants, and charting. Central Line Central Line : Consent: Emergent Central Line Lumen: triple Maximal Sterile Barrier Tech: yes cap, yes mask, yes sterile gown, yes sterile gloves, yes large sterile sheet, yes hand hygiene, yes chlorhexidine prep Central Line Postion: internal jugular (L) Complications: none Central Line Post Position: sutured Attempts: One Complications: None CPR/Code Blue CPR/Code Blue Narrative See code sheet for full list of medication and procedure. Patient received 2 doses of epinephrine. Had spontaneous return of pulse. Intubation Intubation : Consent: Emergent Intubation Method: orotracheal Tube Size (cm): 7.0 Breath Sounds after Intubation: equal Intubation Complications: no complications Post Intubation Xray: Yes Progress/Xray Impression: Good position Attempts: One Patient Tolerated: Well Complications: None Medical Decision Making Diagnostic Impression: Primary Impression: Hospice care patient Additional Impressions: Hypernatremia Elevated troponin Pneumonia Qualified Codes: J18.1 - Lobar pneumonia, unspecified organism Dehydration ER Course Patient was in cardiac arrest. She is intubated. Central line placed because of hypotension. Condition poor. Chest X-Ray Diagnostic Results Chest X-Ray Diagnostic Results #1: Chest X-Ray Ordered: Yes # of Views/Limited/Complete: 1 View Indication: Other - Intubation EP Interpretation: Yes Interpretation: no consolidation, no effusion, no pneumothorax, other - Tracheal tube in good position Impression: Other - s/p Post intubation Electronically Signed by: Tanner Boone MD Chest X-Ray Diagnostic Results #2: Chest X-Ray Ordered: Yes # of Views/Limited/Complete: 1 View Indication: Other - central line placement Interpretation: no consolidation, no effusion, no pneumothorax, no acute cardiopulmonary disease, other Impression: Other - s/p central line placement Electronically Signed by: Tanner Boone MD Last Vital Signs Date Time Temp Pulse Resp B/P (MAP) Pulse Ox O2 Delivery O2 Flow Rate FiO2 09/07/19 00:00 98.1 108 18 131/88 (102) 100 09/07/19 00:00 1.0 09/07/19 00:00 Bi-pap 09/06/19 19:29 21 Disposition: ADMITTED INPATIENT Condition: Critical Referrals: Marc Cooney MD (PCP) Tanner Boone MD Sep 07, 2019 01:26
[2019-09-07] MEDS ORDERED: Metoclopramide 10mg/2ml Inj IVP PRN (02:15)
--- NOTE | 2019-09-07 02:45 | Diagnostic Imaging Report ---
EXAM: XR Chest, 1 View CLINICAL HISTORY: S P INTUB TECHNIQUE: Frontal view of the chest. COMPARISON: 09 07 19 IMPRESSION: ET tube terminates 3.1 cm from the stefani. Left central line terminates in the right atrium.
[2019-09-07] MEDS: NovoLOG Insulin Flexpen SUBQ SCH ×3 (05:47→18:58)
[2019-09-07 05:53] LABS: HEMATOCRIT 34.7 % (37.0-47.0); HEMOGLOBIN 10.7 G/DL (12.0-16.0); MEAN CORPUSCULAR VOLUME 75 FL (80-99); PLATELET COUNT 299 K/UL (150-450); RED BLOOD COUNT 4.65 M/UL (4.20-5.40); RED CELL DISTRIBUTION WIDTH 22.6 % (11.6-14.8)
[2019-09-07 06:06] LABS: WHITE BLOOD COUNT 23.7 K/UL (4.8-10.8)
[2019-09-07 06:07] LABS: ANION GAP 9 mmol/L (5-15); BLOOD UREA NITROGEN 35 mg/dL (7-18); CARBON DIOXIDE 35 MMOL/L (21-32); CHLORIDE 102 MMOL/L (98-107); CREATININE 1.3 MG/DL (0.55-1.30); POTASSIUM 3.1 MMOL/L (3.5-5.1); SODIUM 146 MMOL/L (136-145)
--- NOTE | 2019-09-07 07:16 | General Progress Note ---
Assessment/Plan Problem List: (1) Cardiomyopathy ICD Codes: I42.9 - Cardiomyopathy, unspecified SNOMED: 24110591 (2) Failure to thrive SNOMED: 20567768 (3) Pneumonia ICD Codes: J18.9 - Pneumonia, unspecified organism SNOMED: 070173793, 361587626 Qualifiers: Qualified Codes: J18.1 - Lobar pneumonia, unspecified organism Assessment/Plan: coded and now intubated in the ICU no BM for few days KUB hold feeding for today repeat labs bowel regimen Subjective Allergies: Coded Allergies: No Known Allergies (Unverified , 08/27/19) Objective Last 24 Hour Vital Signs Date Time Temp Pulse Resp B/P (MAP) Pulse Ox O2 Delivery O2 Flow Rate FiO2 09/07/19 06:00 98/57 09/07/19 06:00 101 10 98/57 (71) 100 09/07/19 05:46 111/64 09/07/19 05:45 102 13 111/64 (80) 100 09/07/19 05:30 73 10 99/59 (72) 100 09/07/19 05:16 103 11 50 09/07/19 05:15 100 10 119/76 (90) 100 09/07/19 05:00 102/88 09/07/19 05:00 97.7 99 10 102/88 (93) 99 09/07/19 04:45 95 10 97/61 (73) 99 09/07/19 04:30 101 9 134/81 (98) 98 09/07/19 04:15 103 10 126/70 (88) 98 09/07/19 04:00 104 09/07/19 04:00 50 09/07/19 04:00 97.5 99 10 123/63 (83) 97 09/07/19 04:00 126/70 09/07/19 04:00 Mechanical Ventilator 09/07/19 03:45 106 9 110/71 (84) 97 09/07/19 03:30 110 10 78/37 (51) 97 09/07/19 03:15 117 15 79/45 (56) 99 09/07/19 03:05 70/54 09/07/19 03:00 124 8 70/54 (59) 98 09/07/19 03:00 114 10 50 09/07/19 02:45 126 8 96/57 (70) 98 09/07/19 02:30 114 9 74/59 (64) 100 09/07/19 02:15 108 14 86/56 (66) 100 09/07/19 02:00 93 15 83/46 (58) 100 09/07/19 02:00 50 09/07/19 01:45 112 16 92/54 (67) 100 09/07/19 01:37 115 09/07/19 00:45 100 09/07/19 00:45 Mechanical Ventilator 09/07/19 00:42 114 18 100 09/07/19 00:00 98.1 108 18 131/88 (102) 100 09/07/19 00:00 1.0 09/07/19 00:00 Bi-pap 09/06/19 23:39 103 09/06/19 21:00 Bi-pap 09/06/19 20:30 83 128/75 09/06/19 20:00 97.3 83 21 128/75 (92) 100 09/06/19 20:00 1.0 09/06/19 19:37 88 09/06/19 19:29 80 24 100 Room Air 21 82 24 96 09/06/19 19:28 97 Room Air 21 09/06/19 17:29 74 09/06/19 16:00 1.0 09/06/19 16:00 96.8 77 22 132/76 (94) 97 09/06/19 13:40 80 24 100 Room Air 21 84 23 97 09/06/19 12:00 83 09/06/19 12:00 97.6 85 19 105/56 (72) 100 09/06/19 12:00 1.0 09/06/19 10:35 87 16 99 09/06/19 09:00 Bi-pap 09/06/19 09:00 82 103/60 09/06/19 08:00 81 09/06/19 08:00 100 09/06/19 08:00 97.6 83 19 96/59 (71) 99 Intake and Output 09/06/19 09/07/19 19:00 07:00 Intake Total 490.0 ml 715.0 ml Output Total 1200 ml 1960 ml Balance -710.0 ml -1245.0 ml Free Water 180 ml 100 ml IV Total 200.0 ml 340.0 ml Tube Feeding 110 ml 275 ml Output Urine Total 1200 ml 1960 ml Laboratory Tests 09/06/19 11:12: Arterial Blood pH 7.485H, Arterial Blood Partial Pressure CO2 48.4H, Arterial Blood Partial Pressure O2 84.8, Arterial Blood HCO3 35.6H, Arterial Blood Oxygen Saturation 95.7, Arterial Blood Base Excess 11*H, William Test Positive 09/07/19 01:30: Arterial Blood pH 7.519H, Arterial Blood Partial Pressure CO2 38.3, Arterial Blood Partial Pressure O2 279.7H, Arterial Blood HCO3 30.5H, Arterial Blood Oxygen Saturation 99.3, Arterial Blood Base Excess 7.2H, William Test Positive 09/07/19 05:10: White Blood Count 23.7#*H, Red Blood Count 4.65, Hemoglobin 10.7L, Hematocrit 34.7L, Mean Corpuscular Volume 75L, Mean Corpuscular Hemoglobin 23.0L, Mean Corpuscular Hemoglobin Concent 30.7L, Red Cell Distribution Width 22.6H, Platelet Count 299, Mean Platelet Volume 9.2, Neutrophils (%) (Auto) , Lymphocytes (%) (Auto) , Monocytes (%) (Auto) , Eosinophils (%) (Auto) , Basophils (%) (Auto) , Neutrophils % (Manual) [Pending], Lymphocytes % (Manual) [Pending], Platelet Estimate [Pending], Platelet Morphology [Pending], Sodium Level 146H, Potassium Level 3.1L, Chloride Level 102, Carbon Dioxide Level 35H, Anion Gap 9, Blood Urea Nitrogen 35H, Creatinine 1.3, Estimat Glomerular Filtration Rate , Glucose Level 192H, Calcium Level 10.0 Height (Feet): 5 Height (Inches): 3.00 Weight (Pounds): 163 General Appearance: lethargic EENT: normal ENT inspection Neck: supple Cardiovascular: tachycardia Respiratory/Chest: decreased breath sounds Abdomen: normal bowel sounds, non tender, soft Extremities: non-tender Suresh Tompkins MD Sep 07, 2019 07:16
[2019-09-07] MEDS ORDERED: Sodium Chloride for KCL Premix X 4hrs IV SCH (08:30)
[2019-09-07 08:43] LABS: ALANINE AMINOTRANSFERASE 38 U/L (12-78); ALBUMIN 1.8 G/DL (3.4-5.0); ALKALINE PHOSPHATASE 139 U/L (46-116); ASPARTATE AMINO TRANSFERASE 65 U/L (15-37); BILIRUBIN,DIRECT 0.7 MG/DL (0.0-0.3); BILIRUBIN,TOTAL 1.2 MG/DL (0.2-1.0); PHOSPHORUS 4.7 MG/DL (2.5-4.9)
[2019-09-07] MEDS: Aspirin Baby 81mg NG SCH (08:53)
[2019-09-07] MEDS: Docusate 100mg/10ml Liq GT SCH ×3 (08:53→18:09)
[2019-09-07] MEDS: Lactulose 10gm/15ml UDC ORAL SCH ×3 (08:54→18:10)
[2019-09-07] MEDS ORDERED: Carvedilol 6.25mg Tab ORAL SCH (09:00)
[2019-09-07] MEDS ORDERED: Lisinopril 10mg tab ORAL SCH (09:00)
[2019-09-07] MEDS ORDERED: Cefepime HCl 1 GM in D5W 55 ML IVPB SCH (09:00)
--- NOTE | 2019-09-07 09:50 | Infectious Diseases Prog Note ---
Assessment/Plan Assessment/Plan IMPRESSION: Sepsis UTI with Enterococcus Pleural effusion, small in US Has history of COPD. hypernatremia, azotemia, diabetes mellitus, NSTEMI Positive blood culture likely contamination Respiratory failure Cardiac arrest Anoxic encephalopathy RECOMMENDATION: Continue Cefepime Poor prognosis , likely terminal extubation tomorrow Subjective ROS Limited/Unobtainable: Yes Constitutional: Reports: other - transferred to ICU Respiratory: Reports: other - intubated Cardiovascular: Reports: other - coded eraly this morning Allergies: Coded Allergies: No Known Allergies (Unverified , 08/27/19) Objective Vital Signs Last 24 Hour Vital Signs Date Time Temp Pulse Resp B/P (MAP) Pulse Ox O2 Delivery O2 Flow Rate FiO2 09/07/19 09:18 111 10 40 09/07/19 08:54 111/09/07/19 08:54 108 11109/07/19 08:54 108 111/09/07/19 08:36 11109/07/19 07:32 108 10 100 Mechanical Ventilator 40 106 10 99 09/07/19 07:27 102 10 40 09/07/19 06:00 98/57 09/07/19 06:00 101 10 98/57 (71) 100 09/07/19 05:46 111/64 09/07/19 05:45 102 13 111/64 (80) 100 09/07/19 05:30 73 10 99/59 (72) 100 09/07/19 05:16 103 11 50 09/07/19 05:15 100 10 119/76 (90) 100 09/07/19 05:00 102/88 09/07/19 05:00 97.7 99 10 102/88 (93) 99 09/07/19 04:45 95 10 97/61 (73) 99 09/07/19 04:30 101 9 134/81 (98) 98 09/07/19 04:15 103 10 126/70 (88) 98 09/07/19 04:00 104 09/07/19 04:00 50 09/07/19 04:00 97.5 99 10 123/63 (83) 97 09/07/19 04:00 126/70 09/07/19 04:00 Mechanical Ventilator 09/07/19 03:45 106 9 110/71 (84) 97 09/07/19 03:30 110 10 78/37 (51) 97 09/07/19 03:15 117 15 79/45 (56) 99 09/07/19 03:05 70/54 09/07/19 03:00 124 8 70/54 (59) 98 09/07/19 03:00 114 10 50 09/07/19 02:45 126 8 96/57 (70) 98 09/07/19 02:30 114 9 74/59 (64) 100 09/07/19 02:15 108 14 86/56 (66) 100 09/07/19 02:00 93 15 83/46 (58) 100 09/07/19 02:00 50 09/07/19 01:45 112 16 92/54 (67) 100 09/07/19 01:37 115 09/07/19 00:45 100 09/07/19 00:45 Mechanical Ventilator 09/07/19 00:42 114 18 100 09/07/19 00:00 98.1 108 18 131/88 (102) 100 09/07/19 00:00 1.0 09/07/19 00:00 Bi-pap 09/06/19 23:39 103 09/06/19 21:00 Bi-pap 09/06/19 20:30 83 128/75 09/06/19 20:00 97.3 83 21 128/75 (92) 100 09/06/19 20:00 1.0 09/06/19 19:37 88 09/06/19 19:29 80 24 100 Room Air 21 82 24 96 09/06/19 19:28 97 Room Air 21 09/06/19 17:29 74 09/06/19 16:00 1.0 09/06/19 16:00 96.8 77 22 132/76 (94) 97 09/06/19 13:40 80 24 100 Room Air 21 84 23 97 09/06/19 12:00 83 09/06/19 12:00 97.6 85 19 105/56 (72) 100 09/06/19 12:00 1.0 09/06/19 10:35 87 16 99 Height (Feet): 5 Height (Inches): 3.00 Weight (Pounds): 163 HEENT: other - orally intubated Respiratory/Chest: lungs clear, other - on ventilator Cardiovascular: tachycardia, other - left IJ central line Abdomen: soft, non tender, other - GT feeding Extremities: no edema Neurologic/Psychiatric: unresponsiveness, other - no gag reflex Laboratory Tests Test 09/06/19 11:12 09/07/19 01:30 09/07/19 05:10 Arterial Blood pH 7.485 (7.350-7.450) 7.519 (7.350-7.450) Arterial Blood Partial Pressure CO2 48.4 mmHg (35.0-45.0) H 38.3 mmHg (35.0-45.0) Arterial Blood Partial Pressure O2 84.8 mmHg (75.0-100.0) 279.7 mmHg (75.0-100.0) H Arterial Blood HCO3 35.6 mmol/L (22.0-26.0) H 30.5 mmol/L (22.0-26.0) H Arterial Blood Oxygen Saturation 95.7 % (95-100) 99.3 % (95-100) Arterial Blood Base Excess 11 (-2-2) *H 7.2 (-2-2) H William Test Positive Positive White Blood Count 23.7 K/UL (4.8-10.8) #*H Red Blood Count 4.65 M/UL (4.20-5.40) Hemoglobin 10.7 G/DL (12.0-16.0) L Hematocrit 34.7 % (37.0-47.0) L Mean Corpuscular Volume 75 FL (80-99) L Mean Corpuscular Hemoglobin 23.0 PG (27.0-31.0) L Mean Corpuscular Hemoglobin Concent 30.7 G/DL (32.0-36.0) L Red Cell Distribution Width 22.6 % (11.6-14.8) H Platelet Count 299 K/UL (150-450) Mean Platelet Volume 9.2 FL (6.5-10.1) Neutrophils (%) (Auto) % (45.0-75.0) Lymphocytes (%) (Auto) % (20.0-45.0) Monocytes (%) (Auto) % (1.0-10.0) Eosinophils (%) (Auto) % (0.0-3.0) Basophils (%) (Auto) % (0.0-2.0) Neutrophils % (Manual) Pending Lymphocytes % (Manual) Pending Platelet Estimate Pending Platelet Morphology Pending Sodium Level 146 MMOL/L (136-145) H Potassium Level 3.1 MMOL/L (3.5-5.1) L Chloride Level 102 MMOL/L (98-107) Carbon Dioxide Level 35 MMOL/L (21-32) H Anion Gap 9 mmol/L (5-15) Blood Urea Nitrogen 35 mg/dL (7-18) H Creatinine 1.3 MG/DL (0.55-1.30) Estimat Glomerular Filtration Rate mL/min (>60) Glucose Level 192 MG/DL (74-106) H Calcium Level 10.0 MG/DL (8.5-10.1) Phosphorus Level 4.7 MG/DL (2.5-4.9) Magnesium Level 1.6 MG/DL (1.8-2.4) L Total Bilirubin 1.2 MG/DL (0.2-1.0) H Direct Bilirubin 0.7 MG/DL (0.0-0.3) H Aspartate Amino Transf (AST/SGOT) 65 U/L (15-37) H Alanine Aminotransferase (ALT/SGPT) 38 U/L (12-78) Alkaline Phosphatase 139 U/L (46-116) H Total Protein 8.0 G/DL (6.4-8.2) Albumin 1.8 G/DL (3.4-5.0) L Current Medications Medications (Trade) Dose Ordered Sig/Colt Route PRN Reason Start Time Stop Time Status Last Admin Dose Admin Albuterol/ Ipratropium (Albuterol/ Ipratropium) 3 ml Q6HRT HHN 09/07/19 07:00 09/08/19 00:59 09/07/19 07:31 Amlodipine Besylate (Norvasc) 2.5 mg DAILY ORAL 09/07/19 09:00 09/29/19 09:29 Aspirin (ASA) 81 mg DAILY NG 09/07/19 09:00 09/28/19 08:59 09/07/19 08:53 Carvedilol (Coreg) 6.25 mg EVERY 12 HOURS ORAL 09/07/19 09:00 09/29/19 20:59 Cefepime HCl 2 gm/ Dextrose 55 ml @ 110 mls/hr EVERY 12 HOURS IV 09/07/19 10:00 09/12/19 14:59 Chlorhexidine Gluconate (Marleny-Hex 2%) 1 applic DAILY@2000 TOPIC 09/07/19 20:00 10/07/19 19:59 Dextrose (Dextrose 50%) 25 ml Q30M PRN IV Hypoglycemia 09/07/19 02:00 09/27/19 07:59 Dextrose (Dextrose 50%) 50 ml Q30M PRN IV Hypoglycemia 09/07/19 02:00 09/27/19 07:59 Docusate Sodium (Colace) 100 mg THREE TIMES A DAY GT 09/07/19 09:00 10/02/19 12:59 09/07/19 08:53 Insulin Aspart (NovoLOG) Q6HR SUBQ 09/07/19 06:00 09/27/19 11:29 09/07/19 05:47 Lactulose (Cephulac) 10 gm THREE TIMES A DAY ORAL 09/07/19 09:00 10/07/19 08:59 Lansoprazole (Prevacid) 30 mg BID GT 09/07/19 09:00 10/03/19 17:59 09/07/19 08:53 Lisinopril (Zestril) 10 mg DAILY ORAL 09/07/19 09:00 09/29/19 08:59 Metoclopramide HCl (Reglan) 10 mg Q6H PRN IVP Nausea & Vomiting 09/07/19 02:15 10/03/19 02:14 Nitroglycerin (Ntg) 1 patch Q24H TDERMAL 09/07/19 11:00 09/28/19 10:59 Norepinephrine Bitartrate 4 mg/ Dextrose 250 ml @ 0 mls/hr Q24H IV 09/07/19 02:15 10/07/19 02:14 09/07/19 08:36 Polyethylene Glycol (Miralax) 17 gm BEDTIME ORAL 09/07/19 21:00 10/02/19 20:59 Potassium Chloride 100 ml @ 100 mls/hr Q1H IV 09/07/19 08:30 09/07/19 12:29 09/07/19 08:53 Potassium Chloride (K-Dur) 20 meq DAILY GT 09/07/19 09:00 10/05/19 11:59 Sodium Chloride 400 ml @ 100 mls/hr Q4H IV 09/07/19 08:30 09/07/19 12:29 Willian Ribeiro MD Sep 07, 2019 09:50
[2019-09-07] MEDS: Nitroglycerin Patch 0.4mg TDERMAL SCH (10:24)
[2019-09-07] MEDS: Cefepime HCl 2 GM in D5W 55 ML IV SCH ×2 (11:07→20:53)
--- NOTE | 2019-09-07 11:15 | Pulmonology Progress Note ---
Assessment/Plan Assessment/Plan IMPRESSION: 1. COPD. 2. Hypertension. 3. Severe hypernatremia. Improved 4. Dehydration. Resolved 5. Bilateral pneumonia. 6. Severe protein-calorie malnutrition. 7. Cardiac arrhythmias 8. 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 Reviewed CXR and ABG Enteral feeding On abx Will attempt to wean off vent Jaiden Logan M.D. Subjective Interval Events: Intubated overnight; WBC 23K; CXR clear Constitutional: Reports: no symptoms HEENT: Repors: no symptoms Respiratory: Reports: no symptoms Cardiovascular: Reports: no symptoms Gastrointestinal/Abdominal: Reports: no symptoms Allergies: Coded Allergies: No Known Allergies (Unverified , 08/27/19) Objective Last 24 Hour Vital Signs Date Time Temp Pulse Resp B/P (MAP) Pulse Ox O2 Delivery O2 Flow Rate FiO2 09/07/19 10:47 82/48 09/07/19 10:24 147/63 09/07/19 09:18 111 10 40 09/07/19 08:54 09/07/19 08:54 108 09/07/19 08:54 108 /09/07/19 08:36 09/07/19 07:32 108 10 100 Mechanical Ventilator 40 106 10 99 09/07/19 07:27 102 10 40 09/07/19 06:00 98/57 09/07/19 06:00 101 10 98/57 (71) 100 09/07/19 05:46 111/64 09/07/19 05:45 102 13 111/64 (80) 100 09/07/19 05:30 73 10 99/59 (72) 100 09/07/19 05:16 103 11 50 09/07/19 05:15 100 10 119/76 (90) 100 09/07/19 05:00 102/88 09/07/19 05:00 97.7 99 10 102/88 (93) 99 09/07/19 04:45 95 10 97/61 (73) 99 09/07/19 04:30 101 9 134/81 (98) 98 09/07/19 04:15 103 10 126/70 (88) 98 09/07/19 04:00 104 09/07/19 04:00 50 09/07/19 04:00 97.5 99 10 123/63 (83) 97 09/07/19 04:00 126/70 09/07/19 04:00 Mechanical Ventilator 09/07/19 03:45 106 9 110/71 (84) 97 09/07/19 03:30 110 10 78/37 (51) 97 09/07/19 03:15 117 15 79/45 (56) 99 09/07/19 03:05 70/54 09/07/19 03:00 124 8 70/54 (59) 98 09/07/19 03:00 114 10 50 09/07/19 02:45 126 8 96/57 (70) 98 09/07/19 02:30 114 9 74/59 (64) 100 09/07/19 02:15 108 14 86/56 (66) 100 09/07/19 02:00 93 15 83/46 (58) 100 09/07/19 02:00 50 09/07/19 01:45 112 16 92/54 (67) 100 09/07/19 01:37 115 09/07/19 00:45 100 09/07/19 00:45 Mechanical Ventilator 09/07/19 00:42 114 18 100 09/07/19 00:00 98.1 108 18 131/88 (102) 100 09/07/19 00:00 1.0 09/07/19 00:00 Bi-pap 09/06/19 23:39 103 09/06/19 21:00 Bi-pap 09/06/19 20:30 83 128/75 09/06/19 20:00 97.3 83 21 128/75 (92) 100 09/06/19 20:00 1.0 09/06/19 19:37 88 09/06/19 19:29 80 24 100 Room Air 21 82 24 96 09/06/19 19:28 97 Room Air 21 09/06/19 17:29 74 09/06/19 16:00 1.0 09/06/19 16:00 96.8 77 22 132/76 (94) 97 09/06/19 13:40 80 24 100 Room Air 21 84 23 97 09/06/19 12:00 83 09/06/19 12:00 97.6 85 19 105/56 (72) 100 09/06/19 12:00 1.0 Intake and Output 09/06/19 09/07/19 19:00 07:00 Intake Total 490.0 ml 715.0 ml Output Total 1200 ml 1960 ml Balance -710.0 ml -1245.0 ml Free Water 180 ml 100 ml IV Total 200.0 ml 340.0 ml Tube Feeding 110 ml 275 ml Output Urine Total 1200 ml 1960 ml General Appearance: no acute distress HEENT: normocephalic Respiratory/Chest: chest wall non-tender, lungs clear Cardiovascular: normal peripheral pulses Abdomen: normal bowel sounds Laboratory Tests 09/07/19 01:30: Arterial Blood pH 7.519H, Arterial Blood Partial Pressure CO2 38.3, Arterial Blood Partial Pressure O2 279.7H, Arterial Blood HCO3 30.5H, Arterial Blood Oxygen Saturation 99.3, Arterial Blood Base Excess 7.2H, William Test Positive 09/07/19 05:10: White Blood Count 23.7#*H, Red Blood Count 4.65, Hemoglobin 10.7L, Hematocrit 34.7L, Mean Corpuscular Volume 75L, Mean Corpuscular Hemoglobin 23.0L, Mean Corpuscular Hemoglobin Concent 30.7L, Red Cell Distribution Width 22.6H, Platelet Count 299, Mean Platelet Volume 9.2, Neutrophils (%) (Auto) , Lymphocytes (%) (Auto) , Monocytes (%) (Auto) , Eosinophils (%) (Auto) , Basophils (%) (Auto) , Differential Total Cells Counted 100, Neutrophils % ( Manual) 87H, Lymphocytes % (Manual) 10L, Monocytes % (Manual) 2, Eosinophils % ( Manual) 1, Basophils % (Manual) 0, Band Neutrophils 0, Platelet Estimate Adequate, Platelet Morphology Normal, Hypochromasia 1+, Anisocytosis 3+, Microcytosis 1+, Sodium Level 146H, Potassium Level 3.1L, Chloride Level 102, Carbon Dioxide Level 35H, Anion Gap 9, Blood Urea Nitrogen 35H, Creatinine 1.3, Estimat Glomerular Filtration Rate , Glucose Level 192H, Calcium Level 10.0, Phosphorus Level 4.7, Magnesium Level 1.6L, Total Bilirubin 1.2H, Direct Bilirubin 0.7H, Aspartate Amino Transf (AST/SGOT) 65H, Alanine Aminotransferase (ALT/SGPT) 38, Alkaline Phosphatase 139H, Total Protein 8.0, Albumin 1.8L Current Medications Medications (Trade) Dose Ordered Sig/Colt Route PRN Reason Start Time Stop Time Status Last Admin Dose Admin Albuterol/ Ipratropium (Albuterol/ Ipratropium) 3 ml Q6HRT HHN 09/07/19 07:00 09/08/19 00:59 09/07/19 07:31 Amlodipine Besylate (Norvasc) 2.5 mg DAILY ORAL 09/07/19 09:00 09/29/19 09:29 Aspirin (ASA) 81 mg DAILY NG 09/07/19 09:00 09/28/19 08:59 09/07/19 08:53 Carvedilol (Coreg) 6.25 mg EVERY 12 HOURS ORAL 09/07/19 09:00 09/29/19 20:59 Cefepime HCl 2 gm/ Dextrose 55 ml @ 110 mls/hr EVERY 12 HOURS IV 09/07/19 10:00 09/12/19 14:59 09/07/19 11:07 Chlorhexidine Gluconate (Marleny-Hex 2%) 1 applic DAILY@2000 TOPIC 09/07/19 20:00 10/07/19 19:59 Dextrose (Dextrose 50%) 25 ml Q30M PRN IV Hypoglycemia 09/07/19 02:00 09/27/19 07:59 Dextrose (Dextrose 50%) 50 ml Q30M PRN IV Hypoglycemia 09/07/19 02:00 09/27/19 07:59 Docusate Sodium (Colace) 100 mg THREE TIMES A DAY GT 09/07/19 09:00 10/02/19 12:59 09/07/19 08:53 Insulin Aspart (NovoLOG) Q6HR SUBQ 09/07/19 06:00 09/27/19 11:29 09/07/19 05:47 Lactulose (Cephulac) 10 gm THREE TIMES A DAY ORAL 09/07/19 09:00 10/07/19 08:59 Lansoprazole (Prevacid) 30 mg BID GT 09/07/19 09:00 10/03/19 17:59 09/07/19 08:53 Lisinopril (Zestril) 10 mg DAILY ORAL 09/07/19 09:00 09/29/19 08:59 Metoclopramide HCl (Reglan) 10 mg Q6H PRN IVP Nausea & Vomiting 09/07/19 02:15 10/03/19 02:14 Nitroglycerin (Ntg) 1 patch Q24H TDERMAL 09/07/19 11:00 09/28/19 10:59 Norepinephrine Bitartrate 4 mg/ Dextrose 250 ml @ 0 mls/hr Q24H IV 09/07/19 02:15 10/07/19 02:14 09/07/19 10:47 Phenylephrine HCl 50 mg/Dextrose 250 ml @ 0 mls/hr Q24H IV 09/07/19 12:00 10/07/19 11:59 Polyethylene Glycol (Miralax) 17 gm BEDTIME ORAL 09/07/19 21:00 10/02/19 20:59 Potassium Chloride 100 ml @ 100 mls/hr Q1H IV 09/07/19 08:30 09/07/19 12:29 09/07/19 10:50 Potassium Chloride (K-Dur) 20 meq DAILY GT 09/07/19 09:00 10/05/19 11:59 Sodium Chloride 400 ml @ 100 mls/hr Q4H IV 09/07/19 08:30 09/07/19 12:29 09/07/19 08:30 Jaiden Logan MD Sep 07, 2019 11:15
--- NOTE | 2019-09-07 11:59 | Diagnostic Imaging Report ---
EXAM: XR Chest, 1 View CLINICAL HISTORY: LINE TECHNIQUE: Frontal view of the chest. COMPARISON: Chest x-ray 11 10 19 02 10 FINDINGS: Lungs: Linear atelectasis at the left lung base. Mild interstitial prominence. Pleural space: Questionable tiny right pleural effusion. No pneumothorax. Heart: Unremarkable. No cardiomegaly. Mediastinum: Unremarkable. Bones joints: Unremarkable. Tubes, lines and devices: Endotracheal tube in good position, 3.6 cm above the stefani. Left IJ catheter tip to the cavoatrial junction in good position. IMPRESSION: 1. Linear atelectasis at the left lung base. Mild interstitial prominence. 2. Questionable tiny right pleural effusion. 3. Endotracheal tube and left IJ catheter stable.
[2019-09-07] MEDS ORDERED: Phenylephrine 50 MG in D5W 245 ML IV SCH (12:00)
--- NOTE | 2019-09-07 12:01 | Diagnostic Imaging Report ---
EXAM: XR Abdomen, 1 Views CLINICAL HISTORY: ABD DIST TECHNIQUE: Frontal view of the abdomen pelvis . COMPARISON: Abdomen x-ray 10 FINDINGS: Gastrointestinal tract: Gaseous distended right colon. Previously seen oral contrast in the right colon has traversed to the distal colon. Organs: Iraheta catheter in the bladder. Bones joints: Degenerative changes of the spine. IMPRESSION: Gaseous distended right colon. Likely ileus rather than obstruction, previously seen oral contrast in the right colon has traversed to the distal colon.
--- NOTE | 2019-09-07 13:19 | Surgery Progress Note ---
Surgery Progress Note Subjective Additional Comments found unresponsive and had cardiac events. ACLS, intubated, in ICU on pressors , labs as below Objective Last 24 Hour Vital Signs Date Time Temp Pulse Resp B/P (MAP) Pulse Ox O2 Delivery O2 Flow Rate FiO2 09/07/19 13:15 131/35 09/07/19 12:30 101 10 122/31 (61) 97 09/07/19 12:00 40 09/07/19 12:00 115/52 09/07/19 12:00 98.4 101 10 115/52 (73) 97 09/07/19 12:00 Mechanical Ventilator 09/07/19 11:30 101 10 139/32 (67) 99 09/07/19 11:29 104 10 40 09/07/19 11:00 103 10 110/31 (57) 97 09/07/19 11:00 110/31 09/07/19 10:47 82/48 09/07/19 10:46 41/21 09/07/19 10:30 104 10 65/37 (46) 99 09/07/19 10:24 147/63 09/07/19 10:00 119 10 119/57 (77) 100 09/07/19 10:00 119/57 09/07/19 09:30 115 13 132/65 (87) 98 09/07/19 09:18 111 10 40 09/07/19 09:00 135/81 09/07/19 09:00 116 16 125/81 (96) 09/07/19 08:54 111/68 09/07/19 08:54 108 111/68 09/07/19 08:54 108 111/68 09/07/19 08:36 111/68 09/07/19 08:35 111/68 09/07/19 08:30 105 10 111/68 (82) 09/07/19 08:00 98.0 108 10 116/81 (93) 100 09/07/19 08:00 40 09/07/19 08:00 116/81 09/07/19 08:00 Mechanical Ventilator 09/07/19 07:45 109 10 117/74 (88) 100 09/07/19 07:32 108 10 100 Mechanical Ventilator 40 106 10 99 09/07/19 07:30 102 10 78/52 (61) 99 09/07/19 07:27 102 10 40 09/07/19 07:15 105 10 83/54 (64) 100 09/07/19 07:00 105 10 94/62 (73) 100 09/07/19 07:00 94/62 09/07/19 06:00 98/57 09/07/19 06:00 101 10 98/57 (71) 100 09/07/19 05:46 111/64 09/07/19 05:45 102 13 111/64 (80) 100 09/07/19 05:30 73 10 99/59 (72) 100 09/07/19 05:16 103 11 50 09/07/19 05:15 100 10 119/76 (90) 100 09/07/19 05:00 102/88 09/07/19 05:00 97.7 99 10 102/88 (93) 99 09/07/19 04:45 95 10 97/61 (73) 99 09/07/19 04:30 101 9 134/81 (98) 98 09/07/19 04:15 103 10 126/70 (88) 98 09/07/19 04:00 104 09/07/19 04:00 50 09/07/19 04:00 97.5 99 10 123/63 (83) 97 09/07/19 04:00 126/70 09/07/19 04:00 Mechanical Ventilator 09/07/19 03:45 106 9 110/71 (84) 97 09/07/19 03:30 110 10 78/37 (51) 97 09/07/19 03:15 117 15 79/45 (56) 99 09/07/19 03:05 70/54 09/07/19 03:00 124 8 70/54 (59) 98 09/07/19 03:00 114 10 50 09/07/19 02:45 126 8 96/57 (70) 98 09/07/19 02:30 114 9 74/59 (64) 100 09/07/19 02:15 108 14 86/56 (66) 100 09/07/19 02:00 93 15 83/46 (58) 100 09/07/19 02:00 50 09/07/19 01:45 112 16 92/54 (67) 100 09/07/19 01:37 115 09/07/19 00:45 100 09/07/19 00:45 Mechanical Ventilator 09/07/19 00:42 114 18 100 09/07/19 00:00 98.1 108 18 131/88 (102) 100 09/07/19 00:00 1.0 09/07/19 00:00 Bi-pap 09/06/19 23:39 103 09/06/19 21:00 Bi-pap 09/06/19 20:30 83 128/75 09/06/19 20:00 97.3 83 21 128/75 (92) 100 09/06/19 20:00 1.0 09/06/19 19:37 88 09/06/19 19:29 80 24 100 Room Air 21 82 24 96 09/06/19 19:28 97 Room Air 21 09/06/19 17:29 74 09/06/19 16:00 1.0 09/06/19 16:00 96.8 77 22 132/76 (94) 97 09/06/19 13:40 80 24 100 Room Air 21 84 23 97 I&O Intake and Output 09/06/19 09/07/19 19:00 07:00 Intake Total 490.0 ml 797.5 ml Output Total 1200 ml 1990 ml Balance -710.0 ml -1192.5 ml Free Water 180 ml 100 ml IV Total 200.0 ml 422.5 ml Tube Feeding 110 ml 275 ml Output Urine Total 1200 ml 1990 ml Dressing: other Wound: other Drains: other Cardiovascular: RSR Respiratory: decreased breath sounds Abdomen: soft, non-distended Extremities: no cyanosis, other Laboratory Tests Test 09/07/19 01:30 09/07/19 05:10 Arterial Blood pH 7.519 (7.350-7.450) Arterial Blood Partial Pressure CO2 38.3 mmHg (35.0-45.0) Arterial Blood Partial Pressure O2 279.7 mmHg (75.0-100.0) H Arterial Blood HCO3 30.5 mmol/L (22.0-26.0) H Arterial Blood Oxygen Saturation 99.3 % (95-100) Arterial Blood Base Excess 7.2 (-2-2) H William Test Positive White Blood Count 23.7 K/UL (4.8-10.8) #*H Red Blood Count 4.65 M/UL (4.20-5.40) Hemoglobin 10.7 G/DL (12.0-16.0) L Hematocrit 34.7 % (37.0-47.0) L Mean Corpuscular Volume 75 FL (80-99) L Mean Corpuscular Hemoglobin 23.0 PG (27.0-31.0) L Mean Corpuscular Hemoglobin Concent 30.7 G/DL (32.0-36.0) L Red Cell Distribution Width 22.6 % (11.6-14.8) H Platelet Count 299 K/UL (150-450) Mean Platelet Volume 9.2 FL (6.5-10.1) Neutrophils (%) (Auto) % (45.0-75.0) Lymphocytes (%) (Auto) % (20.0-45.0) Monocytes (%) (Auto) % (1.0-10.0) Eosinophils (%) (Auto) % (0.0-3.0) Basophils (%) (Auto) % (0.0-2.0) Differential Total Cells Counted 100 Neutrophils % (Manual) 87 % (45-75) H Lymphocytes % (Manual) 10 % (20-45) L Monocytes % (Manual) 2 % (1-10) Eosinophils % (Manual) 1 % (0-3) Basophils % (Manual) 0 % (0-2) Band Neutrophils 0 % (0-8) Platelet Estimate Adequate Platelet Morphology Normal Hypochromasia 1+ Anisocytosis 3+ Microcytosis 1+ Sodium Level 146 MMOL/L (136-145) H Potassium Level 3.1 MMOL/L (3.5-5.1) L Chloride Level 102 MMOL/L (98-107) Carbon Dioxide Level 35 MMOL/L (21-32) H Anion Gap 9 mmol/L (5-15) Blood Urea Nitrogen 35 mg/dL (7-18) H Creatinine 1.3 MG/DL (0.55-1.30) Estimat Glomerular Filtration Rate mL/min (>60) Glucose Level 192 MG/DL (74-106) H Calcium Level 10.0 MG/DL (8.5-10.1) Phosphorus Level 4.7 MG/DL (2.5-4.9) Magnesium Level 1.6 MG/DL (1.8-2.4) L Total Bilirubin 1.2 MG/DL (0.2-1.0) H Direct Bilirubin 0.7 MG/DL (0.0-0.3) H Aspartate Amino Transf (AST/SGOT) 65 U/L (15-37) H Alanine Aminotransferase (ALT/SGPT) 38 U/L (12-78) Alkaline Phosphatase 139 U/L (46-116) H Total Protein 8.0 G/DL (6.4-8.2) Albumin 1.8 G/DL (3.4-5.0) L Plan Problems: (1) Sacral decubitus ulcer Assessment & Plan: Patient presented with Partial thickness stage 2 pressure injuries to R and L buttocks with surrounding non-blanching erythema without induration or fluctuance. Partial thickness stage 2 pressure injury R buttocks. Base of wound moist and viable. (L)1.8cm x (W)1cm.Erythematous and denuded borders and periwound. Partial thickness stage 2pressure injury L buttocks. Base of wound moist- viable. Borders and periwound erythematous and denuded. R heel boggy with non-blanching erythema. L heel boggy but blanchable. Tx.Plan: Cleanse wounds R and L buttocks with Saline. Apply Therahoney to each wound. Apply Moisture Barrier periwound.Cover with Optifoam drsg. Change every 3 days and prn. Apply Moisture Barrier Paste to Perineum and bilat ischial regions with each Incontinence care. APM/DAVID Mattress overlay. Reposition at least every 2hours or as tolerated. Off-load heels with pillow. (2) failure to thrive (3) Protein-calorie malnutrition, moderate Assessment & Plan: DAILY ESTIMATED NEEDS: Needs based on Pulmonary, cardiac; 64.1kg 25-30 kcals/kg 1603- 1923 total kcals 1-1.5 g protein/kg 64- 96 g total protein 20-25 mL/kg 3605-9054 total fluid mLs NUTRITION DIAGNOSIS: *Swallowing difficulty R/T dysdphagia as evidenced by pt is now s/p PEG placement, GT feeding held at this time for elev residuals. *Altered nutrition related lab values r/t dehydration, clinical condition as evidenced by critically elev Na value of 163*-> now wnl, BUN 41-> 26, elev BGs (206, 281), POC glu (157-254), low K (3.3), elev BNP (8049). CURRENT TF:Glucerna 1.2 @ 55ml/hr x 24 hrs -> HELD FOR RESIDUALS ENTERAL NUTRITION RECOMMENDATIONS: Glucerna 1.5 @ 45ml/hr x24 hrs to provide 1080ml, 1620 kcal, 89g pro, 820ml [id number] - Rec TF change to Glucerna 1.5 - possible TF tolerance, less free water given CHF, elev BNP - Initiate Glucerna 1.5 @ 25ml/hr x 4 hrs, advance 10ml q 4-6 hrs as tolerated to goal rate - Water flush per MD/ HOB over 30 degrees ADDITIONAL RECOMMENDATIONS: 1) Per SNF: pt is 141 lbs + 5' 6.5" tall Weekly wt monitoring 2) Consider around the clock Reglan for improved TF tolerance 3) Consider long acting insulin for improved BG control -> BGs mostly in the 200's despite TF being held 4) Monitor lytes, replete as needed (low K) (4) Moderate malnutrition Additional Comments recommend eval code status and end of life considerations Ramiro Mack Sep 07, 2019 13:19
--- NOTE | 2019-09-07 13:57 | Nephrology Progress Note ---
Assessment/Plan Problem List: (1) Acute respiratory failure Assessment: septic shock (2) Dehydration (3) Failure to thrive (4) Hypernatremia (5) Pneumonia (6) Elevated troponin (7) Cardiomyopathy Assessment Dehydration leading to HyperNatremia HypoAlbuminemia / Mal nutrition Elevated Troponin NSTEMI COPD HTN Pneumonia Plan intubated on pressors DC BP meds pressors has PEG k and Phos supplement as needed pulmonary and cardiac support poor prognosis favor comfort care previously: Low EjFx Monitor BS and BP Monitor renal parameters Per consultants ASA and Nitro afterload reduction Subjective ROS Limited/Unobtainable: Yes Objective Objective Last 24 Hour Vital Signs Date Time Temp Pulse Resp B/P (MAP) Pulse Ox O2 Delivery O2 Flow Rate FiO2 09/07/19 13:30 92 10 83/26 (45) 100 09/07/19 13:24 101 10 100 Mechanical Ventilator 40 97 10 97 09/07/19 13:22 98 10 40 09/07/19 13:15 131/35 09/07/19 13:14 109/32 09/07/19 13:00 101 10 131/35 (67) 98 09/07/19 13:00 83/26 09/07/19 12:30 101 10 122/31 (61) 97 09/07/19 12:00 40 09/07/19 12:00 101 09/07/19 12:00 115/52 09/07/19 12:00 98.4 101 10 115/52 (73) 97 09/07/19 12:00 Mechanical Ventilator 09/07/19 11:30 101 10 139/32 (67) 99 09/07/19 11:29 104 10 40 09/07/19 11:00 103 10 110/31 (57) 97 09/07/19 11:00 110/31 09/07/19 10:47 82/48 09/07/19 10:46 41/21 09/07/19 10:30 104 10 65/37 (46) 99 09/07/19 10:24 147/63 09/07/19 10:00 119 10 119/57 (77) 100 09/07/19 10:00 119/57 09/07/19 09:30 115 13 132/65 (87) 98 09/07/19 09:18 111 10 40 09/07/19 09:00 135/81 09/07/19 09:00 116 16 125/81 (96) 09/07/19 08:54 111/68 09/07/19 08:54 108 111/68 09/07/19 08:54 108 111/68 09/07/19 08:36 111/68 09/07/19 08:35 111/68 09/07/19 08:30 105 10 111/68 (82) 09/07/19 08:00 98.0 108 10 116/81 (93) 100 09/07/19 08:00 40 09/07/19 08:00 116/81 09/07/19 08:00 Mechanical Ventilator 09/07/19 08:00 104 09/07/19 07:45 109 10 117/74 (88) 100 09/07/19 07:32 108 10 100 Mechanical Ventilator 40 106 10 99 09/07/19 07:30 102 10 78/52 (61) 99 09/07/19 07:27 102 10 40 09/07/19 07:15 105 10 83/54 (64) 100 09/07/19 07:00 105 10 94/62 (73) 100 09/07/19 07:00 94/62 09/07/19 06:00 98/57 09/07/19 06:00 101 10 98/57 (71) 100 09/07/19 05:46 111/64 09/07/19 05:45 102 13 111/64 (80) 100 09/07/19 05:30 73 10 99/59 (72) 100 09/07/19 05:16 103 11 50 09/07/19 05:15 100 10 119/76 (90) 100 09/07/19 05:00 102/88 09/07/19 05:00 97.7 99 10 102/88 (93) 99 09/07/19 04:45 95 10 97/61 (73) 99 09/07/19 04:30 101 9 134/81 (98) 98 09/07/19 04:15 103 10 126/70 (88) 98 09/07/19 04:00 104 09/07/19 04:00 50 09/07/19 04:00 97.5 99 10 123/63 (83) 97 09/07/19 04:00 126/70 09/07/19 04:00 Mechanical Ventilator 09/07/19 03:45 106 9 110/71 (84) 97 09/07/19 03:30 110 10 78/37 (51) 97 09/07/19 03:15 117 15 79/45 (56) 99 09/07/19 03:05 70/54 09/07/19 03:00 124 8 70/54 (59) 98 09/07/19 03:00 114 10 50 09/07/19 02:45 126 8 96/57 (70) 98 09/07/19 02:30 114 9 74/59 (64) 100 09/07/19 02:15 108 14 86/56 (66) 100 09/07/19 02:00 93 15 83/46 (58) 100 09/07/19 02:00 50 09/07/19 01:45 112 16 92/54 (67) 100 09/07/19 01:37 115 09/07/19 00:45 100 09/07/19 00:45 Mechanical Ventilator 09/07/19 00:42 114 18 100 09/07/19 00:00 98.1 108 18 131/88 (102) 100 09/07/19 00:00 1.0 09/07/19 00:00 Bi-pap 09/06/19 23:39 103 09/06/19 21:00 Bi-pap 09/06/19 20:30 83 128/75 09/06/19 20:00 97.3 83 21 128/75 (92) 100 09/06/19 20:00 1.0 09/06/19 19:37 88 09/06/19 19:29 80 24 100 Room Air 21 82 24 96 09/06/19 19:28 97 Room Air 21 09/06/19 17:29 74 09/06/19 16:00 1.0 09/06/19 16:00 96.8 77 22 132/76 (94) 97 Intake and Output 09/06/19 09/07/19 19:00 07:00 Intake Total 490.0 ml 797.5 ml Output Total 1200 ml 1990 ml Balance -710.0 ml -1192.5 ml Free Water 180 ml 100 ml IV Total 200.0 ml 422.5 ml Tube Feeding 110 ml 275 ml Output Urine Total 1200 ml 1990 ml Laboratory Tests 09/07/19 01:30: Arterial Blood pH 7.519H, Arterial Blood Partial Pressure CO2 38.3, Arterial Blood Partial Pressure O2 279.7H, Arterial Blood HCO3 30.5H, Arterial Blood Oxygen Saturation 99.3, Arterial Blood Base Excess 7.2H, William Test Positive 09/07/19 05:10: White Blood Count 23.7#*H, Red Blood Count 4.65, Hemoglobin 10.7L, Hematocrit 34.7L, Mean Corpuscular Volume 75L, Mean Corpuscular Hemoglobin 23.0L, Mean Corpuscular Hemoglobin Concent 30.7L, Red Cell Distribution Width 22.6H, Platelet Count 299, Mean Platelet Volume 9.2, Neutrophils (%) (Auto) , Lymphocytes (%) (Auto) , Monocytes (%) (Auto) , Eosinophils (%) (Auto) , Basophils (%) (Auto) , Differential Total Cells Counted 100, Neutrophils % ( Manual) 87H, Lymphocytes % (Manual) 10L, Monocytes % (Manual) 2, Eosinophils % ( Manual) 1, Basophils % (Manual) 0, Band Neutrophils 0, Platelet Estimate Adequate, Platelet Morphology Normal, Hypochromasia 1+, Anisocytosis 3+, Microcytosis 1+, Sodium Level 146H, Potassium Level 3.1L, Chloride Level 102, Carbon Dioxide Level 35H, Anion Gap 9, Blood Urea Nitrogen 35H, Creatinine 1.3, Estimat Glomerular Filtration Rate , Glucose Level 192H, Calcium Level 10.0, Phosphorus Level 4.7, Magnesium Level 1.6L, Total Bilirubin 1.2H, Direct Bilirubin 0.7H, Aspartate Amino Transf (AST/SGOT) 65H, Alanine Aminotransferase (ALT/SGPT) 38, Alkaline Phosphatase 139H, Total Protein 8.0, Albumin 1.8L Height (Feet): 5 Height (Inches): 3.00 Weight (Pounds): 163 General Appearance: no apparent distress EENT: other - intubated on vent Cardiovascular: tachycardia Respiratory/Chest: decreased breath sounds Abdomen: distended, other - GT Objective no change Kaden Chance MD Sep 07, 2019 13:57
[2019-09-07] MEDS: D5 1/2NS 1,000 ML IV SCH (15:11)
[2019-09-07] MEDS ORDERED: NS 275ml ONE (16:12)
--- NOTE | 2019-09-07 16:41 | Cardiac Electrophysiology PN ---
Assessment/Plan Assessment/Plan 1. [id number] myocardial infarction. Peak Troponin is 2.441, down to 1.5. ? Due to severe dehydration as well. No chest pain hx, Lethargic and was on hospice care. Treat medically with aspirin 2. Septic shock on Levophed and abx 3. 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 DCed Lisinopril and Coreg 3.125 bid 4. Long runs of 14 and 17 beats of VT due to CMP. Medical therapy as was on Hospice Now full code. Poor candidate for cardiac cath 5. Severe hypernatremia. Improving with hydration 6. History of schizophrenia. 7. Dysphagia. S/P PEG by Dr Tompkins 8. Respiratory failure on Vent now DW RN Subjective Subjective Had 17 beats of VT 09/02/19 and 14 beats on 08/30/19. Had PEG 09/02/19. Intubated last night and now on Levophed 24mcg. Full Code per RN even though was on Hospice before Objective Last 24 Hour Vital Signs Date Time Temp Pulse Resp B/P (MAP) Pulse Ox O2 Delivery O2 Flow Rate FiO2 09/07/19 16:00 40 09/07/19 16:00 133/38 09/07/19 16:00 Mechanical Ventilator 09/07/19 16:00 98.2 92 10 133/38 (69) 100 09/07/19 15:48 115/44 09/07/19 15:47 139/43 09/07/19 15:30 92 10 115/30 (58) 99 09/07/19 15:15 132/42 09/07/19 15:02 94 10 40 09/07/19 15:00 147/51 09/07/19 15:00 97 10 147/51 (83) 99 09/07/19 14:30 98 10 146/46 (79) 99 09/07/19 14:00 165/34 09/07/19 14:00 97 10 165/34 (77) 99 09/07/19 13:30 92 10 83/26 (45) 100 09/07/19 13:24 101 10 100 Mechanical Ventilator 40 97 10 97 09/07/19 13:22 98 10 40 09/07/19 13:15 131/35 09/07/19 13:14 109/32 09/07/19 13:00 101 10 131/35 (67) 98 09/07/19 13:00 83/26 09/07/19 12:30 101 10 122/31 (61) 97 09/07/19 12:00 40 09/07/19 12:00 101 09/07/19 12:00 115/52 09/07/19 12:00 98.4 101 10 115/52 (73) 97 09/07/19 12:00 Mechanical Ventilator 09/07/19 11:30 101 10 139/32 (67) 99 09/07/19 11:29 104 10 40 09/07/19 11:00 103 10 110/31 (57) 97 09/07/19 11:00 110/31 09/07/19 10:47 82/48 09/07/19 10:46 41/21 09/07/19 10:30 104 10 65/37 (46) 99 09/07/19 10:24 147/63 09/07/19 10:00 119 10 119/57 (77) 100 09/07/19 10:00 119/57 09/07/19 09:30 115 13 132/65 (87) 98 09/07/19 09:18 111 10 40 09/07/19 09:00 135/81 09/07/19 09:00 116 16 125/81 (96) 09/07/19 08:54 111/68 09/07/19 08:54 108 111/68 09/07/19 08:54 108 111/68 09/07/19 08:36 111/68 09/07/19 08:35 111/68 09/07/19 08:30 105 10 111/68 (82) 09/07/19 08:00 98.0 108 10 116/81 (93) 100 09/07/19 08:00 40 09/07/19 08:00 116/81 09/07/19 08:00 Mechanical Ventilator 09/07/19 08:00 104 09/07/19 07:45 109 10 117/74 (88) 100 09/07/19 07:32 108 10 100 Mechanical Ventilator 40 106 10 99 09/07/19 07:30 102 10 78/52 (61) 99 09/07/19 07:27 102 10 40 09/07/19 07:15 105 10 83/54 (64) 100 09/07/19 07:00 105 10 94/62 (73) 100 09/07/19 07:00 94/62 09/07/19 06:00 98/57 09/07/19 06:00 101 10 98/57 (71) 100 09/07/19 05:46 111/64 09/07/19 05:45 102 13 111/64 (80) 100 09/07/19 05:30 73 10 99/59 (72) 100 09/07/19 05:16 103 11 50 09/07/19 05:15 100 10 119/76 (90) 100 09/07/19 05:00 102/88 09/07/19 05:00 97.7 99 10 102/88 (93) 99 09/07/19 04:45 95 10 97/61 (73) 99 09/07/19 04:30 101 9 134/81 (98) 98 09/07/19 04:15 103 10 126/70 (88) 98 09/07/19 04:00 104 09/07/19 04:00 50 09/07/19 04:00 97.5 99 10 123/63 (83) 97 09/07/19 04:00 126/70 09/07/19 04:00 Mechanical Ventilator 09/07/19 03:45 106 9 110/71 (84) 97 09/07/19 03:30 110 10 78/37 (51) 97 09/07/19 03:15 117 15 79/45 (56) 99 09/07/19 03:05 70/54 09/07/19 03:00 124 8 70/54 (59) 98 09/07/19 03:00 114 10 50 09/07/19 02:45 126 8 96/57 (70) 98 09/07/19 02:30 114 9 74/59 (64) 100 09/07/19 02:15 108 14 86/56 (66) 100 09/07/19 02:00 93 15 83/46 (58) 100 09/07/19 02:00 50 09/07/19 01:45 112 16 92/54 (67) 100 09/07/19 01:37 115 09/07/19 00:45 100 09/07/19 00:45 Mechanical Ventilator 09/07/19 00:42 114 18 100 09/07/19 00:00 98.1 108 18 131/88 (102) 100 09/07/19 00:00 1.0 09/07/19 00:00 Bi-pap 09/06/19 23:39 103 09/06/19 21:00 Bi-pap 09/06/19 20:30 83 128/75 09/06/19 20:00 97.3 83 21 128/75 (92) 100 09/06/19 20:00 1.0 09/06/19 19:37 88 09/06/19 19:29 80 24 100 Room Air 21 82 24 96 09/06/19 19:28 97 Room Air 21 09/06/19 17:29 74 Intake and Output 09/06/19 09/07/19 18:59 06:59 Intake Total 497.5 ml 777.5 ml Output Total 1200 ml 1960 ml Balance -702.5 ml -1182.5 ml Free Water 180 ml 100 ml IV Total 207.5 ml 347.5 ml Tube Feeding 110 ml 330 ml Output Urine Total 1200 ml 1960 ml Laboratory Tests Test 09/07/19 01:30 09/07/19 05:10 Arterial Blood pH 7.519 (7.350-7.450) Arterial Blood Partial Pressure CO2 38.3 mmHg (35.0-45.0) Arterial Blood Partial Pressure O2 279.7 mmHg (75.0-100.0) H Arterial Blood HCO3 30.5 mmol/L (22.0-26.0) H Arterial Blood Oxygen Saturation 99.3 % (95-100) Arterial Blood Base Excess 7.2 (-2-2) H William Test Positive White Blood Count 23.7 K/UL (4.8-10.8) #*H Red Blood Count 4.65 M/UL (4.20-5.40) Hemoglobin 10.7 G/DL (12.0-16.0) L Hematocrit 34.7 % (37.0-47.0) L Mean Corpuscular Volume 75 FL (80-99) L Mean Corpuscular Hemoglobin 23.0 PG (27.0-31.0) L Mean Corpuscular Hemoglobin Concent 30.7 G/DL (32.0-36.0) L Red Cell Distribution Width 22.6 % (11.6-14.8) H Platelet Count 299 K/UL (150-450) Mean Platelet Volume 9.2 FL (6.5-10.1) Neutrophils (%) (Auto) % (45.0-75.0) Lymphocytes (%) (Auto) % (20.0-45.0) Monocytes (%) (Auto) % (1.0-10.0) Eosinophils (%) (Auto) % (0.0-3.0) Basophils (%) (Auto) % (0.0-2.0) Differential Total Cells Counted 100 Neutrophils % (Manual) 87 % (45-75) H Lymphocytes % (Manual) 10 % (20-45) L Monocytes % (Manual) 2 % (1-10) Eosinophils % (Manual) 1 % (0-3) Basophils % (Manual) 0 % (0-2) Band Neutrophils 0 % (0-8) Platelet Estimate Adequate Platelet Morphology Normal Hypochromasia 1+ Anisocytosis 3+ Microcytosis 1+ Sodium Level 146 MMOL/L (136-145) H Potassium Level 3.1 MMOL/L (3.5-5.1) L Chloride Level 102 MMOL/L (98-107) Carbon Dioxide Level 35 MMOL/L (21-32) H Anion Gap 9 mmol/L (5-15) Blood Urea Nitrogen 35 mg/dL (7-18) H Creatinine 1.3 MG/DL (0.55-1.30) Estimat Glomerular Filtration Rate mL/min (>60) Glucose Level 192 MG/DL (74-106) H Calcium Level 10.0 MG/DL (8.5-10.1) Phosphorus Level 4.7 MG/DL (2.5-4.9) Magnesium Level 1.6 MG/DL (1.8-2.4) L Total Bilirubin 1.2 MG/DL (0.2-1.0) H Direct Bilirubin 0.7 MG/DL (0.0-0.3) H Aspartate Amino Transf (AST/SGOT) 65 U/L (15-37) H Alanine Aminotransferase (ALT/SGPT) 38 U/L (12-78) Alkaline Phosphatase 139 U/L (46-116) H Total Protein 8.0 G/DL (6.4-8.2) Albumin 1.8 G/DL (3.4-5.0) L Objective HEAD AND NECK: No JVD. On BIPAP LUNGS: Coarse rhonchi. CARDIOVASCULAR: Irregular S1 and S2 with no gallop or murmur. ABDOMEN: Soft.PEG in place EXTREMITIES: No pitting edema. Markie Oliveira MD Sep 07, 2019 16:41
--- NOTE | 2019-09-07 18:15 | Progress Note ---
DATE: 09/07/2019 SUBJECTIVE: This is elderly female who had cardiopulmonary arrest, resuscitated last night, intubated. The patient is also hypotensive, placed on a Levophed drip at 20 mcg. The patient is currently otherwise doing okay, has been stable. Potassium is low, fluid overload. PHYSICAL EXAMINATION: VITAL SIGNS: Blood pressure 153/70, pulse 72, respirations 18, no fever. CHEST: Bilateral scattered crackles. CARDIOVASCULAR: Regular rhythm. No gallop. No murmur. ABDOMEN: Soft. G-tube in place. EXTREMITIES: Trace edema. ASSESSMENT: 1. Acute cardiopulmonary arrest. 2. CHF, decompensated. 3. Hypertension. 4. Diabetes. 5. Hypokalemia. 6. Renal failure. PLAN: 1. We will currently admit on ICU. 2. The patient is on IV antibiotics, IV Lasix, bronchodilator treatments, and G-tube feeding is on hold. 3. Continue KCl. 4. Pulmonary, Cardiology, Nephrology on case. Osmar Cooney M.D. DR: Willie JOB#: [id number] CC:
[2019-09-07] MEDS: Phenylephrine 50 MG in D5W 245 ML IV PRN ×2 (18:42→22:51)
[2019-09-07] MEDS: Dyna-Hex 2% Top Sol 2oz TOPIC SCH (20:47)
[2019-09-07] MEDS: Miralax 17gm pkt ORAL SCH (20:49)
--- NOTE | 2019-09-07 22:15 | Progress Note ---
DATE: 09/07/2019 CARDIOLOGY PROGRESS NOTE SUBJECTIVE: The patient continues to have short runs of nonsustained ventricular tachycardia. Remains on BiPAP. OBJECTIVE: VITAL SIGNS: Blood pressure is 110/70, pulse is 90, respirations 18, and she is afebrile. HEAD AND NECK: Shows no JVD. She has a BiPAP on. LUNGS: Coarse rhonchi. CARDIOVASCULAR: Shows regular S1 and S2 with no gallop or murmur. ABDOMEN: Status post G-tube. EXTREMITIES: No pitting edema. LABORATORY DATA: Her labs show white count 13.5, hemoglobin 8.7, hematocrit 28, and platelet count is 251,000. ASSESSMENT/PLAN: 1. Elevated troponin, peak level of 2.44 due to severe dehydration. The patient is lethargic and was on hospice care. Continue to treat medically with aspirin and beta-alison. 2. Sepsis, on IV antibiotic per ID. 3. Severe cardiomyopathy with ejection fraction of 30% to 35%, on Coreg and lisinopril. 4. Nonsustained ventricular tachycardia beats due to cardiomyopathy, on medical therapy. The patient is not a candidate for cardiac catheterization as she was recently on hospice. The patient has severe hypernatremia, improved with hydration. 5. Dysphagia, status post PEG placement. 6. Respiratory failure, currently on BiPAP. Markie Oliveira M.D. DR: ARNAV JOB#: [id number] CC:
[2019-09-08] VITALS (61 sets, daily range): BP systolic 67–180; BP diastolic 40–88
[2019-09-08] MEDS: D5 1/2NS 1,000 ML IV SCH ×3 (00:09→20:26)
[2019-09-08] MEDS: NovoLOG Insulin Flexpen SUBQ SCH ×4 (00:12→17:57)
[2019-09-08] MEDS: Phenylephrine 50 MG in D5W 245 ML IV PRN ×5 (03:24→20:28)
[2019-09-08 05:26] LABS: HEMATOCRIT 30.5 % (37.0-47.0); HEMOGLOBIN 9.1 G/DL (12.0-16.0); MEAN CORPUSCULAR VOLUME 75 FL (80-99); PLATELET COUNT 296 K/UL (150-450); RED BLOOD COUNT 4.06 M/UL (4.20-5.40); RED CELL DISTRIBUTION WIDTH 22.9 % (11.6-14.8)
[2019-09-08 05:40] LABS: ALANINE AMINOTRANSFERASE 30 U/L (12-78); ALBUMIN 1.4 G/DL (3.4-5.0); ALBUMIN/GLOBULIN RATIO 0.2 (1.0-2.7); ALKALINE PHOSPHATASE 128 U/L (46-116); ANION GAP 2 mmol/L (5-15); ASPARTATE AMINO TRANSFERASE 37 U/L (15-37); BILIRUBIN,TOTAL 0.9 MG/DL (0.2-1.0); BLOOD UREA NITROGEN 31 mg/dL (7-18); CARBON DIOXIDE 37 MMOL/L (21-32); CHLORIDE 102 MMOL/L (98-107); CREATININE 1.2 MG/DL (0.55-1.30); PHOSPHORUS 3.9 MG/DL (2.5-4.9); POTASSIUM 2.8 MMOL/L (3.5-5.1); SODIUM 141 MMOL/L (136-145)
[2019-09-08 05:45] LABS: WHITE BLOOD COUNT 36.3 K/UL (4.8-10.8)
[2019-09-08] MEDS: Lactulose 10gm/15ml UDC ORAL SCH (09:24)
[2019-09-08] MEDS: Docusate 100mg/10ml Liq GT SCH ×3 (09:24→17:53)
[2019-09-08] MEDS: Aspirin Baby 81mg NG SCH (09:25)
[2019-09-08] MEDS: Cefepime HCl 2 GM in D5W 55 ML IV SCH (09:25)
--- NOTE | 2019-09-08 09:33 | Nephrology Progress Note ---
Assessment/Plan Problem List: (1) Acute respiratory failure Assessment: septic shock (2) Dehydration (3) Failure to thrive (4) Hypernatremia (5) Pneumonia (6) Elevated troponin (7) Cardiomyopathy Assessment Dehydration leading to HyperNatremia HypoAlbuminemia / Mal nutrition Elevated Troponin NSTEMI COPD HTN Pneumonia Plan on 2 pressors intubated unresponsive post code blue off BP meds has PEG k and Phos supplement as needed pulmonary and cardiac support poor prognosis favor comfort care EEG Neuro eval ? previously: Low EjFx Monitor BS and BP Monitor renal parameters Per consultants ASA and Nitro afterload reduction Subjective ROS Limited/Unobtainable: Yes Objective Objective Last 24 Hour Vital Signs Date Time Temp Pulse Resp B/P (MAP) Pulse Ox O2 Delivery O2 Flow Rate FiO2 09/08/19 08:52 87 10 40 09/08/19 07:30 86 138/67 09/08/19 07:00 127/67 09/08/19 06:32 85 10 40 09/08/19 06:00 145/67 09/08/19 05:23 83 10 40 09/08/19 05:00 145/56 09/08/19 04:45 153/73 (99) 09/08/19 04:30 85 10 141/79 (99) 100 09/08/19 04:15 85 10 145/45 (78) 99 09/08/19 04:00 97.0 86 14 134/65 (88) 99 09/08/19 04:00 40 09/08/19 04:00 Mechanical Ventilator 09/08/19 04:00 141/79 09/08/19 04:00 86 09/08/19 03:45 85 16 124/60 (81) 100 09/08/19 03:30 85 10 148/77 (100) 97 09/08/19 03:24 85 143/70 09/08/19 03:15 84 12 151/75 (100) 97 09/08/19 03:10 84 12 151/75 (100) 97 09/08/19 03:09 86 10 40 09/08/19 03:07 127/60 09/08/19 03:00 85 10 121/60 (80) 98 09/08/19 03:00 127/70 09/08/19 02:45 86 10 150/65 (93) 95 09/08/19 02:30 86 10 150/65 (93) 95 09/08/19 02:15 86 10 139/74 (95) 98 09/08/19 02:00 86 10 136/79 (98) 95 09/08/19 02:00 140/75 09/08/19 01:45 86 10 151/76 (101) 98 09/08/19 01:30 87 10 156/75 (102) 99 09/08/19 01:18 87 10 40 09/08/19 01:00 176/81 09/08/19 00:15 86 10 180/88 (118) 99 09/08/19 00:00 64/40 09/08/19 00:00 Mechanical Ventilator 09/08/19 00:00 87 09/08/19 00:00 40 09/08/19 00:00 98.5 87 10 67/56 (60) 99 09/07/19 23:45 86 10 90/42 (58) 100 09/07/19 23:30 79 10 100/40 (60) 98 09/07/19 23:15 80 10 146/57 (86) 98 09/07/19 23:09 80 10 40 09/07/19 23:00 80 10 143/75 (97) 98 09/07/19 23:00 146/56 09/07/19 22:51 80 101/62 09/07/19 22:45 90 10 126/60 (82) 99 09/07/19 22:30 80 10 134/70 (91) 98 09/07/19 22:15 80 10 130/75 (93) 99 09/07/19 22:00 81 10 126/74 (91) 97 09/07/19 22:00 126/74 09/07/19 21:45 81 10 98 09/07/19 21:30 82 10 146/71 (96) 99 09/07/19 21:15 83 10 141/66 (91) 99 09/07/19 21:13 83 10 40 09/07/19 21:00 82 10 120/68 (85) 100 09/07/19 21:00 120/68 09/07/19 20:45 84 10 130/60 (83) 100 09/07/19 20:30 85 10 162/75 (104) 100 09/07/19 20:15 85 10 144/80 (101) 100 09/07/19 20:00 40 09/07/19 20:00 98.5 86 10 158/82 (107) 100 09/07/19 20:00 86 09/07/19 20:00 158/82 09/07/19 20:00 Mechanical Ventilator 09/07/19 19:45 86 12 153/82 (105) 99 09/07/19 19:30 89 11 185/62 (103) 99 09/07/19 19:18 92 10 100 Mechanical Ventilator 40 89 10 99 09/07/19 19:17 89 10 40 09/07/19 19:15 89 10 172/70 (104) 99 09/07/19 19:00 89 12 163/71 (101) 99 09/07/19 19:00 163/71 09/07/19 18:45 79 10 68/26 (40) 100 09/07/19 18:42 78 75/42 09/07/19 18:41 75/42 09/07/19 18:30 83 10 44/23 (30) 99 09/07/19 18:15 85 10 105/56 (72) 99 09/07/19 18:00 82 10 79/35 (50) 100 09/07/19 17:30 87 10 131/60 (83) 100 09/07/19 17:02 88 10 40 09/07/19 17:00 88 10 153/27 (69) 100 09/07/19 16:00 101 09/07/19 16:00 40 09/07/19 16:00 133/38 09/07/19 16:00 Mechanical Ventilator 09/07/19 16:00 98.2 92 10 133/38 (69) 100 09/07/19 15:48 115/44 09/07/19 15:47 139/43 09/07/19 15:30 92 10 115/30 (58) 99 09/07/19 15:15 132/42 09/07/19 15:02 94 10 40 09/07/19 15:00 147/51 09/07/19 15:00 97 10 147/51 (83) 99 09/07/19 14:30 98 10 146/46 (79) 99 09/07/19 14:00 165/34 09/07/19 14:00 97 10 165/34 (77) 99 09/07/19 13:30 92 10 83/26 (45) 100 09/07/19 13:24 101 10 100 Mechanical Ventilator 40 97 10 97 09/07/19 13:22 98 10 40 09/07/19 13:15 131/35 09/07/19 13:14 109/32 09/07/19 13:00 101 10 131/35 (67) 98 09/07/19 13:00 83/26 09/07/19 12:30 101 10 122/31 (61) 97 09/07/19 12:00 40 09/07/19 12:00 101 09/07/19 12:00 115/52 09/07/19 12:00 98.4 101 10 115/52 (73) 97 09/07/19 12:00 Mechanical Ventilator 09/07/19 11:30 101 10 139/32 (67) 99 09/07/19 11:29 104 10 40 09/07/19 11:00 103 10 110/31 (57) 97 09/07/19 11:00 110/31 09/07/19 10:47 82/48 09/07/19 10:46 41/21 09/07/19 10:30 104 10 65/37 (46) 99 09/07/19 10:24 147/63 09/07/19 10:00 119 10 119/57 (77) 100 09/07/19 10:00 119/57 Intake and Output 09/07/19 09/08/19 19:00 07:00 Intake Total 3189.125 ml 3050.25 ml Output Total 1020 ml 2350 ml Balance 2169.125 ml 700.25 ml Free Water 30 ml IV Total 3159.125 ml 3050.25 ml Tube Feeding 0 ml 0 ml Output Urine Total 1020 ml 2350 ml Laboratory Tests 09/08/19 04:30: White Blood Count 36.3#*H, Red Blood Count 4.06L, Hemoglobin 9.1L, Hematocrit 30.5L, Mean Corpuscular Volume 75L, Mean Corpuscular Hemoglobin 22.5L, Mean Corpuscular Hemoglobin Concent 30.0L, Red Cell Distribution Width 22.9H, Platelet Count 296, Mean Platelet Volume 8.5, Neutrophils (%) (Auto) , Lymphocytes (%) (Auto) , Monocytes (%) (Auto) , Eosinophils (%) (Auto) , Basophils (%) (Auto) , Differential Total Cells Counted 100, Neutrophils % ( Manual) 68, Lymphocytes % (Manual) 13L, Monocytes % (Manual) 4, Eosinophils % ( Manual) 2, Basophils % (Manual) 0, Band Neutrophils 13H, Platelet Estimate Adequate, Platelet Morphology Normal, Polychromasia 1+, Hypochromasia 1+, Anisocytosis 3+, Microcytosis 1+, Sodium Level 141, Potassium Level 2.8L, Chloride Level 102, Carbon Dioxide Level 37H, Anion Gap 2L, Blood Urea Nitrogen 31H, Creatinine 1.2, Estimat Glomerular Filtration Rate , Glucose Level 385#H, Calcium Level 8.0L, Phosphorus Level 3.9, Magnesium Level 1.4L, Total Bilirubin 0.9, Aspartate Amino Transf (AST/SGOT) 37, Alanine Aminotransferase (ALT/SGPT) 30, Alkaline Phosphatase 128H, Total Protein 7.1, Albumin 1.4L, Globulin 5.7, Albumin/Globulin Ratio 0.2L Height (Feet): 5 Height (Inches): 3.00 Weight (Pounds): 163 General Appearance: no apparent distress EENT: other - vented Cardiovascular: normal rate Respiratory/Chest: decreased breath sounds Abdomen: soft Objective no change Kaden Chance MD Sep 08, 2019 09:33
[2019-09-08] MEDS: Nitroglycerin Patch 0.4mg TDERMAL SCH (11:00)
--- NOTE | 2019-09-08 11:20 | Infectious Diseases Prog Note ---
Assessment/Plan Assessment/Plan antibiotics : cefepime A 1. enterococcus UTI 2. + blood cultures with coag neg staph likely contaminated 3. leucocytosis increased 4. diabetes mellitus 5. pleural effusion 6. respiratory failure P 1. start iv vancomycin, zosyn 2. d/c cefepime 3. sputum culture 4. will follow up cultures Subjective ROS Limited/Unobtainable: Yes Allergies: Coded Allergies: No Known Allergies (Unverified , 08/27/19) Objective Vital Signs Last 24 Hour Vital Signs Date Time Temp Pulse Resp B/P (MAP) Pulse Ox O2 Delivery O2 Flow Rate FiO2 09/08/19 10:57 87 10 40 09/08/19 10:30 88 10 123/51 (75) 97 09/08/19 10:00 88 10 131/60 (83) 98 09/08/19 09:30 87 10 117/63 (81) 99 09/08/19 09:15 87 10 123/65 (84) 98 09/08/19 09:00 87 10 138/65 (89) 100 09/08/19 08:52 87 10 40 09/08/19 08:45 87 10 128/64 (85) 98 09/08/19 08:30 87 10 126/65 (85) 99 09/08/19 08:15 87 10 127/66 (86) 99 09/08/19 08:00 Mechanical Ventilator 09/08/19 08:00 97.5 86 10 128/64 (85) 98 09/08/19 08:00 40 09/08/19 07:45 86 10 138/70 (92) 100 09/08/19 07:30 86 10 127/67 (87) 99 09/08/19 07:30 86 138/67 09/08/19 07:15 86 10 140/68 (92) 99 09/08/19 07:00 86 10 140/67 (91) 99 09/08/19 07:00 127/67 09/08/19 06:32 85 10 40 09/08/19 06:00 145/67 09/08/19 05:23 83 10 40 09/08/19 05:00 145/56 09/08/19 04:45 153/73 (99) 09/08/19 04:30 85 10 141/79 (99) 100 09/08/19 04:15 85 10 145/45 (78) 99 09/08/19 04:00 97.0 86 14 134/65 (88) 99 09/08/19 04:00 40 09/08/19 04:00 Mechanical Ventilator 09/08/19 04:00 141/79 09/08/19 04:00 86 09/08/19 03:45 85 16 124/60 (81) 100 09/08/19 03:30 85 10 148/77 (100) 97 09/08/19 03:24 85 143/70 09/08/19 03:15 84 12 151/75 (100) 97 09/08/19 03:10 84 12 151/75 (100) 97 09/08/19 03:09 86 10 40 09/08/19 03:07 127/60 09/08/19 03:00 85 10 121/60 (80) 98 09/08/19 03:00 127/70 09/08/19 02:45 86 10 150/65 (93) 95 09/08/19 02:30 86 10 150/65 (93) 95 09/08/19 02:15 86 10 139/74 (95) 98 09/08/19 02:00 86 10 136/79 (98) 95 09/08/19 02:00 140/75 09/08/19 01:45 86 10 151/76 (101) 98 09/08/19 01:30 87 10 156/75 (102) 99 09/08/19 01:18 87 10 40 09/08/19 01:00 176/81 09/08/19 00:15 86 10 180/88 (118) 99 09/08/19 00:00 64/40 09/08/19 00:00 Mechanical Ventilator 09/08/19 00:00 87 09/08/19 00:00 40 09/08/19 00:00 98.5 87 10 67/56 (60) 99 09/07/19 23:45 86 10 90/42 (58) 100 09/07/19 23:30 79 10 100/40 (60) 98 09/07/19 23:15 80 10 146/57 (86) 98 09/07/19 23:09 80 10 40 09/07/19 23:00 80 10 143/75 (97) 98 09/07/19 23:00 146/56 09/07/19 22:51 80 101/62 09/07/19 22:45 90 10 126/60 (82) 99 09/07/19 22:30 80 10 134/70 (91) 98 09/07/19 22:15 80 10 130/75 (93) 99 09/07/19 22:00 81 10 126/74 (91) 97 09/07/19 22:00 126/74 09/07/19 21:45 81 10 98 09/07/19 21:30 82 10 146/71 (96) 99 09/07/19 21:15 83 10 141/66 (91) 99 09/07/19 21:13 83 10 40 09/07/19 21:00 82 10 120/68 (85) 100 09/07/19 21:00 120/68 09/07/19 20:45 84 10 130/60 (83) 100 09/07/19 20:30 85 10 162/75 (104) 100 09/07/19 20:15 85 10 144/80 (101) 100 09/07/19 20:00 40 09/07/19 20:00 98.5 86 10 158/82 (107) 100 09/07/19 20:00 86 09/07/19 20:00 158/82 09/07/19 20:00 Mechanical Ventilator 09/07/19 19:45 86 12 153/82 (105) 99 09/07/19 19:30 89 11 185/62 (103) 99 09/07/19 19:18 92 10 100 Mechanical Ventilator 40 89 10 99 09/07/19 19:17 89 10 40 09/07/19 19:15 89 10 172/70 (104) 99 09/07/19 19:00 89 12 163/71 (101) 99 09/07/19 19:00 163/71 09/07/19 18:45 79 10 68/26 (40) 100 09/07/19 18:42 78 75/42 09/07/19 18:41 75/42 09/07/19 18:30 83 10 44/23 (30) 99 09/07/19 18:15 85 10 105/56 (72) 99 09/07/19 18:00 82 10 79/35 (50) 100 09/07/19 17:30 87 10 131/60 (83) 100 09/07/19 17:02 88 10 40 09/07/19 17:00 88 10 153/27 (69) 100 09/07/19 16:00 101 09/07/19 16:00 40 09/07/19 16:00 133/38 09/07/19 16:00 Mechanical Ventilator 09/07/19 16:00 98.2 92 10 133/38 (69) 100 09/07/19 15:48 115/44 09/07/19 15:47 139/43 09/07/19 15:30 92 10 115/30 (58) 99 09/07/19 15:15 132/42 09/07/19 15:02 94 10 40 09/07/19 15:00 147/51 09/07/19 15:00 97 10 147/51 (83) 99 09/07/19 14:30 98 10 146/46 (79) 99 09/07/19 14:00 165/34 09/07/19 14:00 97 10 165/34 (77) 99 09/07/19 13:30 92 10 83/26 (45) 100 09/07/19 13:24 101 10 100 Mechanical Ventilator 40 97 10 97 09/07/19 13:22 98 10 40 09/07/19 13:15 131/35 09/07/19 13:14 109/32 09/07/19 13:00 101 10 131/35 (67) 98 09/07/19 13:00 83/26 09/07/19 12:30 101 10 122/31 (61) 97 09/07/19 12:00 40 09/07/19 12:00 101 09/07/19 12:00 115/52 09/07/19 12:00 98.4 101 10 115/52 (73) 97 09/07/19 12:00 Mechanical Ventilator 09/07/19 11:30 101 10 139/32 (67) 99 09/07/19 11:29 104 10 40 Height (Feet): 5 Height (Inches): 3.00 Weight (Pounds): 163 HEENT: other - intubated Respiratory/Chest: lungs clear Cardiovascular: normal rate, regular rhythm, no gallop/murmur Abdomen: soft, non tender, other Extremities: no edema, other - left IJ catheter Laboratory Tests Test 09/08/19 04:30 White Blood Count 36.3 K/UL (4.8-10.8) #*H Red Blood Count 4.06 M/UL (4.20-5.40) L Hemoglobin 9.1 G/DL (12.0-16.0) L Hematocrit 30.5 % (37.0-47.0) L Mean Corpuscular Volume 75 FL (80-99) L Mean Corpuscular Hemoglobin 22.5 PG (27.0-31.0) L Mean Corpuscular Hemoglobin Concent 30.0 G/DL (32.0-36.0) L Red Cell Distribution Width 22.9 % (11.6-14.8) H Platelet Count 296 K/UL (150-450) Mean Platelet Volume 8.5 FL (6.5-10.1) Neutrophils (%) (Auto) % (45.0-75.0) Lymphocytes (%) (Auto) % (20.0-45.0) Monocytes (%) (Auto) % (1.0-10.0) Eosinophils (%) (Auto) % (0.0-3.0) Basophils (%) (Auto) % (0.0-2.0) Differential Total Cells Counted 100 Neutrophils % (Manual) 68 % (45-75) Lymphocytes % (Manual) 13 % (20-45) L Monocytes % (Manual) 4 % (1-10) Eosinophils % (Manual) 2 % (0-3) Basophils % (Manual) 0 % (0-2) Band Neutrophils 13 % (0-8) H Platelet Estimate Adequate Platelet Morphology Normal Polychromasia 1+ Hypochromasia 1+ Anisocytosis 3+ Microcytosis 1+ Sodium Level 141 MMOL/L (136-145) Potassium Level 2.8 MMOL/L (3.5-5.1) L Chloride Level 102 MMOL/L (98-107) Carbon Dioxide Level 37 MMOL/L (21-32) H Anion Gap 2 mmol/L (5-15) L Blood Urea Nitrogen 31 mg/dL (7-18) H Creatinine 1.2 MG/DL (0.55-1.30) Estimat Glomerular Filtration Rate mL/min (>60) Glucose Level 385 MG/DL (74-106) #H Calcium Level 8.0 MG/DL (8.5-10.1) L Phosphorus Level 3.9 MG/DL (2.5-4.9) Magnesium Level 1.4 MG/DL (1.8-2.4) L Total Bilirubin 0.9 MG/DL (0.2-1.0) Aspartate Amino Transf (AST/SGOT) 37 U/L (15-37) Alanine Aminotransferase (ALT/SGPT) 30 U/L (12-78) Alkaline Phosphatase 128 U/L (46-116) H Total Protein 7.1 G/DL (6.4-8.2) Albumin 1.4 G/DL (3.4-5.0) L Globulin 5.7 g/dL Albumin/Globulin Ratio 0.2 (1.0-2.7) L Current Medications Medications (Trade) Dose Ordered Sig/Colt Route PRN Reason Start Time Stop Time Status Last Admin Dose Admin Aspirin (ASA) 81 mg DAILY NG 09/07/19 09:00 09/28/19 08:59 09/08/19 09:25 Cefepime HCl 2 gm/ Dextrose 55 ml @ 110 mls/hr EVERY 12 HOURS IV 09/07/19 10:00 09/12/19 14:59 09/08/19 09:25 Chlorhexidine Gluconate (Marleny-Hex 2%) 1 applic DAILY@2000 TOPIC 09/07/19 20:00 10/07/19 19:59 09/07/19 20:47 Dextrose (Dextrose 50%) 25 ml Q30M PRN IV Hypoglycemia 09/07/19 02:00 09/27/19 07:59 Dextrose (Dextrose 50%) 50 ml Q30M PRN IV Hypoglycemia 09/07/19 02:00 09/27/19 07:59 Dextrose/Sodium Chloride 1,000 ml @ 100 mls/hr Q10H IV 09/07/19 14:00 10/07/19 13:59 09/08/19 09:26 Docusate Sodium (Colace) 100 mg THREE TIMES A DAY GT 09/07/19 09:00 10/02/19 12:59 09/08/19 09:24 Famotidine (Pepcid I.v.) 20 mg Q12HR IVP 09/07/19 21:00 10/07/19 20:59 09/08/19 09:25 Insulin Aspart (NovoLOG) Q6HR SUBQ 09/07/19 06:00 09/27/19 11:29 09/08/19 06:24 Lactulose (Cephulac) 10 gm THREE TIMES A DAY ORAL 09/07/19 09:00 10/07/19 08:59 09/08/19 09:24 Metoclopramide HCl (Reglan) 10 mg Q6H PRN IVP Nausea & Vomiting 09/07/19 02:15 10/03/19 02:14 Nitroglycerin (Ntg) 1 patch Q24H TDERMAL 09/07/19 11:00 09/28/19 10:59 Norepinephrine Bitartrate 8 mg/ Dextrose 500 ml @ 0 mls/hr Q24H IV 09/07/19 17:00 10/07/19 16:59 09/08/19 03:07 Phenylephrine HCl 50 mg/Dextrose 250 ml @ 0 mls/hr Q24H PRN IV HYPOTENSION 09/07/19 18:00 10/07/19 11:59 09/08/19 07:30 Polyethylene Glycol (Miralax) 17 gm BEDTIME ORAL 09/07/19 21:00 10/02/19 20:59 09/07/19 20:49 Potassium Chloride 100 ml @ 50 mls/hr Q2H IVPB 09/08/19 09:00 09/08/19 12:59 09/08/19 09:25 Shamar Rios MD Sep 08, 2019 11:20
--- NOTE | 2019-09-08 11:45 | GI Progress Note ---
Assessment/Plan Problems: (1) Coma ICD Codes: R40.20 - Unspecified coma SNOMED: 327918346 (2) Hospice care patient ICD Codes: Z51.5 - Encounter for palliative care SNOMED: 563799550, 217059584 (3) Dehydration ICD Codes: E86.0 - Dehydration SNOMED: 30698549, 029702779, 381307653 (4) Protein-calorie malnutrition, moderate ICD Codes: E44.0 - Moderate protein-calorie malnutrition SNOMED: 771685526 (5) failure to thrive Status: not improved, unchanged Status Narrative Discussed with Dr. Tompkins. Assessment/Plan coded and now intubated in the ICU no BM for few days KUB reviewed, ileus maintain NPO + IVF hold laxatives serial imaging as needed repeat labs poor prognosis The patient was seen and examined at bedside and all new and available data was reviewed in the patients chart. I agree with the above findings, impression and plan. (Patient seen earlier today. Signature stamp does not reflect patient encounter time.). - Suresh Tompkins MD Subjective Subjective limited Objective Last 24 Hour Vital Signs Date Time Temp Pulse Resp B/P (MAP) Pulse Ox O2 Delivery O2 Flow Rate FiO2 09/08/19 11:00 86 10 150/63 (92) 100 09/08/19 11:00 147/64 09/08/19 10:57 87 10 40 09/08/19 10:30 88 10 123/51 (75) 97 09/08/19 10:00 88 10 131/60 (83) 98 09/08/19 09:30 87 10 117/63 (81) 99 09/08/19 09:15 87 10 123/65 (84) 98 09/08/19 09:00 87 10 138/65 (89) 100 09/08/19 08:52 87 10 40 09/08/19 08:45 87 10 128/64 (85) 98 09/08/19 08:30 87 10 126/65 (85) 99 09/08/19 08:15 87 10 127/66 (86) 99 09/08/19 08:00 86 09/08/19 08:00 Mechanical Ventilator 09/08/19 08:00 97.5 86 10 128/64 (85) 98 09/08/19 08:00 40 09/08/19 07:45 86 10 138/70 (92) 100 09/08/19 07:30 86 10 127/67 (87) 99 09/08/19 07:30 86 138/67 09/08/19 07:15 86 10 140/68 (92) 99 09/08/19 07:00 86 10 140/67 (91) 99 09/08/19 07:00 127/67 09/08/19 06:32 85 10 40 09/08/19 06:00 145/67 09/08/19 05:23 83 10 40 09/08/19 05:00 145/56 09/08/19 04:45 153/73 (99) 09/08/19 04:30 85 10 141/79 (99) 100 09/08/19 04:15 85 10 145/45 (78) 99 09/08/19 04:00 97.0 86 14 134/65 (88) 99 09/08/19 04:00 40 09/08/19 04:00 Mechanical Ventilator 09/08/19 04:00 141/79 09/08/19 04:00 86 09/08/19 03:45 85 16 124/60 (81) 100 09/08/19 03:30 85 10 148/77 (100) 97 09/08/19 03:24 85 143/70 09/08/19 03:15 84 12 151/75 (100) 97 09/08/19 03:10 84 12 151/75 (100) 97 09/08/19 03:09 86 10 40 09/08/19 03:07 127/60 09/08/19 03:00 85 10 121/60 (80) 98 09/08/19 03:00 127/70 09/08/19 02:45 86 10 150/65 (93) 95 09/08/19 02:30 86 10 150/65 (93) 95 09/08/19 02:15 86 10 139/74 (95) 98 09/08/19 02:00 86 10 136/79 (98) 95 09/08/19 02:00 140/75 09/08/19 01:45 86 10 151/76 (101) 98 09/08/19 01:30 87 10 156/75 (102) 99 09/08/19 01:18 87 10 40 11/11/19 01:00 176/81 09/08/19 00:15 86 10 180/88 (118) 99 09/08/19 00:00 64/40 09/08/19 00:00 Mechanical Ventilator 09/08/19 00:00 87 09/08/19 00:00 40 09/08/19 00:00 98.5 87 10 67/56 (60) 99 09/07/19 23:45 86 10 90/42 (58) 100 09/07/19 23:30 79 10 100/40 (60) 98 09/07/19 23:15 80 10 146/57 (86) 98 09/07/19 23:09 80 10 40 09/07/19 23:00 80 10 143/75 (97) 98 09/07/19 23:00 146/56 09/07/19 22:51 80 101/62 09/07/19 22:45 90 10 126/60 (82) 99 09/07/19 22:30 80 10 134/70 (91) 98 09/07/19 22:15 80 10 130/75 (93) 99 09/07/19 22:00 81 10 126/74 (91) 97 09/07/19 22:00 126/74 09/07/19 21:45 81 10 98 09/07/19 21:30 82 10 146/71 (96) 99 09/07/19 21:15 83 10 141/66 (91) 99 09/07/19 21:13 83 10 40 09/07/19 21:00 82 10 120/68 (85) 100 09/07/19 21:00 120/68 09/07/19 20:45 84 10 130/60 (83) 100 09/07/19 20:30 85 10 162/75 (104) 100 09/07/19 20:15 85 10 144/80 (101) 100 09/07/19 20:00 40 09/07/19 20:00 98.5 86 10 158/82 (107) 100 09/07/19 20:00 86 09/07/19 20:00 158/82 09/07/19 20:00 Mechanical Ventilator 09/07/19 19:45 86 12 153/82 (105) 99 09/07/19 19:30 89 11 185/62 (103) 99 09/07/19 19:18 92 10 100 Mechanical Ventilator 40 89 10 99 11/10/19 19:17 89 10 40 09/07/19 19:15 89 10 172/70 (104) 99 09/07/19 19:00 89 12 163/71 (101) 99 09/07/19 19:00 163/71 09/07/19 18:45 79 10 68/26 (40) 100 09/07/19 18:42 78 75/42 09/07/19 18:41 75/42 09/07/19 18:30 83 10 44/23 (30) 99 09/07/19 18:15 85 10 105/56 (72) 99 09/07/19 18:00 82 10 79/35 (50) 100 09/07/19 17:30 87 10 131/60 (83) 100 09/07/19 17:02 88 10 40 09/07/19 17:00 88 10 153/27 (69) 100 09/07/19 16:00 101 09/07/19 16:00 40 09/07/19 16:00 133/38 09/07/19 16:00 Mechanical Ventilator 09/07/19 16:00 98.2 92 10 133/38 (69) 100 09/07/19 15:48 115/44 09/07/19 15:47 139/43 09/07/19 15:30 92 10 115/30 (58) 99 09/07/19 15:15 132/42 09/07/19 15:02 94 10 40 09/07/19 15:00 147/51 09/07/19 15:00 97 10 147/51 (83) 99 09/07/19 14:30 98 10 146/46 (79) 99 09/07/19 14:00 165/34 09/07/19 14:00 97 10 165/34 (77) 99 09/07/19 13:30 92 10 83/26 (45) 100 09/07/19 13:24 101 10 100 Mechanical Ventilator 40 97 10 97 09/07/19 13:22 98 10 40 09/07/19 13:15 131/35 09/07/19 13:14 109/32 09/07/19 13:00 101 10 131/35 (67) 98 09/07/19 13:00 83/26 09/07/19 12:30 101 10 122/31 (61) 97 09/07/19 12:00 40 09/07/19 12:00 101 09/07/19 12:00 115/52 09/07/19 12:00 98.4 101 10 11552 (73) 97 09/07/19 12:00 Mechanical Ventilator Intake and Output 09/07/19 09/08/19 19:00 07:00 Intake Total 3189.125 ml 3050.25 ml Output Total 1020 ml 2350 ml Balance 2169.125 ml 700.25 ml Free Water 30 ml IV Total 3159.125 ml 3050.25 ml Tube Feeding 0 ml 0 ml Output Urine Total 1020 ml 2350 ml Laboratory Tests Test 09/08/19 04:30 White Blood Count 36.3 K/UL (4.8-10.8) #*H Red Blood Count 4.06 M/UL (4.20-5.40) L Hemoglobin 9.1 G/DL (12.0-16.0) L Hematocrit 30.5 % (37.0-47.0) L Mean Corpuscular Volume 75 FL (80-99) L Mean Corpuscular Hemoglobin 22.5 PG (27.0-31.0) L Mean Corpuscular Hemoglobin Concent 30.0 G/DL (32.0-36.0) L Red Cell Distribution Width 22.9 % (11.6-14.8) H Platelet Count 296 K/UL (150-450) Mean Platelet Volume 8.5 FL (6.5-10.1) Neutrophils (%) (Auto) % (45.0-75.0) Lymphocytes (%) (Auto) % (20.0-45.0) Monocytes (%) (Auto) % (1.0-10.0) Eosinophils (%) (Auto) % (0.0-3.0) Basophils (%) (Auto) % (0.0-2.0) Differential Total Cells Counted 100 Neutrophils % (Manual) 68 % (45-75) Lymphocytes % (Manual) 13 % (20-45) L Monocytes % (Manual) 4 % (1-10) Eosinophils % (Manual) 2 % (0-3) Basophils % (Manual) 0 % (0-2) Band Neutrophils 13 % (0-8) H Platelet Estimate Adequate Platelet Morphology Normal Polychromasia 1+ Hypochromasia 1+ Anisocytosis 3+ Microcytosis 1+ Sodium Level 141 MMOL/L (136-145) Potassium Level 2.8 MMOL/L (3.5-5.1) L Chloride Level 102 MMOL/L (98-107) Carbon Dioxide Level 37 MMOL/L (21-32) H Anion Gap 2 mmol/L (5-15) L Blood Urea Nitrogen 31 mg/dL (7-18) H Creatinine 1.2 MG/DL (0.55-1.30) Estimat Glomerular Filtration Rate mL/min (>60) Glucose Level 385 MG/DL (74-106) #H Calcium Level 8.0 MG/DL (8.5-10.1) L Phosphorus Level 3.9 MG/DL (2.5-4.9) Magnesium Level 1.4 MG/DL (1.8-2.4) L Total Bilirubin 0.9 MG/DL (0.2-1.0) Aspartate Amino Transf (AST/SGOT) 37 U/L (15-37) Alanine Aminotransferase (ALT/SGPT) 30 U/L (12-78) Alkaline Phosphatase 128 U/L (46-116) H Total Protein 7.1 G/DL (6.4-8.2) Albumin 1.4 G/DL (3.4-5.0) L Globulin 5.7 g/dL Albumin/Globulin Ratio 0.2 (1.0-2.7) L Height (Feet): 5 Height (Inches): 3.00 Weight (Pounds): 163 General Appearance: lethargic Cardiovascular: normal rate Respiratory/Chest: no respiratory distress, other - intubated Abdominal Exam: site Arnulfo Boone PROFESSOR OF HISTORICAL THEOLOGY Sep 08, 2019 11:45
[2019-09-08] MEDS: Piperacillin/Tazobactam 3.375 GM in NS 110 ML IVPB SCH ×2 (14:11→22:48)
--- NOTE | 2019-09-08 14:23 | Cardiac Electrophysiology PN ---
Assessment/Plan Assessment/Plan 1. [id number] myocardial infarction. Peak Troponin is 2.441, down to 1.5. ? Due to severe dehydration as well. No chest pain hx, Lethargic and was on hospice care. Treat medically with aspirin 2. Septic shock on Levophed and Antonio and abx 3. 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 Off Lisinopril and Coreg for shock 4. Long runs of 14 and 17 beats of VT due to CMP. Medical therapy as was on Hospice Now full code. Not a candidate for cardiac cath 5. Severe hypernatremia. Improving with hydration 6. History of schizophrenia. 7. Dysphagia. S/P PEG by Dr Tompkins 8. Respiratory failure on Vent DW RN Subjective Subjective Had 17 beats of VT 09/02/19 and 14 beats on 08/30/19. In ICU unresponsive on 2 pressors, intubated. Full Code per RN even though was on Hospice before Objective Last 24 Hour Vital Signs Date Time Temp Pulse Resp B/P (MAP) Pulse Ox O2 Delivery O2 Flow Rate FiO2 09/08/19 13:22 141/67 09/08/19 13:00 101 10 142/68 (92) 99 09/08/19 12:59 101 10 40 09/08/19 12:52 163/74 09/08/19 12:20 100 10 168/78 (108) 100 09/08/19 12:00 40 09/08/19 12:00 97.5 84 11 130/57 (81) 99 09/08/19 12:00 124/63 09/08/19 12:00 87 09/08/19 12:00 Mechanical Ventilator 09/08/19 11:54 84 96/46 09/08/19 11:53 96/46 09/08/19 11:30 87 10 146/61 (89) 100 09/08/19 11:00 86 10 150/63 (92) 100 09/08/19 11:00 147/57 09/08/19 11:00 147/64 09/08/19 10:57 87 10 40 09/08/19 10:30 88 10 123/51 (75) 97 09/08/19 10:00 132/62 09/08/19 10:00 88 10 131/60 (83) 98 09/08/19 09:30 87 10 117/63 (81) 99 09/08/19 09:15 87 10 123/65 (84) 98 09/08/19 09:00 87 10 138/65 (89) 100 09/08/19 09:00 123/65 09/08/19 08:52 87 10 40 09/08/19 08:45 87 10 128/64 (85) 98 09/08/19 08:30 87 10 126/65 (85) 99 09/08/19 08:15 87 10 127/66 (86) 99 09/08/19 08:00 86 09/08/19 08:00 Mechanical Ventilator 09/08/19 08:00 140/68 09/08/19 08:00 97.5 86 10 128/64 (85) 98 09/08/19 08:00 40 09/08/19 07:45 86 10 138/70 (92) 100 09/08/19 07:30 86 10 127/67 (87) 99 09/08/19 07:30 86 138/67 09/08/19 07:30 147/70 09/08/19 07:15 86 10 140/68 (92) 99 09/08/19 07:00 86 10 140/67 (91) 99 09/08/19 07:00 127/67 09/08/19 06:32 85 10 40 09/08/19 06:00 145/67 09/08/19 05:23 83 10 40 09/08/19 05:00 145/56 09/08/19 04:45 153/73 (99) 09/08/19 04:30 85 10 141/79 (99) 100 09/08/19 04:15 85 10 145/45 (78) 99 09/08/19 04:00 97.0 86 14 134/65 (88) 99 09/08/19 04:00 40 09/08/19 04:00 Mechanical Ventilator 09/08/19 04:00 141/79 09/08/19 04:00 86 09/08/19 03:45 85 16 124/60 (81) 100 09/08/19 03:30 85 10 148/77 (100) 97 09/08/19 03:24 85 143/70 09/08/19 03:15 84 12 151/75 (100) 97 09/08/19 03:10 84 12 151/75 (100) 97 09/08/19 03:09 86 10 40 09/08/19 03:07 127/60 09/08/19 03:00 85 10 121/60 (80) 98 09/08/19 03:00 127/70 09/08/19 02:45 86 10 150/65 (93) 95 09/08/19 02:30 86 10 150/65 (93) 95 09/08/19 02:15 86 10 139/74 (95) 98 09/08/19 02:00 86 10 136/79 (98) 95 09/08/19 02:00 140/75 09/08/19 01:45 86 10 151/76 (101) 98 09/08/19 01:30 87 10 156/75 (102) 99 09/08/19 01:18 87 10 40 09/08/19 01:00 176/81 09/08/19 00:15 86 10 180/88 (118) 99 09/08/19 00:00 64/40 09/08/19 00:00 Mechanical Ventilator 09/08/19 00:00 87 09/08/19 00:00 40 09/08/19 00:00 98.5 87 10 67/56 (60) 99 09/07/19 23:45 86 10 90/42 (58) 100 09/07/19 23:30 79 10 100/40 (60) 98 09/07/19 23:15 80 10 146/57 (86) 98 09/07/19 23:09 80 10 40 09/07/19 23:00 80 10 143/75 (97) 98 09/07/19 23:00 146/56 09/07/19 22:51 80 101/62 09/07/19 22:45 90 10 126/60 (82) 99 09/07/19 22:30 80 10 134/70 (91) 98 09/07/19 22:15 80 10 130/75 (93) 99 09/07/19 22:00 81 10 126/74 (91) 97 09/07/19 22:00 126/74 09/07/19 21:45 81 10 98 09/07/19 21:30 82 10 146/71 (96) 99 09/07/19 21:15 83 10 141/66 (91) 99 09/07/19 21:13 83 10 40 09/07/19 21:00 82 10 120/68 (85) 100 09/07/19 21:00 120/68 09/07/19 20:45 84 10 130/60 (83) 100 09/07/19 20:30 85 10 162/75 (104) 100 09/07/19 20:15 85 10 144/80 (101) 100 09/07/19 20:00 40 09/07/19 20:00 98.5 86 10 158/82 (107) 100 09/07/19 20:00 86 09/07/19 20:00 158/82 09/07/19 20:00 Mechanical Ventilator 09/07/19 19:45 86 12 153/82 (105) 99 09/07/19 19:30 89 11 185/62 (103) 99 09/07/19 19:18 92 10 100 Mechanical Ventilator 40 89 10 99 09/07/19 19:17 89 10 40 09/07/19 19:15 89 10 172/70 (104) 99 09/07/19 19:00 89 12 163/71 (101) 99 09/07/19 19:00 163/71 09/07/19 18:45 79 10 68/26 (40) 100 09/07/19 18:42 78 75/42 09/07/19 18:41 75/42 09/07/19 18:30 83 10 44/23 (30) 99 09/07/19 18:15 85 10 105/56 (72) 99 09/07/19 18:00 82 10 79/35 (50) 100 09/07/19 17:30 87 10 131/60 (83) 100 09/07/19 17:02 88 10 40 09/07/19 17:00 88 10 153/27 (69) 100 09/07/19 16:00 101 09/07/19 16:00 40 09/07/19 16:00 133/38 09/07/19 16:00 Mechanical Ventilator 09/07/19 16:00 98.2 92 10 133/38 (69) 100 09/07/19 15:48 115/44 09/07/19 15:47 139/43 09/07/19 15:30 92 10 115/30 (58) 99 09/07/19 15:15 132/42 09/07/19 15:02 94 10 40 09/07/19 15:00 147/51 09/07/19 15:00 97 10 147/51 (83) 99 09/07/19 14:30 98 10 146/46 (79) 99 Intake and Output 09/07/19 09/08/19 19:00 07:00 Intake Total 3189.125 ml 3050.25 ml Output Total 1020 ml 2350 ml Balance 2169.125 ml 700.25 ml Free Water 30 ml IV Total 3159.125 ml 3050.25 ml Tube Feeding 0 ml 0 ml Output Urine Total 1020 ml 2350 ml Laboratory Tests Test 09/08/19 04:30 White Blood Count 36.3 K/UL (4.8-10.8) #*H Red Blood Count 4.06 M/UL (4.20-5.40) L Hemoglobin 9.1 G/DL (12.0-16.0) L Hematocrit 30.5 % (37.0-47.0) L Mean Corpuscular Volume 75 FL (80-99) L Mean Corpuscular Hemoglobin 22.5 PG (27.0-31.0) L Mean Corpuscular Hemoglobin Concent 30.0 G/DL (32.0-36.0) L Red Cell Distribution Width 22.9 % (11.6-14.8) H Platelet Count 296 K/UL (150-450) Mean Platelet Volume 8.5 FL (6.5-10.1) Neutrophils (%) (Auto) % (45.0-75.0) Lymphocytes (%) (Auto) % (20.0-45.0) Monocytes (%) (Auto) % (1.0-10.0) Eosinophils (%) (Auto) % (0.0-3.0) Basophils (%) (Auto) % (0.0-2.0) Differential Total Cells Counted 100 Neutrophils % (Manual) 68 % (45-75) Lymphocytes % (Manual) 13 % (20-45) L Monocytes % (Manual) 4 % (1-10) Eosinophils % (Manual) 2 % (0-3) Basophils % (Manual) 0 % (0-2) Band Neutrophils 13 % (0-8) H Platelet Estimate Adequate Platelet Morphology Normal Polychromasia 1+ Hypochromasia 1+ Anisocytosis 3+ Microcytosis 1+ Sodium Level 141 MMOL/L (136-145) Potassium Level 2.8 MMOL/L (3.5-5.1) L Chloride Level 102 MMOL/L (98-107) Carbon Dioxide Level 37 MMOL/L (21-32) H Anion Gap 2 mmol/L (5-15) L Blood Urea Nitrogen 31 mg/dL (7-18) H Creatinine 1.2 MG/DL (0.55-1.30) Estimat Glomerular Filtration Rate mL/min (>60) Glucose Level 385 MG/DL (74-106) #H Calcium Level 8.0 MG/DL (8.5-10.1) L Phosphorus Level 3.9 MG/DL (2.5-4.9) Magnesium Level 1.4 MG/DL (1.8-2.4) L Total Bilirubin 0.9 MG/DL (0.2-1.0) Aspartate Amino Transf (AST/SGOT) 37 U/L (15-37) Alanine Aminotransferase (ALT/SGPT) 30 U/L (12-78) Alkaline Phosphatase 128 U/L (46-116) H Total Protein 7.1 G/DL (6.4-8.2) Albumin 1.4 G/DL (3.4-5.0) L Globulin 5.7 g/dL Albumin/Globulin Ratio 0.2 (1.0-2.7) L Objective HEAD AND NECK: No JVD. Orally intubated LUNGS: Coarse rhonchi. CARDIOVASCULAR: Irregular S1 and S2 with no gallop or murmur. ABDOMEN: Soft.PEG in place EXTREMITIES: No pitting edema. Markie Oliveira MD Sep 08, 2019 14:23
[2019-09-08] MEDS: Vancomycin 750mg/D5W 275ml IVPB SCH ×2 (15:02)
--- NOTE | 2019-09-08 16:00 | Progress Note ---
DATE: 09/08/2019 SUBJECTIVE: This is elderly female came with short of breath, hypoxia, and CHF. The patient had been in cardiopulmonary arrest the day before yesterday, now the patient is not responding on Levophed drip. She is critically sick and possibly looks slight encephalopathy. Neurology consult is getting. OBJECTIVE: VITAL SIGNS: Blood pressure 118/61, pulse 87, no fever. CHEST: Bilateral few crackles. CARDIOVASCULAR: Regular rhythm. ABDOMEN: Soft. Positive bowel sounds. EXTREMITIES: CCE. NEUROLOGICAL: Nonverbal, bedbound. LABORATORY DATA: White counts are 36,000, hemoglobin 9.1. Chemistry panel, sodium 141, potassium 2.8, BUN 31, creatinine 1.2. ASSESSMENT: 1. Acute cardiopulmonary arrest. 2. Sepsis. 3. CHF. 4. Recurrent hypokalemia. 5. Metabolic encephalopathy. 6. Possible aspiration pneumonia. PLAN: 1. We will replace the potassium. 2. Social service discussed with the family. 3. Continue current medical treatment. 4. Continue Levophed. 5. Continue IV antibiotics. 6. Bronchodilator treatments. 7. Weaning protocol. Osmar Cooney M.D. DR: BYRON JOB#: [id number] CC:
--- NOTE | 2019-09-08 16:07 | Surgery Progress Note ---
Surgery Progress Note Subjective Additional Comments Patient seen and examined bedside. Her brother was present. Had a long discussion with him about her condition and recent events and care plan. Patient's mother says he understands and is been hoping to make her comfortable and move towards a comfort care measures but states that his sister has the power of planner/scheduler and wants to continue with all aggressive treatments and she is not ready to change current care plan. Objective Last 24 Hour Vital Signs Date Time Temp Pulse Resp B/P (MAP) Pulse Ox O2 Delivery O2 Flow Rate FiO2 09/08/19 15:25 97 10 40 09/08/19 15:20 97 10 130/65 (86) 100 09/08/19 15:02 128/62 09/08/19 15:00 97 10 132/62 (85) 100 09/08/19 14:30 97 10 131/61 (84) 100 09/08/19 14:15 97 10 118/59 (78) 100 09/08/19 14:00 97 10 117/58 (77) 100 09/08/19 14:00 118/59 09/08/19 13:45 97 10 112/59 (76) 100 09/08/19 13:30 98 10 102/55 (71) 99 09/08/19 13:22 141/67 09/08/19 13:15 100 10 141/67 (91) 100 09/08/19 13:00 101 10 142/68 (92) 99 09/08/19 12:59 101 10 40 09/08/19 12:52 163/74 09/08/19 12:20 100 10 168/78 (108) 100 09/08/19 12:00 40 09/08/19 12:00 97.5 84 11 130/57 (81) 99 09/08/19 12:00 124/63 09/08/19 12:00 87 09/08/19 12:00 Mechanical Ventilator 09/08/19 11:54 84 96/46 09/08/19 11:53 96/46 09/08/19 11:30 87 10 146/61 (89) 100 09/08/19 11:00 86 10 150/63 (92) 100 09/08/19 11:00 147/57 09/08/19 11:00 147/64 09/08/19 10:57 87 10 40 09/08/19 10:30 88 10 123/51 (75) 97 09/08/19 10:00 132/62 09/08/19 10:00 88 10 131/60 (83) 98 09/08/19 09:30 87 10 117/63 (81) 99 09/08/19 09:15 87 10 123/65 (84) 98 09/08/19 09:00 87 10 138/65 (89) 100 09/08/19 09:00 123/65 09/08/19 08:52 87 10 40 09/08/19 08:45 87 10 128/64 (85) 98 09/08/19 08:30 87 10 126/65 (85) 99 09/08/19 08:15 87 10 127/66 (86) 99 09/08/19 08:00 86 09/08/19 08:00 Mechanical Ventilator 09/08/19 08:00 140/68 09/08/19 08:00 97.5 86 10 128/64 (85) 98 09/08/19 08:00 40 09/08/19 07:45 86 10 138/70 (92) 100 09/08/19 07:30 86 10 127/67 (87) 99 09/08/19 07:30 86 138/67 09/08/19 07:30 147/70 09/08/19 07:15 86 10 140/68 (92) 99 09/08/19 07:00 86 10 140/67 (91) 99 09/08/19 07:00 127/67 09/08/19 06:32 85 10 40 09/08/19 06:00 145/67 09/08/19 05:23 83 10 40 09/08/19 05:00 145/56 09/08/19 04:45 153/73 (99) 09/08/19 04:30 85 10 141/79 (99) 100 09/08/19 04:15 85 10 145/45 (78) 99 09/08/19 04:00 97.0 86 14 134/65 (88) 99 09/08/19 04:00 40 09/08/19 04:00 Mechanical Ventilator 09/08/19 04:00 141/79 09/08/19 04:00 86 09/08/19 03:45 85 16 124/60 (81) 100 09/08/19 03:30 85 10 148/77 (100) 97 09/08/19 03:24 85 143/70 09/08/19 03:15 84 12 151/75 (100) 97 09/08/19 03:10 84 12 151/75 (100) 97 09/08/19 03:09 86 10 40 09/08/19 03:07 127/60 09/08/19 03:00 85 10 121/60 (80) 98 09/08/19 03:00 127/70 09/08/19 02:45 86 10 150/65 (93) 95 09/08/19 02:30 86 10 150/65 (93) 95 09/08/19 02:15 86 10 139/74 (95) 98 09/08/19 02:00 86 10 136/79 (98) 95 09/08/19 02:00 140/75 09/08/19 01:45 86 10 151/76 (101) 98 09/08/19 01:30 87 10 156/75 (102) 99 09/08/19 01:18 87 10 40 09/08/19 01:00 176/81 09/08/19 00:15 86 10 180/88 (118) 99 09/08/19 00:00 64/40 09/08/19 00:00 Mechanical Ventilator 09/08/19 00:00 87 09/08/19 00:00 40 09/08/19 00:00 98.5 87 10 67/56 (60) 99 09/07/19 23:45 86 10 90/42 (58) 100 09/07/19 23:30 79 10 100/40 (60) 98 09/07/19 23:15 80 10 146/57 (86) 98 09/07/19 23:09 80 10 40 09/07/19 23:00 80 10 143/75 (97) 98 09/07/19 23:00 146/56 09/07/19 22:51 80 101/62 09/07/19 22:45 90 10 126/60 (82) 99 09/07/19 22:30 80 10 134/70 (91) 98 09/07/19 22:15 80 10 130/75 (93) 99 09/07/19 22:00 81 10 126/74 (91) 97 09/07/19 22:00 126/74 09/07/19 21:45 81 10 98 09/07/19 21:30 82 10 146/71 (96) 99 09/07/19 21:15 83 10 141/66 (91) 99 09/07/19 21:13 83 10 40 09/07/19 21:00 82 10 120/68 (85) 100 09/07/19 21:00 120/68 09/07/19 20:45 84 10 130/60 (83) 100 09/07/19 20:30 85 10 162/75 (104) 100 09/07/19 20:15 85 10 144/80 (101) 100 09/07/19 20:00 40 09/07/19 20:00 98.5 86 10 158/82 (107) 100 09/07/19 20:00 86 09/07/19 20:00 158/82 09/07/19 20:00 Mechanical Ventilator 09/07/19 19:45 86 12 153/82 (105) 99 09/07/19 19:30 89 11 185/62 (103) 99 09/07/19 19:18 92 10 100 Mechanical Ventilator 40 89 10 99 09/07/19 19:17 89 10 40 09/07/19 19:15 89 10 172/70 (104) 99 09/07/19 19:00 89 12 163/71 (101) 99 09/07/19 19:00 163/71 09/07/19 18:45 79 10 68/26 (40) 100 09/07/19 18:42 78 75/42 09/07/19 18:41 75/42 09/07/19 18:30 83 10 44/23 (30) 99 09/07/19 18:15 85 10 105/56 (72) 99 09/07/19 18:00 82 10 79/35 (50) 100 09/07/19 17:30 87 10 131/60 (83) 100 09/07/19 17:02 88 10 40 09/07/19 17:00 88 10 153/27 (69) 100 I&O Intake and Output 09/07/19 09/08/19 18:59 06:59 Intake Total 3126.625 ml 3022.75 ml Output Total 850 ml 2350 ml Balance 2276.625 ml 672.75 ml Free Water 30 ml IV Total 3096.625 ml 3022.75 ml Tube Feeding 0 ml 0 ml Output Urine Total 850 ml 2350 ml Dressing: saturated Wound: other Drains: other Cardiovascular: RSR Respiratory: decreased breath sounds Abdomen: soft, non-distended, decreased bowel sounds Extremities: no cyanosis Laboratory Tests Test 09/08/19 04:30 White Blood Count 36.3 K/UL (4.8-10.8) #*H Red Blood Count 4.06 M/UL (4.20-5.40) L Hemoglobin 9.1 G/DL (12.0-16.0) L Hematocrit 30.5 % (37.0-47.0) L Mean Corpuscular Volume 75 FL (80-99) L Mean Corpuscular Hemoglobin 22.5 PG (27.0-31.0) L Mean Corpuscular Hemoglobin Concent 30.0 G/DL (32.0-36.0) L Red Cell Distribution Width 22.9 % (11.6-14.8) H Platelet Count 296 K/UL (150-450) Mean Platelet Volume 8.5 FL (6.5-10.1) Neutrophils (%) (Auto) % (45.0-75.0) Lymphocytes (%) (Auto) % (20.0-45.0) Monocytes (%) (Auto) % (1.0-10.0) Eosinophils (%) (Auto) % (0.0-3.0) Basophils (%) (Auto) % (0.0-2.0) Differential Total Cells Counted 100 Neutrophils % (Manual) 68 % (45-75) Lymphocytes % (Manual) 13 % (20-45) L Monocytes % (Manual) 4 % (1-10) Eosinophils % (Manual) 2 % (0-3) Basophils % (Manual) 0 % (0-2) Band Neutrophils 13 % (0-8) H Platelet Estimate Adequate Platelet Morphology Normal Polychromasia 1+ Hypochromasia 1+ Anisocytosis 3+ Microcytosis 1+ Sodium Level 141 MMOL/L (136-145) Potassium Level 2.8 MMOL/L (3.5-5.1) L Chloride Level 102 MMOL/L (98-107) Carbon Dioxide Level 37 MMOL/L (21-32) H Anion Gap 2 mmol/L (5-15) L Blood Urea Nitrogen 31 mg/dL (7-18) H Creatinine 1.2 MG/DL (0.55-1.30) Estimat Glomerular Filtration Rate mL/min (>60) Glucose Level 385 MG/DL (74-106) #H Calcium Level 8.0 MG/DL (8.5-10.1) L Phosphorus Level 3.9 MG/DL (2.5-4.9) Magnesium Level 1.4 MG/DL (1.8-2.4) L Total Bilirubin 0.9 MG/DL (0.2-1.0) Aspartate Amino Transf (AST/SGOT) 37 U/L (15-37) Alanine Aminotransferase (ALT/SGPT) 30 U/L (12-78) Alkaline Phosphatase 128 U/L (46-116) H Total Protein 7.1 G/DL (6.4-8.2) Albumin 1.4 G/DL (3.4-5.0) L Globulin 5.7 g/dL Albumin/Globulin Ratio 0.2 (1.0-2.7) L Plan Problems: (1) Sacral decubitus ulcer Assessment & Plan: Patient presented with Partial thickness stage 2 pressure injuries to R and L buttocks with surrounding non-blanching erythema without induration or fluctuance. Partial thickness stage 2 pressure injury R buttocks. Base of wound moist and viable. (L)1.8cm x (W)1cm.Erythematous and denuded borders and periwound. Partial thickness stage 2pressure injury L buttocks. Base of wound moist- viable. Borders and periwound erythematous and denuded. R heel boggy with non-blanching erythema. L heel boggy but blanchable. Tx.Plan: Cleanse wounds R and L buttocks with Saline. Apply Therahoney to each wound. Apply Moisture Barrier periwound.Cover with Optifoam drsg. Change every 3 days and prn. Apply Moisture Barrier Paste to Perineum and bilat ischial regions with each Incontinence care. APM/DAVID Mattress overlay. Reposition at least every 2hours or as tolerated. Off-load heels with pillow. (2) failure to thrive (3) Protein-calorie malnutrition, moderate Assessment & Plan: DAILY ESTIMATED NEEDS: Needs based on Pulmonary, cardiac; 64.1kg 25-30 kcals/kg 1603- 1923 total kcals 1-1.5 g protein/kg 64- 96 g total protein 20-25 mL/kg 5174-8055 total fluid mLs NUTRITION DIAGNOSIS: *Swallowing difficulty R/T dysdphagia as evidenced by pt is now s/p PEG placement, GT feeding held at this time for elev residuals. *Altered nutrition related lab values r/t dehydration, clinical condition as evidenced by critically elev Na value of 163*-> now wnl, BUN 41-> 26, elev BGs (206, 281), POC glu (157-254), low K (3.3), elev BNP (8049). CURRENT TF:Glucerna 1.2 @ 55ml/hr x 24 hrs -> HELD FOR RESIDUALS ENTERAL NUTRITION RECOMMENDATIONS: Glucerna 1.5 @ 45ml/hr x24 hrs to provide 1080ml, 1620 kcal, 89g pro, 820ml [id number] - Rec TF change to Glucerna 1.5 - possible TF tolerance, less free water given CHF, elev BNP - Initiate Glucerna 1.5 @ 25ml/hr x 4 hrs, advance 10ml q 4-6 hrs as tolerated to goal rate - Water flush per MD/ HOB over 30 degrees ADDITIONAL RECOMMENDATIONS: 1) Per SNF: pt is 141 lbs + 5' 6.5" tall Weekly wt monitoring 2) Consider around the clock Reglan for improved TF tolerance 3) Consider long acting insulin for improved BG control -> BGs mostly in the 200's despite TF being held 4) Monitor lytes, replete as needed (low K) (4) Moderate malnutrition (5) Acute respiratory failure Assessment & Plan: Cardiovascular event currently resuscitated and in ICU on vent management. Patient's prognosis very guarded. She is fairly comatose and nonresponsive. Overall prognosis given age history and medical condition is very poor. Discussed with the brother who expressed understanding and stated that the sister is power of planner/scheduler and has not made considerations for changing care plan currently. Recommend reconsideration of CODE STATUS and comfort care measures Ramiro Mack Sep 08, 2019 16:07
[2019-09-08] MEDS: Dyna-Hex 2% Top Sol 2oz TOPIC SCH (20:26)
[2019-09-08] MEDS: Miralax 17gm pkt ORAL SCH (20:29)
[2019-09-09] VITALS (47 sets, daily range): BP systolic 67–127; BP diastolic 35–93
[2019-09-09] MEDS: NovoLOG Insulin Flexpen SUBQ SCH ×4 (00:19→17:18)
[2019-09-09] MEDS: Phenylephrine 50 MG in D5W 245 ML IV PRN ×4 (00:50→13:29)
[2019-09-09] MEDS: Vancomycin 750mg/D5W 275ml IVPB SCH ×4 (03:39→14:41)
[2019-09-09] MEDS: D5 1/2NS 1,000 ML IV SCH (05:03)
[2019-09-09] MEDS: Piperacillin/Tazobactam 3.375 GM in NS 110 ML IVPB SCH ×3 (05:04→22:08)
[2019-09-09 05:12] LABS: HEMATOCRIT 27.3 % (37.0-47.0); HEMOGLOBIN 8.2 G/DL (12.0-16.0); MEAN CORPUSCULAR VOLUME 75 FL (80-99); PLATELET COUNT 236 K/UL (150-450); RED BLOOD COUNT 3.63 M/UL (4.20-5.40); RED CELL DISTRIBUTION WIDTH 22.9 % (11.6-14.8)
[2019-09-09 05:51] LABS: ALANINE AMINOTRANSFERASE 21 U/L (12-78); ALBUMIN 1.5 G/DL (3.4-5.0); ALBUMIN/GLOBULIN RATIO 0.3 (1.0-2.7); ALKALINE PHOSPHATASE 131 U/L (46-116); ANION GAP 9 mmol/L (5-15); ASPARTATE AMINO TRANSFERASE 25 U/L (15-37); BILIRUBIN,TOTAL 1.1 MG/DL (0.2-1.0); BLOOD UREA NITROGEN 24 mg/dL (7-18); CALCIUM 7.4 MG/DL (8.5-10.1); CARBON DIOXIDE 30 MMOL/L (21-32); CHLORIDE 98 MMOL/L (98-107); CREATININE 1.2 MG/DL (0.55-1.30); PHOSPHORUS 3.8 MG/DL (2.5-4.9); POTASSIUM 3.5 MMOL/L (3.5-5.1); SODIUM 137 MMOL/L (136-145)
[2019-09-09 06:27] LABS: BILIRUBIN,DIRECT 0.7 MG/DL (0.0-0.3)
--- NOTE | 2019-09-09 08:22 | Cardiac Electrophysiology PN ---
Assessment/Plan Assessment/Plan 1. [id number] myocardial infarction. Peak Troponin is 2.441, down to 1.5. ? Due to severe dehydration as well. No chest pain hx, Lethargic and was on hospice care. 2. Septic shock on Levophed 20 and WILFRID 200 and abx 3. 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 Off Lisinopril and Coreg for shock 4. Long runs of 14 and 17 beats of VT due to CMP. Medical therapy as was on [facility] full code. Not a candidate for cardiac cath 5. Severe hypernatremia. Improving with hydration 6. History of schizophrenia. 7. Dysphagia. S/P PEG by Dr Tompkins 8. Respiratory failure on Vent 9. Full Code. Was Hospice before. Ethics meetiing today DW RN Subjective Subjective Had 17 beats of VT 09/02/19 and 14 beats on 08/30/19. In ICU unresponsive on Levo 20 and Wilfrid 200, intubated on the Vent Full Code per RN even though was on Hospice before Ethics eval pending today Objective Last 24 Hour Vital Signs Date Time Temp Pulse Resp B/P (MAP) Pulse Ox O2 Delivery O2 Flow Rate FiO2 09/09/19 07:09 102 10 40 09/09/19 06:57 104/63 09/09/19 06:06 95/50 09/09/19 06:00 102 10 95/50 (65) 99 09/09/19 05:30 103 10 107/52 (70) 99 09/09/19 05:20 103 10 40 09/09/19 05:00 104/54 09/09/19 05:00 95 10 104/54 (71) 99 09/09/19 04:36 111/45 09/09/19 04:34 92 110/45 09/09/19 04:30 94 10 127/54 (78) 99 09/09/19 04:00 99 09/09/19 04:00 Mechanical Ventilator 09/09/19 04:00 40 09/09/19 04:00 98.8 93 10 83/51 (62) 99 09/09/19 03:30 94 10 88/51 (63) 99 09/09/19 03:25 93 10 40 09/09/19 03:00 94 10 107/48 (67) 100 09/09/19 02:53 103/53 09/09/19 02:30 93 10 95/50 (65) 100 09/09/19 02:00 103/51 09/09/19 02:00 92 10 104/57 (73) 100 09/09/19 01:30 93 11 107/59 (75) 100 09/09/19 01:25 91 10 40 09/09/19 01:00 94 10 97/57 (70) 99 09/09/19 01:00 107/48 09/09/19 00:50 95 87/56 09/09/19 00:30 95 10 86/49 (61) 99 09/09/19 00:00 40 09/09/19 00:00 116/56 09/09/19 00:00 97.6 92 12 99/58 (72) 99 09/09/19 00:00 Mechanical Ventilator 09/08/19 23:30 92 10 119/53 (75) 100 09/08/19 23:00 110/73 09/08/19 23:00 92 10 108/54 (72) 100 09/08/19 22:50 92 10 40 09/08/19 22:30 92 10 111/56 (74) 100 09/08/19 22:00 116/65 09/08/19 22:00 93 10 113/57 (75) 99 09/08/19 21:36 70/50 09/08/19 21:30 86 15 67/40 (49) 98 09/08/19 21:00 101 8 128/67 (87) 99 09/08/19 21:00 101 10 40 09/08/19 21:00 121/63 09/08/19 20:30 101 12 142/64 (90) 100 09/08/19 20:28 100 109/63 09/08/19 20:00 97.8 96 10 96/55 (69) 100 09/08/19 20:00 87/40 09/08/19 20:00 92 09/08/19 20:00 Mechanical Ventilator 09/08/19 20:00 40 09/08/19 19:30 97 10 101/53 (69) 99 09/08/19 19:07 97 10 40 09/08/19 19:00 96 10 96/55 (69) 99 09/08/19 19:00 96/55 09/08/19 18:30 96 10 106/55 (72) 99 09/08/19 18:00 96 10 104/55 (71) 99 09/08/19 18:00 104/55 09/08/19 17:30 96 10 116/57 (76) 99 09/08/19 17:14 96 10 40 09/08/19 17:00 96 10 125/59 (81) 100 09/08/19 17:00 119/58 09/08/19 16:15 97 10 130/62 (84) 100 09/08/19 16:15 130/65 09/08/19 16:08 96 68/41 09/08/19 16:00 40 09/08/19 16:00 97.8 96 10 67/43 (51) 99 09/08/19 16:00 Mechanical Ventilator 09/08/19 16:00 68/41 09/08/19 16:00 96 09/08/19 15:50 97 10 134/63 (86) 100 09/08/19 15:30 96 10 141/66 (91) 100 09/08/19 15:25 97 10 40 09/08/19 15:20 97 10 130/65 (86) 100 09/08/19 15:02 128/62 09/08/19 15:00 97 10 132/62 (85) 100 09/08/19 14:30 97 10 131/61 (84) 100 09/08/19 14:15 97 10 118/59 (78) 100 09/08/19 14:00 97 10 117/58 (77) 100 09/08/19 14:00 118/59 09/08/19 13:45 97 10 112/59 (76) 100 09/08/19 13:30 98 10 102/55 (71) 99 09/08/19 13:22 141/67 09/08/19 13:15 100 10 141/67 (91) 100 09/08/19 13:00 101 10 142/68 (92) 99 09/08/19 12:59 101 10 40 09/08/19 12:52 163/74 09/08/19 12:20 100 10 168/78 (108) 100 09/08/19 12:00 40 09/08/19 12:00 97.5 84 11 130/57 (81) 99 09/08/19 12:00 124/63 09/08/19 12:00 87 11/11/19 12:00 Mechanical Ventilator 09/08/19 11:54 84 96/46 09/08/19 11:53 96/46 09/08/19 11:30 87 10 146/61 (89) 100 09/08/19 11:00 86 10 150/63 (92) 100 09/08/19 11:00 147/57 09/08/19 11:00 147/64 09/08/19 10:57 87 10 40 09/08/19 10:30 88 10 123/51 (75) 97 09/08/19 10:00 132/62 09/08/19 10:00 88 10 131/60 (83) 98 09/08/19 09:30 87 10 117/63 (81) 99 09/08/19 09:15 87 10 123/65 (84) 98 09/08/19 09:00 87 10 138/65 (89) 100 09/08/19 09:00 123/65 09/08/19 08:52 87 10 40 09/08/19 08:45 87 10 128/64 (85) 98 09/08/19 08:30 87 10 126/65 (85) 99 Intake and Output 09/08/19 09/09/19 19:00 07:00 Intake Total 3027.5003 ml 2780.000 ml Output Total 3020 ml 2005 ml Balance 7.5003 ml 775.000 ml Free Water 40 ml IV Total 2977.5003 ml 2730.000 ml Tube Feeding 0 ml 0 ml Other 10 ml 50 ml Output Urine Total 3020 ml 2005 ml Laboratory Tests Test 09/09/19 03:20 White Blood Count 32.0 K/UL (4.8-10.8) *H Red Blood Count 3.63 M/UL (4.20-5.40) L Hemoglobin 8.2 G/DL (12.0-16.0) L Hematocrit 27.3 % (37.0-47.0) L Mean Corpuscular Volume 75 FL (80-99) L Mean Corpuscular Hemoglobin 22.6 PG (27.0-31.0) L Mean Corpuscular Hemoglobin Concent 30.0 G/DL (32.0-36.0) L Red Cell Distribution Width 22.9 % (11.6-14.8) H Platelet Count 236 K/UL (150-450) Mean Platelet Volume 10.3 FL (6.5-10.1) H Neutrophils (%) (Auto) % (45.0-75.0) Lymphocytes (%) (Auto) % (20.0-45.0) Monocytes (%) (Auto) % (1.0-10.0) Eosinophils (%) (Auto) % (0.0-3.0) Basophils (%) (Auto) % (0.0-2.0) Neutrophils % (Manual) Pending Lymphocytes % (Manual) Pending Platelet Estimate Pending Platelet Morphology Pending Sodium Level 137 MMOL/L (136-145) Potassium Level 3.5 MMOL/L (3.5-5.1) Chloride Level 98 MMOL/L (98-107) Carbon Dioxide Level 30 MMOL/L (21-32) Anion Gap 9 mmol/L (5-15) Blood Urea Nitrogen 24 mg/dL (7-18) H Creatinine 1.2 MG/DL (0.55-1.30) Estimat Glomerular Filtration Rate mL/min (>60) Glucose Level 381 MG/DL (74-106) H Calcium Level 7.4 MG/DL (8.5-10.1) L Phosphorus Level 3.8 MG/DL (2.5-4.9) Magnesium Level 1.5 MG/DL (1.8-2.4) L Total Bilirubin 1.1 MG/DL (0.2-1.0) H Direct Bilirubin 0.7 MG/DL (0.0-0.3) H Aspartate Amino Transf (AST/SGOT) 25 U/L (15-37) Alanine Aminotransferase (ALT/SGPT) 21 U/L (12-78) Alkaline Phosphatase 131 U/L (46-116) H Troponin I 0.082 ng/mL (0.000-0.056) C-Reactive Protein, Quantitative 34.8 mg/dL (0.00-0.90) H Pro-B-Type Natriuretic Peptide 87081 pg/mL (0-125) H Total Protein 6.3 G/DL (6.4-8.2) L Albumin 1.5 G/DL (3.4-5.0) L Globulin 4.8 g/dL Albumin/Globulin Ratio 0.3 (1.0-2.7) L Microbiology Date/Time Source Procedure Growth Status 09/07/19 05:20 Sputum Gram Stain - Final Complete 09/07/19 05:20 Sputum Sputum Culture - Final NORMAL UPPER RESPIRATORY TACOS PRESENT Complete Objective HEAD AND NECK: No JVD. Orally intubated LUNGS: Coarse rhonchi. CARDIOVASCULAR: Irregular S1 and S2 with no gallop or murmur. ABDOMEN: Soft.PEG in place EXTREMITIES: No pitting edema. Markie Oliveira MD Sep 09, 2019 08:22
[2019-09-09] MEDS: Docusate 100mg/10ml Liq GT SCH ×3 (08:33→17:17)
[2019-09-09] MEDS: Aspirin Baby 81mg NG SCH (08:33)
[2019-09-09] MEDS: Nitroglycerin Patch 0.4mg TDERMAL SCH (10:54)
--- NOTE | 2019-09-09 11:56 | Nephrology Progress Note ---
Assessment/Plan Problem List: (1) Acute respiratory failure Assessment: septic shock (2) Dehydration (3) Failure to thrive (4) Hypernatremia (5) Pneumonia (6) Elevated troponin (7) Cardiomyopathy Assessment Dehydration leading to HyperNatremia HypoAlbuminemia / Mal nutrition Elevated Troponin NSTEMI COPD HTN Pneumonia Plan strat Midodrine start feeding down on IV on 2 pressors intubated unresponsive post code blue off BP meds has PEG k and Phos supplement as needed pulmonary and cardiac support poor prognosis favor comfort care EEG Neuro eval ? previously: Low EjFx Monitor BS and BP Monitor renal parameters Per consultants ASA and Nitro afterload reduction Subjective ROS Limited/Unobtainable: Yes Objective Objective Last 24 Hour Vital Signs Date Time Temp Pulse Resp B/P (MAP) Pulse Ox O2 Delivery O2 Flow Rate FiO2 09/09/19 11:00 100 10 115/51 (72) 100 09/09/19 11:00 115/51 09/09/19 10:55 96/53 09/09/19 10:54 101/53 09/09/19 10:54 96/53 09/09/19 10:42 100 10 40 09/09/19 10:00 108/52 09/09/19 10:00 103 10 102/54 (70) 100 09/09/19 09:12 102 111/56 09/09/19 09:11 112/55 09/09/19 09:00 112/55 09/09/19 09:00 102 10 112/55 (74) 100 09/09/19 08:50 103 10 40 09/09/19 08:30 102 10 100/54 (69) 100 09/09/19 08:00 98.5 102 10 108/56 (73) 100 09/09/19 08:00 102 09/09/19 08:00 101/55 09/09/19 08:00 40 09/09/19 08:00 Mechanical Ventilator 09/09/19 07:30 102 10 103/55 (71) 100 09/09/19 07:09 102 10 40 09/09/19 07:00 102 10 106/56 (73) 99 09/09/19 06:57 104/63 09/09/19 06:06 95/50 09/09/19 06:00 102 10 95/50 (65) 99 09/09/19 05:30 103 10 107/52 (70) 99 09/09/19 05:20 103 10 40 09/09/19 05:00 104/54 09/09/19 05:00 95 10 104/54 (71) 99 09/09/19 04:36 111/45 09/09/19 04:34 92 110/45 09/09/19 04:30 94 10 127/54 (78) 99 09/09/19 04:00 99 09/09/19 04:00 Mechanical Ventilator 09/09/19 04:00 40 09/09/19 04:00 98.8 93 10 83/51 (62) 99 09/09/19 03:30 94 10 88/51 (63) 99 09/09/19 03:25 93 10 40 09/09/19 03:00 94 10 107/48 (67) 100 09/09/19 02:53 103/53 09/09/19 02:30 93 10 95/50 (65) 100 09/09/19 02:00 103/51 09/09/19 02:00 92 10 104/57 (73) 100 09/09/19 01:30 93 11 107/59 (75) 100 09/09/19 01:25 91 10 40 09/09/19 01:00 94 10 97/57 (70) 99 09/09/19 01:00 107/48 09/09/19 00:50 95 87/56 09/09/19 00:30 95 10 86/49 (61) 99 09/09/19 00:00 40 09/09/19 00:00 116/56 09/09/19 00:00 97.6 92 12 99/58 (72) 99 09/09/19 00:00 Mechanical Ventilator 09/08/19 23:30 92 10 119/53 (75) 100 09/08/19 23:00 110/73 09/08/19 23:00 92 10 108/54 (72) 100 09/08/19 22:50 92 10 40 09/08/19 22:30 92 10 111/56 (74) 100 09/08/19 22:00 116/65 09/08/19 22:00 93 10 113/57 (75) 99 09/08/19 21:36 70/50 09/08/19 21:30 86 15 67/40 (49) 98 11/11/19 21:00 101 8 128/67 (87) 99 09/08/19 21:00 101 10 40 09/08/19 21:00 121/63 09/08/19 20:30 101 12 142/64 (90) 100 09/08/19 20:28 100 109/63 09/08/19 20:00 97.8 96 10 96/55 (69) 100 09/08/19 20:00 87/40 09/08/19 20:00 92 09/08/19 20:00 Mechanical Ventilator 09/08/19 20:00 40 09/08/19 19:30 97 10 101/53 (69) 99 09/08/19 19:07 97 10 40 09/08/19 19:00 96 10 96/55 (69) 99 09/08/19 19:00 96/55 09/08/19 18:30 96 10 106/55 (72) 99 09/08/19 18:00 96 10 104/55 (71) 99 09/08/19 18:00 104/55 09/08/19 17:30 96 10 116/57 (76) 99 09/08/19 17:14 96 10 40 09/08/19 17:00 96 10 125/59 (81) 100 09/08/19 17:00 119/58 09/08/19 16:15 97 10 130/62 (84) 100 09/08/19 16:15 130/65 09/08/19 16:08 96 68/41 09/08/19 16:00 40 09/08/19 16:00 97.8 96 10 67/43 (51) 99 09/08/19 16:00 Mechanical Ventilator 09/08/19 16:00 68/41 09/08/19 16:00 96 09/08/19 15:50 97 10 134/63 (86) 100 09/08/19 15:30 96 10 141/66 (91) 100 09/08/19 15:25 97 10 40 09/08/19 15:20 97 10 130/65 (86) 100 09/08/19 15:02 128/62 09/08/19 15:00 97 10 132/62 (85) 100 09/08/19 14:30 97 10 131/61 (84) 100 09/08/19 14:15 97 10 118/59 (78) 100 09/08/19 14:00 97 10 117/58 (77) 100 09/08/19 14:00 118/59 09/08/19 13:45 97 10 112/59 (76) 100 09/08/19 13:30 98 10 102/55 (71) 99 09/08/19 13:22 141/67 09/08/19 13:15 100 10 141/67 (91) 100 09/08/19 13:00 101 10 142/68 (92) 99 09/08/19 12:59 101 10 40 09/08/19 12:52 163/74 09/08/19 12:20 100 10 168/78 (108) 100 09/08/19 12:00 40 09/08/19 12:00 97.5 84 11 130/57 (81) 99 09/08/19 12:00 124/63 09/08/19 12:00 87 09/08/19 12:00 Mechanical Ventilator Intake and Output 09/08/19 09/09/19 19:00 07:00 Intake Total 3027.5003 ml 2780.000 ml Output Total 3020 ml 2155 ml Balance 7.5003 ml 625.000 ml Free Water 40 ml IV Total 2977.5003 ml 2730.000 ml Tube Feeding 0 ml 0 ml Other 10 ml 50 ml Output Urine Total 3020 ml 2155 ml Laboratory Tests 09/09/19 03:20: White Blood Count 32.0*H, Red Blood Count 3.63L, Hemoglobin 8.2L, Hematocrit 27.3L, Mean Corpuscular Volume 75L, Mean Corpuscular Hemoglobin 22.6L, Mean Corpuscular Hemoglobin Concent 30.0L, Red Cell Distribution Width 22.9H, Platelet Count 236, Mean Platelet Volume 10.3H, Neutrophils (%) (Auto) , Lymphocytes (%) (Auto) , Monocytes (%) (Auto) , Eosinophils (%) (Auto) , Basophils (%) (Auto) , Differential Total Cells Counted 100, Neutrophils % ( Manual) 76H, Lymphocytes % (Manual) 17L, Monocytes % (Manual) 2, Eosinophils % ( Manual) 0, Basophils % (Manual) 0, Band Neutrophils 5, Platelet Estimate Adequate, Platelet Morphology Normal, Hypochromasia 1+, Anisocytosis 2+, Microcytosis 1+, Sodium Level 137, Potassium Level 3.5, Chloride Level 98, Carbon Dioxide Level 30, Anion Gap 9, Blood Urea Nitrogen 24H, Creatinine 1.2, Estimat Glomerular Filtration Rate , Glucose Level 381H, Calcium Level 7.4L, Phosphorus Level 3.8, Magnesium Level 1.5L, Total Bilirubin 1.1H, Direct Bilirubin 0.7H, Aspartate Amino Transf (AST/SGOT) 25, Alanine Aminotransferase ( ALT/SGPT) 21, Alkaline Phosphatase 131H, Troponin I 0.082H, C-Reactive Protein, Quantitative 34.8H, Pro-B-Type Natriuretic Peptide 35639I, Total Protein 6.3L, Albumin 1.5L, Globulin 4.8, Albumin/Globulin Ratio 0.3L Height (Feet): 5 Height (Inches): 3.00 Weight (Pounds): 163 General Appearance: no apparent distress, other - unresponsive Cardiovascular: tachycardia Respiratory/Chest: decreased breath sounds Abdomen: soft Objective no change Kaden Chance MD Sep 09, 2019 11:56
--- NOTE | 2019-09-09 12:06 | Pulmonology Progress Note ---
Assessment/Plan Assessment/Plan IMPRESSION: 1. COPD. 2. Hypertension. 3. Severe hypernatremia. Improved 4. Dehydration. Resolved 5. Bilateral pneumonia. 6. Severe protein-calorie malnutrition. 7. Cardiac arrhythmias 8. 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 Reviewed CXR and ABG Enteral feeding On abx Will attempt to wean off vent; prognosis is poor Jaiden Logan M.D. Subjective Interval Events: doing poorly. On pressors. She remains intubated. Constitutional: Reports: no symptoms HEENT: Repors: no symptoms Respiratory: Reports: no symptoms Cardiovascular: Reports: no symptoms Gastrointestinal/Abdominal: Reports: no symptoms Genitourinary: Reports: no symptoms Allergies: Coded Allergies: No Known Allergies (Unverified , 08/27/19) Objective Last 24 Hour Vital Signs Date Time Temp Pulse Resp B/P (MAP) Pulse Ox O2 Delivery O2 Flow Rate FiO2 09/09/19 11:00 100 10 115/51 (72) 100 09/09/19 11:00 115/51 09/09/19 10:55 96/53 09/09/19 10:54 101/53 09/09/19 10:54 96/53 09/09/19 10:42 100 10 40 09/09/19 10:00 108/52 09/09/19 10:00 103 10 102/54 (70) 100 09/09/19 09:12 102 111/56 09/09/19 09:11 112/55 09/09/19 09:00 112/55 09/09/19 09:00 102 10 112/55 (74) 100 09/09/19 08:50 103 10 40 09/09/19 08:30 102 10 100/54 (69) 100 09/09/19 08:00 98.5 102 10 108/56 (73) 100 09/09/19 08:00 102 09/09/19 08:00 101/55 09/09/19 08:00 40 09/09/19 08:00 Mechanical Ventilator 09/09/19 07:30 102 10 103/55 (71) 100 09/09/19 07:09 102 10 40 09/09/19 07:00 102 10 106/56 (73) 99 09/09/19 06:57 104/63 09/09/19 06:06 95/50 09/09/19 06:00 102 10 95/50 (65) 99 09/09/19 05:30 103 10 107/52 (70) 99 09/09/19 05:20 103 10 40 09/09/19 05:00 104/54 09/09/19 05:00 95 10 104/54 (71) 99 09/09/19 04:36 111/45 09/09/19 04:34 92 110/45 09/09/19 04:30 94 10 127/54 (78) 99 09/09/19 04:00 99 09/09/19 04:00 Mechanical Ventilator 09/09/19 04:00 40 09/09/19 04:00 98.8 93 10 83/51 (62) 99 09/09/19 03:30 94 10 88/51 (63) 99 09/09/19 03:25 93 10 40 09/09/19 03:00 94 10 107/48 (67) 100 09/09/19 02:53 103/53 09/09/19 02:30 93 10 95/50 (65) 100 09/09/19 02:00 103/51 09/09/19 02:00 92 10 104/57 (73) 100 09/09/19 01:30 93 11 107/59 (75) 100 09/09/19 01:25 91 10 40 09/09/19 01:00 94 10 97/57 (70) 99 09/09/19 01:00 107/48 09/09/19 00:50 95 87/56 09/09/19 00:30 95 10 86/49 (61) 99 09/09/19 00:00 40 09/09/19 00:00 116/56 09/09/19 00:00 97.6 92 12 99/58 (72) 99 09/09/19 00:00 Mechanical Ventilator 09/08/19 23:30 92 10 119/53 (75) 100 09/08/19 23:00 110/73 09/08/19 23:00 92 10 108/54 (72) 100 09/08/19 22:50 92 10 40 09/08/19 22:30 92 10 111/56 (74) 100 09/08/19 22:00 116/65 09/08/19 22:00 93 10 113/57 (75) 99 09/08/19 21:36 70/50 09/08/19 21:30 86 15 67/40 (49) 98 09/08/19 21:00 101 8 128/67 (87) 99 09/08/19 21:00 101 10 40 09/08/19 21:00 121/63 09/08/19 20:30 101 12 142/64 (90) 100 09/08/19 20:28 100 109/63 09/08/19 20:00 97.8 96 10 96/55 (69) 100 09/08/19 20:00 87/40 09/08/19 20:00 92 09/08/19 20:00 Mechanical Ventilator 09/08/19 20:00 40 09/08/19 19:30 97 10 101/53 (69) 99 09/08/19 19:07 97 10 40 09/08/19 19:00 96 10 96/55 (69) 99 09/08/19 19:00 96/55 09/08/19 18:30 96 10 106/55 (72) 99 09/08/19 18:00 96 10 104/55 (71) 99 09/08/19 18:00 104/55 09/08/19 17:30 96 10 116/57 (76) 99 09/08/19 17:14 96 10 40 09/08/19 17:00 96 10 125/59 (81) 100 09/08/19 17:00 119/58 09/08/19 16:15 97 10 130/62 (84) 100 09/08/19 16:15 130/65 09/08/19 16:08 96 68/41 09/08/19 16:00 40 09/08/19 16:00 97.8 96 10 67/43 (51) 99 09/08/19 16:00 Mechanical Ventilator 09/08/19 16:00 68/41 09/08/19 16:00 96 09/08/19 15:50 97 10 134/63 (86) 100 09/08/19 15:30 96 10 141/66 (91) 100 09/08/19 15:25 97 10 40 09/08/19 15:20 97 10 130/65 (86) 100 09/08/19 15:02 128/62 09/08/19 15:00 97 10 132/62 (85) 100 09/08/19 14:30 97 10 131/61 (84) 100 09/08/19 14:15 97 10 118/59 (78) 100 09/08/19 14:00 97 10 117/58 (77) 100 09/08/19 14:00 118/59 09/08/19 13:45 97 10 112/59 (76) 100 09/08/19 13:30 98 10 102/55 (71) 99 09/08/19 13:22 141/67 09/08/19 13:15 100 10 141/67 (91) 100 09/08/19 13:00 101 10 142/68 (92) 99 09/08/19 12:59 101 10 40 09/08/19 12:52 163/74 09/08/19 12:20 100 10 168/78 (108) 100 Intake and Output 09/08/19 09/09/19 19:00 07:00 Intake Total 3027.5003 ml 2780.000 ml Output Total 3020 ml 2155 ml Balance 7.5003 ml 625.000 ml Free Water 40 ml IV Total 2977.5003 ml 2730.000 ml Tube Feeding 0 ml 0 ml Other 10 ml 50 ml Output Urine Total 3020 ml 2155 ml General Appearance: no acute distress HEENT: normocephalic Respiratory/Chest: chest wall non-tender, decreased breath sounds Cardiovascular: normal peripheral pulses Abdomen: no organomegaly Extremities: no cyanosis Microbiology Date/Time Source Procedure Growth Status 09/07/19 05:20 Sputum Gram Stain - Final Complete 09/07/19 05:20 Sputum Sputum Culture - Final NORMAL UPPER RESPIRATORY TACOS PRESENT Complete Laboratory Tests 09/09/19 03:20: White Blood Count 32.0*H, Red Blood Count 3.63L, Hemoglobin 8.2L, Hematocrit 27.3L, Mean Corpuscular Volume 75L, Mean Corpuscular Hemoglobin 22.6L, Mean Corpuscular Hemoglobin Concent 30.0L, Red Cell Distribution Width 22.9H, Platelet Count 236, Mean Platelet Volume 10.3H, Neutrophils (%) (Auto) , Lymphocytes (%) (Auto) , Monocytes (%) (Auto) , Eosinophils (%) (Auto) , Basophils (%) (Auto) , Differential Total Cells Counted 100, Neutrophils % ( Manual) 76H, Lymphocytes % (Manual) 17L, Monocytes % (Manual) 2, Eosinophils % ( Manual) 0, Basophils % (Manual) 0, Band Neutrophils 5, Platelet Estimate Adequate, Platelet Morphology Normal, Hypochromasia 1+, Anisocytosis 2+, Microcytosis 1+, Sodium Level 137, Potassium Level 3.5, Chloride Level 98, Carbon Dioxide Level 30, Anion Gap 9, Blood Urea Nitrogen 24H, Creatinine 1.2, Estimat Glomerular Filtration Rate , Glucose Level 381H, Calcium Level 7.4L, Phosphorus Level 3.8, Magnesium Level 1.5L, Total Bilirubin 1.1H, Direct Bilirubin 0.7H, Aspartate Amino Transf (AST/SGOT) 25, Alanine Aminotransferase ( ALT/SGPT) 21, Alkaline Phosphatase 131H, Troponin I 0.082H, C-Reactive Protein, Quantitative 34.8H, Pro-B-Type Natriuretic Peptide [id number], Total Protein 6.3L, Albumin 1.5L, Globulin 4.8, Albumin/Globulin Ratio 0.3L Current Medications Medications (Trade) Dose Ordered Sig/Colt Route PRN Reason Start Time Stop Time Status Last Admin Dose Admin Aspirin (ASA) 81 mg DAILY NG 09/07/19 09:00 09/28/19 08:59 09/09/19 08:33 Chlorhexidine Gluconate (Marleny-Hex 2%) 1 applic DAILY@1999 TOPIC 09/07/19 20:00 10/07/19 19:59 09/08/19 20:26 Dextrose (Dextrose 50%) 25 ml Q30M PRN IV Hypoglycemia 09/07/19 02:00 09/27/19 07:59 Dextrose (Dextrose 50%) 50 ml Q30M PRN IV Hypoglycemia 09/07/19 02:00 09/27/19 07:59 Dextrose/Sodium Chloride 1,000 ml @ 20 mls/hr Q24H IV 09/09/19 13:00 10/07/19 12:59 Docusate Sodium (Colace) 100 mg THREE TIMES A DAY GT 09/07/19 09:00 10/02/19 12:59 09/09/19 08:33 Famotidine (Pepcid I.v.) 20 mg Q12HR IVP 09/07/19 21:00 10/07/19 20:59 09/09/19 08:33 Insulin Aspart (NovoLOG) Q6HR SUBQ 09/07/19 06:00 09/27/19 11:29 09/09/19 12:01 Magnesium Sulfate 100 ml @ 100 mls/hr Q1H IVPB 09/09/19 10:00 09/09/19 13:59 09/09/19 12:03 Metoclopramide HCl (Reglan) 10 mg Q6H PRN IVP Nausea & Vomiting 09/07/19 02:15 10/03/19 02:14 Midodrine (Pro-Amatine) 2.5 mg THREE TIMES A DAY GT 09/09/19 13:00 10/09/19 12:59 Nitroglycerin (Ntg) 1 patch Q24H TDERMAL 09/07/19 11:00 09/28/19 10:59 Norepinephrine Bitartrate 8 mg/ Dextrose 500 ml @ 0 mls/hr Q24H IV 09/07/19 17:00 10/07/19 16:59 09/09/19 10:55 Phenylephrine HCl 50 mg/Dextrose 250 ml @ 0 mls/hr Q24H PRN IV HYPOTENSION 09/07/19 18:00 10/07/19 11:59 09/09/19 09:12 Piperacillin Sod/ Tazobactam Sod 3.375 gm/Sodium Chloride 110 ml @ 27.5 mls/hr EVERY 8 HOURS IVPB 09/08/19 14:00 09/13/19 13:59 09/09/19 05:04 Polyethylene Glycol (Miralax) 17 gm BEDTIME ORAL 09/07/19 21:00 10/02/19 20:59 09/08/19 20:29 Vancomycin HCl (Vanco rx to dose) 1 ea DAILY PRN MISC Per rx protocol 09/08/19 11:30 10/08/19 11:29 Vancomycin HCl 750 mg/Dextrose 275 ml @ 183.333 mls/hr Q12HR@0300,1500 IVPB 09/08/19 15:00 09/13/19 14:59 09/09/19 03:39 Jaiden Logan MD Sep 09, 2019 12:06
--- NOTE | 2019-09-09 12:14 | Infectious Diseases Prog Note ---
Assessment/Plan Assessment/Plan antibiotics : vancomycin iv, zosyn A 1. enterococcus UTI 2. + blood cultures with coag neg staph likely contaminated 3. leucocytosis improving 4. diabetes mellitus 5. pleural effusion 6. respiratory failure P 1. continue iv vancomycin, zosyn 2. will follow up cultures Subjective ROS Limited/Unobtainable: Yes Allergies: Coded Allergies: No Known Allergies (Unverified , 08/27/19) Objective Vital Signs Last 24 Hour Vital Signs Date Time Temp Pulse Resp B/P (MAP) Pulse Ox O2 Delivery O2 Flow Rate FiO2 09/09/19 11:00 100 10 115/51 (72) 100 09/09/19 11:00 115/51 09/09/19 10:55 96/53 09/09/19 10:54 101/53 09/09/19 10:54 96/53 09/09/19 10:42 100 10 40 09/09/19 10:00 108/52 09/09/19 10:00 103 10 102/54 (70) 100 09/09/19 09:12 102 111/56 09/09/19 09:11 112/55 09/09/19 09:00 112/55 09/09/19 09:00 102 10 112/55 (74) 100 09/09/19 08:50 103 10 40 09/09/19 08:30 102 10 100/54 (69) 100 09/09/19 08:00 98.5 102 10 108/56 (73) 100 09/09/19 08:00 102 09/09/19 08:00 101/55 09/09/19 08:00 40 09/09/19 08:00 Mechanical Ventilator 09/09/19 07:30 102 10 103/55 (71) 100 09/09/19 07:09 102 10 40 09/09/19 07:00 102 10 106/56 (73) 99 09/09/19 06:57 104/63 09/09/19 06:06 95/50 09/09/19 06:00 102 10 95/50 (65) 99 09/09/19 05:30 103 10 107/52 (70) 99 09/09/19 05:20 103 10 40 09/09/19 05:00 104/54 09/09/19 05:00 95 10 104/54 (71) 99 09/09/19 04:36 111/45 09/09/19 04:34 92 110/45 09/09/19 04:30 94 10 127/54 (78) 99 09/09/19 04:00 99 09/09/19 04:00 Mechanical Ventilator 09/09/19 04:00 40 09/09/19 04:00 98.8 93 10 83/51 (62) 99 09/09/19 03:30 94 10 88/51 (63) 99 09/09/19 03:25 93 10 40 09/09/19 03:00 94 10 107/48 (67) 100 09/09/19 02:53 103/53 09/09/19 02:30 93 10 95/50 (65) 100 09/09/19 02:00 103/51 09/09/19 02:00 92 10 104/57 (73) 100 09/09/19 01:30 93 11 107/59 (75) 100 09/09/19 01:25 91 10 40 09/09/19 01:00 94 10 97/57 (70) 99 09/09/19 01:00 107/48 09/09/19 00:50 95 87/56 09/09/19 00:30 95 10 86/49 (61) 99 09/09/19 00:00 40 09/09/19 00:00 116/56 09/09/19 00:00 97.6 92 12 99/58 (72) 99 09/09/19 00:00 Mechanical Ventilator 09/08/19 23:30 92 10 119/53 (75) 100 09/08/19 23:00 110/73 09/08/19 23:00 92 10 108/54 (72) 100 09/08/19 22:50 92 10 40 09/08/19 22:30 92 10 111/56 (74) 100 09/08/19 22:00 116/65 09/08/19 22:00 93 10 113/57 (75) 99 09/08/19 21:36 70/50 09/08/19 21:30 86 15 67/40 (49) 98 09/08/19 21:00 101 8 128/67 (87) 99 09/08/19 21:00 101 10 40 09/08/19 21:00 121/63 09/08/19 20:30 101 12 142/64 (90) 100 11/11/19 20:28 100 109/63 09/08/19 20:00 97.8 96 10 96/55 (69) 100 09/08/19 20:00 87/40 09/08/19 20:00 92 09/08/19 20:00 Mechanical Ventilator 09/08/19 20:00 40 09/08/19 19:30 97 10 101/53 (69) 99 09/08/19 19:07 97 10 40 09/08/19 19:00 96 10 96/55 (69) 99 09/08/19 19:00 96/55 09/08/19 18:30 96 10 106/55 (72) 99 09/08/19 18:00 96 10 104/55 (71) 99 09/08/19 18:00 104/55 09/08/19 17:30 96 10 116/57 (76) 99 09/08/19 17:14 96 10 40 09/08/19 17:00 96 10 125/59 (81) 100 09/08/19 17:00 119/58 09/08/19 16:15 97 10 130/62 (84) 100 09/08/19 16:15 130/65 09/08/19 16:08 96 68/41 09/08/19 16:00 40 09/08/19 16:00 97.8 96 10 67/43 (51) 99 09/08/19 16:00 Mechanical Ventilator 09/08/19 16:00 68/41 09/08/19 16:00 96 09/08/19 15:50 97 10 134/63 (86) 100 09/08/19 15:30 96 10 141/66 (91) 100 09/08/19 15:25 97 10 40 09/08/19 15:20 97 10 130/65 (86) 100 09/08/19 15:02 128/62 09/08/19 15:00 97 10 132/62 (85) 100 09/08/19 14:30 97 10 131/61 (84) 100 09/08/19 14:15 97 10 118/59 (78) 100 09/08/19 14:00 97 10 117/58 (77) 100 09/08/19 14:00 118/59 09/08/19 13:45 97 10 112/59 (76) 100 09/08/19 13:30 98 10 102/55 (71) 99 09/08/19 13:22 141/67 09/08/19 13:15 100 10 141/67 (91) 100 09/08/19 13:00 101 10 142/68 (92) 99 09/08/19 12:59 101 10 40 09/08/19 12:52 163/74 09/08/19 12:20 100 10 168/78 (108) 100 Height (Feet): 5 Height (Inches): 3.00 Weight (Pounds): 163 HEENT: other - intubated Respiratory/Chest: lungs clear Cardiovascular: normal rate, regular rhythm, no gallop/murmur Abdomen: soft, non tender, other - GT Extremities: no edema, other - left IJ catheter Microbiology Date/Time Source Procedure Growth Status 09/07/19 05:20 Sputum Gram Stain - Final Complete 09/07/19 05:20 Sputum Sputum Culture - Final NORMAL UPPER RESPIRATORY TACOS PRESENT Complete Laboratory Tests Test 09/09/19 03:20 White Blood Count 32.0 K/UL (4.8-10.8) *H Red Blood Count 3.63 M/UL (4.20-5.40) L Hemoglobin 8.2 G/DL (12.0-16.0) L Hematocrit 27.3 % (37.0-47.0) L Mean Corpuscular Volume 75 FL (80-99) L Mean Corpuscular Hemoglobin 22.6 PG (27.0-31.0) L Mean Corpuscular Hemoglobin Concent 30.0 G/DL (32.0-36.0) L Red Cell Distribution Width 22.9 % (11.6-14.8) H Platelet Count 236 K/UL (150-450) Mean Platelet Volume 10.3 FL (6.5-10.1) H Neutrophils (%) (Auto) % (45.0-75.0) Lymphocytes (%) (Auto) % (20.0-45.0) Monocytes (%) (Auto) % (1.0-10.0) Eosinophils (%) (Auto) % (0.0-3.0) Basophils (%) (Auto) % (0.0-2.0) Differential Total Cells Counted 100 Neutrophils % (Manual) 76 % (45-75) H Lymphocytes % (Manual) 17 % (20-45) L Monocytes % (Manual) 2 % (1-10) Eosinophils % (Manual) 0 % (0-3) Basophils % (Manual) 0 % (0-2) Band Neutrophils 5 % (0-8) Platelet Estimate Adequate Platelet Morphology Normal Hypochromasia 1+ Anisocytosis 2+ Microcytosis 1+ Sodium Level 137 MMOL/L (136-145) Potassium Level 3.5 MMOL/L (3.5-5.1) Chloride Level 98 MMOL/L (98-107) Carbon Dioxide Level 30 MMOL/L (21-32) Anion Gap 9 mmol/L (5-15) Blood Urea Nitrogen 24 mg/dL (7-18) H Creatinine 1.2 MG/DL (0.55-1.30) Estimat Glomerular Filtration Rate mL/min (>60) Glucose Level 381 MG/DL (74-106) H Calcium Level 7.4 MG/DL (8.5-10.1) L Phosphorus Level 3.8 MG/DL (2.5-4.9) Magnesium Level 1.5 MG/DL (1.8-2.4) L Total Bilirubin 1.1 MG/DL (0.2-1.0) H Direct Bilirubin 0.7 MG/DL (0.0-0.3) H Aspartate Amino Transf (AST/SGOT) 25 U/L (15-37) Alanine Aminotransferase (ALT/SGPT) 21 U/L (12-78) Alkaline Phosphatase 131 U/L (46-116) H Troponin I 0.082 ng/mL (0.000-0.056) C-Reactive Protein, Quantitative 34.8 mg/dL (0.00-0.90) H Pro-B-Type Natriuretic Peptide 46807 pg/mL (0-125) H Total Protein 6.3 G/DL (6.4-8.2) L Albumin 1.5 G/DL (3.4-5.0) L Globulin 4.8 g/dL Albumin/Globulin Ratio 0.3 (1.0-2.7) L Current Medications Medications (Trade) Dose Ordered Sig/Colt Route PRN Reason Start Time Stop Time Status Last Admin Dose Admin Aspirin (ASA) 81 mg DAILY NG 09/07/19 09:00 12/1/19 08:59 09/09/19 08:33 Chlorhexidine Gluconate (Marleny-Hex 2%) 1 applic DAILY@2000 TOPIC 09/07/19 20:00 10/07/19 19:59 09/08/19 20:26 Dextrose (Dextrose 50%) 25 ml Q30M PRN IV Hypoglycemia 09/07/19 02:00 09/27/19 07:59 Dextrose (Dextrose 50%) 50 ml Q30M PRN IV Hypoglycemia 09/07/19 02:00 09/27/19 07:59 Dextrose/Sodium Chloride 1,000 ml @ 20 mls/hr Q24H IV 09/09/19 13:00 10/07/19 12:59 Docusate Sodium (Colace) 100 mg THREE TIMES A DAY GT 09/07/19 09:00 10/02/19 12:59 09/09/19 08:33 Famotidine (Pepcid I.v.) 20 mg Q12HR IVP 09/07/19 21:00 10/07/19 20:59 09/09/19 08:33 Insulin Aspart (NovoLOG) Q6HR SUBQ 09/07/19 06:00 09/27/19 11:29 09/09/19 12:01 Magnesium Sulfate 100 ml @ 100 mls/hr Q1H IVPB 09/09/19 10:00 09/09/19 13:59 09/09/19 12:03 Metoclopramide HCl (Reglan) 10 mg Q6H PRN IVP Nausea & Vomiting 09/07/19 02:15 10/03/19 02:14 Midodrine (Pro-Amatine) 2.5 mg THREE TIMES A DAY GT 09/09/19 13:00 10/09/19 12:59 Nitroglycerin (Ntg) 1 patch Q24H TDERMAL 09/07/19 11:00 09/28/19 10:59 Norepinephrine Bitartrate 8 mg/ Dextrose 500 ml @ 0 mls/hr Q24H IV 09/07/19 17:00 10/07/19 16:59 09/09/19 10:55 Phenylephrine HCl 50 mg/Dextrose 250 ml @ 0 mls/hr Q24H PRN IV HYPOTENSION 09/07/19 18:00 10/07/19 11:59 09/09/19 09:12 Piperacillin Sod/ Tazobactam Sod 3.375 gm/Sodium Chloride 110 ml @ 27.5 mls/hr EVERY 8 HOURS IVPB 09/08/19 14:00 09/13/19 13:59 09/09/19 05:04 Polyethylene Glycol (Miralax) 17 gm BEDTIME ORAL 09/07/19 21:00 10/02/19 20:59 09/08/19 20:29 Vancomycin HCl (Vanco rx to dose) 1 ea DAILY PRN MISC Per rx protocol 09/08/19 11:30 10/08/19 11:29 Vancomycin HCl 750 mg/Dextrose 275 ml @ 183.333 mls/hr Q12HR@0300,1500 IVPB 09/08/19 15:00 09/13/19 14:59 09/09/19 03:39 Shamar Rios MD Sep 09, 2019 12:14
--- NOTE | 2019-09-09 12:50 | GI Progress Note ---
Assessment/Plan Problems: (1) Coma ICD Codes: R40.20 - Unspecified coma SNOMED: 950728786 (2) Hospice care patient ICD Codes: Z51.5 - Encounter for palliative care SNOMED: 973566691, 489849665 (3) Dehydration ICD Codes: E86.0 - Dehydration SNOMED: 69537514, 278291611, 075932299 (4) Protein-calorie malnutrition, moderate ICD Codes: E44.0 - Moderate protein-calorie malnutrition SNOMED: 978252241 (5) failure to thrive Status: unchanged Status Narrative Discussed with Dr. Tompkins. Assessment/Plan s/p code no BM for few days KUB reviewed, ileus GTF at low rate hold laxatives serial imaging as needed repeat labs poor prognosis The patient was seen and examined at bedside and all new and available data was reviewed in the patients chart. I agree with the above findings, impression and plan. (Patient seen earlier today. Signature stamp does not reflect patient encounter time.). - Suresh Tompkins MD Subjective Subjective limited Objective Last 24 Hour Vital Signs Date Time Temp Pulse Resp B/P (MAP) Pulse Ox O2 Delivery O2 Flow Rate FiO2 09/09/19 12:00 40 09/09/19 11:00 100 10 115/51 (72) 100 09/09/19 11:00 115/51 09/09/19 10:55 96/53 09/09/19 10:54 101/53 09/09/19 10:54 96/53 09/09/19 10:42 100 10 40 09/09/19 10:00 108/52 09/09/19 10:00 103 10 102/54 (70) 100 09/09/19 09:12 102 111/56 09/09/19 09:11 112/55 09/09/19 09:00 112/55 09/09/19 09:00 102 10 112/55 (74) 100 09/09/19 08:50 103 10 40 09/09/19 08:30 102 10 100/54 (69) 100 09/09/19 08:00 98.5 102 10 108/56 (73) 100 09/09/19 08:00 102 09/09/19 08:00 101/55 09/09/19 08:00 40 09/09/19 08:00 Mechanical Ventilator 09/09/19 07:30 102 10 103/55 (71) 100 09/09/19 07:09 102 10 40 09/09/19 07:00 102 10 106/56 (73) 99 09/09/19 06:57 104/63 09/09/19 06:06 95/50 09/09/19 06:00 102 10 95/50 (65) 99 09/09/19 05:30 103 10 107/52 (70) 99 09/09/19 05:20 103 10 40 09/09/19 05:00 104/54 09/09/19 05:00 95 10 104/54 (71) 99 09/09/19 04:36 111/45 09/09/19 04:34 92 110/45 09/09/19 04:30 94 10 127/54 (78) 99 09/09/19 04:00 99 09/09/19 04:00 Mechanical Ventilator 09/09/19 04:00 40 09/09/19 04:00 98.8 93 10 83/51 (62) 99 09/09/19 03:30 94 10 88/51 (63) 99 09/09/19 03:25 93 10 40 09/09/19 03:00 94 10 107/48 (67) 100 09/09/19 02:53 103/53 09/09/19 02:30 93 10 95/50 (65) 100 09/09/19 02:00 103/51 09/09/19 02:00 92 10 104/57 (73) 100 09/09/19 01:30 93 11 107/59 (75) 100 09/09/19 01:25 91 10 40 09/09/19 01:00 94 10 97/57 (70) 99 09/09/19 01:00 107/48 09/09/19 00:50 95 87/56 09/09/19 00:30 95 10 86/49 (61) 99 09/09/19 00:00 40 09/09/19 00:00 116/56 09/09/19 00:00 97.6 92 12 99/58 (72) 99 09/09/19 00:00 Mechanical Ventilator 09/08/19 23:30 92 10 119/53 (75) 100 09/08/19 23:00 110/73 09/08/19 23:00 92 10 108/54 (72) 100 09/08/19 22:50 92 10 40 09/08/19 22:30 92 10 111/56 (74) 100 09/08/19 22:00 116/65 09/08/19 22:00 93 10 113/57 (75) 99 09/08/19 21:36 70/50 09/08/19 21:30 86 15 67/40 (49) 98 09/08/19 21:00 101 8 128/67 (87) 99 09/08/19 21:00 101 10 40 09/08/19 21:00 121/63 09/08/19 20:30 101 12 142/64 (90) 100 09/08/19 20:28 100 109/63 09/08/19 20:00 97.8 96 10 96/55 (69) 100 09/08/19 20:00 87/40 09/08/19 20:00 92 09/08/19 20:00 Mechanical Ventilator 09/08/19 20:00 40 09/08/19 19:30 97 10 101/53 (69) 99 09/08/19 19:07 97 10 40 09/08/19 19:00 96 10 96/55 (69) 99 09/08/19 19:00 96/55 09/08/19 18:30 96 10 106/55 (72) 99 09/08/19 18:00 96 10 104/55 (71) 99 09/08/19 18:00 104/55 09/08/19 17:30 96 10 116/57 (76) 99 09/08/19 17:14 96 10 40 09/08/19 17:00 96 10 125/59 (81) 100 09/08/19 17:00 119/58 09/08/19 16:15 97 10 130/62 (84) 100 09/08/19 16:15 130/65 09/08/19 16:08 96 68/41 09/08/19 16:00 40 09/08/19 16:00 97.8 96 10 67/43 (51) 99 09/08/19 16:00 Mechanical Ventilator 09/08/19 16:00 68/41 09/08/19 16:00 96 09/08/19 15:50 97 10 134/63 (86) 100 09/08/19 15:30 96 10 141/66 (91) 100 09/08/19 15:25 97 10 40 09/08/19 15:20 97 10 130/65 (86) 100 09/08/19 15:02 128/62 09/08/19 15:00 97 10 132/62 (85) 100 09/08/19 14:30 97 10 131/61 (84) 100 09/08/19 14:15 97 10 118/59 (78) 100 09/08/19 14:00 97 10 117/58 (77) 100 09/08/19 14:00 118/59 09/08/19 13:45 97 10 112/59 (76) 100 09/08/19 13:30 98 10 102/55 (71) 99 09/08/19 13:22 141/67 09/08/19 13:15 100 10 141/67 (91) 100 09/08/19 13:00 101 10 142/68 (92) 99 09/08/19 12:59 101 10 40 09/08/19 12:52 163/74 Intake and Output 09/08/19 09/09/19 19:00 07:00 Intake Total 3027.5003 ml 2780.000 ml Output Total 3020 ml 2155 ml Balance 7.5003 ml 625.000 ml Free Water 40 ml IV Total 2977.5003 ml 2730.000 ml Tube Feeding 0 ml 0 ml Other 10 ml 50 ml Output Urine Total 3020 ml 2155 ml Laboratory Tests Test 09/09/19 03:20 White Blood Count 32.0 K/UL (4.8-10.8) *H Red Blood Count 3.63 M/UL (4.20-5.40) L Hemoglobin 8.2 G/DL (12.0-16.0) L Hematocrit 27.3 % (37.0-47.0) L Mean Corpuscular Volume 75 FL (80-99) L Mean Corpuscular Hemoglobin 22.6 PG (27.0-31.0) L Mean Corpuscular Hemoglobin Concent 30.0 G/DL (32.0-36.0) L Red Cell Distribution Width 22.9 % (11.6-14.8) H Platelet Count 236 K/UL (150-450) Mean Platelet Volume 10.3 FL (6.5-10.1) H Neutrophils (%) (Auto) % (45.0-75.0) Lymphocytes (%) (Auto) % (20.0-45.0) Monocytes (%) (Auto) % (1.0-10.0) Eosinophils (%) (Auto) % (0.0-3.0) Basophils (%) (Auto) % (0.0-2.0) Differential Total Cells Counted 100 Neutrophils % (Manual) 76 % (45-75) H Lymphocytes % (Manual) 17 % (20-45) L Monocytes % (Manual) 2 % (1-10) Eosinophils % (Manual) 0 % (0-3) Basophils % (Manual) 0 % (0-2) Band Neutrophils 5 % (0-8) Platelet Estimate Adequate Platelet Morphology Normal Hypochromasia 1+ Anisocytosis 2+ Microcytosis 1+ Sodium Level 137 MMOL/L (136-145) Potassium Level 3.5 MMOL/L (3.5-5.1) Chloride Level 98 MMOL/L (98-107) Carbon Dioxide Level 30 MMOL/L (21-32) Anion Gap 9 mmol/L (5-15) Blood Urea Nitrogen 24 mg/dL (7-18) H Creatinine 1.2 MG/DL (0.55-1.30) Estimat Glomerular Filtration Rate mL/min (>60) Glucose Level 381 MG/DL (74-106) H Calcium Level 7.4 MG/DL (8.5-10.1) L Phosphorus Level 3.8 MG/DL (2.5-4.9) Magnesium Level 1.5 MG/DL (1.8-2.4) L Total Bilirubin 1.1 MG/DL (0.2-1.0) H Direct Bilirubin 0.7 MG/DL (0.0-0.3) H Aspartate Amino Transf (AST/SGOT) 25 U/L (15-37) Alanine Aminotransferase (ALT/SGPT) 21 U/L (12-78) Alkaline Phosphatase 131 U/L (46-116) H Troponin I 0.082 ng/mL (0.000-0.056) C-Reactive Protein, Quantitative 34.8 mg/dL (0.00-0.90) H Pro-B-Type Natriuretic Peptide 34392 pg/mL (0-125) H Total Protein 6.3 G/DL (6.4-8.2) L Albumin 1.5 G/DL (3.4-5.0) L Globulin 4.8 g/dL Albumin/Globulin Ratio 0.3 (1.0-2.7) L Height (Feet): 5 Height (Inches): 3.00 Weight (Pounds): 163 General Appearance: lethargic Cardiovascular: normal rate Respiratory/Chest: no respiratory distress Abdominal Exam: site Arnulfo [place] [employer] Sep 09, 2019 12:50
[2019-09-09] MEDS ORDERED: D5 1/2NS 1,000 ML IV SCH (13:00)
--- NOTE | 2019-09-09 15:45 | Surgery Progress Note ---
Surgery Progress Note Subjective Additional Comments ill appearing in iCU on pressors Objective Last 24 Hour Vital Signs Date Time Temp Pulse Resp B/P (MAP) Pulse Ox O2 Delivery O2 Flow Rate FiO2 09/09/19 15:00 115/70 09/09/19 14:45 95 10 40 09/09/19 14:30 87/41 09/09/19 14:00 92 11 91/43 (59) 100 09/09/19 14:00 89/43 09/09/19 13:30 92 11 89/43 (58) 100 09/09/19 13:30 86/55 09/09/19 13:29 94 96/34 09/09/19 13:00 99 13 106/59 (75) 100 09/09/19 13:00 106/59 09/09/19 12:56 99 10 40 09/09/19 12:30 100 11 121/93 (102) 100 09/09/19 12:00 Mechanical Ventilator 09/09/19 12:00 98.3 99 14 100/55 (70) 100 09/09/19 12:00 100/55 09/09/19 12:00 92 09/09/19 12:00 40 09/09/19 11:30 99 10 103/51 (68) 100 09/09/19 11:00 100 10 115/51 (72) 100 09/09/19 11:00 115/51 09/09/19 10:55 96/53 09/09/19 10:54 101/53 09/09/19 10:54 96/53 09/09/19 10:42 100 10 40 09/09/19 10:30 102 11 67/52 (57) 99 09/09/19 10:00 108/52 09/09/19 10:00 103 10 102/54 (70) 100 09/09/19 09:30 103 10 104/59 (74) 100 09/09/19 09:12 102 111/56 09/09/19 09:11 112/55 09/09/19 09:00 112/55 09/09/19 09:00 102 10 112/55 (74) 100 09/09/19 08:50 103 10 40 09/09/19 08:30 102 10 100/54 (69) 100 09/09/19 08:00 98.5 102 10 108/56 (73) 100 09/09/19 08:00 102 09/09/19 08:00 101/55 09/09/19 08:00 40 09/09/19 08:00 Mechanical Ventilator 09/09/19 07:30 102 10 103/55 (71) 100 09/09/19 07:09 102 10 40 09/09/19 07:00 102 10 106/56 (73) 99 09/09/19 06:57 104/63 09/09/19 06:06 95/50 09/09/19 06:00 102 10 95/50 (65) 99 09/09/19 05:30 103 10 107/52 (70) 99 09/09/19 05:20 103 10 40 09/09/19 05:00 104/54 09/09/19 05:00 95 10 104/54 (71) 99 09/09/19 04:36 111/45 09/09/19 04:34 92 110/45 09/09/19 04:30 94 10 127/54 (78) 99 09/09/19 04:00 99 09/09/19 04:00 Mechanical Ventilator 09/09/19 04:00 40 09/09/19 04:00 98.8 93 10 83/51 (62) 99 09/09/19 03:30 94 10 88/51 (63) 99 09/09/19 03:25 93 10 40 09/09/19 03:00 94 10 107/48 (67) 100 09/09/19 02:53 103/53 09/09/19 02:30 93 10 95/50 (65) 100 09/09/19 02:00 103/51 09/09/19 02:00 92 10 104/57 (73) 100 09/09/19 01:30 93 11 107/59 (75) 100 09/09/19 01:25 91 10 40 09/09/19 01:00 94 10 97/57 (70) 99 09/09/19 01:00 107/48 09/09/19 00:50 95 87/56 09/09/19 00:30 95 10 86/49 (61) 99 09/09/19 00:00 40 09/09/19 00:00 116/56 09/09/19 00:00 97.6 92 12 99/58 (72) 99 09/09/19 00:00 Mechanical Ventilator 09/08/19 23:30 92 10 119/53 (75) 100 09/08/19 23:00 110/73 09/08/19 23:00 92 10 108/54 (72) 100 09/08/19 22:50 92 10 40 09/08/19 22:30 92 10 111/56 (74) 100 09/08/19 22:00 116/65 09/08/19 22:00 93 10 113/57 (75) 99 09/08/19 21:36 70/50 09/08/19 21:30 86 15 67/40 (49) 98 09/08/19 21:00 101 8 128/67 (87) 99 09/08/19 21:00 101 10 40 09/08/19 21:00 121/63 09/08/19 20:30 101 12 142/64 (90) 100 09/08/19 20:28 100 109/63 09/08/19 20:00 97.8 96 10 96/55 (69) 100 09/08/19 20:00 87/40 09/08/19 20:00 92 09/08/19 20:00 Mechanical Ventilator 09/08/19 20:00 40 09/08/19 19:30 97 10 101/53 (69) 99 09/08/19 19:07 97 10 40 09/08/19 19:00 96 10 96/55 (69) 99 09/08/19 19:00 96/55 09/08/19 18:30 96 10 106/55 (72) 99 09/08/19 18:00 96 10 104/55 (71) 99 09/08/19 18:00 104/55 09/08/19 17:30 96 10 116/57 (76) 99 09/08/19 17:14 96 10 40 09/08/19 17:00 96 10 125/59 (81) 100 09/08/19 17:00 119/58 09/08/19 16:15 97 10 130/62 (84) 100 09/08/19 16:15 130/65 09/08/19 16:08 96 68/41 09/08/19 16:00 40 09/08/19 16:00 97.8 96 10 67/43 (51) 99 09/08/19 16:00 Mechanical Ventilator 09/08/19 16:00 68/41 09/08/19 16:00 96 09/08/19 15:50 97 10 134/63 (86) 100 I&O Intake and Output 09/08/19 09/09/19 19:00 07:00 Intake Total 3027.5003 ml 2780.000 ml Output Total 3020 ml 2155 ml Balance 7.5003 ml 625.000 ml Free Water 40 ml IV Total 2977.5003 ml 2730.000 ml Tube Feeding 0 ml 0 ml Other 10 ml 50 ml Output Urine Total 3020 ml 2155 ml Dressing: other Wound: other Drains: other Cardiovascular: RSR Respiratory: decreased breath sounds Abdomen: soft, present bowel sounds Extremities: no cyanosis Laboratory Tests Test 09/09/19 03:20 White Blood Count 32.0 K/UL (4.8-10.8) *H Red Blood Count 3.63 M/UL (4.20-5.40) L Hemoglobin 8.2 G/DL (12.0-16.0) L Hematocrit 27.3 % (37.0-47.0) L Mean Corpuscular Volume 75 FL (80-99) L Mean Corpuscular Hemoglobin 22.6 PG (27.0-31.0) L Mean Corpuscular Hemoglobin Concent 30.0 G/DL (32.0-36.0) L Red Cell Distribution Width 22.9 % (11.6-14.8) H Platelet Count 236 K/UL (150-450) Mean Platelet Volume 10.3 FL (6.5-10.1) H Neutrophils (%) (Auto) % (45.0-75.0) Lymphocytes (%) (Auto) % (20.0-45.0) Monocytes (%) (Auto) % (1.0-10.0) Eosinophils (%) (Auto) % (0.0-3.0) Basophils (%) (Auto) % (0.0-2.0) Differential Total Cells Counted 100 Neutrophils % (Manual) 76 % (45-75) H Lymphocytes % (Manual) 17 % (20-45) L Monocytes % (Manual) 2 % (1-10) Eosinophils % (Manual) 0 % (0-3) Basophils % (Manual) 0 % (0-2) Band Neutrophils 5 % (0-8) Platelet Estimate Adequate Platelet Morphology Normal Hypochromasia 1+ Anisocytosis 2+ Microcytosis 1+ Sodium Level 137 MMOL/L (136-145) Potassium Level 3.5 MMOL/L (3.5-5.1) Chloride Level 98 MMOL/L (98-107) Carbon Dioxide Level 30 MMOL/L (21-32) Anion Gap 9 mmol/L (5-15) Blood Urea Nitrogen 24 mg/dL (7-18) H Creatinine 1.2 MG/DL (0.55-1.30) Estimat Glomerular Filtration Rate mL/min (>60) Glucose Level 381 MG/DL (74-106) H Calcium Level 7.4 MG/DL (8.5-10.1) L Phosphorus Level 3.8 MG/DL (2.5-4.9) Magnesium Level 1.5 MG/DL (1.8-2.4) L Total Bilirubin 1.1 MG/DL (0.2-1.0) H Direct Bilirubin 0.7 MG/DL (0.0-0.3) H Aspartate Amino Transf (AST/SGOT) 25 U/L (15-37) Alanine Aminotransferase (ALT/SGPT) 21 U/L (12-78) Alkaline Phosphatase 131 U/L (46-116) H Troponin I 0.082 ng/mL (0.000-0.056) C-Reactive Protein, Quantitative 34.8 mg/dL (0.00-0.90) H Pro-B-Type Natriuretic Peptide 96372 pg/mL (0-125) H Total Protein 6.3 G/DL (6.4-8.2) L Albumin 1.5 G/DL (3.4-5.0) L Globulin 4.8 g/dL Albumin/Globulin Ratio 0.3 (1.0-2.7) L Plan Problems: (1) Sacral decubitus ulcer Assessment & Plan: Patient presented with Partial thickness stage 2 pressure injuries to R and L buttocks with surrounding non-blanching erythema without induration or fluctuance. Partial thickness stage 2 pressure injury R buttocks. Base of wound moist and viable. (L)1.8cm x (W)1cm.Erythematous and denuded borders and periwound. Partial thickness stage 2pressure injury L buttocks. Base of wound moist- viable. Borders and periwound erythematous and denuded. R heel boggy with non-blanching erythema. L heel boggy but blanchable. Tx.Plan: Cleanse wounds R and L buttocks with Saline. Apply Therahoney to each wound. Apply Moisture Barrier periwound.Cover with Optifoam drsg. Change every 3 days and prn. Apply Moisture Barrier Paste to Perineum and bilat ischial regions with each Incontinence care. APM/DAVID Mattress overlay. Reposition at least every 2hours or as tolerated. Off-load heels with pillow. (2) failure to thrive (3) Protein-calorie malnutrition, moderate Assessment & Plan: DAILY ESTIMATED NEEDS: Needs based on Pulmonary, cardiac; 64.1kg 25-30 kcals/kg 1603- 1923 total kcals 1-1.5 g protein/kg 64- 96 g total protein 20-25 mL/kg 6878-4714 total fluid mLs NUTRITION DIAGNOSIS: *Swallowing difficulty R/T dysdphagia as evidenced by pt is now s/p PEG placement, GT feeding held at this time for elev residuals. *Altered nutrition related lab values r/t dehydration, clinical condition as evidenced by critically elev Na value of 163*-> now wnl, BUN 41-> 26, elev BGs (206, 281), POC glu (157-254), low K (3.3), elev BNP (8049). CURRENT TF:Glucerna 1.2 @ 55ml/hr x 24 hrs -> HELD FOR RESIDUALS ENTERAL NUTRITION RECOMMENDATIONS: Glucerna 1.5 @ 45ml/hr x24 hrs to provide 1080ml, 1620 kcal, 89g pro, 820ml [id number] - Rec TF change to Glucerna 1.5 - possible TF tolerance, less free water given CHF, elev BNP - Initiate Glucerna 1.5 @ 25ml/hr x 4 hrs, advance 10ml q 4-6 hrs as tolerated to goal rate - Water flush per MD/ HOB over 30 degrees ADDITIONAL RECOMMENDATIONS: 1) Per SNF: pt is 141 lbs + 5' 6.5" tall Weekly wt monitoring 2) Consider around the clock Reglan for improved TF tolerance 3) Consider long acting insulin for improved BG control -> BGs mostly in the 200's despite TF being held 4) Monitor lytes, replete as needed (low K) (4) Moderate malnutrition (5) Acute respiratory failure Assessment & Plan: Cardiovascular event currently resuscitated and in ICU on vent management. Patient's prognosis very guarded. She is fairly comatose and nonresponsive. Overall prognosis given age history and medical condition is very poor. Discussed with the brother who expressed understanding and stated that the sister is power of automatic operator and has not made considerations for changing care plan currently. Recommend reconsideration of CODE STATUS and comfort care measures Ramiro Mack Sep 09, 2019 15:45
[2019-09-09] MEDS ORDERED: PHENYLEPHRINE IV PRN (17:00)
[2019-09-09] MEDS ORDERED: SODIUM CHLORIDE IV PRN (17:00)
[2019-09-09] MEDS: PHENYLEPHRINE IV PRN (17:57)
[2019-09-09] MEDS: D5W IV PRN (17:57)
--- NOTE | 2019-09-09 20:00 | Progress Note ---
DATE: 09/09/2019 SUBJECTIVE: This is elderly female, nonverbal, on ventilator and critically sick. OBJECTIVE: VITAL SIGNS: Blood pressure 115/51, pulse 100. HEENT: Eyes are closed. NECK: Supple. CHEST: Bilaterally decreased breath sounds. CARDIOVASCULAR: Regular rhythm. ABDOMEN: Soft. EXTREMITIES: CCE. LABORATORY DATA: White counts are 32,000, hemoglobin 8.2, hematocrit 27, platelets are 236,000. Chemistry panel, BUN 24, creatinine 1.2. ASSESSMENT: 1. Acute respiratory failure. 2. Encephalopathy. 3. Renal failure. 4. CHF. 5. Severe malnutrition. PLAN: We will currently continue current medical treatment. Discussed with charge nurse. The patient is still Full Code. Family is aware of her prognosis. We will continue IV antibiotic, bronchodilator treatments, a small IV fluid, G-tube feeding. Osmar Cooney M.D. DR: LATONIA JOB#: [id number] CC:
[2019-09-09] MEDS: Dyna-Hex 2% Top Sol 2oz TOPIC SCH (20:17)
[2019-09-09] MEDS: Miralax 17gm pkt ORAL SCH (20:55)
[2019-09-09] MEDS: Levemir Flexpen SUBQ SCH (20:58)
--- NOTE | 2019-09-09 23:30 | Electroencephalogram ---
DATE OF PROCEDURE: 09/09/2019 REQUESTING PHYSICIANS: Marc Cooney M.D. & Kaden Chance M.D. READING PHYSICIAN: Mauricio Davenport M.D. PROCEDURE PERFORMED: Electroencephalogram. HISTORY: This EEG was performed on a 78-year-old lady with a history of multiple medical problems including an altered mental state. The purpose of this EEG was to evaluate the patient for the degree and type of cerebral dysfunction. TECHNICAL NOTE: This EEG was performed on a [employer] with electrodes placed on the scalp according to the International 10-20 system. [id number] and [id number]-[id number] montages were used. The EEG was technically satisfactory and was performed while the patient was in a poorly responsive state. OBSERVATIONS: In the poorly responsive state, low amplitude activity predominantly in the 4-5 Hz theta range with some intermixed delta frequencies was seen. When the patient was stimulated with painful stimuli, no significant change in the EEG background was noted. No definite focal abnormalities or epileptiform discharges were seen. IMPRESSION: This is an abnormal EEG characterized by low amplitude slow activity in the theta and delta range with no reactivity to external stimulation. COMMENT: This study is consistent with an encephalopathy of a severe degree. Clinical correlation is recommended. Mauricio Davenport M.D., M.S.P.H. DR: DAFNE JOB#: [id number] MTDD
[2019-09-10] VITALS (87 sets, daily range): BP systolic 62–125; BP diastolic 30–67
[2019-09-10] MEDS: NovoLOG Insulin Flexpen SUBQ SCH ×4 (00:05→18:24)
[2019-09-10] MEDS: PHENYLEPHRINE IV PRN ×3 (02:16→18:36)
[2019-09-10] MEDS: D5W IV PRN ×3 (02:16→18:36)
[2019-09-10] MEDS: Vancomycin 750mg/D5W 275ml IVPB SCH ×2 (03:48)
[2019-09-10 05:07] LABS: HEMOGLOBIN 7.8 G/DL (12.0-16.0); MEAN CORPUSCULAR VOLUME 75 FL (80-99); PLATELET COUNT 196 K/UL (150-450); RED BLOOD COUNT 3.46 M/UL (4.20-5.40); RED CELL DISTRIBUTION WIDTH 22.2 % (11.6-14.8); WHITE BLOOD COUNT 20.2 K/UL (4.8-10.8)
[2019-09-10] MEDS: Piperacillin/Tazobactam 3.375 GM in NS 110 ML IVPB SCH ×3 (05:42→21:53)
[2019-09-10 06:03] LABS: ALANINE AMINOTRANSFERASE 18 U/L (12-78); ALBUMIN 1.2 G/DL (3.4-5.0); ALBUMIN/GLOBULIN RATIO 0.3 (1.0-2.7); ALKALINE PHOSPHATASE 136 U/L (46-116); ANION GAP 8 mmol/L (5-15); ASPARTATE AMINO TRANSFERASE 33 U/L (15-37); BILIRUBIN,TOTAL 1.4 MG/DL (0.2-1.0); BLOOD UREA NITROGEN 23 mg/dL (7-18); CALCIUM 7.1 MG/DL (8.5-10.1); CARBON DIOXIDE 26 MMOL/L (21-32); CHLORIDE 85 MMOL/L (98-107); CREATININE 1.7 MG/DL (0.55-1.30); PHOSPHORUS 3.1 MG/DL (2.5-4.9)
[2019-09-10 06:07] LABS: SODIUM 119 MMOL/L (136-145)
[2019-09-10 06:31] LABS: AMMONIA < 10 umol/L (11-32)
[2019-09-10 06:37] LABS: BILIRUBIN,DIRECT 1.1 MG/DL (0.0-0.3)
--- NOTE | 2019-09-10 07:43 | Pulmonology Progress Note ---
Assessment/Plan Assessment/Plan IMPRESSION: 1. COPD. 2. Hypertension. 3. Severe hypernatremia. Improved 4. Dehydration. Resolved 5. Bilateral pneumonia. 6. Severe protein-calorie malnutrition. 7. Cardiac arrhythmias 8. 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 Reviewed CXR and ABG Enteral feeding On abx Will attempt to wean off vent; prognosis is poor Jaiden Logan M.D. Subjective Interval Events: Course noted Constitutional: Reports: no symptoms HEENT: Repors: no symptoms Respiratory: Reports: no symptoms Cardiovascular: Reports: no symptoms Gastrointestinal/Abdominal: Reports: no symptoms Allergies: Coded Allergies: No Known Allergies (Unverified , 08/27/19) Objective Last 24 Hour Vital Signs Date Time Temp Pulse Resp B/P (MAP) Pulse Ox O2 Delivery O2 Flow Rate FiO2 09/10/19 06:45 97 10 90/53 (65) 99 09/10/19 06:41 97 10 88/52 (64) 99 09/10/19 06:30 97 10 77/53 (61) 99 09/10/19 06:15 97 10 89/51 (64) 99 09/10/19 06:00 87/51 09/10/19 06:00 97 10 88/51 (63) 99 09/10/19 05:34 97 10 88/51 (63) 99 09/10/19 05:30 97 10 83/48 (60) 99 09/10/19 05:22 98 10 40 09/10/19 05:21 99 10 91/55 (67) 99 09/10/19 05:15 99 10 79/58 (65) 98 09/10/19 05:00 101 10 83/48 (60) 96 09/10/19 05:00 79/58 09/10/19 04:45 97 11 107/54 (71) 100 09/10/19 04:30 98 10 98/48 (65) 100 09/10/19 04:15 99 10 91/48 (62) 100 09/10/19 04:00 97.8 100 10 87/49 (62) 99 09/10/19 04:00 40 09/10/19 04:00 91/48 09/10/19 04:00 Mechanical Ventilator 09/10/19 04:00 100 09/10/19 03:49 123/80 09/10/19 03:30 98 10 74/44 (54) 100 09/10/19 03:00 95 10 104/51 (68) 100 09/10/19 02:55 97 10 40 09/10/19 02:30 98 10 89/50 (63) 99 09/10/19 02:16 86 86/60 09/10/19 02:00 101 10 102/63 (76) 100 09/10/19 02:00 101 10 100 09/10/19 01:30 99 10 100/57 (71) 100 09/10/19 01:30 99 10 100/57 (71) 100 09/10/19 01:00 96 10 125/67 (86) 100 09/10/19 01:00 104/39 09/10/19 01:00 98.6 97 11 125/67 (86) 100 09/10/19 00:56 97 10 40 09/10/19 00:30 99 10 116/43 (67) 100 09/10/19 00:00 96 09/10/19 00:00 117/42 09/10/19 00:00 100 10 117/42 (67) 100 09/10/19 00:00 100 10 117/42 (67) 100 09/10/19 00:00 40 09/10/19 00:00 Mechanical Ventilator 09/10/19 00:00 100 10 117/42 (67) 100 09/09/19 23:30 101 11 111/35 (60) 100 09/09/19 23:00 96/49 09/09/19 23:00 102 10 96/49 (65) 99 09/09/19 22:51 103 10 40 09/09/19 22:45 76/46 09/09/19 22:30 103 10 76/46 (56) 100 09/09/19 22:00 103 10 102/37 (58) 100 09/09/19 22:00 102/37 09/09/19 21:30 101 10 112/53 (72) 100 09/09/19 21:15 101 10 40 09/09/19 21:00 100 10 113/48 (69) 100 09/09/19 21:00 104/52 09/09/19 20:30 98 10 85/43 (57) 100 09/09/19 20:00 40 09/09/19 20:00 Mechanical Ventilator 09/09/19 20:00 98.5 98 10 85/38 (54) 100 09/09/19 20:00 85/36 09/09/19 20:00 96 09/09/19 19:30 98 10 107/35 (59) 100 09/09/19 19:00 93/45 09/09/19 19:00 98 11 93/45 (61) 99 09/09/19 18:39 96 10 40 09/09/19 18:30 98 10 90/48 (62) 100 09/09/19 18:00 99/47 09/09/19 18:00 99 10 99/47 (64) 100 09/09/19 17:57 101 112/62 09/09/19 17:30 99 10 96/60 (72) 99 09/09/19 17:00 98 10 108/43 (64) 100 09/09/19 16:58 118/59 09/09/19 16:57 108/43 09/09/19 16:53 100 10 40 09/09/19 16:30 98 10 100/45 (63) 100 09/09/19 16:15 100/36 09/09/19 16:00 40 09/09/19 16:00 98.7 97 10 108/68 (81) 100 09/09/19 16:00 Mechanical Ventilator 09/09/19 16:00 96 09/09/19 15:45 79/43 09/09/19 15:30 114/32 09/09/19 15:30 99.2 96 10 105/51 (69) 100 09/09/19 15:00 115/70 09/09/19 15:00 95 10 115/70 (85) 100 09/09/19 14:45 95 10 40 09/09/19 14:30 84 10 87/41 (56) 100 09/09/19 14:30 87/41 09/09/19 14:00 92 11 91/43 (59) 100 09/09/19 14:00 89/43 09/09/19 13:30 92 11 89/43 (58) 100 09/09/19 13:30 86/55 09/09/19 13:29 94 96/34 09/09/19 13:00 99 13 106/59 (75) 100 09/09/19 13:00 106/59 09/09/19 12:56 99 10 40 09/09/19 12:30 100 11 121/93 (102) 100 09/09/19 12:00 Mechanical Ventilator 09/09/19 12:00 98.3 99 14 100/55 (70) 100 09/09/19 12:00 100/55 09/09/19 12:00 92 09/09/19 12:00 40 09/09/19 11:30 99 10 103/51 (68) 100 09/09/19 11:00 100 10 115/51 (72) 100 09/09/19 11:00 115/51 09/09/19 10:55 96/53 09/09/19 10:54 101/53 09/09/19 10:54 96/53 09/09/19 10:42 100 10 40 09/09/19 10:30 102 11 67/52 (57) 99 09/09/19 10:00 108/52 09/09/19 10:00 103 10 102/54 (70) 100 09/09/19 09:30 103 10 104/59 (74) 100 09/09/19 09:12 102 111/56 09/09/19 09:11 112/55 09/09/19 09:00 112/55 09/09/19 09:00 102 10 112/55 (74) 100 09/09/19 08:50 103 10 40 09/09/19 08:30 102 10 100/54 (69) 100 09/09/19 08:00 98.5 102 10 108/56 (73) 100 09/09/19 08:00 102 09/09/19 08:00 101/55 09/09/19 08:00 40 09/09/19 08:00 Mechanical Ventilator Intake and Output 09/09/19 09/10/19 19:00 07:00 Intake Total 2911.000 ml 2094.500 ml Output Total 1380 ml 620 ml Balance 1531.000 ml 1474.500 ml IV Total 2851.000 ml 1764.500 ml Tube Feeding 60 ml 330 ml Output Urine Total 1380 ml 620 ml General Appearance: no acute distress HEENT: normocephalic Respiratory/Chest: chest wall non-tender Cardiovascular: normal peripheral pulses Abdomen: normal bowel sounds Microbiology Date/Time Source Procedure Growth Status 09/08/19 13:17 Sputum Gram Stain - Final Resulted 09/08/19 13:17 Sputum Sputum Culture Pending Resulted Laboratory Tests 09/10/19 02:05: Vancomycin Level Trough 17.5H 09/10/19 04:40: White Blood Count 20.2H, Red Blood Count 3.46L, Hemoglobin 7.8L, Hematocrit 26.0L, Mean Corpuscular Volume 75L, Mean Corpuscular Hemoglobin 22.7L, Mean Corpuscular Hemoglobin Concent 30.2L, Red Cell Distribution Width 22.2H, Platelet Count 196, Mean Platelet Volume 8.9, Neutrophils (%) (Auto) , Lymphocytes (%) (Auto) , Monocytes (%) (Auto) , Eosinophils (%) (Auto) , Basophils (%) (Auto) , Neutrophils % (Manual) [Pending], Lymphocytes % (Manual) [Pending], Platelet Estimate [Pending], Platelet Morphology [Pending], Sodium Level 119*L, Potassium Level 3.0L, Chloride Level 85L, Carbon Dioxide Level 26, Anion Gap 8, Blood Urea Nitrogen 23H, Creatinine 1.7H, Estimat Glomerular Filtration Rate , Glucose Level 436H, Calcium Level 7.1L, Phosphorus Level 3.1, Magnesium Level 2.1, Total Bilirubin 1.4H, Direct Bilirubin 1.1H, Aspartate Amino Transf (AST/SGOT) 33, Alanine Aminotransferase (ALT/SGPT) 18, Alkaline Phosphatase 136H, Ammonia < 10L, Troponin I 0.056, C-Reactive Protein, Quantitative [Pending], Total Protein 5.7L, Albumin 1.2L, Globulin 4.5, Albumin/ Globulin Ratio 0.3L Current Medications Medications (Trade) Dose Ordered Sig/Colt Route PRN Reason Start Time Stop Time Status Last Admin Dose Admin Aspirin (ASA) 81 mg DAILY NG 09/07/19 09:00 09/28/19 08:59 09/09/19 08:33 Chlorhexidine Gluconate (Marleny-Hex 2%) 1 applic DAILY@1999 TOPIC 09/07/19 20:00 10/07/19 19:59 09/09/19 20:17 Dextrose (Dextrose 50%) 25 ml Q30M PRN IV Hypoglycemia 09/07/19 02:00 09/27/19 07:59 Dextrose (Dextrose 50%) 50 ml Q30M PRN IV Hypoglycemia 09/07/19 02:00 09/27/19 07:59 Docusate Sodium (Colace) 100 mg THREE TIMES A DAY GT 09/07/19 09:00 10/02/19 12:59 09/09/19 17:17 Famotidine (Pepcid I.v.) 20 mg Q12HR IVP 09/07/19 21:00 10/07/19 20:59 09/09/19 20:55 Insulin Aspart (NovoLOG) Q6HR SUBQ 09/10/19 00:00 10/10/19 00:00 09/10/19 05:45 Insulin Detemir (Levemir) 10 units BEDTIME SUBQ 09/09/19 21:00 10/09/19 20:59 09/09/19 20:58 Metoclopramide HCl (Reglan) 10 mg Q6H PRN IVP Nausea & Vomiting 09/07/19 02:15 10/03/19 02:14 Midodrine (Pro-Amatine) 2.5 mg THREE TIMES A DAY GT 09/09/19 13:00 10/09/19 12:59 09/09/19 17:16 Nitroglycerin (Ntg) 1 patch Q24H TDERMAL 09/07/19 11:00 09/28/19 10:59 Norepinephrine Bitartrate 8 mg/ Dextrose 500 ml @ 0 mls/hr Q24H IV 09/07/19 17:00 10/07/19 16:59 09/10/19 03:49 Phenylephrine HCl 100 mg/Dextrose 500 ml @ 0 mls/hr Q24H PRN IV HYPOTENSION 09/09/19 17:00 10/09/19 16:59 09/10/19 02:16 Piperacillin Sod/ Tazobactam Sod 3.375 gm/Sodium Chloride 110 ml @ 27.5 mls/hr EVERY 8 HOURS IVPB 09/08/19 14:00 09/13/19 13:59 09/10/19 05:42 Polyethylene Glycol (Miralax) 17 gm BEDTIME ORAL 09/07/19 21:00 10/02/19 20:59 09/09/19 20:55 Vancomycin HCl (Vanco rx to dose) 1 ea DAILY PRN MISC Per rx protocol 09/08/19 11:30 10/08/19 11:29 Vancomycin HCl 750 mg/Dextrose 275 ml @ 183.333 mls/hr Q12HR@0300,1500 IVPB 09/08/19 15:00 09/13/19 14:59 09/10/19 03:48 Jaiden Logan MD Sep 10, 2019 07:43
[2019-09-10] MEDS: Docusate 100mg/10ml Liq GT SCH ×3 (08:07→17:59)
[2019-09-10] MEDS: Aspirin Baby 81mg NG SCH (08:07)
--- NOTE | 2019-09-10 10:42 | Infectious Diseases Prog Note ---
Assessment/Plan Assessment/Plan antibiotics : vancomycin iv, zosyn A 1. enterococcus UTI s/p rx 2. + blood cultures with coag neg staph likely contaminated 3. leucocytosis improving 4. diabetes mellitus 5. pleural effusion 6. respiratory failure 7. renal failure P 1. continue zosyn 2. d/c iv vancomycin 3. will follow up cultures Subjective ROS Limited/Unobtainable: Yes Allergies: Coded Allergies: No Known Allergies (Unverified , 08/27/19) Objective Vital Signs Last 24 Hour Vital Signs Date Time Temp Pulse Resp B/P (MAP) Pulse Ox O2 Delivery O2 Flow Rate FiO2 09/10/19 10:00 86/52 09/10/19 10:00 98 10 95/52 (66) 100 98 09/10/19 09:30 99 10 90/50 (63) 99 99 09/10/19 09:00 88/52 09/10/19 09:00 99 12 86/52 (63) 98 99 09/10/19 08:55 94/52 09/10/19 08:30 99 10 40 09/10/19 08:15 97 10 97/53 (68) 98 09/10/19 08:00 Mechanical Ventilator 09/10/19 08:00 40 09/10/19 08:00 98 09/10/19 08:00 97/53 09/10/19 08:00 99.5 98 10 82/47 (59) 99 09/10/19 07:45 97 10 83/50 (61) 98 09/10/19 07:30 97 10 85/52 (63) 98 09/10/19 07:24 98 10 40 09/10/19 07:15 97 10 85/50 (62) 98 09/10/19 07:00 95/51 09/10/19 07:00 96 10 87/50 (62) 99 09/10/19 06:45 97 10 90/53 (65) 99 09/10/19 06:41 97 10 88/52 (64) 99 09/10/19 06:30 97 10 77/53 (61) 99 09/10/19 06:15 97 10 89/51 (64) 99 09/10/19 06:00 87/51 09/10/19 06:00 97 10 88/51 (63) 99 09/10/19 05:34 97 10 88/51 (63) 99 09/10/19 05:30 97 10 83/48 (60) 99 09/10/19 05:22 98 10 40 09/10/19 05:21 99 10 91/55 (67) 99 09/10/19 05:15 99 10 79/58 (65) 98 09/10/19 05:00 101 10 83/48 (60) 96 09/10/19 05:00 79/58 09/10/19 04:45 97 11 107/54 (71) 100 09/10/19 04:30 98 10 98/48 (65) 100 09/10/19 04:15 99 10 91/48 (62) 100 09/10/19 04:00 97.8 100 10 87/49 (62) 99 09/10/19 04:00 40 09/10/19 04:00 91/48 09/10/19 04:00 Mechanical Ventilator 09/10/19 04:00 100 09/10/19 03:49 123/80 09/10/19 03:30 98 10 74/44 (54) 100 09/10/19 03:00 95 10 104/51 (68) 100 09/10/19 02:55 97 10 40 09/10/19 02:30 98 10 89/50 (63) 99 09/10/19 02:16 86 86/60 09/10/19 02:00 101 10 102/63 (76) 100 09/10/19 02:00 101 10 100 09/10/19 01:30 99 10 100/57 (71) 100 09/10/19 01:30 99 10 100/57 (71) 100 09/10/19 01:00 96 10 125/67 (86) 100 09/10/19 01:00 104/39 09/10/19 01:00 98.6 97 11 125/67 (86) 100 09/10/19 00:56 97 10 40 09/10/19 00:30 99 10 116/43 (67) 100 09/10/19 00:00 96 09/10/19 00:00 117/42 09/10/19 00:00 100 10 117/42 (67) 100 09/10/19 00:00 100 10 117/42 (67) 100 09/10/19 00:00 40 09/10/19 00:00 Mechanical Ventilator 09/10/19 00:00 100 10 117/42 (67) 100 09/09/19 23:30 101 11 111/35 (60) 100 09/09/19 23:00 96/49 09/09/19 23:00 102 10 96/49 (65) 99 09/09/19 22:51 103 10 40 09/09/19 22:45 76/46 09/09/19 22:30 103 10 76/46 (56) 100 09/09/19 22:00 103 10 102/37 (58) 100 09/09/19 22:00 102/37 09/09/19 21:30 101 10 112/53 (72) 100 09/09/19 21:15 101 10 40 09/09/19 21:00 100 10 113/48 (69) 100 09/09/19 21:00 104/52 09/09/19 20:30 98 10 85/43 (57) 100 09/09/19 20:00 40 09/09/19 20:00 Mechanical Ventilator 09/09/19 20:00 98.5 98 10 85/38 (54) 100 09/09/19 20:00 85/36 09/09/19 20:00 96 09/09/19 19:30 98 10 107/35 (59) 100 09/09/19 19:00 93/45 09/09/19 19:00 98 11 93/45 (61) 99 09/09/19 18:39 96 10 40 09/09/19 18:30 98 10 90/48 (62) 100 09/09/19 18:00 99/47 09/09/19 18:00 99 10 99/47 (64) 100 09/09/19 17:57 101 112/62 09/09/19 17:30 99 10 96/60 (72) 99 09/09/19 17:00 98 10 108/43 (64) 100 09/09/19 16:58 118/59 09/09/19 16:57 108/43 09/09/19 16:53 100 10 40 09/09/19 16:30 98 10 100/45 (63) 100 09/09/19 16:15 100/36 09/09/19 16:00 40 09/09/19 16:00 98.7 97 10 108/68 (81) 100 09/09/19 16:00 Mechanical Ventilator 09/09/19 16:00 96 09/09/19 15:45 79/43 09/09/19 15:30 114/32 09/09/19 15:30 99.2 96 10 105/51 (69) 100 09/09/19 15:00 115/70 09/09/19 15:00 95 10 115/70 (85) 100 09/09/19 14:45 95 10 40 09/09/19 14:30 84 10 87/41 (56) 100 09/09/19 14:30 87/41 09/09/19 14:00 92 11 91/43 (59) 100 09/09/19 14:00 89/43 09/09/19 13:30 92 11 89/43 (58) 100 09/09/19 13:30 86/55 09/09/19 13:29 94 96/34 09/09/19 13:00 99 13 106/59 (75) 100 09/09/19 13:00 106/59 09/09/19 12:56 99 10 40 09/09/19 12:30 100 11 121/93 (102) 100 09/09/19 12:00 Mechanical Ventilator 09/09/19 12:00 98.3 99 14 100/55 (70) 100 09/09/19 12:00 100/55 09/09/19 12:00 92 09/09/19 12:00 40 09/09/19 11:30 99 10 103/51 (68) 100 09/09/19 11:00 100 10 115/51 (72) 100 09/09/19 11:00 115/51 09/09/19 10:55 96/53 09/09/19 10:54 101/53 09/09/19 10:54 96/53 09/09/19 10:42 100 10 40 Height (Feet): 5 Height (Inches): 3.00 Weight (Pounds): 162 Respiratory/Chest: lungs clear Cardiovascular: normal rate, regular rhythm, no gallop/murmur Abdomen: soft, non tender, other - GT Extremities: no edema, other - left IJ catheter Microbiology Date/Time Source Procedure Growth Status 09/08/19 13:17 Sputum Gram Stain - Final Complete 09/08/19 13:17 Sputum Culture - Final Anya Albicans Usual Respiratory Chrissy Complete Laboratory Tests Test 09/10/19 02:05 09/10/19 04:40 Vancomycin Level Trough 17.5 ug/mL (5.0-12.0) H White Blood Count 20.2 K/UL (4.8-10.8) H Red Blood Count 3.46 M/UL (4.20-5.40) L Hemoglobin 7.8 G/DL (12.0-16.0) L Hematocrit 26.0 % (37.0-47.0) L Mean Corpuscular Volume 75 FL (80-99) L Mean Corpuscular Hemoglobin 22.7 PG (27.0-31.0) L Mean Corpuscular Hemoglobin Concent 30.2 G/DL (32.0-36.0) L Red Cell Distribution Width 22.2 % (11.6-14.8) H Platelet Count 196 K/UL (150-450) Mean Platelet Volume 8.9 FL (6.5-10.1) Neutrophils (%) (Auto) % (45.0-75.0) Lymphocytes (%) (Auto) % (20.0-45.0) Monocytes (%) (Auto) % (1.0-10.0) Eosinophils (%) (Auto) % (0.0-3.0) Basophils (%) (Auto) % (0.0-2.0) Differential Total Cells Counted 100 Neutrophils % (Manual) 74 % (45-75) Lymphocytes % (Manual) 19 % (20-45) L Monocytes % (Manual) 5 % (1-10) Eosinophils % (Manual) 1 % (0-3) Basophils % (Manual) 1 % (0-2) Platelet Estimate Pending Platelet Morphology Normal Hypochromasia 3+ Anisocytosis 3+ Microcytosis 1+ Sodium Level 119 MMOL/L (136-145) *L Potassium Level 3.0 MMOL/L (3.5-5.1) L Chloride Level 85 MMOL/L (98-107) L Carbon Dioxide Level 26 MMOL/L (21-32) Anion Gap 8 mmol/L (5-15) Blood Urea Nitrogen 23 mg/dL (7-18) H Creatinine 1.7 MG/DL (0.55-1.30) H Estimat Glomerular Filtration Rate mL/min (>60) Glucose Level 436 MG/DL (74-106) H Calcium Level 7.1 MG/DL (8.5-10.1) L Phosphorus Level 3.1 MG/DL (2.5-4.9) Magnesium Level 2.1 MG/DL (1.8-2.4) Total Bilirubin 1.4 MG/DL (0.2-1.0) H Direct Bilirubin 1.1 MG/DL (0.0-0.3) H Aspartate Amino Transf (AST/SGOT) 33 U/L (15-37) Alanine Aminotransferase (ALT/SGPT) 18 U/L (12-78) Alkaline Phosphatase 136 U/L (46-116) H Ammonia < 10 umol/L (11-32) L Troponin I 0.056 ng/mL (0.000-0.056) C-Reactive Protein, Quantitative 33.1 mg/dL (0.00-0.90) H Total Protein 5.7 G/DL (6.4-8.2) L Albumin 1.2 G/DL (3.4-5.0) L Globulin 4.5 g/dL Albumin/Globulin Ratio 0.3 (1.0-2.7) L Current Medications Medications (Trade) Dose Ordered Sig/Colt Route PRN Reason Start Time Stop Time Status Last Admin Dose Admin Aspirin (ASA) 81 mg DAILY NG 09/07/19 09:00 09/28/19 08:59 09/10/19 08:07 Chlorhexidine Gluconate (Marleny-Hex 2%) 1 applic DAILY@1999 TOPIC 09/07/19 20:00 10/07/19 19:59 09/09/19 20:17 Dextrose (Dextrose 50%) 25 ml Q30M PRN IV Hypoglycemia 09/07/19 02:00 09/27/19 07:59 Dextrose (Dextrose 50%) 50 ml Q30M PRN IV Hypoglycemia 09/07/19 02:00 09/27/19 07:59 Docusate Sodium (Colace) 100 mg THREE TIMES A DAY GT 09/07/19 09:00 10/02/19 12:59 09/10/19 08:07 Famotidine (Pepcid I.v.) 20 mg Q12HR IVP 09/07/19 21:00 10/07/19 20:59 09/10/19 08:07 Insulin Aspart (NovoLOG) Q6HR SUBQ 09/10/19 00:00 10/10/19 00:00 09/10/19 05:45 Insulin Detemir (Levemir) 10 units BEDTIME SUBQ 09/09/19 21:00 10/09/19 20:59 09/09/19 20:58 Metoclopramide HCl (Reglan) 10 mg Q6H PRN IVP Nausea & Vomiting 09/07/19 02:15 10/03/19 02:14 Midodrine (Pro-Amatine) 2.5 mg THREE TIMES A DAY GT 09/09/19 13:00 10/09/19 12:59 09/10/19 08:07 Nitroglycerin (Ntg) 1 patch Q24H TDERMAL 09/07/19 11:00 09/28/19 10:59 Norepinephrine Bitartrate 8 mg/ Dextrose 500 ml @ 0 mls/hr Q24H IV 09/07/19 17:00 10/07/19 16:59 09/10/19 08:55 Phenylephrine HCl 100 mg/Dextrose 500 ml @ 0 mls/hr Q24H PRN IV HYPOTENSION 09/09/19 17:00 10/09/19 16:59 09/10/19 02:16 Piperacillin Sod/ Tazobactam Sod 3.375 gm/Sodium Chloride 110 ml @ 27.5 mls/hr EVERY 8 HOURS IVPB 09/08/19 14:00 09/13/19 13:59 09/10/19 05:42 Polyethylene Glycol (Miralax) 17 gm BEDTIME ORAL 09/07/19 21:00 10/02/19 20:59 09/09/19 20:55 Vancomycin HCl (Vanco rx to dose) 1 ea DAILY PRN MISC Per rx protocol 09/08/19 11:30 10/08/19 11:29 Vancomycin HCl 750 mg/Dextrose 275 ml @ 183.333 mls/hr Q12HR@0300,1500 IVPB 09/08/19 15:00 09/13/19 14:59 09/10/19 03:48 Shamar Rios MD Sep 10, 2019 10:42
--- NOTE | 2019-09-10 11:03 | Nephrology Progress Note ---
Assessment/Plan Problem List: (1) Acute respiratory failure Assessment: septic shock (2) Dehydration (3) Failure to thrive (4) Hypernatremia (5) Pneumonia (6) Elevated troponin (7) Cardiomyopathy Assessment Dehydration leading to HyperNatremia HypoAlbuminemia / Mal nutrition Elevated Troponin NSTEMI COPD HTN Pneumonia Plan Remains Hypotensive recheck today's labs- discussed with RAYSHAWN kurtz Midodrine start feeding down on IV on 2 pressors intubated unresponsive post code blue off BP meds has PEG k and Phos supplement as needed pulmonary and cardiac support poor prognosis favor comfort care EEG Neuro eval ? previously: Low EjFx Monitor BS and BP Monitor renal parameters Per consultants ASA and Nitro afterload reduction Subjective ROS Limited/Unobtainable: Yes Objective Objective Last 24 Hour Vital Signs Date Time Temp Pulse Resp B/P (MAP) Pulse Ox O2 Delivery O2 Flow Rate FiO2 09/10/19 10:39 100 62/42 09/10/19 10:00 86/52 09/10/19 10:00 98 10 95/52 (66) 100 98 09/10/19 09:30 99 10 90/50 (63) 99 99 09/10/19 09:00 88/52 09/10/19 09:00 99 12 86/52 (63) 98 99 09/10/19 08:55 94/52 09/10/19 08:30 99 10 40 09/10/19 08:15 97 10 97/53 (68) 98 09/10/19 08:00 Mechanical Ventilator 09/10/19 08:00 40 09/10/19 08:00 98 09/10/19 08:00 97/53 09/10/19 08:00 99.5 98 10 82/47 (59) 99 09/10/19 07:45 97 10 83/50 (61) 98 09/10/19 07:30 97 10 85/52 (63) 98 09/10/19 07:24 98 10 40 09/10/19 07:15 97 10 85/50 (62) 98 09/10/19 07:00 95/51 09/10/19 07:00 96 10 87/50 (62) 99 09/10/19 06:45 97 10 90/53 (65) 99 09/10/19 06:41 97 10 88/52 (64) 99 09/10/19 06:30 97 10 77/53 (61) 99 09/10/19 06:15 97 10 89/51 (64) 99 09/10/19 06:00 87/51 09/10/19 06:00 97 10 88/51 (63) 99 09/10/19 05:34 97 10 88/51 (63) 99 09/10/19 05:30 97 10 83/48 (60) 99 09/10/19 05:22 98 10 40 09/10/19 05:21 99 10 91/55 (67) 99 09/10/19 05:15 99 10 79/58 (65) 98 09/10/19 05:00 101 10 83/48 (60) 96 09/10/19 05:00 79/58 09/10/19 04:45 97 11 107/54 (71) 100 09/10/19 04:30 98 10 98/48 (65) 100 09/10/19 04:15 99 10 91/48 (62) 100 09/10/19 04:00 97.8 100 10 87/49 (62) 99 09/10/19 04:00 40 09/10/19 04:00 91/48 09/10/19 04:00 Mechanical Ventilator 09/10/19 04:00 100 09/10/19 03:49 123/80 09/10/19 03:30 98 10 74/44 (54) 100 09/10/19 03:00 95 10 104/51 (68) 100 09/10/19 02:55 97 10 40 09/10/19 02:30 98 10 89/50 (63) 99 09/10/19 02:16 86 86/60 09/10/19 02:00 101 10 102/63 (76) 100 09/10/19 02:00 101 10 100 09/10/19 01:30 99 10 100/57 (71) 100 09/10/19 01:30 99 10 100/57 (71) 100 09/10/19 01:00 96 10 125/67 (86) 100 09/10/19 01:00 104/39 09/10/19 01:00 98.6 97 11 125/67 (86) 100 09/10/19 00:56 97 10 40 09/10/19 00:30 99 10 116/43 (67) 100 09/10/19 00:00 96 09/10/19 00:00 117/42 09/10/19 00:00 100 10 117/42 (67) 100 09/10/19 00:00 100 10 117/42 (67) 100 09/10/19 00:00 40 09/10/19 00:00 Mechanical Ventilator 09/10/19 00:00 100 10 117/42 (67) 100 09/09/19 23:30 101 11 111/35 (60) 100 09/09/19 23:00 96/49 09/09/19 23:00 102 10 96/49 (65) 99 09/09/19 22:51 103 10 40 09/09/19 22:45 76/46 09/09/19 22:30 103 10 76/46 (56) 100 09/09/19 22:00 103 10 102/37 (58) 100 09/09/19 22:00 102/37 09/09/19 21:30 101 10 112/53 (72) 100 09/09/19 21:15 101 10 40 09/09/19 21:00 100 10 113/48 (69) 100 09/09/19 21:00 104/52 09/09/19 20:30 98 10 85/43 (57) 100 09/09/19 20:00 40 09/09/19 20:00 Mechanical Ventilator 09/09/19 20:00 98.5 98 10 85/38 (54) 100 09/09/19 20:00 85/36 09/09/19 20:00 96 09/09/19 19:30 98 10 107/35 (59) 100 09/09/19 19:00 93/45 09/09/19 19:00 98 11 93/45 (61) 99 09/09/19 18:39 96 10 40 09/09/19 18:30 98 10 90/48 (62) 100 09/09/19 18:00 99/47 09/09/19 18:00 99 10 99/47 (64) 100 09/09/19 17:57 101 112/62 09/09/19 17:30 99 10 96/60 (72) 99 09/09/19 17:00 98 10 108/43 (64) 100 09/09/19 16:58 118/59 09/09/19 16:57 108/43 09/09/19 16:53 100 10 40 09/09/19 16:30 98 10 100/45 (63) 100 09/09/19 16:15 100/36 09/09/19 16:00 40 09/09/19 16:00 98.7 97 10 108/68 (81) 100 09/09/19 16:00 Mechanical Ventilator 09/09/19 16:00 96 09/09/19 15:45 79/43 09/09/19 15:30 114/32 09/09/19 15:30 99.2 96 10 105/51 (69) 100 09/09/19 15:00 115/70 09/09/19 15:00 95 10 115/70 (85) 100 09/09/19 14:45 95 10 40 09/09/19 14:30 84 10 87/41 (56) 100 09/09/19 14:30 87/41 09/09/19 14:00 92 11 91/43 (59) 100 09/09/19 14:00 89/43 09/09/19 13:30 92 11 89/43 (58) 100 09/09/19 13:30 86/55 09/09/19 13:29 94 96/34 09/09/19 13:00 99 13 106/59 (75) 100 09/09/19 13:00 106/59 09/09/19 12:56 99 10 40 09/09/19 12:30 100 11 121/93 (102) 100 09/09/19 12:00 Mechanical Ventilator 09/09/19 12:00 98.3 99 14 100/55 (70) 100 09/09/19 12:00 100/55 09/09/19 12:00 92 09/09/19 12:00 40 09/09/19 11:30 99 10 103/51 (68) 100 Intake and Output 09/09/19 09/10/19 19:00 07:00 Intake Total 2911.000 ml 2282.000 ml Output Total 1380 ml 720 ml Balance 1531.000 ml 1562.000 ml IV Total 2851.000 ml 1922.000 ml Tube Feeding 60 ml 360 ml Output Urine Total 1380 ml 720 ml Laboratory Tests 09/10/19 02:05: Vancomycin Level Trough 17.5H 09/10/19 04:40: White Blood Count 20.2H, Red Blood Count 3.46L, Hemoglobin 7.8L, Hematocrit 26.0L, Mean Corpuscular Volume 75L, Mean Corpuscular Hemoglobin 22.7L, Mean Corpuscular Hemoglobin Concent 30.2L, Red Cell Distribution Width 22.2H, Platelet Count 196, Mean Platelet Volume 8.9, Neutrophils (%) (Auto) , Lymphocytes (%) (Auto) , Monocytes (%) (Auto) , Eosinophils (%) (Auto) , Basophils (%) (Auto) , Differential Total Cells Counted 100, Neutrophils % ( Manual) 74, Lymphocytes % (Manual) 19L, Monocytes % (Manual) 5, Eosinophils % ( Manual) 1, Basophils % (Manual) 1, Band Neutrophils 0, Platelet Estimate Adequate, Platelet Morphology Normal, Hypochromasia 3+, Anisocytosis 3+, Microcytosis 1+, Sodium Level 119*L, Potassium Level 3.0L, Chloride Level 85L, Carbon Dioxide Level 26, Anion Gap 8, Blood Urea Nitrogen 23H, Creatinine 1.7H, Estimat Glomerular Filtration Rate , Glucose Level 436H, Calcium Level 7.1L, Phosphorus Level 3.1, Magnesium Level 2.1, Total Bilirubin 1.4H, Direct Bilirubin 1.1H, Aspartate Amino Transf (AST/SGOT) 33, Alanine Aminotransferase ( ALT/SGPT) 18, Alkaline Phosphatase 136H, Ammonia < 10L, Troponin I 0.056, C- Reactive Protein, Quantitative 33.1H, Total Protein 5.7L, Albumin 1.2L, Globulin 4.5, Albumin/Globulin Ratio 0.3L Height (Feet): 5 Height (Inches): 3.00 Weight (Pounds): 162 General Appearance: no apparent distress EENT: other - vented Cardiovascular: tachycardia Respiratory/Chest: decreased breath sounds Abdomen: distended Neurologic: other - comatose Objective no change Kaden Chance MD Sep 10, 2019 11:03
[2019-09-10] MEDS: Nitroglycerin Patch 0.4mg TDERMAL SCH (11:17)
[2019-09-10 11:33] LABS: HEMATOCRIT 26.6 % (37.0-47.0); HEMOGLOBIN 8.1 G/DL (12.0-16.0); MEAN CORPUSCULAR VOLUME 75 FL (80-99); PLATELET COUNT 200 K/UL (150-450); RED BLOOD COUNT 3.54 M/UL (4.20-5.40); RED CELL DISTRIBUTION WIDTH 21.7 % (11.6-14.8); WHITE BLOOD COUNT 21.9 K/UL (4.8-10.8)
--- NOTE | 2019-09-10 11:51 | Diagnostic Imaging Report ---
Indication: Abdominal pain Comparison: 09/07/2019 Single view of the abdomen obtained Findings: Bowel gas pattern is nonspecific. There is a moderate degree of contrast retention within the colon. Gastrostomy is noted. No mass, ectopic calcifications, or abnormal gas collections are identified. The bones are unremarkable. Impression: No acute findings
[2019-09-10 11:56] LABS: ANION GAP 11 mmol/L (5-15); BLOOD UREA NITROGEN 24 mg/dL (7-18); CALCIUM 7.1 MG/DL (8.5-10.1); CARBON DIOXIDE 25 MMOL/L (21-32); CHLORIDE 87 MMOL/L (98-107); CREATININE 1.7 MG/DL (0.55-1.30); POTASSIUM 3.4 MMOL/L (3.5-5.1); SODIUM 123 MMOL/L (136-145)
[2019-09-10 12:00] LABS: ALANINE AMINOTRANSFERASE 20 U/L (12-78); ALBUMIN 1.2 G/DL (3.4-5.0); ALBUMIN/GLOBULIN RATIO 0.3 (1.0-2.7); ALKALINE PHOSPHATASE 155 U/L (46-116); ASPARTATE AMINO TRANSFERASE 32 U/L (15-37); BILIRUBIN,DIRECT 1.1 MG/DL (0.0-0.3); BILIRUBIN,TOTAL 1.4 MG/DL (0.2-1.0); PHOSPHORUS 3.5 MG/DL (2.5-4.9)
[2019-09-10 12:04] LABS: AMMONIA < 10 umol/L (11-32)
--- NOTE | 2019-09-10 13:29 | Diagnostic Imaging Report ---
Indication: Abdominal pain Technique: Grayscale and duplex Doppler imaging of the abdomen performed. Comparison: None Findings: The liver is unremarkable. Doppler interrogation of the main portal vein shows patency with hepatopedal, monophasic flow. There is no biliary ductal dilatation identified. Gallbladder is notable for stones. . Sonographic Lane's is equivocal due to patient confusion altered mental status. There demonstrated part of the pancreas, aorta and IVC show no definite abnormalities. There is a small left pleural effusion. Both kidneys appear unremarkable. There is no hydronephrosis. IMPRESSION: Gallstones. Left pleural effusion Limited evaluation due to altered mental status
--- NOTE | 2019-09-10 15:45 | Progress Note ---
DATE: 09/10/2019 SUBJECTIVE: This is elderly female, nonverbal, ICU, critically sick. OBJECTIVE: VITAL SIGNS: Blood pressure 97/53, temperature 99.5. HEENT: Her eyes are closed. NECK: Supple. CHEST: Bilateral few crackles. CARDIOVASCULAR: Regular rhythm. ABDOMEN: Soft. EXTREMITIES: CCE. LABORATORY DATA: White counts are 20,000 hemoglobin 7.8. Chemistry panel - sodium 119, potassium 3.0, BUN 23, creatinine 1.7. ASSESSMENT: 1. Severe metabolic acidosis. 2. Acute respiratory failure. 3. Cardiopulmonary arrest. 4. Electrolyte abnormality. 5. Encephalopathy. 6. Diabetes, poorly controlled. PLAN: 1. We will change the diabetic high dose of insulin sliding scale. 2. Continue current medical treatment. 3. Continue antibiotics. 4. Nephrology, Cardiology, and Pulmonary is on the case. Osmar Cooney M.D. DR: BYRON JOB#: [id number] CC:
[2019-09-10] MEDS ORDERED: Tubing IV Secondary IV ONE ×3 (15:52→15:56)
[2019-09-10] MEDS ORDERED: D5 1/2NS 1000ml IV ONE ×2 (15:52→15:56)
[2019-09-10] MEDS ORDERED: NS 275ml ONE ×3 (15:52→15:56)
[2019-09-10] MEDS ORDERED: NS 500ML ONE (15:53)
[2019-09-10] MEDS ORDERED: 1/2 NS 1000ml IV ONE (15:53)
[2019-09-10] MEDS ORDERED: D5W 275ml ONE (15:53)
[2019-09-10] MEDS ORDERED: NaCl 3% 500ml 500 ML IV ONE (16:00)
--- NOTE | 2019-09-10 16:08 | Surgery Progress Note ---
Surgery Progress Note Subjective Symptoms: worse Objective Last 24 Hour Vital Signs Date Time Temp Pulse Resp B/P (MAP) Pulse Ox O2 Delivery O2 Flow Rate FiO2 09/10/19 16:00 40 09/10/19 15:49 106 10 40 09/10/19 15:45 105 10 82/47 (59) 100 09/10/19 15:36 106 10 85/53 (64) 98 09/10/19 15:30 106 10 66/42 (50) 98 09/10/19 15:20 71/48 09/10/19 15:15 106 10 71/48 (56) 98 09/10/19 15:07 106 10 71/54 (60) 98 09/10/19 15:00 106 10 67/45 (52) 99 09/10/19 15:00 64/48 09/10/19 14:48 64/48 09/10/19 14:31 106 10 40 09/10/19 14:30 106 10 73/48 (56) 98 09/10/19 14:15 108 10 72/52 (59) 97 09/10/19 14:00 66/49 09/10/19 14:00 110 10 66/49 (55) 97 09/10/19 13:45 105 10 83/53 (63) 100 09/10/19 13:30 105 10 86/54 (65) 100 09/10/19 13:00 100/59 09/10/19 13:00 96 10 100/59 (73) 100 09/10/19 12:54 104 10 40 09/10/19 12:30 97 10 90/47 (61) 100 09/10/19 12:00 88/54 09/10/19 12:00 40 09/10/19 12:00 98.6 97 10 88/54 (65) 100 09/10/19 12:00 Mechanical Ventilator 09/10/19 11:38 97 09/10/19 11:30 97 10 92/58 (69) 100 97 09/10/19 11:17 94/54 09/10/19 11:00 83/53 09/10/19 11:00 98 10 83/53 (63) 96 98 09/10/19 10:55 88 10 40 09/10/19 10:39 100 62/42 09/10/19 10:30 99 11 90/54 (66) 100 99 11/13/19 10:00 86/52 09/10/19 10:00 98 10 95/52 (66) 100 98 09/10/19 09:30 99 10 90/50 (63) 99 99 09/10/19 09:00 88/52 09/10/19 09:00 99 12 86/52 (63) 98 99 09/10/19 08:55 94/52 09/10/19 08:30 99 10 40 09/10/19 08:15 97 10 97/53 (68) 98 09/10/19 08:00 Mechanical Ventilator 09/10/19 08:00 40 09/10/19 08:00 98 09/10/19 08:00 97/53 09/10/19 08:00 99.5 98 10 82/47 (59) 99 09/10/19 07:45 97 10 83/50 (61) 98 09/10/19 07:30 97 10 85/52 (63) 98 09/10/19 07:24 98 10 40 09/10/19 07:15 97 10 85/50 (62) 98 09/10/19 07:00 95/51 09/10/19 07:00 96 10 87/50 (62) 99 09/10/19 06:45 97 10 90/53 (65) 99 09/10/19 06:41 97 10 88/52 (64) 99 09/10/19 06:30 97 10 77/53 (61) 99 09/10/19 06:15 97 10 89/51 (64) 99 09/10/19 06:00 87/51 09/10/19 06:00 97 10 88/51 (63) 99 09/10/19 05:34 97 10 88/51 (63) 99 09/10/19 05:30 97 10 83/48 (60) 99 09/10/19 05:22 98 10 40 09/10/19 05:21 99 10 91/55 (67) 99 09/10/19 05:15 99 10 79/58 (65) 98 09/10/19 05:00 101 10 83/48 (60) 96 09/10/19 05:00 79/58 09/10/19 04:45 97 11 107/54 (71) 100 09/10/19 04:30 98 10 98/48 (65) 100 09/10/19 04:15 99 10 91/48 (62) 100 09/10/19 04:00 97.8 100 10 87/49 (62) 99 09/10/19 04:00 40 09/10/19 04:00 91/48 09/10/19 04:00 Mechanical Ventilator 09/10/19 04:00 100 09/10/19 03:49 123/80 09/10/19 03:30 98 10 74/44 (54) 100 09/10/19 03:00 95 10 104/51 (68) 100 09/10/19 02:55 97 10 40 09/10/19 02:30 98 10 89/50 (63) 99 09/10/19 02:16 86 86/60 09/10/19 02:00 101 10 102/63 (76) 100 09/10/19 02:00 101 10 100 09/10/19 01:30 99 10 100/57 (71) 100 09/10/19 01:30 99 10 100/57 (71) 100 09/10/19 01:00 96 10 125/67 (86) 100 09/10/19 01:00 104/39 09/10/19 01:00 98.6 97 11 125/67 (86) 100 09/10/19 00:56 97 10 40 09/10/19 00:30 99 10 116/43 (67) 100 09/10/19 00:00 96 09/10/19 00:00 117/42 09/10/19 00:00 100 10 117/42 (67) 100 09/10/19 00:00 100 10 117/42 (67) 100 09/10/19 00:00 40 09/10/19 00:00 Mechanical Ventilator 09/10/19 00:00 100 10 117/42 (67) 100 09/09/19 23:30 101 11 111/35 (60) 100 09/09/19 23:00 96/49 09/09/19 23:00 102 10 96/49 (65) 99 09/09/19 22:51 103 10 40 09/09/19 22:45 76/46 09/09/19 22:30 103 10 76/46 (56) 100 09/09/19 22:00 103 10 102/37 (58) 100 09/09/19 22:00 102/37 09/09/19 21:30 101 10 112/53 (72) 100 09/09/19 21:15 101 10 40 09/09/19 21:00 100 10 113/48 (69) 100 09/09/19 21:00 104/52 09/09/19 20:30 98 10 85/43 (57) 100 09/09/19 20:00 40 09/09/19 20:00 Mechanical Ventilator 09/09/19 20:00 98.5 98 10 85/38 (54) 100 09/09/19 20:00 85/36 09/09/19 20:00 96 09/09/19 19:30 98 10 107/35 (59) 100 09/09/19 19:00 93/45 09/09/19 19:00 98 11 93/45 (61) 99 09/09/19 18:39 96 10 40 09/09/19 18:30 98 10 90/48 (62) 100 09/09/19 18:00 99/47 09/09/19 18:00 99 10 99/47 (64) 100 09/09/19 17:57 101 112/62 09/09/19 17:30 99 10 96/60 (72) 99 09/09/19 17:00 98 10 108/43 (64) 100 09/09/19 16:58 118/59 09/09/19 16:57 108/43 09/09/19 16:53 100 10 40 09/09/19 16:30 98 10 100/45 (63) 100 09/09/19 16:15 100/36 I&O Intake and Output 09/09/19 09/10/19 19:00 07:00 Intake Total 2911.000 ml 2282.000 ml Output Total 1380 ml 720 ml Balance 1531.000 ml 1562.000 ml IV Total 2851.000 ml 1922.000 ml Tube Feeding 60 ml 360 ml Output Urine Total 1380 ml 720 ml Dressing: other Wound: other Drains: other Cardiovascular: RSR Respiratory: decreased breath sounds Abdomen: soft, non-distended, decreased bowel sounds Extremities: no cyanosis Laboratory Tests Test 09/10/19 02:05 09/10/19 04:40 09/10/19 11:00 Vancomycin Level Trough 17.5 ug/mL (5.0-12.0) H White Blood Count 20.2 K/UL (4.8-10.8) H 21.9 K/UL (4.8-10.8) H Red Blood Count 3.46 M/UL (4.20-5.40) L 3.54 M/UL (4.20-5.40) L Hemoglobin 7.8 G/DL (12.0-16.0) L 8.1 G/DL (12.0-16.0) L Hematocrit 26.0 % (37.0-47.0) L 26.6 % (37.0-47.0) L Mean Corpuscular Volume 75 FL (80-99) L 75 FL (80-99) L Mean Corpuscular Hemoglobin 22.7 PG (27.0-31.0) L 23.0 PG (27.0-31.0) L Mean Corpuscular Hemoglobin Concent 30.2 G/DL (32.0-36.0) L 30.5 G/DL (32.0-36.0) L Red Cell Distribution Width 22.2 % (11.6-14.8) H 21.7 % (11.6-14.8) H Platelet Count 196 K/UL (150-450) 200 K/UL (150-450) Mean Platelet Volume 8.9 FL (6.5-10.1) 11.0 FL (6.5-10.1) H Neutrophils (%) (Auto) % (45.0-75.0) % (45.0-75.0) Lymphocytes (%) (Auto) % (20.0-45.0) % (20.0-45.0) Monocytes (%) (Auto) % (1.0-10.0) % (1.0-10.0) Eosinophils (%) (Auto) % (0.0-3.0) % (0.0-3.0) Basophils (%) (Auto) % (0.0-2.0) % (0.0-2.0) Differential Total Cells Counted 100 100 Neutrophils % (Manual) 74 % (45-75) 79 % (45-75) H Lymphocytes % (Manual) 19 % (20-45) L 14 % (20-45) L Monocytes % (Manual) 5 % (1-10) 5 % (1-10) Eosinophils % (Manual) 1 % (0-3) 1 % (0-3) Basophils % (Manual) 1 % (0-2) 1 % (0-2) Band Neutrophils 0 % (0-8) 0 % (0-8) Platelet Estimate Adequate Adequate Platelet Morphology Normal Normal Hypochromasia 3+ 2+ Anisocytosis 3+ Microcytosis 1+ Sodium Level 119 MMOL/L (136-145) *L 123 MMOL/L (136-145) L Potassium Level 3.0 MMOL/L (3.5-5.1) L 3.4 MMOL/L (3.5-5.1) L Chloride Level 85 MMOL/L (98-107) L 87 MMOL/L (98-107) L Carbon Dioxide Level 26 MMOL/L (21-32) 25 MMOL/L (21-32) Anion Gap 8 mmol/L (5-15) 11 mmol/L (5-15) Blood Urea Nitrogen 23 mg/dL (7-18) H 24 mg/dL (7-18) H Creatinine 1.7 MG/DL (0.55-1.30) H 1.7 MG/DL (0.55-1.30) H Estimat Glomerular Filtration Rate mL/min (>60) mL/min (>60) Glucose Level 436 MG/DL (74-106) H 398 MG/DL (74-106) H Calcium Level 7.1 MG/DL (8.5-10.1) L 7.1 MG/DL (8.5-10.1) L Phosphorus Level 3.1 MG/DL (2.5-4.9) 3.5 MG/DL (2.5-4.9) Magnesium Level 2.1 MG/DL (1.8-2.4) 2.0 MG/DL (1.8-2.4) Total Bilirubin 1.4 MG/DL (0.2-1.0) H 1.4 MG/DL (0.2-1.0) H Direct Bilirubin 1.1 MG/DL (0.0-0.3) H 1.1 MG/DL (0.0-0.3) H Aspartate Amino Transf (AST/SGOT) 33 U/L (15-37) 32 U/L (15-37) Alanine Aminotransferase (ALT/SGPT) 18 U/L (12-78) 20 U/L (12-78) Alkaline Phosphatase 136 U/L (46-116) H 155 U/L (46-116) H Ammonia < 10 umol/L (11-32) L < 10 umol/L (11-32) L Troponin I 0.056 ng/mL (0.000-0.056) 0.040 ng/mL (0.000-0.056) C-Reactive Protein, Quantitative 33.1 mg/dL (0.00-0.90) H 34.5 mg/dL (0.00-0.90) H Total Protein 5.7 G/DL (6.4-8.2) L 5.8 G/DL (6.4-8.2) L Albumin 1.2 G/DL (3.4-5.0) L 1.2 G/DL (3.4-5.0) L Globulin 4.5 g/dL 4.6 g/dL Albumin/Globulin Ratio 0.3 (1.0-2.7) L 0.3 (1.0-2.7) L Plan Problems: (1) Sacral decubitus ulcer Assessment & Plan: Patient presented with Partial thickness stage 2 pressure injuries to R and L buttocks with surrounding non-blanching erythema without induration or fluctuance. Partial thickness stage 2 pressure injury R buttocks. Base of wound moist and viable. (L)1.8cm x (W)1cm.Erythematous and denuded borders and periwound. Partial thickness stage 2pressure injury L buttocks. Base of wound moist- viable. Borders and periwound erythematous and denuded. R heel boggy with non-blanching erythema. L heel boggy but blanchable. Tx.Plan: Cleanse wounds R and L buttocks with Saline. Apply Therahoney to each wound. Apply Moisture Barrier periwound.Cover with Optifoam drsg. Change every 3 days and prn. Apply Moisture Barrier Paste to Perineum and bilat ischial regions with each Incontinence care. APM/DAVID Mattress overlay. Reposition at least every 2hours or as tolerated. Off-load heels with pillow. (2) failure to thrive (3) Protein-calorie malnutrition, moderate Assessment & Plan: DAILY ESTIMATED NEEDS: Needs based on Pulmonary, cardiac; 64.1kg 25-30 kcals/kg 1603- 1923 total kcals 1-1.5 g protein/kg 64- 96 g total protein 20-25 mL/kg 4641-7424 total fluid mLs NUTRITION DIAGNOSIS: *Swallowing difficulty R/T dysdphagia as evidenced by pt is now s/p PEG placement, GT feeding held at this time for elev residuals. *Altered nutrition related lab values r/t dehydration, clinical condition as evidenced by critically elev Na value of 163*-> now wnl, BUN 41-> 26, elev BGs (206, 281), POC glu (157-254), low K (3.3), elev BNP (8049). CURRENT TF:Glucerna 1.2 @ 55ml/hr x 24 hrs -> HELD FOR RESIDUALS ENTERAL NUTRITION RECOMMENDATIONS: Glucerna 1.5 @ 45ml/hr x24 hrs to provide 1080ml, 1620 kcal, 89g pro, 820ml [id number] - Rec TF change to Glucerna 1.5 - possible TF tolerance, less free water given CHF, elev BNP - Initiate Glucerna 1.5 @ 25ml/hr x 4 hrs, advance 10ml q 4-6 hrs as tolerated to goal rate - Water flush per MD/ HOB over 30 degrees ADDITIONAL RECOMMENDATIONS: 1) Per SNF: pt is 141 lbs + 5' 6.5" tall Weekly wt monitoring 2) Consider around the clock Reglan for improved TF tolerance 3) Consider long acting insulin for improved BG control -> BGs mostly in the 200's despite TF being held 4) Monitor lytes, replete as needed (low K) (4) Moderate malnutrition (5) Acute respiratory failure Assessment & Plan: Cardiovascular event currently resuscitated and in ICU on vent management. Patient's prognosis very guarded. She is fairly comatose and nonresponsive. Overall prognosis given age history and medical condition is very poor. Discussed with the brother who expressed understanding and stated that the sister is power of finance attorney and has not made considerations for changing care plan currently. Recommend reconsideration of CODE STATUS and comfort care measures Ramiro Mack Sep 10, 2019 16:08
--- NOTE | 2019-09-10 18:53 | Cardiac Electrophysiology PN ---
Assessment/Plan Assessment/Plan 1. [id number] myocardial infarction. Peak Troponin is 2.441, down to 1.5. ? Due to severe dehydration as well. No chest pain hx, Lethargic and was on hospice care. 2. Septic shock, MAxed out on Levophed and SERGIO . Already on abx Will Bolus 500cc NS and add Dopamine 3. 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 Off Lisinopril and Coreg for shock 4. Long runs of 14 and 17 beats of VT due to CMP. Medical therapy as was on Hospice Now full code. Not a candidate for cardiac cath 5. Severe hypernatremia. Improving with hydration 6. History of schizophrenia. 7. Dysphagia. S/P PEG by Dr Tompkins 8. Respiratory failure on Vent 9. Full Code. Was Hospice before. Ethics meeting pending DW RN Subjective Subjective Had 17 beats of VT 09/02/19 and 14 beats on 08/30/19. In ICU unresponsive maxed out on Levo and Sergio , intubated on the Vent. BP 70s Full Code per RN even though was on Hospice before Ethics eval still pending Objective Last 24 Hour Vital Signs Date Time Temp Pulse Resp B/P (MAP) Pulse Ox O2 Delivery O2 Flow Rate FiO2 09/10/19 18:36 106 82/50 09/10/19 18:36 82/50 09/10/19 18:00 85/50 09/10/19 17:45 105 10 80/51 (61) 97 09/10/19 17:30 105 10 88/53 (65) 98 09/10/19 17:26 105 10 88/48 (61) 99 09/10/19 17:15 105 10 85/50 (62) 98 09/10/19 17:00 105 10 92/50 (64) 98 09/10/19 16:45 104 10 87/53 (64) 99 09/10/19 16:30 105 10 88/51 (63) 99 09/10/19 16:15 105 10 93/52 (66) 98 09/10/19 16:00 40 09/10/19 16:00 Mechanical Ventilator 09/10/19 16:00 81/50 09/10/19 16:00 105 10 81/50 (60) 98 09/10/19 15:49 106 10 40 09/10/19 15:45 105 10 82/47 (59) 100 11/13/19 15:36 106 10 85/53 (64) 98 09/10/19 15:30 106 10 66/42 (50) 98 09/10/19 15:27 106 09/10/19 15:20 71/48 09/10/19 15:15 106 10 71/48 (56) 98 09/10/19 15:07 106 10 71/54 (60) 98 09/10/19 15:00 106 10 67/45 (52) 99 09/10/19 15:00 64/48 09/10/19 14:48 64/48 09/10/19 14:31 106 10 40 09/10/19 14:30 106 10 73/48 (56) 98 09/10/19 14:15 108 10 72/52 (59) 97 09/10/19 14:00 66/49 09/10/19 14:00 110 10 66/49 (55) 97 09/10/19 13:45 105 10 83/53 (63) 100 09/10/19 13:30 105 10 86/54 (65) 100 09/10/19 13:00 100/59 09/10/19 13:00 96 10 100/59 (73) 100 09/10/19 12:54 104 10 40 09/10/19 12:30 97 10 90/47 (61) 100 09/10/19 12:00 88/54 09/10/19 12:00 40 09/10/19 12:00 98.6 97 10 88/54 (65) 100 09/10/19 12:00 Mechanical Ventilator 09/10/19 11:38 97 09/10/19 11:30 97 10 92/58 (69) 100 97 09/10/19 11:17 94/54 09/10/19 11:00 83/53 09/10/19 11:00 98 10 83/53 (63) 96 98 09/10/19 10:55 88 10 40 09/10/19 10:39 100 62/42 09/10/19 10:30 99 11 90/54 (66) 100 99 09/10/19 10:00 86/52 09/10/19 10:00 98 10 95/52 (66) 100 98 09/10/19 09:30 99 10 90/50 (63) 99 99 09/10/19 09:00 88/52 09/10/19 09:00 99 12 86/52 (63) 98 99 09/10/19 08:55 94/52 09/10/19 08:30 99 10 40 09/10/19 08:15 97 10 97/53 (68) 98 09/10/19 08:00 Mechanical Ventilator 09/10/19 08:00 40 09/10/19 08:00 98 09/10/19 08:00 97/53 09/10/19 08:00 99.5 98 10 82/47 (59) 99 09/10/19 07:45 97 10 83/50 (61) 98 09/10/19 07:30 97 10 85/52 (63) 98 09/10/19 07:24 98 10 40 09/10/19 07:15 97 10 85/50 (62) 98 09/10/19 07:00 95/51 09/10/19 07:00 96 10 87/50 (62) 99 09/10/19 06:45 97 10 90/53 (65) 99 09/10/19 06:41 97 10 88/52 (64) 99 09/10/19 06:30 97 10 77/53 (61) 99 09/10/19 06:15 97 10 89/51 (64) 99 09/10/19 06:00 87/51 09/10/19 06:00 97 10 88/51 (63) 99 09/10/19 05:34 97 10 88/51 (63) 99 09/10/19 05:30 97 10 83/48 (60) 99 09/10/19 05:22 98 10 40 09/10/19 05:21 99 10 91/55 (67) 99 09/10/19 05:15 99 10 79/58 (65) 98 09/10/19 05:00 101 10 83/48 (60) 96 09/10/19 05:00 79/58 09/10/19 04:45 97 11 107/54 (71) 100 09/10/19 04:30 98 10 98/48 (65) 100 09/10/19 04:15 99 10 91/48 (62) 100 09/10/19 04:00 97.8 100 10 87/49 (62) 99 09/10/19 04:00 40 09/10/19 04:00 91/48 09/10/19 04:00 Mechanical Ventilator 09/10/19 04:00 100 09/10/19 03:49 123/80 09/10/19 03:30 98 10 74/44 (54) 100 09/10/19 03:00 95 10 104/51 (68) 100 09/10/19 02:55 97 10 40 09/10/19 02:30 98 10 89/50 (63) 99 09/10/19 02:16 86 86/60 09/10/19 02:00 101 10 102/63 (76) 100 09/10/19 02:00 101 10 100 09/10/19 01:30 99 10 100/57 (71) 100 09/10/19 01:30 99 10 100/57 (71) 100 09/10/19 01:00 96 10 125/67 (86) 100 09/10/19 01:00 104/39 09/10/19 01:00 98.6 97 11 125/67 (86) 100 09/10/19 00:56 97 10 40 09/10/19 00:30 99 10 116/43 (67) 100 09/10/19 00:00 96 09/10/19 00:00 117/42 09/10/19 00:00 100 10 117/42 (67) 100 09/10/19 00:00 100 10 117/42 (67) 100 09/10/19 00:00 40 09/10/19 00:00 Mechanical Ventilator 09/10/19 00:00 100 10 117/42 (67) 100 09/09/19 23:30 101 11 111/35 (60) 100 09/09/19 23:00 96/49 09/09/19 23:00 102 10 96/49 (65) 99 09/09/19 22:51 103 10 40 09/09/19 22:45 76/46 09/09/19 22:30 103 10 76/46 (56) 100 09/09/19 22:00 103 10 102/37 (58) 100 09/09/19 22:00 102/37 09/09/19 21:30 101 10 112/53 (72) 100 09/09/19 21:15 101 10 40 09/09/19 21:00 100 10 113/48 (69) 100 09/09/19 21:00 104/52 09/09/19 20:30 98 10 85/43 (57) 100 09/09/19 20:00 40 09/09/19 20:00 Mechanical Ventilator 09/09/19 20:00 98.5 98 10 85/38 (54) 100 09/09/19 20:00 85/36 09/09/19 20:00 96 09/09/19 19:30 98 10 107/35 (59) 100 09/09/19 19:00 93/45 09/09/19 19:00 98 11 93/45 (61) 99 Intake and Output 09/09/19 09/10/19 19:00 07:00 Intake Total 2911.000 ml 2282.000 ml Output Total 1380 ml 720 ml Balance 1531.000 ml 1562.000 ml IV Total 2851.000 ml 1922.000 ml Tube Feeding 60 ml 360 ml Output Urine Total 1380 ml 720 ml Laboratory Tests Test 09/10/19 02:05 09/10/19 04:40 09/10/19 11:00 Vancomycin Level Trough 17.5 ug/mL (5.0-12.0) H White Blood Count 20.2 K/UL (4.8-10.8) H 21.9 K/UL (4.8-10.8) H Red Blood Count 3.46 M/UL (4.20-5.40) L 3.54 M/UL (4.20-5.40) L Hemoglobin 7.8 G/DL (12.0-16.0) L 8.1 G/DL (12.0-16.0) L Hematocrit 26.0 % (37.0-47.0) L 26.6 % (37.0-47.0) L Mean Corpuscular Volume 75 FL (80-99) L 75 FL (80-99) L Mean Corpuscular Hemoglobin 22.7 PG (27.0-31.0) L 23.0 PG (27.0-31.0) L Mean Corpuscular Hemoglobin Concent 30.2 G/DL (32.0-36.0) L 30.5 G/DL (32.0-36.0) L Red Cell Distribution Width 22.2 % (11.6-14.8) H 21.7 % (11.6-14.8) H Platelet Count 196 K/UL (150-450) 200 K/UL (150-450) Mean Platelet Volume 8.9 FL (6.5-10.1) 11.0 FL (6.5-10.1) H Neutrophils (%) (Auto) % (45.0-75.0) % (45.0-75.0) Lymphocytes (%) (Auto) % (20.0-45.0) % (20.0-45.0) Monocytes (%) (Auto) % (1.0-10.0) % (1.0-10.0) Eosinophils (%) (Auto) % (0.0-3.0) % (0.0-3.0) Basophils (%) (Auto) % (0.0-2.0) % (0.0-2.0) Differential Total Cells Counted 100 100 Neutrophils % (Manual) 74 % (45-75) 79 % (45-75) H Lymphocytes % (Manual) 19 % (20-45) L 14 % (20-45) L Monocytes % (Manual) 5 % (1-10) 5 % (1-10) Eosinophils % (Manual) 1 % (0-3) 1 % (0-3) Basophils % (Manual) 1 % (0-2) 1 % (0-2) Band Neutrophils 0 % (0-8) 0 % (0-8) Platelet Estimate Adequate Adequate Platelet Morphology Normal Normal Hypochromasia 3+ 2+ Anisocytosis 3+ Microcytosis 1+ Sodium Level 119 MMOL/L (136-145) *L 123 MMOL/L (136-145) L Potassium Level 3.0 MMOL/L (3.5-5.1) L 3.4 MMOL/L (3.5-5.1) L Chloride Level 85 MMOL/L (98-107) L 87 MMOL/L (98-107) L Carbon Dioxide Level 26 MMOL/L (21-32) 25 MMOL/L (21-32) Anion Gap 8 mmol/L (5-15) 11 mmol/L (5-15) Blood Urea Nitrogen 23 mg/dL (7-18) H 24 mg/dL (7-18) H Creatinine 1.7 MG/DL (0.55-1.30) H 1.7 MG/DL (0.55-1.30) H Estimat Glomerular Filtration Rate mL/min (>60) mL/min (>60) Glucose Level 436 MG/DL (74-106) H 398 MG/DL (74-106) H Calcium Level 7.1 MG/DL (8.5-10.1) L 7.1 MG/DL (8.5-10.1) L Phosphorus Level 3.1 MG/DL (2.5-4.9) 3.5 MG/DL (2.5-4.9) Magnesium Level 2.1 MG/DL (1.8-2.4) 2.0 MG/DL (1.8-2.4) Total Bilirubin 1.4 MG/DL (0.2-1.0) H 1.4 MG/DL (0.2-1.0) H Direct Bilirubin 1.1 MG/DL (0.0-0.3) H 1.1 MG/DL (0.0-0.3) H Aspartate Amino Transf (AST/SGOT) 33 U/L (15-37) 32 U/L (15-37) Alanine Aminotransferase (ALT/SGPT) 18 U/L (12-78) 20 U/L (12-78) Alkaline Phosphatase 136 U/L (46-116) H 155 U/L (46-116) H Ammonia < 10 umol/L (11-32) L < 10 umol/L (11-32) L Troponin I 0.056 ng/mL (0.000-0.056) 0.040 ng/mL (0.000-0.056) C-Reactive Protein, Quantitative 33.1 mg/dL (0.00-0.90) H 34.5 mg/dL (0.00-0.90) H Total Protein 5.7 G/DL (6.4-8.2) L 5.8 G/DL (6.4-8.2) L Albumin 1.2 G/DL (3.4-5.0) L 1.2 G/DL (3.4-5.0) L Globulin 4.5 g/dL 4.6 g/dL Albumin/Globulin Ratio 0.3 (1.0-2.7) L 0.3 (1.0-2.7) L Microbiology Date/Time Source Procedure Growth Status 09/08/19 13:17 Sputum Gram Stain - Final Complete 09/08/19 13:17 Sputum Culture - Final Anya Albicans Usual Respiratory Chrissy Complete Objective HEAD AND NECK: No JVD. Orally intubated LUNGS: Coarse rhonchi. CARDIOVASCULAR: Irregular S1 and S2 with no gallop or murmur. ABDOMEN: Soft.PEG in place EXTREMITIES: No pitting edema. Markie Oliveira MD Sep 10, 2019 18:53
[2019-09-10] MEDS: Dyna-Hex 2% Top Sol 2oz TOPIC SCH (20:00)
[2019-09-10] MEDS ORDERED: Miralax 17gm pkt GT SCH (21:00)
[2019-09-10] MEDS: DOPamine 400mg/250ml 250 ML IV SCH (21:03)
[2019-09-10] MEDS: Levemir Flexpen SUBQ SCH (21:14)
[2019-09-10] MEDS: Midodrine 10mg tab GT SCH (21:57)
[2019-09-11] VITALS (34 sets, daily range): BP systolic 42–75; BP diastolic 32–46
[2019-09-11] MEDS: NovoLOG Insulin Flexpen SUBQ SCH ×2 (00:13→06:19)
[2019-09-11] MEDS: DOPamine 400mg/250ml 250 ML IV SCH ×2 (01:02→06:18)
[2019-09-11] MEDS: PHENYLEPHRINE IV PRN ×2 (01:21→08:08)
[2019-09-11] MEDS: D5W IV PRN ×2 (01:21→08:08)
[2019-09-11 06:05] LABS: HEMATOCRIT 25.2 % (37.0-47.0); HEMOGLOBIN 7.5 G/DL (12.0-16.0); MEAN CORPUSCULAR VOLUME 77 FL (80-99); PLATELET COUNT 137 K/UL (150-450); RED BLOOD COUNT 3.26 M/UL (4.20-5.40); RED CELL DISTRIBUTION WIDTH 22.3 % (11.6-14.8)
[2019-09-11 06:08] LABS: WHITE BLOOD COUNT 27.6 K/UL (4.8-10.8)
[2019-09-11 06:09] LABS: AMMONIA 27 umol/L (11-32)
[2019-09-11] MEDS: Midodrine 10mg tab GT SCH (06:17)
[2019-09-11] MEDS: Piperacillin/Tazobactam 3.375 GM in NS 110 ML IVPB SCH (06:17)
[2019-09-11 06:19] LABS: ALANINE AMINOTRANSFERASE 69 U/L (12-78); ALBUMIN 0.9 G/DL (3.4-5.0); ALBUMIN/GLOBULIN RATIO 0.2 (1.0-2.7); ALKALINE PHOSPHATASE 191 U/L (46-116); ANION GAP 16 mmol/L (5-15); ASPARTATE AMINO TRANSFERASE 176 U/L (15-37); BILIRUBIN,TOTAL 1.3 MG/DL (0.2-1.0); BLOOD UREA NITROGEN 23 mg/dL (7-18); CALCIUM 6.5 MG/DL (8.5-10.1); CARBON DIOXIDE 17 MMOL/L (21-32); CHLORIDE 84 MMOL/L (98-107); CREATININE 2.2 MG/DL (0.55-1.30); GAMMA GLUTAMYL TRANSPEPTIDASE 96 U/L (5-85); PHOSPHORUS 3.8 MG/DL (2.5-4.9); POTASSIUM 3.2 MMOL/L (3.5-5.1)
[2019-09-11 06:32] LABS: SODIUM 117 MMOL/L (136-145)
[2019-09-11 06:33] LABS: BILIRUBIN,DIRECT 0.9 MG/DL (0.0-0.3)
--- NOTE | 2019-09-11 09:21 | Emergency Room Report ---
Physical Exam Called for Code Blue. Patient with asystole. On pressors. Flat line EEG. Unresponsive. Last 24 Hour Vital Signs Date Time Temp Pulse Resp B/P (MAP) Pulse Ox O2 Delivery O2 Flow Rate FiO2 09/11/19 08:26 61/35 09/11/19 08:08 88 63/51 09/11/19 07:21 94 10 40 09/11/19 07:15 94 10 63/37 (46) 92 09/11/19 07:00 93 10 64/37 (46) 92 09/11/19 06:45 93 10 65/37 (46) 92 09/11/19 06:30 97.0 94 10 66/39 (48) 92 09/11/19 06:18 69/37 09/11/19 06:15 94 10 69/37 (48) 95 09/11/19 06:00 94 10 68/36 (47) 95 09/11/19 06:00 62/30 09/11/19 06:00 62/36 09/11/19 05:45 94 10 69/40 (50) 96 09/11/19 05:30 96.5 94 10 70/46 (54) 97 09/11/19 05:20 94 10 40 09/11/19 05:15 69 10 70/37 (48) 09/11/19 05:00 62/32 09/11/19 05:00 72/39 09/11/19 05:00 93 10 62/32 (42) 100 09/11/19 04:45 93 10 72/39 (50) 09/11/19 04:30 93 10 67/35 (46) 09/11/19 04:15 92 19 62/36 (45) 09/11/19 04:00 40 09/11/19 04:00 Mechanical Ventilator 09/11/19 04:00 90 09/11/19 04:00 72/48 09/11/19 04:00 72/48 09/11/19 04:00 95 10 57/41 (46) 09/11/19 03:45 94 10 63/36 (45) 09/11/19 03:39 93 10 57/38 (44) 09/11/19 03:37 49/32 09/11/19 03:30 92 10 49/32 (38) 09/11/19 03:15 97 10 75/38 (50) 09/11/19 03:12 97 10 40 09/11/19 03:00 97 10 61/38 (46) 09/11/19 03:00 61/38 09/11/19 03:00 61/38 09/11/19 02:45 98 10 72/39 (50) 09/11/19 02:30 98 10 74/40 (51) 09/11/19 02:15 98 10 68/39 (49) 09/11/19 02:00 99 10 67/39 (48) 09/11/19 02:00 73/39 09/11/19 02:00 73/39 09/11/19 01:45 100 10 73/39 (50) 09/11/19 01:30 99 10 65/37 (46) 09/11/19 01:29 99 10 40 09/11/19 01:21 99 67/41 09/11/19 01:15 99 10 67/41 (50) 09/11/19 01:02 70/39 09/11/19 01:00 69/40 09/11/19 01:00 69/40 09/11/19 01:00 99 10 70/39 (49) 09/11/19 00:45 99 10 64/39 (47) 09/11/19 00:30 99 10 66/38 (47) 09/11/19 00:15 99 10 68/37 (47) 09/11/19 00:00 92 09/11/19 00:00 64/37 09/11/19 00:00 64/46 09/11/19 00:00 Mechanical Ventilator 09/11/19 00:00 99 10 64/37 (46) 09/10/19 23:45 100 65/30 (42) 09/10/19 23:30 100 10 77/39 (52) 09/10/19 23:23 100 10 40 09/10/19 23:15 100 10 68/37 (47) 09/10/19 23:15 100 10 68/37 (47) 09/10/19 23:15 100 10 09/10/19 23:00 99 10 62/39 (47) 09/10/19 23:00 99 10 62/39 (47) 09/10/19 23:00 69/36 09/10/19 23:00 69/39 09/10/19 23:00 99 10 62/39 (47) 09/10/19 22:59 69/35 09/10/19 22:46 100 10 69/35 (46) 09/10/19 22:46 100 10 69/35 (46) 09/10/19 22:45 100 10 69/39 (49) 09/10/19 22:45 100 10 69/39 (49) 09/10/19 22:45 100 10 69/39 (49) 09/10/19 22:42 100 10 69/36 (47) 09/10/19 22:42 100 10 69/36 (47) 09/10/19 22:42 100 10 69/36 (47) 09/10/19 22:30 101 10 69/38 (48) 09/10/19 22:30 101 10 69/38 (48) 09/10/19 22:30 101 10 69/38 (48) 100 09/10/19 22:30 101 10 69/38 (48) 09/10/19 22:18 102 10 67/38 (48) 09/10/19 22:18 102 10 67/38 (48) 98 09/10/19 22:18 102 10 67/38 (48) 09/10/19 22:18 102 10 67/38 (48) 09/10/19 22:15 102 10 68/37 (47) 09/10/19 22:15 102 10 68/37 (47) 09/10/19 22:15 102 10 68/37 (47) 09/10/19 22:15 102 10 68/37 (47) 09/10/19 22:00 102 10 73/39 (50) 09/10/19 22:00 102 10 73/39 (50) 09/10/19 22:00 73/39 09/10/19 22:00 73/42 09/10/19 22:00 102 10 73/39 (50) 09/10/19 22:00 102 10 73/39 (50) 09/10/19 21:45 103 10 74/40 (51) 09/10/19 21:45 103 10 74/40 (51) 09/10/19 21:45 103 10 74/40 (51) 09/10/19 21:30 103 10 76/38 (51) 09/10/19 21:30 103 10 76/38 (51) 09/10/19 21:30 103 10 76/38 (51) 09/10/19 21:15 108 11 74/40 (51) 09/10/19 21:15 108 11 74/40 (51) 09/10/19 21:07 104 10 40 09/10/19 21:03 72/38 09/10/19 21:00 104 10 72/38 (49) 09/10/19 21:00 73/30 09/10/19 21:00 72/38 09/10/19 21:00 104 10 72/38 (49) 09/10/19 20:56 101 10 72/45 (54) 95 09/10/19 20:56 101 10 72/45 (54) 95 09/10/19 20:45 103 10 75/43 (54) 09/10/19 20:45 103 10 75/43 (54) 09/10/19 20:42 103 20 75/36 (49) 99 09/10/19 20:42 103 20 75/36 (49) 09/10/19 20:30 104 15 09/10/19 20:30 104 15 82/47 (59) 97 09/10/19 20:18 104 10 82/47 (59) 97 09/10/19 20:18 104 10 82/47 (59) 97 09/10/19 20:15 104 10 74/51 (59) 97 09/10/19 20:15 104 10 74/51 (59) 97 09/10/19 20:00 98.0 104 10 71/45 (54) 97 09/10/19 20:00 40 09/10/19 20:00 Mechanical Ventilator 09/10/19 20:00 71/45 09/10/19 20:00 102 09/10/19 20:00 104 10 71/45 (54) 97 09/10/19 19:45 104 10 77/43 (54) 97 09/10/19 19:30 104 10 82/45 (57) 97 09/10/19 19:15 104 10 87/48 (61) 97 09/10/19 19:15 106 10 40 09/10/19 19:00 105 10 82/50 (61) 97 09/10/19 19:00 82/50 11/13/19 18:45 105 10 75/47 (56) 96 09/10/19 18:36 106 82/50 09/10/19 18:36 82/50 09/10/19 18:30 106 10 82/50 (61) 95 09/10/19 18:15 106 18 63/48 (53) 96 09/10/19 18:00 106 10 78/48 (58) 98 09/10/19 18:00 85/50 09/10/19 17:45 105 10 80/51 (61) 97 09/10/19 17:30 105 10 88/53 (65) 98 09/10/19 17:26 105 10 88/48 (61) 99 09/10/19 17:15 105 10 85/50 (62) 98 09/10/19 17:00 105 10 92/50 (64) 98 09/10/19 16:45 104 10 87/53 (64) 99 09/10/19 16:30 105 10 88/51 (63) 99 09/10/19 16:15 105 10 93/52 (66) 98 09/10/19 16:00 40 09/10/19 16:00 Mechanical Ventilator 09/10/19 16:00 81/50 09/10/19 16:00 98.7 105 10 81/50 (60) 98 09/10/19 15:49 106 10 40 09/10/19 15:45 105 10 82/47 (59) 100 09/10/19 15:36 106 10 85/53 (64) 98 09/10/19 15:30 106 10 66/42 (50) 98 09/10/19 15:27 106 09/10/19 15:20 71/48 09/10/19 15:15 106 10 71/48 (56) 98 09/10/19 15:07 106 10 71/54 (60) 98 09/10/19 15:00 106 10 67/45 (52) 99 09/10/19 15:00 64/48 09/10/19 14:48 64/48 09/10/19 14:31 106 10 40 09/10/19 14:30 106 10 73/48 (56) 98 09/10/19 14:15 108 10 72/52 (59) 97 09/10/19 14:00 66/49 11/13/19 14:00 110 10 66/49 (55) 97 09/10/19 13:45 105 10 83/53 (63) 100 09/10/19 13:30 105 10 86/54 (65) 100 09/10/19 13:00 100/59 09/10/19 13:00 96 10 100/59 (73) 100 09/10/19 12:54 104 10 40 09/10/19 12:30 97 10 90/47 (61) 100 09/10/19 12:00 88/54 09/10/19 12:00 40 09/10/19 12:00 98.6 97 10 88/54 (65) 100 09/10/19 12:00 Mechanical Ventilator 09/10/19 11:38 97 09/10/19 11:30 97 10 92/58 (69) 100 97 09/10/19 11:17 94/54 09/10/19 11:00 83/53 09/10/19 11:00 98 10 83/53 (63) 96 98 09/10/19 10:55 88 10 40 09/10/19 10:39 100 62/42 09/10/19 10:30 99 11 90/54 (66) 100 99 09/10/19 10:00 86/52 09/10/19 10:00 98 10 95/52 (66) 100 98 09/10/19 09:30 99 10 90/50 (63) 99 99 CPR/Code Blue CPR/Code Blue Narrative Code start 8:52 CPR with pulses under my supervision. Possible fine V fib. Shock 150 joules. Asystole. Patient pronounced at 8:55. Medical Decision Making Diagnostic Impression: Primary Impression: Cardiopulmonary arrest Status: worsened Disposition: Condition: Referrals: Marc Cooney MD (PCP) Karan Agudelo MD Sep 11, 2019 09:21
--- NOTE | 2019-09-11 10:00 | Pulmonology Progress Note ---
Assessment/Plan Assessment/Plan IMPRESSION: 1. COPD. 2. Hypertension. 3. Severe hypernatremia. Improved 4. Dehydration. Resolved 5. Bilateral pneumonia. 6. Severe protein-calorie malnutrition. 7. Cardiac arrhythmias 8. respiratory failure; DISCUSSION: Grave prognosis Code blue called Jaiden Logan M.D. Subjective Interval Events: Doing very poorly; code blue called Constitutional: Reports: no symptoms HEENT: Repors: no symptoms Respiratory: Reports: no symptoms Cardiovascular: Reports: no symptoms Allergies: Coded Allergies: No Known Allergies (Unverified , 08/27/19) Objective Last 24 Hour Vital Signs Date Time Temp Pulse Resp B/P (MAP) Pulse Ox O2 Delivery O2 Flow Rate FiO2 09/11/19 08:26 61/35 09/11/19 08:08 88 63/51 09/11/19 07:21 94 10 40 09/11/19 07:15 94 10 63/37 (46) 92 09/11/19 07:00 93 10 64/37 (46) 92 09/11/19 06:45 93 10 65/37 (46) 92 09/11/19 06:30 97.0 94 10 66/39 (48) 92 09/11/19 06:18 69/37 09/11/19 06:15 94 10 69/37 (48) 95 09/11/19 06:00 94 10 68/36 (47) 95 09/11/19 06:00 62/30 09/11/19 06:00 62/36 09/11/19 05:45 94 10 69/40 (50) 96 09/11/19 05:30 96.5 94 10 70/46 (54) 97 09/11/19 05:20 94 10 40 09/11/19 05:15 69 10 70/37 (48) 09/11/19 05:00 62/32 09/11/19 05:00 72/39 09/11/19 05:00 93 10 62/32 (42) 100 09/11/19 04:45 93 10 72/39 (50) 09/11/19 04:30 93 10 67/35 (46) 09/11/19 04:15 92 19 62/36 (45) 09/11/19 04:00 40 09/11/19 04:00 Mechanical Ventilator 09/11/19 04:00 90 09/11/19 04:00 72/48 09/11/19 04:00 72/48 09/11/19 04:00 95 10 57/41 (46) 09/11/19 03:45 94 10 63/36 (45) 09/11/19 03:39 93 10 57/38 (44) 09/11/19 03:37 49/32 09/11/19 03:30 92 10 49/32 (38) 09/11/19 03:15 97 10 75/38 (50) 09/11/19 03:12 97 10 40 09/11/19 03:00 97 10 61/38 (46) 09/11/19 03:00 61/38 09/11/19 03:00 61/38 09/11/19 02:45 98 10 72/39 (50) 09/11/19 02:30 98 10 74/40 (51) 09/11/19 02:15 98 10 68/39 (49) 09/11/19 02:00 99 10 67/39 (48) 09/11/19 02:00 73/39 09/11/19 02:00 73/39 09/11/19 01:45 100 10 73/39 (50) 09/11/19 01:30 99 10 65/37 (46) 09/11/19 01:29 99 10 40 09/11/19 01:21 99 67/41 09/11/19 01:15 99 10 67/41 (50) 09/11/19 01:02 70/39 09/11/19 01:00 69/40 09/11/19 01:00 69/40 09/11/19 01:00 99 10 70/39 (49) 09/11/19 00:45 99 10 64/39 (47) 09/11/19 00:30 99 10 66/38 (47) 09/11/19 00:15 99 10 68/37 (47) 09/11/19 00:00 92 09/11/19 00:00 64/37 09/11/19 00:00 64/46 09/11/19 00:00 Mechanical Ventilator 09/11/19 00:00 99 10 64/37 (46) 09/10/19 23:45 100 65/30 (42) 09/10/19 23:30 100 10 77/39 (52) 09/10/19 23:23 100 10 40 09/10/19 23:15 100 10 68/37 (47) 09/10/19 23:15 100 10 68/37 (47) 09/10/19 23:15 100 10 09/10/19 23:00 99 10 62/39 (47) 09/10/19 23:00 99 10 62/39 (47) 09/10/19 23:00 69/36 09/10/19 23:00 69/39 09/10/19 23:00 99 10 62/39 (47) 09/10/19 22:59 69/35 09/10/19 22:46 100 10 69/35 (46) 09/10/19 22:46 100 10 69/35 (46) 09/10/19 22:45 100 10 69/39 (49) 09/10/19 22:45 100 10 69/39 (49) 09/10/19 22:45 100 10 69/39 (49) 09/10/19 22:42 100 10 69/36 (47) 09/10/19 22:42 100 10 69/36 (47) 09/10/19 22:42 100 10 69/36 (47) 09/10/19 22:30 101 10 69/38 (48) 09/10/19 22:30 101 10 69/38 (48) 09/10/19 22:30 101 10 69/38 (48) 100 09/10/19 22:30 101 10 69/38 (48) 09/10/19 22:18 102 10 67/38 (48) 09/10/19 22:18 102 10 67/38 (48) 98 09/10/19 22:18 102 10 67/38 (48) 09/10/19 22:18 102 10 67/38 (48) 09/10/19 22:15 102 10 68/37 (47) 09/10/19 22:15 102 10 68/37 (47) 09/10/19 22:15 102 10 68/37 (47) 09/10/19 22:15 102 10 68/37 (47) 09/10/19 22:00 102 10 73/39 (50) 09/10/19 22:00 102 10 73/39 (50) 09/10/19 22:00 73/39 09/10/19 22:00 73/42 09/10/19 22:00 102 10 73/39 (50) 09/10/19 22:00 102 10 73/39 (50) 09/10/19 21:45 103 10 74/40 (51) 09/10/19 21:45 103 10 74/40 (51) 09/10/19 21:45 103 10 74/40 (51) 09/10/19 21:30 103 10 76/38 (51) 09/10/19 21:30 103 10 76/38 (51) 09/10/19 21:30 103 10 76/38 (51) 09/10/19 21:15 108 11 74/40 (51) 09/10/19 21:15 108 11 74/40 (51) 09/10/19 21:07 104 10 40 09/10/19 21:03 72/38 09/10/19 21:00 104 10 72/38 (49) 09/10/19 21:00 73/30 09/10/19 21:00 72/38 09/10/19 21:00 104 10 72/38 (49) 09/10/19 20:56 101 10 72/45 (54) 95 09/10/19 20:56 101 10 72/45 (54) 95 09/10/19 20:45 103 10 75/43 (54) 09/10/19 20:45 103 10 75/43 (54) 09/10/19 20:42 103 20 75/36 (49) 99 09/10/19 20:42 103 20 75/36 (49) 09/10/19 20:30 104 15 09/10/19 20:30 104 15 82/47 (59) 97 09/10/19 20:18 104 10 82/47 (59) 97 09/10/19 20:18 104 10 82/47 (59) 97 09/10/19 20:15 104 10 74/51 (59) 97 09/10/19 20:15 104 10 74/51 (59) 97 09/10/19 20:00 98.0 104 10 71/45 (54) 97 09/10/19 20:00 40 09/10/19 20:00 Mechanical Ventilator 09/10/19 20:00 71/45 09/10/19 20:00 102 09/10/19 20:00 104 10 71/45 (54) 97 09/10/19 19:45 104 10 77/43 (54) 97 09/10/19 19:30 104 10 82/45 (57) 97 09/10/19 19:15 104 10 87/48 (61) 97 09/10/19 19:15 106 10 40 09/10/19 19:00 105 10 82/50 (61) 97 09/10/19 19:00 82/50 09/10/19 18:45 105 10 75/47 (56) 96 09/10/19 18:36 106 82/50 09/10/19 18:36 82/50 09/10/19 18:30 106 10 82/50 (61) 95 09/10/19 18:15 106 18 63/48 (53) 96 09/10/19 18:00 106 10 78/48 (58) 98 09/10/19 18:00 85/50 09/10/19 17:45 105 10 80/51 (61) 97 09/10/19 17:30 105 10 88/53 (65) 98 09/10/19 17:26 105 10 88/48 (61) 99 09/10/19 17:15 105 10 85/50 (62) 98 09/10/19 17:00 105 10 92/50 (64) 98 09/10/19 16:45 104 10 87/53 (64) 99 09/10/19 16:30 105 10 88/51 (63) 99 09/10/19 16:15 105 10 93/52 (66) 98 09/10/19 16:00 40 09/10/19 16:00 Mechanical Ventilator 09/10/19 16:00 81/50 09/10/19 16:00 98.7 105 10 81/50 (60) 98 09/10/19 15:49 106 10 40 09/10/19 15:45 105 10 82/47 (59) 100 09/10/19 15:36 106 10 85/53 (64) 98 09/10/19 15:30 106 10 66/42 (50) 98 09/10/19 15:27 106 09/10/19 15:20 71/48 09/10/19 15:15 106 10 71/48 (56) 98 09/10/19 15:07 106 10 71/54 (60) 98 09/10/19 15:00 106 10 67/45 (52) 99 09/10/19 15:00 64/48 09/10/19 14:48 64/48 09/10/19 14:31 106 10 40 09/10/19 14:30 106 10 73/48 (56) 98 09/10/19 14:15 108 10 72/52 (59) 97 09/10/19 14:00 66/49 09/10/19 14:00 110 10 66/49 (55) 97 09/10/19 13:45 105 10 83/53 (63) 100 09/10/19 13:30 105 10 86/54 (65) 100 09/10/19 13:00 100/59 09/10/19 13:00 96 10 100/59 (73) 100 09/10/19 12:54 104 10 40 09/10/19 12:30 97 10 90/47 (61) 100 09/10/19 12:00 88/54 09/10/19 12:00 40 09/10/19 12:00 98.6 97 10 88/54 (65) 100 09/10/19 12:00 Mechanical Ventilator 09/10/19 11:38 97 09/10/19 11:30 97 10 92/58 (69) 100 97 09/10/19 11:17 94/54 09/10/19 11:00 83/53 09/10/19 11:00 98 10 83/53 (63) 96 98 09/10/19 10:55 88 10 40 09/10/19 10:39 100 62/42 09/10/19 10:30 99 11 90/54 (66) 100 99 09/10/19 10:00 86/52 09/10/19 10:00 98 10 95/52 (66) 100 98 Intake and Output 09/10/19 09/11/19 19:00 07:00 Intake Total 2350.625 ml 2968.262 ml Output Total 175 ml 90 ml Balance 2175.625 ml 2878.262 ml IV Total 1900.625 ml 2968.262 ml Tube Feeding 400 ml 0 ml Other 50 ml Output Urine Total 175 ml 90 ml # Bowel Movements 3 General Appearance: no acute distress HEENT: normocephalic Respiratory/Chest: chest wall non-tender, decreased breath sounds Microbiology Date/Time Source Procedure Growth Status 09/08/19 13:17 Sputum Gram Stain - Final Complete 09/08/19 13:17 Sputum Culture - Final Anya Albicans Usual Respiratory Chrissy Complete Laboratory Tests 09/10/19 11:00: White Blood Count 21.9H, Red Blood Count 3.54L, Hemoglobin 8.1L, Hematocrit 26.6L, Mean Corpuscular Volume 75L, Mean Corpuscular Hemoglobin 23.0L, Mean Corpuscular Hemoglobin Concent 30.5L, Red Cell Distribution Width 21.7H, Platelet Count 200, Mean Platelet Volume 11.0H, Neutrophils (%) (Auto) , Lymphocytes (%) (Auto) , Monocytes (%) (Auto) , Eosinophils (%) (Auto) , Basophils (%) (Auto) , Differential Total Cells Counted 100, Neutrophils % ( Manual) 79H, Lymphocytes % (Manual) 14L, Monocytes % (Manual) 5, Eosinophils % ( Manual) 1, Basophils % (Manual) 1, Band Neutrophils 0, Platelet Estimate Adequate, Platelet Morphology Normal, Hypochromasia 2+, Sodium Level 123L, Potassium Level 3.4L, Chloride Level 87L, Carbon Dioxide Level 25, Anion Gap 11 , Blood Urea Nitrogen 24H, Creatinine 1.7H, Estimat Glomerular Filtration Rate , Glucose Level 398H, Calcium Level 7.1L, Phosphorus Level 3.5, Magnesium Level 2.0, Total Bilirubin 1.4H, Direct Bilirubin 1.1H, Aspartate Amino Transf (AST/ SGOT) 32, Alanine Aminotransferase (ALT/SGPT) 20, Alkaline Phosphatase 155H, Ammonia < 10L, Troponin I 0.040, C-Reactive Protein, Quantitative 34.5H, Total Protein 5.8L, Albumin 1.2L, Globulin 4.6, Albumin/Globulin Ratio 0.3L 09/11/19 04:55: White Blood Count 27.6*H, Red Blood Count 3.26L, Hemoglobin 7.5L, Hematocrit 25.2L, Mean Corpuscular Volume 77L, Mean Corpuscular Hemoglobin 23.1L, Mean Corpuscular Hemoglobin Concent 29.9L, Red Cell Distribution Width 22.3H, Platelet Count 137L, Mean Platelet Volume 11.2H, Neutrophils (%) (Auto) , Lymphocytes (%) (Auto) , Monocytes (%) (Auto) , Eosinophils (%) (Auto) , Basophils (%) (Auto) , Differential Total Cells Counted 100, Neutrophils % ( Manual) 73, Lymphocytes % (Manual) 19L, Monocytes % (Manual) 8, Eosinophils % ( Manual) 0, Basophils % (Manual) 0, Band Neutrophils 0, Platelet Estimate DecreasedL, Platelet Morphology Normal, Sodium Level 117*L, Potassium Level 3.2L , Chloride Level 84L, Carbon Dioxide Level 17L, Anion Gap 16H, Blood Urea Nitrogen 23H, Creatinine 2.2H, Estimat Glomerular Filtration Rate , Glucose Level 426H, Calcium Level 6.5L, Phosphorus Level 3.8, Magnesium Level 1.8, Total Bilirubin 1.3H, Direct Bilirubin 0.9H, Aspartate Amino Transf (AST/SGOT) 176H, Alanine Aminotransferase (ALT/SGPT) 69, Alkaline Phosphatase 191H, Ammonia 27, C-Reactive Protein, Quantitative 28.5H, Total Protein 5.1L, Albumin 0.9L, Globulin 4.2, Albumin/Globulin Ratio 0.2L, Anisocytosis 2+, Osmolality 265L, Uric Acid 5.9, Gamma Glutamyl Transpeptidase 96H, Pro-B-Type Natriuretic Peptide > [id number] Current Medications Medications (Trade) Dose Ordered Sig/Colt Route PRN Reason Start Time Stop Time Status Last Admin Dose Admin Aspirin (ASA) 81 mg DAILY NG 09/07/19 09:00 09/28/19 08:59 09/10/19 08:07 Chlorhexidine Gluconate (Marleny-Hex 2%) 1 applic DAILY@1999 TOPIC 09/07/19 20:00 10/07/19 19:59 09/10/19 20:00 Dextrose (Dextrose 50%) 25 ml Q30M PRN IV Hypoglycemia 09/07/19 02:00 09/27/19 07:59 Dextrose (Dextrose 50%) 50 ml Q30M PRN IV Hypoglycemia 09/07/19 02:00 09/27/19 07:59 Docusate Sodium (Colace) 100 mg THREE TIMES A DAY GT 09/07/19 09:00 10/02/19 12:59 09/10/19 17:59 Dopamine HCl/ Dextrose 250 ml @ 0 mls/hr Q24H IV 09/10/19 19:00 10/10/19 18:59 09/11/19 06:18 Famotidine (Pepcid) 20 mg BID GT 09/10/19 18:00 10/10/19 17:59 09/10/19 17:59 Insulin Aspart (NovoLOG) Q6HR SUBQ 09/10/19 00:00 10/10/19 00:00 09/11/19 06:19 Insulin Detemir (Levemir) 10 units BEDTIME SUBQ 09/09/19 21:00 10/09/19 20:59 09/10/19 21:14 Metoclopramide HCl (Reglan) 10 mg Q6H PRN IVP Nausea & Vomiting 09/07/19 02:15 10/03/19 02:14 Midodrine (Pro-Amatine) 10 mg Q8HR GT 09/10/19 22:00 10/09/19 12:59 09/11/19 06:17 Norepinephrine Bitartrate 16 mg/ Dextrose 500 ml @ 0 mls/hr Q24H IV 09/11/19 12:00 10/11/19 11:59 Norepinephrine Bitartrate 8 mg/ Dextrose 500 ml @ 0 mls/hr Q24H IV 09/07/19 17:00 09/11/19 12:00 09/11/19 08:26 Phenylephrine HCl 100 mg/Dextrose 500 ml @ 0 mls/hr Q24H PRN IV HYPOTENSION 09/09/19 17:00 10/09/19 16:59 09/11/19 08:08 Piperacillin Sod/ Tazobactam Sod 3.375 gm/Sodium Chloride 110 ml @ 27.5 mls/hr Q12HR@0600,1800 IVPB 09/11/19 18:00 09/18/19 17:59 Polyethylene Glycol (Miralax) 17 gm BEDTIME GT 09/10/19 21:00 10/02/19 20:59 Potassium Chloride (K-Dur) 40 meq TWICE A DAY GT 09/10/19 18:00 10/10/19 17:59 09/10/19 18:04 Sodium Chloride 1,000 ml @ 100 mls/hr Q10H IV 09/11/19 09:00 10/11/19 08:59 Jaiden Logan MD Sep 11, 2019 10:00
[2019-09-11] MEDS ORDERED: Norepinephrine Bitartrate 16 MG in D5W 500ml 484 ML IV SCH (12:00)
[2019-09-11] MEDS ORDERED: Piperacillin/Tazobactam 3.375 GM in NS 110 ML IVPB SCH (18:00)
--- NOTE | 2019-09-12 10:50 | Discharge Summary ---
Discharge Summary Discharge Summary _ SUMMARY DATE OF ADMISSION: 08/28/2019 DATE OF EXPIRATION: 09/11/2019 REASON FOR ADMISSION: 78 years old female with past medical history of COPD, congestive heart failure , encephalopathy, hypertension, recently was admitted to [facility] for acute COPD. At that time family decided for her to go to care home with a hospice care. Patient was transferred , but became confused , altered and hypotensive. Family decided to send patient back to the hospital and make her full code. Hospice was withdrawn. Upon evaluation patient requireD supplemental oxygen of 3L to keep appropriate pulse oximetry. Patient was slightly tachycardic but was afebrile. Laboratory work-up revealed leukocytosis WBC 13.1, hemoglobin 11.3, hematocrit 27.3. Platelet count 166. Sodium 163, potassium 3.3. Chloride 129. BUN 41, creatinine 1.1. Glucose 174. Lactic acid 1.2. Phosphorus 2.3. Magnesium 2.0. Total bilirubin 1.1 direct bilirubin 0.7. Stable LFT. Troponin elevated 2.441. pro BNP 9816. EKG revealed sinus tachycardia , no acute ischemic changes. Left axis deviation. Albumin 1.9. Urinalysis revealed pyuria, moderate bacteria, +2 leukocyte esterase. Chest x-ray demonstrated mild pulmonary vascular congestion. Bilateral pleural effusion. Hazy ground-glass opacity in both lungs. Emergency room physician discussed care with the power of civil litigation attorney Nazia Gonzalez , who expressed that the patient will be full code and feeding tube should be inserted. Patient started on fluid resuscitation , pancultured, broad-spectrum antibiotic. Lovenox was given for elevated troponin. Patient subsequently admitted to ICU for further management. CONSULTANTS: winderman Dr. Art ID specialist Dr. Paige GI specialist Dr. Tompkins drapery estimator Dr. Chance [facility] COU[facility]SE: Patient admitted to ICU. First troponin significantly elevated 2.44. Supervisor Color Paste Mixing followed. Patient was placed on aspirin, beta-alison, and rule out ND myocardial infarction protocol. NG tube was inserted for nutritional support and medications, since patient could not take anything orally. Abdominal x-ray confirmed proper placement of NG tube Echocardiogram revealed global left ventricular hypokinesis. Asynchronous septal wall motion. Left ventricular ejection fraction estimated to be 30 to 35%. Borderline left ventricular hypertrophy. Moderate left pleural effusion. Mild enlargement of right cardiac chambers. Moderate mitral regurgitation. Right ventricular systolic pressure of 50 consistent with moderate pulmonary hypertension. Troponin pattern showed decrease from initial 2.44 . Patient was treated medically with aspirin. Beta-alison was later stopped due to bradycardia. AKIKO inhibitor was added to medication regimen for guideline directed medical therapy for congestive heart failure , given ejection fraction of 30 to 25%. Patient started on empiric antibiotic as per ID specialist recommendation Blood culture initially revealed Staph epidermidis. Urine culture revealed Enterococcus. Sputum culture was negative. Patient completed treatment for enterococcal UTI. Initial blood culture was likely contaminated as per ID specialist. Patient was followed-up with chest x-ray which revealed bilateral pneumonia and bilateral pleural effusion Supplemental oxygen provided and titrated to keep pulse oximetry above 92%. Bronchodilator therapy provided. Chest x-ray showed bilateral pleural effusion. Patient undergone ultrasound of the chest, which revealed only trace of the left pleural effusion and no pleural effusion on the right. As per wishes of power of civil litigation attorney, patient undergone upper endoscopy with PEG placement on 09/02. During procedure patient was noted to have multiply gastric polyps. PEG was successfully placed. Abdominal binder applied. Strict aspiration/reflux reflux precaution maintained. G-tube site care provided. Tube feeding formula with goal rate started as per registered art therapist recommendation. Protein supplement implemented in plan of care. Renal parameters and electrolytes were closely monitored. Electrolytes corrected as needed. Sodium was trending down. Nephrotoxic's were avoided Patient from initial leukocytosis 13.1 and started to increase with the highest being 36.3 and then it remains significantly elevated until the day of expiration to 27.6. Again antibiotic regimen was provided as per ID specialist recommendation. On 09/07 patient sustained cardiac arrest . ACLS protocol initiated. Patient required emergency oral intubation. Central line was placed for pressors. Patient had spontaneous return of pulses. Patient started on pressors. Chest x-ray confirmed placement of central line and endotracheal tube. Patient was transferred to ICU for further management. Ventilator support and pulmonary toilet provided. Patient was on 3 different pressors to maintain hemodynamic status: maximum doses of Levophed and Sergio-Synephrine, then started on dopamine. EEG , as read by neurologist , revealed encephalopathy of severe degree Patient noted significant leukocytosis . Antibiotic regimen was further optimized as per ID specialist recommendations. Patient was followed up with abdominal x-ray, which revealed no evidence of obstruction. Last abdominal x-ray revealed possible ileus. Abdominal ultrasound revealed gallstones. No hydronephrosis.. Patient developed renal failure, hyponatremia. JANNIE BARBOZA was called on 09/11 for asystole. ACLS protocol initiated. All resuscitative attempts proved to be futile. Patient was pronounced at 8:55 AM on 09/11 . Cause of :cardiopulmonary arrest FINAL DIAGNOSES: Status post cardiopulmonary arrest x2 Acute respiratory failure requiring intubation Severe encephalopathy Septic shock Sepsis Bilateral pneumonia Enterococcal UTI status post treatment NSTEMI Cardiomyopathy with ejection fraction 30 to 35% Nonsustained ventricular tachycardia and frequent PVCs, likely due to cardiomyopathy Acute renal failure Pleural effusion COPD Diabetes mellitus Severe hypernatremia Dehydration Dysphagia Status post upper endoscopy with PEG placement Severe protein calorie malnutrition Schizophrenia I have been assigned to dictate discharge summary for this account. I was not involved in the patient's management. Sheryl Alan NP Sep 12, 2019 10:50
== END 2019-09-11 08:55 | disposition expired | DRG 720 ==
LOC: EDBD 23:43 → EMR 23:55 → 2W 08-28 00:30 → EDBEDREQ 08-28 01:18 → EDBEDREQSVC 08-28 01:58 → EDBEDREQTM 08-28 01:58 → EDBEDREQ 08-28 01:58 → 2E 08-30 04:41 → 2W 09-05 10:50 → ICU 09-07 01:29
PROC: 0DH63UZ Insertion of Feeding Device into Stomach, Percutaneous Approach (ICD-10-PCS; 2019-09-02 07:52)
PROC: 0DJ08ZZ Inspection of Upper Intestinal Tract, Via Natural or Artificial Opening Endoscopic (ICD-10-PCS; 2019-09-02 07:52)
PROC: 5A1955Z Respiratory Ventilation, Greater than 96 Consecutive Hours (ICD-10-PCS; principal; 2019-09-07)
PROC: 0BH17EZ Insertion of Endotracheal Airway into Trachea, Via Natural or Artificial Opening (ICD-10-PCS; principal; 2019-09-07)
PROC: 05HN33Z Insertion of Infusion Device into Left Internal Jugular Vein, Percutaneous Approach (ICD-10-PCS; principal; 2019-09-07)
DX: A41.9 Sepsis, unspecified organism (principal); R65.21 Severe sepsis with septic shock; J18.9 Pneumonia, unspecified organism; E87.0 Hyperosmolality and hypernatremia; E86.0 Dehydration; I21.4 Non-ST elevation (NSTEMI) myocardial infarction; N17.9 Acute kidney failure, unspecified; I11.0 Hypertensive heart disease with heart failure; I50.9 Heart failure, unspecified; J44.0 Chronic obstructive pulmonary disease with (acute) lower respiratory infection; G93.41 Metabolic encephalopathy; E11.9 Type 2 diabetes mellitus without complications; E78.5 Hyperlipidemia, unspecified; F20.9 Schizophrenia, unspecified; R62.7 Adult failure to thrive; Z68.31 Body mass index [BMI] 31.0-31.9, adult; N39.0 Urinary tract infection, site not specified; B95.2 Enterococcus as the cause of diseases classified elsewhere; F32.9 Major depressive disorder, single episode, unspecified; E43 Unspecified severe protein-calorie malnutrition; R13.10 Dysphagia, unspecified; D64.9 Anemia, unspecified; L89.159 Pressure ulcer of sacral region, unspecified stage; L89.322 Pressure ulcer of left buttock, stage 2; L89.312 Pressure ulcer of right buttock, stage 2; I47.1 Supraventricular tachycardia; R00.1 Bradycardia, unspecified; I42.9 Cardiomyopathy, unspecified; R40.20 Unspecified coma; J90 Pleural effusion, not elsewhere classified; J96.00 Acute respiratory failure, unspecified whether with hypoxia or hypercapnia; K31.7 Polyp of stomach and duodenum; E87.6 Hypokalemia
CPT/HCPCS: 36415; 36600; 71045; 74018; 76604; 76700; 80048; 80053; 80076; 80202; 81003; 82140; 82248; 82550; 82553; 82607; 82728; 82746; 82803; 82962; 82977; 83540; 83550; 83605; 83690; 83735; 83880; 83930; 84100; 84484; 84550; 85007; 85025; 85610; 85730; 86140; 87040; 87070; 87081; 87086; 87181; 87205; 92950; 93005; 93306; 94002; 94003; 94150; 94640; 94660; 94664; 95819; 96361; 96365; 96367; 96368; 96372; 99291; J0171; J1815; J2370; J2765; J7030; J7620; J8499; S5561